=== PATIENT | male | born 1945 | race Two or more races ===

== ENCOUNTER 2020-06-15 08:00 | Outpatient (RCR) | payer MEDICARE, SELFPAY | END 2021-04-19 09:29 | disposition home or self-care (01) | LOC: HO.PTCHIC 08:00 | PROVIDERS: PCP Internal Medicine; Visit Provider Internal Medicine | DX: M54.42 Lumbago with sciatica, left side (principal) | CPT/HCPCS: 97014; 97110; 97140; 99214 ==

== ENCOUNTER → 2020-08-03 09:00 | Outpatient (BNVA) | payer MEDICARE, SELFPAY | PROVIDERS: PCP Internal Medicine; Visit Provider Urology | DX: Z13.89 Encounter for screening for other disorder (principal) | CPT/HCPCS: Q3014 ==

== ENCOUNTER → 2020-08-17 10:05 | Outpatient (BNVA) | payer MEDICARE, SELFPAY | PROVIDERS: PCP Internal Medicine; Visit Provider Urology | DX: Z13.89 Encounter for screening for other disorder (principal) | CPT/HCPCS: Q3014 ==

== ENCOUNTER 2020-09-27 12:43 | Outpatient (REF) | payer MEDICARE, SELFPAY ==
--- NOTE | ~2020-09-27 | CT_ITS ---
EXAMINATION: CT HIP WITHOUT CONTRAST, LEFT CLINICAL INFORMATION: Left hip pain. COMPARISON: None TECHNIQUE: Axial imaging. Sagittal and coronal reconstructions. This CT examination was performed using dose optimization techniques as appropriate, variously including the following: *Automated exposure control *Adjustment of mA and/or kV according to patient size (this includes techniques or standardized protocols for targeted exams where dose is matched to indication/reason for exam; i.e. extremities or head) *Use of iterative reconstruction technique DLP: 342 mGy-cm FINDINGS: Mild left hip arthritis. There is mild joint space loss, acetabular rim osteophytes, subchondral cysts in the superior acetabulum. No fracture or dislocation. Mild symphysis pubis degeneration. Visualized left pelvic bones are intact. No diastasis of the left SI joint. No significant left hip joint effusion is seen. Urinary bladder appears unremarkable. Enlarged prostate measuring 5.1 cm transverse. Sigmoid diverticulosis. No lymphadenopathy is seen in the left pelvis or left groin. CT/CT hip LT wo con IMPRESSION: Mild left hip joint osteoarthritis. No evidence of fracture or dislocation. Enlarged prostate. Sigmoid diverticulosis.
--- NOTE | ~2020-09-27 | CT_ITS ---
EXAMINATION: CT LUMBAR SPINE WITHOUT CONTRAST CLINICAL INFORMATION: Left hip pain and lumbago/sciatica. COMPARISON: None available. TECHNIQUE: Multidetector CT acquisition of the lumbar spine is obtained without contrast. Multiplanar reformats are acquired and utilized for image interpretation. This CT examination was performed using dose optimization techniques as appropriate, variously including the following: *Automated exposure control *Adjustment of mA and/or kV according to patient size (this includes techniques or standardized protocols for targeted exams where dose is matched to indication/reason for exam; i.e. extremities or head) *Use of iterative reconstruction technique FINDINGS: There are 5 nonrib-bearing lumbar-type vertebral bodies. Straightening of the lumbar lordosis. Multilevel endplate osteophytes. Chronic endplate Schmorl's nodes throughout the thoracolumbar spine. No acute fractures and no acute subluxations. Hypertrophic ankylosis across the SI joints bilaterally. Partially imaged colonic diverticulosis. Aortoiliac atherosclerotic calcification. L1-L2: Diffuse annular disc bulge that is in part disc osteophyte likely mildly narrows the central canal. Disc osteophyte and facet arthropathy result in suspected mild to moderate bilateral foraminal stenosis. L2-L3: Diffuse annular disc bulge that is in part disc osteophyte and bilateral facet arthropathy and ligamentum flavum thickening. Suspect mild to moderate central canal stenosis and mild to moderate bilateral foraminal stenosis. L3-L4: There is a diffuse annular disc bulge and there is bilateral facet arthropathy and ligamentum flavum thickening. On is in concert result in suspected mild to moderate central canal stenosis and moderate bilateral foraminal stenosis. L4-L5: Diffuse annular disc bulge and bilateral facet arthropathy and ligamentum flavum thickening. Findings in concert result in suspected moderate to severe central canal stenosis, severe bilateral subarticular zone stenosis with mass effect on the traversing L5 nerve roots bilaterally, and severe bilateral foraminal stenosis with mass effect on the exiting L4 nerve roots bilaterally. L5-S1: There is a diffuse annular disc bulge and there is severe bilateral facet arthropathy and ligamentum flavum thickening. Suspected left paracentral disc protrusion compressing the traversing left S1 nerve root within the left subarticular zone and resulting in moderate to severe central canal stenosis. Disc osteophyte and facet arthropathy result in left greater than right foraminal stenosis. CT/CT lumbar spine wo con IMPRESSION: - At L5-S1, a left paracentral disc protrusion results in suspected compression of the traversing left S1 nerve root within the left subarticular zone and moderate to severe central canal stenosis. - At L4-L5, multifactorial degenerative changes result in suspected moderate to severe central canal stenosis, severe bilateral subarticular zone stenosis with mass effect on the traversing L5 nerve roots bilaterally, and severe bilateral foraminal stenosis with mass effect on the exiting L4 nerve roots bilaterally. - Additional degenerative changes as discussed above. - Diffuse colonic diverticulosis.
== END 2020-09-27 12:44 | disposition home or self-care (01) ==
LOC: HO.CT 12:43
PROVIDERS: PCP Internal Medicine; Visit Provider Internal Medicine
DX: M25.552 Pain in left hip (principal); M54.42 Lumbago with sciatica, left side
CPT/HCPCS: 72131; 73700

== ENCOUNTER 2020-10-08 19:49 | Emergency (ER) | payer MEDICARE, SELFPAY ==
[2020-10-08 19:55] VITALS: BP 142/89; PULSE 78; RESP 16; TEMP 36.7; O2SAT 97; BMI 23.4
--- NOTE | 2020-10-08 20:05 | PC.NURSE ---
ambulatory with slow gait and slight limp .
--- NOTE | 2020-10-08 20:31 | ED_ITS ---
HPI - Back Pain/Injury General Chief Complaint: Back Pain/Injury Stated Complaint: BACK PAIN Time Seen by Provider: 10/08/20 20:02 Source: patient Mode of arrival: ambulatory Limitations: no limitations History of Present Illness HPI Narrative: 75 yo male with a past medical history of BPH, AFib on pradaxa, diabetes, GERD, hypertension here with complaints of acute on chronic low back pain. The patient tells me that he has had chronic back pain for years however worsening over the last 1-2 months due to shoveling some snow. The patient had a outpatient lumbar CT on September 27 which showed- -At L5-S1, a left paracentral disc protrusion results in suspected compression of the traversing left S1 nerve root within the left subarticular zone and moderate to severe central canal stenosis. - At L4-L5, multifactorial degenerative changes result in suspected moderate to severe central canal stenosis, severe bilateral subarticular zone stenosis with mass effect on the traversing L5 nerve roots bilaterally, and severe bilateral foraminal stenosis with mass effect on the exiting L4 nerve roots bilaterally. He was referred to [facility]. He told me he saw them in the office and they had trouble obtaining his images and so he was discharged home and has a follow-up appointment for them to see him and review his CT. He tells me he is taking Tylenol at home with continued pain. No new injury or trauma. Pain radiates down the left leg with some associated numbness and tingling down the posterior left leg. No saddle anesthesia. No bowel or bladder incontinence. No fevers or chills. The patient is ambulatory. He tells me that he lives with his at home. elicited complaint: back pain Related Data Home Medications Medication Instructions Recorded Confirmed amoxicillin 875 mg-potassium 1 tab PO BID 05/18/20 08/17/20 clavulanate 125 mg tablet atorvastatin 20 mg tablet 20 mg PO DAILY 05/18/20 08/17/20 chlorthalidone 25 mg tablet 25 mg PO DAILY 05/18/20 08/17/20 dabigatran etexilate 150 mg capsule 150 mg PO BID 05/18/20 08/17/20 meclizine 25 mg tablet mg PO 05/18/20 08/17/20 metformin 500 mg tablet mg PO 05/18/20 08/17/20 metronidazole 500 mg tablet 500 mg PO Q12H 05/18/20 08/17/20 tamsulosin 0.4 mg capsule 0.4 mg PO BEDTIME 05/18/20 08/17/20 Previous Rx's Medication Instructions Recorded sildenafil 100 mg tablet 100 mg PO DAILY PRN #10 tab 08/17/20 tamsulosin 0.4 mg capsule 0.4 mg PO BEDTIME 90 Days #90 cap 09/12/20 lidocaine [Lidoderm] 1 patch TOPICAL DAILY #15 ea 10/08/20 oxycodone 5 mg PO Q6H PRN #10 tab 10/08/20 Allergies Allergy/AdvReac Type Severity Reaction Status Date / Time No Known Allergies Allergy Mild NONE Verified 08/17/20 10:16 none Allergy Unknown none Uncoded 08/03/20 09:02 Review of Systems Review of Systems: Yes all other systems are reviewed and are negative Constitutional: Constitutional: Reports no additional constitutional complaints, Denies body ache(s), Denies chills, Denies fever(s), Denies headache(s) and Denies weakness Eyes: Eyes: Reports no additional eye complaints and Denies change in vision ENT: Reports system reviewed and no additional complaints, except as document ed, Denies dizziness, Denies headache(s), Denies nasal congestion, Denies nasal discharge and Denies neck pain Cardiovascular: Cardiovascular: Reports no additional cardiovascular complaints, Denies chest pain, Denies leg edema and Denies dyspnea Respiratory: Respiratory: Reports no additional respiratory complaints, Denies cough and Denies dyspnea Gastrointestinal: Gastrointestinal: Reports no additional gastrointestinal complaints, Denies abdominal pain, Denies diarrhea, Denies nausea and Denies vomiting Genitourinary: Genitourinary: Denies urinary incontinence Musculoskeletal: Musculoskeletal: Reports no additional musculoskeletal complaints, Reports back pain, Denies arthralgias, Denies joint swelling, Denies neck pain, Reports numbness and Reports tingling Integumentary/Breasts: Skin/Breast: Reports system reviewed and no additional complaints, except as docu and Denies rash Neurologic: Reports system reviewed and no additional complaints, except as documented, Denies Abnormal speech present, Denies dizziness, Denies headache(s), Reports numbness, Reports tingling and Denies weakness PMF Past Medical History Attestation statement: The following information was validated with the patient. Source: old records reviewed and nursing notes reviewed Medical History BPH with obstruction/lower urinary tract symptoms Diabetes mellitus Dizziness Erectile dysfunction GERD (gastroesophageal reflux disease) HTN (hypertension) PAF (paroxysmal atrial fibrillation) SSS (sick sinus syndrome) Surgical History History of cardioversion (~2012) Hx of colonoscopy Hx of inguinal hernia surgery Hx of umbilical hernia repair Family History Family History Father Alzheimer disease Mother No problems noted. Brother Diabetes Social History Social History Smoking Status: Never smoker Advance Directives: Yes Advance Directives Date on File: 09/11/19 Physical Exam Vital Signs: Vital Signs: Last Vital Signs Temp 97.8 F 10/08/20 21:17 Pulse 61 10/08/20 21:17 Resp 16 10/08/20 21:17 BP 151/72 H 10/08/20 21:17 Pulse Ox 98 10/08/20 21:17 Body Mass Index 23.4 Const: General: cooperative, healthy appearing, comfortable and no acute distress Orientation/consciousness: patient oriented x3 Limitations: no limitations HENMT: Head: Yes normal to inspection Ears: hearing grossly normal bilaterally General nose exam: Normal external nose present Face and sinus: Yes normal facial exam Mouth: Normal oral and palatal mucosa present Throat: Yes posterior oropharynx normal Eyes: General: appearance normal, both eyes and all related structures Pupils: Equal, round and reactive pupils present Neck: Neck: Yes normal visual inspection Chest: Chest palpation & inspection: normal inspection of the chest Resp: Effort & Inspection: normal respiratory effort Auscultation: clear to auscultation bilaterally Cardio: Rate: regular rate Rhythm: regular rhythm Peripheral pulses: Peripheral pulses 2+ throughout GI: Inspection: Yes normal to inspection Palpation (GI): Soft to palpation and nontender Auscultation: normal bowel sounds Back/Spine/Pelvis: Other: Tenderness over the lower lumbar spine with no step- offs or deformities. Tenderness over the left paraspinal lumbar region. Pain with flexion and extension of the lumbar spine. Thoracic/Lumbar Spine: thoracic and lumbar spine normal to inspection Skin: General skin exam: no rashes or lesions noted Neuro: General: patient oriented x3, no focal motor deficits and normal sensation to monofilament Cranial nerves: Yes Equal, round and reactive pupils present Cognition (Neuro): normal cognition Speech: No Abnormal speech present Gait exam (Neuro): Normal gait present Motor exam (neuro): 5/5 motor strength present throughout (Equal strength UE, LLE 4/5, RLE 5/5) Sensory Exam: Normal double simultaneous stimulation for sensation Deep tendon reflexes (DTR's): Right patellar reflex intensity grade: 2+ and Left patellar reflex intensity grade: 2+ Extrem: General: Yes normal to inspection Course Course Course Narrative: 75 yo male here with acute on chronic low back pain x 2 months unrelieved with home APAP. Radiates down left leg with intermittent numbness/ tingling down the posterior left leg. Had outpatient lumbar CT which showed L5-S1 disc protrussion with suspected compression of the left S1 nerve root with mod-severe central canal stenosis, L4-L5 degenerative changes with mod to severe central canal stenosis with mass effect on L5, L4 nerve roots. Per patient did see [facility] outpatient but difficulty with them obtaining images from [facility] [place] [facility]. Has f/u scheduled. On exam patient has some lumbar tenderness and lumbar soft tissue tenderness on the left side with mild weakness in the LLE but intact DTR/sensation and is ambulatory. No saddle anesthesia or incontinence concerning for cord compression/caude equina. Pt tells me he is here for pain management as tylenol is not working. Will give small dose oxycodone and re-assess. Tells me he lives with at home. Has had some difficultly with ambulating. Offered PT, STR, CM involvement. Declined by patient. 2200-Pain improving. Patient up and ambulating with steady gait. Plan for discharge home. Again offered CM involvement as they can send in VNA services or home PT but patient declined this. Reviewed worrisome signs and symptoms of when to return to the emergency department. Comfortable discharge home. Discharge Plan Discharge Clinical Impression: Herniated lumbar intervertebral disc Patient Disposition: Home, Self-Care Instructions: Acute Low Back Pain (ED) Additional Instructions: Heat or ice Gentle stretching Follow-up with [facility] Prescriptions: New lidocaine [Lidoderm] 5 % adhesive patch,medicated 1 patch topical DAILY Qty: 15 RF: 0 oxycodone 5 mg tablet 5 mg PO Q6H PRN (Reason: pain) Qty: 10 RF: 0 No Action tamsulosin 0.4 mg capsule 0.4 mg PO BEDTIME 90 Days Qty: 90 RF: 2 atorvastatin 20 mg tablet 20 mg PO DAILY RF: 0 metformin 500 mg tablet PO RF: 0 chlorthalidone 25 mg tablet 25 mg PO DAILY RF: 0 meclizine 25 mg tablet PO RF: 0 Pradaxa 150 mg capsule 150 mg PO BID RF: 0 metronidazole 500 mg tablet 500 mg PO Q12H RF: 0 amoxicillin-pot clavulanate 875-125 mg tablet 1 tab PO BID RF: 0 tamsulosin 0.4 mg capsule 0.4 mg PO BEDTIME RF: 0 sildenafil [Viagra] 100 mg tablet 100 mg PO DAILY PRN (Reason: sexual activity) Qty: 10 RF: 6 Referrals: Chidi Costa MD [Primary Care Provider] - 2 days Interventions: ED Discharge Assessment Last Done: 10/08/20 21:56 Discharge Date/Time: 10/08/20 22:15
[2020-10-08] MEDS: oxyCODONE HCl Immed Release 5 MG TABLET PO (20:40)
[2020-10-08] MEDS: Lidocaine 4 % Patch ADH..PATCH 1 PATCH TRANSDERMA (20:41)
[2020-10-08 21:17] VITALS: BP 151/72; PULSE 61; RESP 16; TEMP 36.6; O2SAT 98
== END 2020-10-08 22:15 | disposition home or self-care (01) ==
PROVIDERS: Emergency Provider Internal Medicine; PCP Internal Medicine
DX: M51.26 Other intervertebral disc displacement, lumbar region (principal); E11.9 Type 2 diabetes mellitus without complications; I10 Essential (primary) hypertension; K21.9 Gastro-esophageal reflux disease without esophagitis; I48.91 Unspecified atrial fibrillation; Z79.01 Long term (current) use of anticoagulants; Z79.899 Other long term (current) drug therapy
CPT/HCPCS: 99283; 99284

== ENCOUNTER 2020-10-12 08:00 | Outpatient (RCR) | payer MEDICARE, SELFPAY | END 2021-04-19 09:28 | disposition home or self-care (01) | LOC: HO.PTCHIC 08:00 | PROVIDERS: PCP Internal Medicine; Visit Provider Internal Medicine | DX: M54.41 Lumbago with sciatica, right side (principal) | CPT/HCPCS: 97014; 97110; 97140; 97161 ==

== ENCOUNTER 2020-10-13 11:02 | Outpatient (REF) | payer MEDICARE, SELFPAY ==
--- NOTE | ~2020-10-13 | MR_ITS ---
MR LUMBAR SPINE WITHOUT CONTRAST CLINICAL INFORMATION: Lumbar region radiculopathy. COMPARISON: Lumbar spine radiograph 04/14/2018. TECHNIQUE: MRI of the lumbar spine was obtained using routine sequences without contrast. FINDINGS: There are 5 nonrib-bearing lumbar-type vertebral bodies. Lumbar alignment is normal. There is mild disc volume loss there is disc desiccation at all lumbar levels. There is marrow edema along the upper endplate of L5 posteriorly on the left side where there is an upper endplate Schmorl's node. There are Modic type I endplate signal changes at T12-L1, L1-L2, L2-L3, L3-L4, and L5-S1. There are multilevel endplate osteophytes. Conus terminates at the L1 level. There are no significant soft tissue findings. There is scattered colonic diverticulosis. L1-L2: There is a diffuse annular disc bulge that is in part disc osteophyte and there is bilateral facet arthropathy. There is no central canal stenosis. There is mild foraminal encroachment bilaterally. L2-L3: There is a diffuse annular disc bulge and there is moderate bilateral facet arthropathy and ligamentum flavum thickening. Mild narrowing of the central canal. Mild to moderate bilateral foraminal stenosis. L3-L4: Diffuse annular bulge that is in part disc osteophyte and moderate bilateral facet arthropathy and ligamentum flavum thickening. There is no central canal stenosis. Moderate bilateral foraminal stenosis with mild mass effect on the exiting L3 nerve roots bilaterally. L4-L5: Diffuse annular disc bulge and severe bilateral facet arthropathy and ligamentum flavum thickening. Findings in concert result in moderate to severe central canal stenosis, severe bilateral subarticular zone stenosis with compression of the traversing L5 nerve roots bilaterally, as well as severe right and moderate to severe left foraminal stenosis with compression of the exiting right greater than left L4 nerve roots. L5-S1: Diffuse annular disc bulges in part disc osteophyte with a superimposed inferiorly migrating left paracentral disc extrusion and severe bilateral facet arthropathy and ligamentum flavum thickening. These findings in concert result in severe central canal stenosis and moderate to severe bilateral foraminal stenosis with mass effect on the exiting L5 nerve roots bilaterally. There is an inferiorly migrating left paracentral disc extrusion at this level contributing towards compression of the traversing left S1 nerve root within the left S1 lateral recess. MR/MR lumbar spine wo con IMPRESSION: - At L5-S1, advanced multifactorial degenerative changes result in severe central canal stenosis and moderate to severe bilateral foraminal stenosis with mass effect on the exiting L5 nerve roots bilaterally. There is an inferiorly migrating left paracentral disc extrusion at this level contributing towards compression of the traversing left S1 nerve root within the left S1 lateral recess. - At L4-L5, advanced multifactorial degenerative changes result in moderate to severe central canal stenosis, severe bilateral subarticular zone stenosis with compression of the traversing L5 nerve roots bilaterally, as well as severe right and moderate to severe left foraminal stenosis with compression of the exiting right greater than left L4 nerve roots. - At L3-L4, multifactorial degenerative changes result in moderate bilateral foraminal stenosis with mild mass effect on the exiting L3 nerve roots bilaterally. - There is marrow edema along the upper endplate of L5 posteriorly on the left side where there is an upper endplate Schmorl's node. There are Modic type I endplate signal changes at T12-L1, L1-L2, L2-L3, L3-L4, and L5-S1.
== END 2020-10-13 11:03 | disposition home or self-care (01) ==
LOC: HO.MRI 11:02
PROVIDERS: Visit Provider Internal Medicine
DX: M54.16 Radiculopathy, lumbar region (principal)
CPT/HCPCS: 72148

== ENCOUNTER 2020-11-30 15:51 | Outpatient (REF) | payer MEDICARE, SELFPAY ==
--- NOTE | ~2020-11-30 | US_ITS ---
EXAMINATION: US VENOUS ULTRASOUND WITH DOPPLER LOWER EXTREMITY, LEFT CLINICAL INFORMATION: Left leg pain COMPARISON: None TECHNIQUE: Ultrasound of the deep veins is performed from the hip to the calf with compression sonography and color and pulse Doppler assessment. Spectral analysis with color-flow imaging is performed. FINDINGS: There is normal venous compression and respiratory variation and augmented flow. The visualized common femoral vein, superficial femoral vein, profunda femoral vein, popliteal vein, and the trifurcation region shows no evidence of deep venous thrombosis. There is no significant popliteal fossa cyst. US/US venous duplex LE LT IMPRESSION: No DVT demonstrated in the left lower extremity.
== END 2020-11-30 15:52 | disposition home or self-care (01) ==
LOC: HO.US 15:51
PROVIDERS: PCP Internal Medicine; Visit Provider Internal Medicine
DX: M79.652 Pain in left thigh (principal); M79.662 Pain in left lower leg
CPT/HCPCS: 93971

== ENCOUNTER → 2020-12-19 13:24 | Outpatient (BNVA) | payer MEDICARE, SELFPAY | PROVIDERS: PCP Internal Medicine; Referring Provider Internal Medicine; Visit Provider Internal Medicine Cardiovascular Disease | DX: I48.0 Paroxysmal atrial fibrillation (principal); I49.5 Sick sinus syndrome | CPT/HCPCS: 93005; 99212 ==

== ENCOUNTER → 2021-01-31 09:56 | Outpatient (BNVA) | payer MEDICARE, SELFPAY | PROVIDERS: PCP Internal Medicine; Visit Provider Urology | DX: N40.1 Benign prostatic hyperplasia with lower urinary tract symptoms (principal); N13.8 Other obstructive and reflux uropathy; N52.9 Male erectile dysfunction, unspecified | CPT/HCPCS: 51798; 99212 ==

== ENCOUNTER → 2021-02-10 07:30 | Outpatient (REF) | payer MEDICARE, SELFPAY ==
--- NOTE | ~2021-02-10 | NM_ITS ---
Myocardial perfusion study Indication: Preoperative cardiovascular examination with multiple risk factors to evaluate for myocardial ischemia Technique: The patient was brought in for a Lexiscan perfusion study on 02/10/2021. Patient performed low-level exercise and was injected 0.4 mg of Lexiscan intravenously. Within a minute of injection, 25 mCi of sestamibi was given intravenously. Images were obtained using the SPECT gamma camera interlaced with the gating device. Images were obtained in supine position. Resting perfusion study was performed on 02/13/2021. Patient was administered 25 mCi of sestamibi intravenously at rest. Images were then obtained in supine position. Images obtained with and without CT attenuation. Total DLP 70 mGy-cm. Images were processed with the software and compared side to side in short axis, horizontal long axis and vertical long axis views. Findings: The stress perfusion study showed nonattenuated images show normal uptake of radiotracer in all segments of LV myocardium. Attenuation corrected images show mildly reduced uptake in the distal anterior, septal and apical wall of the LV myocardium.. The gated study shows normal LV systolic function with calculated LVEF of 57%. LV cavity is normal size. The gated study shows normal systolic wall thickening and contraction of segments. Resting study shows no change in perfusion pattern compared to stress perfusion study. Gating at rest reveals normal cyst colic wall motion with ejection fraction at greater than 55%. The findings are consistent with normal myocardial perfusion. NM/NM ric perf SPECT rest & str Impression: 1. Myocardial perfusion imaging study shows normal myocardial perfusion 2. Gated LVEF is 57% 3. Transient ischemic dilatation not present EKG is nondiagnostic for ischemia
--- NOTE | 2021-02-10 07:33 | CA_ITS ---
Acquisition Time: 2021-02-10 07:56:51 Total Exercise Time: 00:02:00 Test Indications: Abnormal ECG Medications: ATORVASTATIN CHLORTHALADONE MECLIZINE METFORMIN PRADAXA TAMSULOSIN Protocol: LEXISCAN Max HR: 090 BPM 62% of Pred: 145 BPM Max BP: 120/078 mmHG Max Work Load: 1.0 METS Pharmacological stress test with Lexiscan injection, while sitting and kicking his legs, without anginal symptoms, with isolated PACs and PVCs, with normotensive response to injection, with nondiagnostic EKG for ischemia. Nuclear images pending. Test reviewed with Dr Corbin. Referred By: Giorgi Bowman Overread By: ANDREZ JOYA
== END ==
LOC: HO.CARD 07:30
PROVIDERS: PCP Internal Medicine; Visit Provider Internal Medicine Cardiovascular Disease
DX: Z01.818 Encounter for other preprocedural examination (principal)
CPT/HCPCS: 78452; 93017; A9500; J0280; J2785

== ENCOUNTER → 2021-03-23 14:15 | Outpatient (BNVA) | payer MEDICARE, SELFPAY | PROVIDERS: PCP Internal Medicine; Visit Provider Surgery Vascular Surgery | DX: I83.12 Varicose veins of left lower extremity with inflammation (principal) | CPT/HCPCS: 99202 ==

== ENCOUNTER 2021-04-20 09:36 | Outpatient (REF) | payer MEDICARE, SELFPAY ==
--- NOTE | ~2021-04-20 | US_ITS ---
EXAMINATION: BILATERAL LOWER EXTREMITY VENOUS ULTRASOUND (Reflux Exam) CLINICAL INDICATION: This is a 75-year-old male with varicose veins and venous insufficiency. COMPARISON: None. TECHNIQUE: Color flow triplex imaging and compression Doppler was performed to evaluate both the deep and the superficial systems bilaterally. To evaluate the superficial system, the examination was performed in the upright position. Color-flow Doppler ultrasound and compression ultrasound were utilized. In addition, maneuvers were utilized to demonstrate reflux. FINDINGS: 1. DEEP VENOUS ULTRASOUND OF THE RIGHT LOWER EXTREMITY: Common Femoral Vein: Compressible, normal respiratory variation and augmented flow. Femoral vein: Compressible, normal color flow and augmentation. Popliteal Vein: Compressible, normal augmentation. Deep Reflux: There is no evidence of reflux in the deep system in either the common femoral vein or the popliteal vein. . There is no evidence of a Ybarra's cyst. 2. SUPERFICIAL ULTRASOUND WITH DOPPLER OF RIGHT LOWER EXTREMITY GREAT SAPHENOUS VEIN: Saphenofemoral junction: 0.3 cm Mid thigh: 0.1 cm Above knee: 0.1 cm Below knee: 0.2 cm Mid calf: 0.2 cm Ankle: 0.3 cm GSV REFLUX: No evidence of reflux. DUPLICATED GREAT SAPHENOUS VEIN: There is a 0.3 cm duplicated lateral great saphenous vein without reflux. SMALL SAPHENOUS VEIN: Upper: 0.3 cm. There is no reflux. Lower: 0.3 cm. There is reflux of 1556 ms. SSV REFLUX: There is no reflux at the junction. There is only isolated distal reflux. VEIN OF GIACOMINI: None Imaged. PERFORATORS: There are 0.3 and 0.7 cm calf perforators without reflux. VARICOSITIES: None Imaged 3. DEEP VENOUS ULTRASOUND OF THE LEFT LOWER EXTREMITY: Common Femoral Vein: Compressible, normal respiratory variation and augmented flow. Femoral vein: Compressible, normal color flow and augmentation. Popliteal Vein: Compressible, normal augmentation. Deep Reflux: There is no evidence of reflux in the deep system in either the common femoral vein or the popliteal vein. There is no evidence of a Ybarra's cyst. 4. SUPERFICIAL ULTRASOUND WITH DOPPLER OF LEFT LOWER EXTREMITY GREAT SAPHENOUS VEIN: Saphenofemoral junction: 0.4 cm. The reflux time is 2892 ms. Mid thigh: 0.2 cm. There is no reflux at this level and below. Above knee: 0.1 cm Below knee: 0.1 cm Mid calf: 0.1 cm Ankle: 0.2 cm GSV REFLUX: There is reflux at the saphenofemoral junction. DUPLICATED GREAT SAPHENOUS VEIN: There is a duplicated 0.2 cm medial great saphenous vein without reflux. SMALL SAPHENOUS VEIN: Upper: 0.3 cm Lower: 0.2 cm SSV REFLUX: No evidence of reflux. VEIN OF GIACOMINI: None Imaged. PERFORATORS: There is a 0.1 cm mid thigh product owner without reflux. VARICOSITIES: None Imaged US/US venous duplex LE BI IMPRESSION: 1. There is a patent right great saphenous vein without evidence of reflux. 2. There is a patent duplicated right lateral great saphenous vein without reflux. 3. There is a patent right small saphenous vein without evidence of junctional reflux. There is distal reflux. 4. There is a patent left great saphenous vein with reflux at the saphenofemoral junction. There is no distal reflux in the left great saphenous vein and the vessel becomes very small. 5. There is a patent left medial great saphenous vein without reflux. 6. There is a patent left small saphenous vein without evidence of reflux. 7. Varicose veins were not visualized.
== END 2021-04-20 09:37 | disposition home or self-care (01) ==
LOC: HO.US 09:36
PROVIDERS: PCP Internal Medicine; Visit Provider Surgery Vascular Surgery
DX: I83.893 Varicose veins of bilateral lower extremities with other complications (principal); I83.12 Varicose veins of left lower extremity with inflammation
CPT/HCPCS: 93970; 99212

== ENCOUNTER 2021-06-20 12:28 | Outpatient (REF) | payer MEDICARE, SELFPAY ==
[2021-06-20 13:56] LABS: Hematocrit 37.6 % (42.0-52.0); Hemoglobin 12.4 g/dl (14.0-18.0); Mean Corpuscular Hemoglobin 28.2 pg (27.0-33.0); Mean Corpuscular Volume 85.5 fL (80.0-98.0); Mean Platelet Volume 10.4 fL (9.4-12.4); Platelet Count 166 X10*3/uL (160-400); Red Cell Distribution Width 13.8 % (11.0-16.0); White Blood Count 5.7 X10*3/uL (4.8-10.8)
[2021-06-20 14:22] LABS: Anion Gap 13 (12-20); Blood Urea Nitrogen 19 mg/dL (9-16); Calcium 9.4 mg/dL (8.4-10.2); Carbon Dioxide 27 mmol/L (22-29); Chloride 103 mmol/L (96-108); Estimated Glomerular Filt Rate > 60; Glucose Random 140 mg/dL (60-115); Potassium 3.6 mmol/L (3.3-5.1); Sodium 139 mmol/L (135-145)
[2021-06-20 14:41] LABS: PSA,Total (Free>4and<10) 1.56 ng/mL (0.00-4.00)
== END 2021-06-20 12:29 | disposition home or self-care (01) ==
LOC: HO.LAB 12:28
PROVIDERS: Urology; PCP Internal Medicine; Referring Provider Internal Medicine; Visit Provider Internal Medicine Cardiovascular Disease
DX: Z12.5 Encounter for screening for malignant neoplasm of prostate (principal); I48.0 Paroxysmal atrial fibrillation; I49.5 Sick sinus syndrome; R60.0 Localized edema; N13.8 Other obstructive and reflux uropathy; N40.1 Benign prostatic hyperplasia with lower urinary tract symptoms
CPT/HCPCS: 36415; 80048; 84153; 85027; 99212

== ENCOUNTER → 2021-07-19 12:26 | Outpatient (REF) | payer MEDICARE, SELFPAY ==
--- NOTE | 2021-07-19 12:30 | CA_ITS ---
Transthoracic Echocardiogram Amended Patient (Last, First, Middle): Bernice Atkins, Gender: Male Date of : 1945 Age: 76 Procedure Date: 07/19/2021 Procedure Type: Transthoracic Echocardiogram Location: OP Height: 167.64 cm Weight: 67.59 kg BSA: 1.76 m2 Heart Rate: bpm BP: 128 / 80 mmHg Pipeline Controller: AHSAN Referring MD: Giorgi Bowman MD Center Human Resources Manager: Giorgi Bowman MD Symptoms: I48.0 - Paroxysmal atrial fibrillation Study Quality: Good ECG Rhythm: Sinus Conclusions: - 1. Normal LV systolic function with impaired relaxation filling pattern 2. Mild aortic and mitral regurgitation 3. Normal RV systolic pressure 4. No pericardial effusion Findings Left Ventricle Normal left ventricular size, thickness, and systolic function. The visually estimated ejection fraction is between 55-60%. Spectral Doppler is indicative of an impaired relaxation filling pattern. E/E prime ratio is between 8 and 15 consistent with indeterminate filling pressures. Right Ventricle Normal right ventricular cavity size and systolic function. Atria Both atria are normal in size. There is an interatrial septal aneurysm seen bowing to the right. There is no evidence of interatrial shunt. Aortic Valve There is mild thickening of the aortic valve. There is no aortic valve stenosis. There is mild aortic valve regurgitation. Mitral Valve There is mild anterior and posterior mitral leaflet thickening. There is mild mitral valve regurgitation. There is no mitral valve stenosis. Pulmonic Valve The pulmonic valve was not well visualized. Tricuspid Valve Likely normal tricuspid valve structure and function. There is trace tricuspid valve regurgitation. The right ventricular systolic pressure is normal. The right ventricular systolic pressure is 20 mmHg. Normal right atrial pressure. There is no evidence of pulmonary hypertension. Great Vessels All visible segments of the aorta are normal in size. The pulmonary artery was not well visualized. Venous The inferior vena cava is normal in size and collapses greater than 50% with inspiration. Pericardium/Pleural There is no evidence of pericardial effusion. Prior Study Comparison No significant change compared to prior study dated: 04/20/2020. Measurements 2D Linear Measurements IVSd: 1.07 0.6-0.9/0.6-1.0 cm LVIDd: 4.10 3.9-5.3/4.2-5.9 cm LVIDd Index: 2.33 2.4-3.2/2.2-3.1 cm/m2 LVIDs: 2.27 2.0-3.6 cm LVPWd: 0.91 0.7-1.1 cm Ao Root: 3.70 2.1-3.5 cm LA Diam: 3.10 2.7-3.8/3.0-4.0 cm LAIDs Index: 1.76 1.5-2.3 cm/m2 LV Mass: 161.95 67-162/88-224 g LV Mass Index: 92.02 43-95/49-115 g/m2 LVOT Diam: 2.00 3.0+(-)1.3 cm 2D Volumes LA Vol: 27.60 2D Systolic Function EF 4C: 58.80 >55% EF 2C: 57.00 >55% EF BiP: 58.30 >55% Mitral Valve MV Pk E: 0.51 MV PK A: 0.66 MV Decel Time: 246.00 E/A: 0.80 E'Lateral: 7.18 E'Medial: 5.66 E/E' Med: 9.10 E/E' Lat: 7.20 PHT: 72.00 MVA PHT: 3.[address]: 2.09 Aortic Valve AoV Pk Jacoby: 1.27 AoV Mn Jacoby: 0.82 AoV VTI: 0.26 AoV Pk Grad: 6.00 Aov Mn Grad: 3.00 BHAVIK Cont.VTI: 2.16 AI Pk Jacoby: 4.[address] [facility]: 1.67 LVOT LVOT Pk Jacoby: 0.80 LVOT Mn Jacoby: 0.52 LVOT VTI: 0.18 LVOT Pk Grad: 3.00 LVOT Mn Grad: 1.00 LVOT Diam: 2.00 LVOT Area: 3.14 Diastolic Function MV Pk E: 0.51 MV Pk A: 0.66 E/A: 0.80 E'Medial: 5.66 E/E' Med: 9.10 E' Laterial: 7.18 E/E' Lat: 7.20 Right Ventricle TAPSE (mm): 2.07 TVS' Jacoby: 10.70 Tricuspid Valve TR Pk Jacoby: 2.04 TR Pk Grad: 17.00 RA Press: 3.00 RVSP: 20.00 Great Vessels Aorta Ao Root-2D: 3.70 2.0-3.7 cm Ao Asc: 3.70 2.1-3.4 cm Ao Arch: 2.50 Updated in Other Vendor System with Status of Final Giorgi Bowman MD electronically signed on 07/20/2021 4:15:31 PM with status of Final
== END ==
LOC: HO.CARD 12:26
PROVIDERS: PCP Internal Medicine; Visit Provider Internal Medicine Cardiovascular Disease
DX: I48.0 Paroxysmal atrial fibrillation (principal)
CPT/HCPCS: 93306

== ENCOUNTER → 2021-12-21 08:03 | Outpatient (BNVA) | payer MEDICARE, SELFPAY | PROVIDERS: PCP Internal Medicine; Referring Provider Internal Medicine; Visit Provider Internal Medicine Cardiovascular Disease | DX: I48.0 Paroxysmal atrial fibrillation (principal); I49.5 Sick sinus syndrome | CPT/HCPCS: 93005; 99212 ==

== ENCOUNTER → 2022-01-10 13:30 | Outpatient (BNVA) | payer MEDICARE, SELFPAY | PROVIDERS: PCP Internal Medicine; Visit Provider Urology | DX: N40.1 Benign prostatic hyperplasia with lower urinary tract symptoms (principal); N13.8 Other obstructive and reflux uropathy; N52.9 Male erectile dysfunction, unspecified | CPT/HCPCS: 51798; 99212 ==

== ENCOUNTER 2022-03-02 08:09 | Outpatient (REF) | payer MEDICARE, SELFPAY ==
--- NOTE | ~2022-03-02 | US_ITS ---
EXAMINATION: US EXTRACRANIAL CAROTID DUPLEX, BILATERAL CLINICAL INFORMATION: Dizziness and giddiness COMPARISON: Carotid ultrasound on 04/03/2018 TECHNIQUE: Real-time ultrasound and Doppler techniques (integrating B-mode 2-D vascular images, Doppler spectral analysis and color-flow Doppler imaging) were utilized to interrogate the extracranial carotid arteries, the vertebral arteries and proximal subclavian arteries bilaterally. The degree of stenosis is determined by criteria similar to NASCET. FINDINGS: Right Side: 1. There is mild atherosclerotic plaque seen in the bifurcation/proximal ICA region. 2. The common carotid artery PSV proximally is 80 cm/s and distally 70 cm/s. 3. The proximal internal carotid artery velocities are 40 cm/s systolic and 14 cm/s diastolic. 4. The proximal external carotid artery PSV is 57 cm/s. 5. The vertebral artery shows antegrade flow. 6. The subclavian artery waveforms are normal. Left Side: 1. There is mild atherosclerotic plaque seen in the bifurcation/proximal ICA region. 2. The common carotid artery PSV proximally is 86 cm/s and distally 79 cm/s. 3. The proximal internal carotid artery velocities are 64 cm/s systolic and 15 cm/s diastolic. 4. The proximal external carotid artery PSV is 62 cm/s. 5. The vertebral artery shows antegrade flow. 6. The subclavian artery waveforms are normal. US/US carotid duplex BI IMPRESSION: 1. RIGHT: Minimal, non-hemodynamically significant stenosis of the proximal right internal carotid artery corresponding to a 0-49% stenosis by velocity criteria. 2. LEFT: Minimal, non-hemodynamically significant stenosis of the proximal left internal carotid artery corresponding to a 0-49% stenosis by velocity criteria.
== END 2022-03-02 08:10 | disposition home or self-care (01) ==
LOC: HO.HMGCX 08:09
PROVIDERS: Visit Provider Internal Medicine
DX: R42 Dizziness and giddiness (principal); E11.9 Type 2 diabetes mellitus without complications; I10 Essential (primary) hypertension; I48.0 Paroxysmal atrial fibrillation
CPT/HCPCS: 93880

== ENCOUNTER 2022-07-26 08:50 | Emergency (ER) | payer MEDICARE, SELFPAY ==
--- NOTE | ~2022-07-26 | CT_ITS ---
EXAMINATION: CT ABDOMEN AND PELVIS WITHOUT CONTRAST CLINICAL INFORMATION: Abdominal pain COMPARISON: CT abdomen and pelvis 02/07/2020 TECHNIQUE: Multidetector volumetric imaging was performed from the superior aspect of the liver through the pubic symphysis. Sagittal and coronal reformatted images were obtained on the technologist's workstation. This CT examination was performed using dose optimization techniques as appropriate, variously including the following: *Automated exposure control *Adjustment of mA and/or kV according to patient size (this includes techniques or standardized protocols for targeted exams where dose is matched to indication/reason for exam; i.e. extremities or head) *Use of iterative reconstruction technique DLP: 342 mGy-cm FINDINGS: LUNG BASES: Again noted is elevation of the left hemidiaphragm and some mild bibasilar atelectasis. LIVER, GALLBLADDER, AND BILIARY TREE: The liver is normal in size, shape, and attenuation. No focal hepatic lesion or biliary ductal dilatation is present. The gallbladder is unremarkable with no evidence of radiopaque gallstones, gallbladder wall thickening, or obvious pericholecystic inflammatory changes. PANCREAS: Unremarkable. SPLEEN: Unremarkable. ADRENAL GLANDS: Unremarkable. KIDNEYS AND URETERS: The kidneys are normal in size, shape, and attenuation. No hydronephrosis, hydroureter, or calculi seen. No perinephric stranding. BLADDER: Symmetric bladder wall thickening GASTROINTESTINAL TRACT: Again seen is marked colonic diverticulosis without diverticulitis. The small and large bowel are unremarkable. The appendix is unremarkable. ABDOMINAL WALL: No significant hernia is appreciated. LYMPH NODES: Normal. VASCULAR: Unremarkable. PELVIC VISCERA: Mild BPH with normal-appearing seminal vesicles. OSSEOUS STRUCTURES: Moderate to marked degenerative changes are noted throughout the spine. CT/CT abdomen pelvis wo IV con IMPRESSION: 1. A cause for the patient's abdominal pain has not been found. 2. Incidental note made of chronic elevation of the left hemidiaphragm, colonic diverticulosis without diverticulitis, mild BPH and degenerative changes in the spine. Fleischner guidelines were followed.
[2022-07-26 09:03] VITALS: BP 87/61; PULSE 111; RESP 20; TEMP 36.6; O2SAT 96; BMI 23.3
--- NOTE | 2022-07-26 09:09 | ECG_ITS ---
Test Reason : WEAKNESS Blood Pressure : / mmHG Vent. Rate : 120 BPM Atrial Rate : 000 BPM P-R Int : 000 ms QRS Dur : 100 ms QT Int : 252 ms P-R-T Axes : 000 020 009 degrees QTc Int : 356 ms Atrial fibrillation with rapid ventricular response Abnormal ECG When compared with ECG of 07-FEB-2020 11:36, Atrial fibrillation has replaced Sinus rhythm Vent. rate has increased BY 68 BPM Referred By: Mellissa Warner Electronically Signed By:John Sanchez
--- NOTE | 2022-07-26 09:09 | ED_ITS ---
HPI - General Adult General Chief complaint: General Medical Stated complaint: not feeling well, dizzy, abd pain Time Seen by Provider: 07/26/22 09:09 Source: patient and family (patient's grandson) Mode of arrival: ambulatory Limitations: no limitations History of Present Illness HPI narrative: Patient is a 77 year old assigned male at with a history of atrial fibrillation on anti-coagulation medication, HTN, diabetes, and GERD presenting to the emergency department today with cough, congestion, abdominal pain, and body aches. Patient states that over the last week he has had a cough, conge stion, and body aches. Patient states that he has also had some upper abdominal pain. Patient denies any dizziness, lightheadedness, nausea, vomiting, fever, chills, blurry vision, double vision, loss of vision, chest pain, difficulty breathing, shortness of breath, back pain, night sweats, pain with urination, increased urinary frequency, increased urinary urgency, blood in his urine or stool, syncope or a near syncopal episode, recent trauma or falls, bowel incontinence, bladder incontinence, bowel retention, bladder retention, or any other complaints at this time. Onset (ago): week(s) (1) Severity: mild Severity scale (1-10): 3 Relieving factors: none Exacerbating factors: none Associated symptoms: cough Treatments prior to arrival: none Related Data Home Medications Medication Instructions Recorded Confirmed atorvastatin 20 mg tablet 20 mg PO DAILY 05/18/20 01/10/22 metformin 500 mg tablet mg PO 05/18/20 01/10/22 metronidazole 500 mg tablet 500 mg PO Q12H 05/18/20 01/10/22 meclizine 25 mg tablet 25 mg PO 12/19/20 01/10/22 alcohol swabs 1 pad topical TID 01/31/21 01/10/22 blood sugar diagnostic #10 ea 01/31/21 01/10/22 lidocaine 5 % topical ointment topical BID PRN 01/31/21 01/10/22 lorazepam 1 mg tablet 1 mg PO BID 01/31/21 01/10/22 melatonin 5 mg tablet 10 mg PO BEDTIME 01/31/21 01/10/22 topiramate 25 mg tablet 25 mg PO BID 01/31/21 01/10/22 blood pressure test kit-large #1 stew 03/23/21 01/10/22 losartan 25 mg tablet 25 mg PO DAILY 03/23/21 01/10/22 chlorthalidone 25 mg tablet 25 mg PO DAILY 06/20/21 01/10/22 dabigatran etexilate 150 mg capsule 150 mg PO BID 06/20/21 01/10/22 Previous Rx's Medication Instructions Recorded lidocaine 5 % topical patch 1 patch topical DAILY #15 ea 10/08/20 (Lidoderm) oxycodone 5 mg tablet 5 mg PO Q6H PRN pain #10 tabs 10/08/20 sildenafil 100 mg tablet (Viagra) 100 mg PO ONCE PRN sexual activity 01/10/22 30 days #30 tabs tamsulosin 0.4 mg capsule 0.4 mg PO BEDTIME 90 days #90 caps 01/10/22 Allergies Allergy/AdvReac Type Severity Reaction Status Date / Time No Known Allergies Allergy Mild NONE Verified 01/10/22 12:20 none Allergy Unknown none Uncoded 01/10/22 12:20 Review of Systems Constitutional: Constitutional: Reports no additional constitutional complaints, Reports body ache(s), Denies chills, Denies fever(s) and Denies night sweats Eyes: Eyes: Reports no additional eye complaints, Denies blurry vision, Denies change in vision, Denies diplopia, Denies eye discharge, Denies loss of vision and Denies eye pain ENT: Denies dizziness Cardiovascular: Cardiovascular: Reports no additional cardiovascular complaints, Denies chest pain, Denies lightheadedness, Denies Loss of Consciousness and Denies dyspnea Respiratory: Respiratory: Reports no additional respiratory complaints, Report s cough and Denies dyspnea Gastrointestinal: Gastrointestinal: Reports no additional gastrointestinal complaints, Reports abdominal pain, Denies melena, Denies hematochezia, Denies change in bowel habits and Denies change in stool character Genitourinary: Genitourinary: Reports no additional male genitourinary complaints, Denies hematuria, Denies oliguria, Denies difficulty urinating, Jae es dysuria, Denies urinary frequency, Denies urinary hesitancy, Denies urinary incontinence and Denies urinary urgency Musculoskeletal: Musculoskeletal: Reports no additional musculoskeletal complaints, Denies numbness and Denies tingling Neurologic: Denies dizziness, Denies loss of vision, Denies numbness and Jae es tingling Psychiatric: Psychiatric: Reports no additional psychiatric complaints Endocrine: Endocrine: Reports no additional endocrine complaints Hematologic/Lymphatic: Hematologic/Lymphatic: Reports no additional hematologic/lymphatic complaints Allergic/Immunologic: Allergic/Immunologic: Reports no additional allergic/immunologic complaints PMFSH Past Medical History Attestation statement: The following information was validated with the patient. Source: old records reviewed, obtained from family (patient's grandson) and nursing notes reviewed Medical History BPH with obstruction/lower urinary tract symptoms Diabetes mellitus Dizziness Erectile dysfunction GERD (gastroesophageal reflux disease) HTN (hypertension) PAF (paroxysmal atrial fibrillation) Pre-operative cardiovascular examination SSS (sick sinus syndrome) Surgical History History of cardioversion (~2012) Hx of colonoscopy Hx of inguinal hernia surgery Hx of umbilical hernia repair Family History Family History Father Alzheimer disease Mother No problems noted. Brother Diabetes Social History Social History Smoked in Last 30 Days: No Use of substances other than those prescribed or required for medical reasons: No Advance Directives: Yes Advance Directives on File: Yes Advance Directives Date on File: 09/11/19 Physical Exam ED Vital Signs: Vital Signs - 24 hr 07/26/22 09:03 07/26/22 09:21 07/26/22 10:12 Temperature 97.8 F 98.5 F Pulse Rate 111 H 140 H 135 H Respiratory Rate 20 19 18 Blood Pressure 87/61 L 114/58 L 101/64 Pulse Oximetry 96 96 Oxygen Delivery Method Room Air Room Air 07/26/22 10:31 07/26/22 11:44 Temperature 98.4 F Pulse Rate 126 H 61 Respiratory Rate 19 Blood Pressure 98/64 127/60 Pulse Oximetry 98 99 Oxygen Delivery Method Room Air Room Air BMI result Body Mass Index 23.3 Const General: cooperative, no acute distress, alert and awake Nutritional Appearance: well nourished Orientation/consciousness: patient oriented x3 Limitations: no limitations HENMT Head: Yes normal to inspection and Yes atraumatic Ears: hearing grossly normal bilaterally and external ears normal General nose exam: Normal external nose present, no nasal discharge noted and no epistaxis Face and sinus: Yes normal facial exam, No abrasion and No laceration Mouth: Normal oral and palatal mucosa present, no drooling and no muffled voice Eyes General: appearance normal, both eyes and all related structures Periorbital: periorbital findings normal Eyelids: Yes eyelids normal Conjunctivae: conjunctivae normal Pupils: Equal, round and reactive pupils present EOM: EOMs intact bilaterally Neck Neck: Yes normal visual inspection, Yes full ROM and Yes no lymphadenopathy Chest Chest palpation & inspection: normal inspection of the chest Resp Effort & Inspection: normal respiratory effort and able to speak in complete sentences Auscultation: clear to auscultation bilaterally Cardio Rate: tachycardic Rhythm: abnormal rhythm irregularly irregular GI Inspection: Yes normal to inspection Palpation (GI): Soft to palpation, not firm, nontender, no guarding and not rigid Neuro General: patient oriented x3 and moves all extremities Cranial nerves: Yes Equal, round and reactive pupils present Cognition (Neuro): normal cognition Motor exam (neuro): 5/5 motor strength present throughout Sensory Exam: Normal double simultaneous stimulation for sensation Coordination: [id number] test normal Extrem General: Yes normal to inspection, Yes full ROM and Yes capillary refill normal Psych Appearance: grossly normal Mental Status: mental status grossly normal Affect: normal affect Attitude: cooperative Thought process: Normal thought process present Thought content: Normal thought content present Insight: Good insight present (Psych) Medications Administered Discontinued Medications Generic Name Dose Route Start Last Admin Trade Name Freq PRN Reason Stop Dose Admin Digoxin 0.25 mg 07/26/22 09:52 07/26/22 10:07 Digoxin 0.5 Mg/2 Ml Ampul IVPUSH 07/26/22 09:53 0.25 mg ONCE ONE Administration Digoxin 0.25 mg 07/26/22 10:39 07/26/22 11:03 Digoxin 0.5 Mg/2 Ml Ampul IVPUSH 07/26/22 10:40 0.25 mg ONCE ONE Administration Sodium Chloride 1,973.13 mls @ 1,973.13 mls/hr 07/26/22 09:20 07/26/22 10:08 Ns 30 ml/kg infuse over 1 hr (1973.13 ml) 07/26/22 10:19 1,973.13 mls/hr IV Administration .Q1H STA Medical Decision Making Medical Decision Making MDM Narrative: Patient is a 77 year old assigned male at with a history of atrial fibr illation on anti-coagulation medication, HTN, diabetes, and GERD presenting to the emergency department today with cough, congestion, and body aches. Patient's physical exam showed atrial fibrillation with rapid ventricular response. Patient's blood work showed an elevated lactic acid at 2.1 but was otherwise unremarkable. Patient's urine showed no acute process. Patient's EKG showed atrial fibrillation with RVR. Patient's abdominal CT showed no acute process. Patient was given IV fluids and IV Digoxin which decreased his heart rate back into normal range of 60-80bpm. Patient's influenza swab was positive. I explained my physical exam findings as well as all test results to the patient and the patient's grandson. I answered all questions asked by the patient and the patient's grandson. I stressed the importance of the patient taking his medication as prescribed. I stressed the importance of the patient following up with his primary care provider. I stressed the importance of the patient returning to the emergency department immediately if his symptoms were to worsen or if he were to develop any dizziness, shortness of breath, difficulty breathing, chest pain, blurry vision, loss of vision, nausea, vomiting, abdominal pain, fever, chills, back pain, or any other complaints. Patient and the patient's grandson verbalized agreement and understanding with this treatment plan and discharge. Case was reviewed with my attending physician, Dr. Alvarado who agreed with the treatment and disposition of this patient. Differential Diagnosis Differential Diagnoses: The differential diagnosis associated with the presentation includes influenza Lab Data MDM Lab Attestation statement: I reviewed the patient's lab results. Result Diagrams: 07/26/22 10:03 07/26/22 10:02 Labs: Lab Results 07/26/22 07/26/22 07/26/22 Range/Units 10:02 10:02 10:02 WBC (4.8-10.8) X10*3/uL RBC (4.60-5.80) X10*6/uL Hgb (14.0-18.0) g/dl Hct (42.0-52.0) % MCV (80.0-98.0) fL MCH (27.0-33.0) pg MCHC (31.0-36.0) g/dl RDW (11.0-16.0) % Plt Count (160-400) X10*3/uL MPV (9.4-12.4) fL Immature Gran % (Auto) (0.0-0.4) % Neut % (Auto) (45-73) % Lymph % (Auto) (20-40) % [place] % (Auto) (2-11) % Eos % (Auto) (0-4) % Baso % (Auto) (0-2) % Lymph # (Auto) (1.2-4.9) X10*3/uL [place] # (Auto) (0.1-1.2) X10*3/uL Eos # (Auto) (0.0-0.4) X10*3/uL Baso # (Auto) (0.0-0.2) X10*3/uL Abs Immat Gran (auto) (0.00-0.03) X10*3/uL Absolute Neuts (auto) (2.0-8.3) x10*3/uL Absolute Nucleated RBC (0.0-0.012) X10*3/uL Nucleated RBC % (auto) (0.0-0.2) /100WBC Sodium 138 (135-145) mmol/L Potassium 5.0 D (3.3-5.1) mmol/L Chloride 102 (96-108) mmol/L Carbon Dioxide 32 H (22-29) mmol/L Anion Gap 9 L (12-20) BUN 23 H (9-16) mg/dL Creatinine 1.01 (0.5-1.4) mg/dL Estim Creat Clear Calc 55.2 Estimated GFR > 60 Random Glucose 118 H (60-115) mg/dL Lactic Acid (0.5-2.0) mmol/L Calcium 10.3 H D (8.4-10.2) mg/dL Magnesium 1.8 (1.6-2.6) mg/dL Total Bilirubin 0.4 (0.0-1.0) mg/dL AST 19 (5-37) U/L ALT 23 (0-40) U/L Alkaline Phosphatase 36 L (39-117) U/L Troponin I High Sens 4.3 (<3.5-35.0) ng/L Total Protein 6.9 (6.5-8.0) g/dL Albumin 4.0 (3.5-5.0) g/dL Urine Color Urine Appearance Urine pH (5.0-9.0) Ur Specific [place] (1.005-1.025) Urine Protein (Neg-Trace) mg/dL Urine Glucose (UA) (Negative) mg/dL Urine Ketones (Negative) mg/dL Urine Blood (Negative) Urine Nitrite (Negative) Ur Leukocyte Esterase (Negative) Influenza Type A (PCR) POSITIVE A (Negative) Influenza Type B (PCR) NEGATIVE (Negative) RSV RNA Qual (PCR) NEGATIVE (Negative) SARS-CoV-2 RNA (RT-PCR) NEGATIVE (Negative) 07/26/22 07/26/22 07/26/22 Range/Units 10:02 10:03 12:05 WBC 5.1 (4.8-10.8) X10*3/uL RBC 4.67 (4.60-5.80) X10*6/uL Hgb 12.9 L (14.0-18.0) g/dl Hct 40.2 L (42.0-52.0) % MCV 86.1 (80.0-98.0) fL MCH 27.6 (27.0-33.0) pg MCHC 32.1 (31.0-36.0) g/dl RDW 13.6 (11.0-16.0) % Plt Count 204 (160-400) X10*3/uL MPV 10.0 (9.4-12.4) fL Immature Gran % (Auto) 0.6 H (0.0-0.4) % Neut % (Auto) 70.0 (45-73) % Lymph % (Auto) 15.0 L (20-40) % [place] % (Auto) 11.9 H (2-11) % Eos % (Auto) 1.9 (0-4) % Baso % (Auto) 0.6 (0-2) % Lymph # (Auto) 0.8 L (1.2-4.9) X10*3/uL [place] # (Auto) 0.6 (0.1-1.2) X10*3/uL Eos # (Auto) 0.1 (0.0-0.4) X10*3/uL Baso # (Auto) 0.0 (0.0-0.2) X10*3/uL Abs Immat Gran (auto) 0.03 (0.00-0.03) X10*3/uL Absolute Neuts (auto) 3.6 (2.0-8.3) x10*3/uL Absolute Nucleated RBC 0.000 (0.0-0.012) X10*3/uL Nucleated RBC % (auto) 0.0 (0.0-0.2) /100WBC Sodium (135-145) mmol/L Potassium (3.3-5.1) mmol/L Chloride (96-108) mmol/L Carbon Dioxide (22-29) mmol/L Anion Gap (12-20) BUN (9-16) mg/dL Creatinine (0.5-1.4) mg/dL Estim Creat Clear Calc Estimated GFR Random Glucose (60-115) mg/dL Lactic Acid 2.1 H* (0.5-2.0) mmol/L Calcium (8.4-10.2) mg/dL Magnesium (1.6-2.6) mg/dL Total Bilirubin (0.0-1.0) mg/dL AST (5-37) U/L ALT (0-40) U/L Alkaline Phosphatase (39-117) U/L Troponin I High Sens (<3.5-35.0) ng/L Total Protein (6.5-8.0) g/dL Albumin (3.5-5.0) g/dL Urine Color Yellow Urine Appearance Clear Urine pH 7.0 (5.0-9.0) Ur Specific [place] 1.010 (1.005-1.025) Urine Protein Negative (Neg-Trace) mg/dL Urine Glucose (UA) Negative (Negative) mg/dL Urine Ketones Negative (Negative) mg/dL Urine Blood Negative (Negative) Urine Nitrite Negative (Negative) Ur Leukocyte Esterase Negative (Negative) Influenza Type A (PCR) (Negative) Influenza Type B (PCR) (Negative) RSV RNA Qual (PCR) (Negative) SARS-CoV-2 RNA (RT-PCR) (Negative) Independent Interpretation I performed an independent interpretation of an: EKG Interpretation: Vent. Rate: 120 BPM ? ? Atrial Rate: 000 BPM P-R Int: 000 ms? QRS Dur: 100 ms QT Int: 252 ms ? ? ? P-R-T Axes: 000 020 009 degrees QTc Int: 356 ms ? Atrial fibrillation with rapid ventricular response Abnormal ECG When compared with ECG of 07-FEB-2020 11:36, Atrial fibrillation has replaced Sinus rhythm Vent. rate has increased BY? 68 BPM DD/ 0927 Radiology Impression Discussion of test interpretation with radiology: I have reviewed the radiologist's reading. Radiologist Impression: EXAMINATION: CT ABDOMEN AND PELVIS WITHOUT CONTRAST? CLINICAL INFORMATION: Abdominal pain? COMPARISON: CT abdomen and pelvis 02/07/2020? TECHNIQUE: Multidetector volumetric imaging was performed from the superior aspect of the liver through the pubic symphysis. Sagittal and coronal reformatted images were obtained on the technologist's workstation.? This CT examination was performed using dose optimization techniques as appropriate, variously including the following: *Automated exposure control *Adjustment of mA and/or kV according to patient size (this includes techniques or standardized protocols for targeted exams where dose is matched to indication/reason for exam; i.e. extremities or head) *Use of iterative reconstruction technique DLP: 342 mGy-cm FINDINGS: LUNG BASES: Again noted is elevation of the left hemidiaphragm and some mild bibasilar atelectasis.? LIVER, GALLBLADDER, AND BILIARY TREE: The liver is normal in size, shape, and attenuation. No focal hepatic lesion or biliary ductal dilatation is present. The gallbladder is unremarkable with no evidence of radiopaque gallstones, gallbladder wall thickening, or obvious pericholecystic inflammatory changes.? PANCREAS: Unremarkable.? SPLEEN: Unremarkable.? ADRENAL GLANDS: Unremarkable.? KIDNEYS AND URETERS: The kidneys are normal in size, shape, and attenuation. No hydronephrosis, hydroureter, or calculi seen. No perinephric stranding. ? BLADDER: Symmetric bladder wall thickening? GASTROINTESTINAL TRACT: Again seen is marked colonic diverticulosis without diverticulitis. The small and large bowel are unremarkable. The appendix is unremarkable.? ABDOMINAL WALL: No significant hernia is appreciated.? LYMPH NODES: Normal. VASCULAR: Unremarkable. PELVIC VISCERA: Mild BPH with normal-appearing seminal vesicles.? OSSEOUS STRUCTURES: Moderate to marked degenerative changes are noted throughout the spine.? CT/CT abdomen pelvis wo IV con IMPRESSION: 1.? A cause for the patient's abdominal pain has not been found. 2.? Incidental note made of chronic elevation of the left hemidiaphragm, colonic diverticulosis without diverticulitis, mild BPH and degenerative changes in the spine. ? Fleischner guidelines were followed. Dictated By: Manjit Lugo MD Signed By: Electronically signed by Manjit Lugo MD 07/26/22 1019 Independent Historian Clinical information obtained from an independent historian. History obtained from or confirmed by: Other (grandson) Discharge Plan Discharge Clinical Impression: Acute dehydration, Influenza Patient Disposition: Home, Self-Care Additional Instructions: Drink plenty of fluids. Follow up with your primary care provider. Return to the emergency department immediately if your symptoms worsen or if you develop any dizziness, shortness of breath, difficulty breathing, chest pain, blurry vision, loss of vision, nausea, vomiting, abdominal pain, fever, chills, back pain, or any other complaints. Prescriptions: No Action lidocaine [Lidoderm] 5 % adhesive patch,medicated 1 patch topical DAILY Qty: 15 0RF Rx Instructions: leave on most painful area for up to 12 hrs oxycodone 5 mg tablet 5 mg PO Q6H PRN (Reason: pain) Qty: 10 0RF losartan 25 mg tablet 25 mg PO DAILY (DME) blood pressure test kit-large Kit See Rx Instructions .ROUTE DIRECTED Qty: 1 Rx Instructions: As directed atorvastatin 20 mg tablet 20 mg PO DAILY metformin 500 mg tablet PO metronidazole 500 mg tablet 500 mg PO Q12H meclizine 25 mg tablet 25 mg PO dabigatran etexilate 150 mg capsule 150 mg PO BID chlorthalidone 25 mg tablet 25 mg PO DAILY lorazepam 1 mg tablet 1 mg PO BID topiramate 25 mg tablet 25 mg PO BID lidocaine 5 % ointment topical BID PRN melatonin 5 mg tablet 10 mg PO BEDTIME alcohol swabs Pads, Medicated 1 pad topical TID (DME) FreeStyle Lite Strips Strip See Rx Instructions Not Applicable TID Qty: 10 Rx Instructions: As directed tamsulosin 0.4 mg capsule 0.4 mg PO BEDTIME 90 Days Qty: 90 3RF sildenafil [Viagra] 100 mg tablet 100 mg PO ONCE PRN (Reason: sexual activity) 30 Days Qty: 30 1RF Rx Instructions: administer 30 minutes to 4 hours before activity on empty stomach Referrals: BoothChidi Potts MD [Primary Care Provider] - Stand Alone Forms: Work/School Release Interventions: ED Discharge Assessment Last Done: 07/26/22 12:29 Discharge Date/Time: 07/26/22 12:30 Print Language: Nigerien
[2022-07-26 09:21] VITALS: BP 114/58; PULSE 140; RESP 19; TEMP 36.9; O2SAT 96
[2022-07-26] MEDS: Digoxin 0.5 MG/2 ML AMPUL 0.25 MG IVPUSH ×2 (10:07→11:03)
[2022-07-26] MEDS: 0.9 % Sodium Chloride 1,973.13 ML 1973.13 ML IV (10:08)
[2022-07-26 10:10] LABS: MANUAL DIFF FLAG NO
[2022-07-26 10:12] VITALS: BP 101/64; PULSE 135; RESP 18
[2022-07-26 10:12] LABS: Basophils Percent Auto 0.6 % (0-2); Eosinophils Absolute Auto 0.1 X10*3/uL (0.0-0.4); Eosinophils Percent Auto 1.9 % (0-4); Hematocrit 40.2 % (42.0-52.0); Hemoglobin 12.9 g/dl (14.0-18.0); Imm Gran Abs Auto 0.03 X10*3/uL (0.00-0.03); Imm Gran Pct Auto 0.6 % (0.0-0.4); Lymphocytes Absolute Auto 0.8 X10*3/uL (1.2-4.9); Mean Corpuscular HGB Conc 32.1 g/dl (31.0-36.0); Mean Corpuscular Hemoglobin 27.6 pg (27.0-33.0); Mean Corpuscular Volume 86.1 fL (80.0-98.0); Monocytes Absolute Auto 0.6 X10*3/uL (0.1-1.2); Monocytes Percent Auto 11.9 % (2-11); Neutrophils Absolute Auto 3.6 x10*3/uL (2.0-8.3); Platelet Count 204 X10*3/uL (160-400); Red Blood Count 4.67 X10*6/uL (4.60-5.80); Red Cell Distribution Width 13.6 % (11.0-16.0); White Blood Count 5.1 X10*3/uL (4.8-10.8)
--- NOTE | 2022-07-26 10:15 | PC.NURSE ---
pt is alert and oriented, skin appropriate for ethnicity, respirations even and unlabored, pt reports that on and off he this epigastric /left sided chest pain that comes and goes and sometimes feels dizzy but not currently. pt reports feeling generaly weak, a-fib on the monitor ranging from 140-120's
--- OUTSIDE RECORDS SUMMARY | 2022-07-26 10:19 | XMS_ITS | Continuity of Care Document ---
:1945 Author Organization [address], [address] [place] [address]- Care Team Providers Name Role Phone Julissa PUENTES, Chidi Cherry Primary Care Physician Encounter [facility] [place] Date(s): 04/12/21 - 05/12/[address], [address] [place], [place] [address] Attending Physician: Wilfredo Rangel Admitting Physician: Wilfredo Rangel Referring Physician: AdmtrWilfredo Allergies, Adverse Reactions, Alerts Substance Reaction Severity Status NKA Active Medications Acetaminophen 0 Refills, Maintenance, 12/28/20 11:08:00 EDT, Partial fill upon patient request if the prescriptionis for a schedule II opioid drug. Start Date: 12/28/20 Status: OrderedAlbuterol (Eqv-ProAir HFA) Inhalation, Every 6 hours, 0 Refills, Maintenance, 12/28/20 11:07:00 EDT, Partial fill upon patient request if the prescription is for a schedule II opioid drug. Start Date: 12/28/20 Status: Orderedamlodipine 10 mg oral tablet 1 tablet = 10 mg, By Mouth, Daily, 0 Refills, Maintenance, 12/17/13 8:51:12 Start Date: 12/17/13 Status: Orderedatorvastatin 20 mg oral tablet 1 tablet = 20 mg, By Mouth, Daily, 0 Refills, Maintenance, 12/28/20 11:07:00 EDT, Partial fill upon patient request if the prescription is for a schedule II opioid drug. Start Date: 12/28/20 Status: OrderedChlorthalidone By Mouth, Daily, 0 Refills, Maintenance, 12/28/20 11:08:00 EDT, Partial fill upon patient request ifthe prescription is for a schedule II opioid drug. Start Date: 12/28/20 Status: OrderedLidocaine IV Infusion, Once, 0 Refills, Maintenance, 12/28/20 11:08:00 EDT, Partial fill upon patient request if the prescription is for a schedule II opioid drug. Start Date: 12/28/20 Status: OrderedMeclizine By Mouth, 3 times a day, 0 Refills, Maintenance, 12/28/20 11:08:00 EDT, Partial fill upon patient request if the prescription is for a schedule II opioid drug. Start Date: 12/28/20 Status: OrderedMelatonin Daily at bedtime, 0 Refills, Maintenance, 12/28/20 11:08:00 EDT, Partial fill upon patient request if the prescription is for a schedule II opioid drug. Start Date: 12/28/20 Status: OrderedMetformin By Mouth, 0 Refills, Maintenance, 12/28/20 11:07:00 EDT, Partial fill upon patient request if the prescription is for a schedule II opioid drug. Start Date: 12/28/20 Status: Orderedomeprazole 20 mg oral enteric coated capsule 1 capsule = 20 mg, By Mouth, Daily, 0 Refills, Maintenance, 12/17/13 8:50:40 Start Date: 12/17/13 Status: OrderedPradaxa By Mouth, 0 Refills, Maintenance, 12/28/20 11:07:00 EDT, Partial fill upon patient request if the prescription is for a schedule II opioid drug. Start Date: 12/28/20 Status: OrderedPradaxa 150 mg oral capsule 1 capsule = 150 mg, By Mouth, 2 times a day, 0 Refills, Maintenance, 12/17/13 8:49:50, Capsule Start Date: 12/17/13 Status: OrderedTamsulosin 0.4 mg, By Mouth, Daily, Refills 0, Maintenance, 12/28/20 11:07:00 EDT, Partial fill upon patient request if the prescription is for a schedule II opioid drug. Start Date: 12/28/20 Status: OrderedTopamax 25 mg oral tablet 1 tablet = 25 mg, By Mouth, 2 times a day, 0 Refills, Maintenance, 12/28/20 11:07:00 EDT, Partial fill upon patient request if the prescription is for a schedule II opioid drug. Start Date: 12/28/20 Status: OrderedVentolin 90 mcg Inhaler Inhalation, Every 6 hours, Refills 0, Maintenance, 12/28/20 11:07:00 EDT Start Date: 12/28/20 Status: Ordered Problem List Condition Effective Dates Status Health Status Informant History of hyperlipidemia(Confirmed) Active
--- OUTSIDE RECORDS SUMMARY | 2022-07-26 10:19 | XMS_ITS | Continuity of Care Document ---
:1945 Author Organization [facility] Address [address] [place] [address], [address] [place] [address]- Care Team Providers Name Role Phone Julissa PUENTES, Chidi Cherry Primary Care Phys[place] [facility] [place] - 01/04/[address], [address] [place] [address]- Attending Physician: Tien Serna MD Referring Physician: Chidi Costa MD Allergies, Adverse Reactions, Alerts Substance Reaction Severity [...] Health Status Informant History of hyperlipidemia(Confirmed) Active Vital Signs Most recent to oldest [Reference Range]: 1 Height 168 cm (12/28/20 11:03 AM) Weight 65.8 kg (12/28/20 11:03 AM) Body Mass Index [18.5-24.99] 23.31 (12/28/20 11:03 AM)
--- OUTSIDE RECORDS SUMMARY | 2022-07-26 10:19 | XMS_ITS | Continuity of Care Document ---
:1945 Author Organization [address], [address] [place] [address]- Care Team Providers Name Role Phone Julissa PUENTES, Chidi Cherry Primary Care Physician [phone] Encounter [facility] [place] Date(s): 01/04/21 - 01/11/[address], [address] [place], [place] [address] Attending Physician: Tine Serna MD Referring Physician: Chidi Costa MD [...] oldest [Reference Range]: 1 Height 168 cm (01/04/21 9:48 AM) Weight 65.8 kg (01/04/21 9:48 AM) Body Mass Index [18.5-24.99] 23.31 (01/04/21 9:48 AM)
--- OUTSIDE RECORDS SUMMARY | 2022-07-26 10:20 | XMS_ITS | Continuity of Care Document ---
:1945 Author Organization [facility] Address [address] [place] [address], [address] [place] [address]- Care Team Providers Name Role Phone Julissa PUENTES, Chidi Cherry Primary Care Physician [place] [facility] [place] Date(s): 01/12/21 - 05/12/[address], [address] [place], [place] [address] Attending Physician: Tien Serna MD Referring Physician: [...]
--- OUTSIDE RECORDS SUMMARY | 2022-07-26 10:20 | XMS_ITS | Continuity of Care Document ---
:1945 Author Organization [facility] Address [address] [place] [address], [address] [place] [address]- Care Team Providers Name Role Phone Julissa PUENTES, Chidi Cherry Primary Care Physician Encounter [facility] [place] Date(s): 01/17/21 - 02/16/[address], [address] [place], [place] [address] Allergies, Adverse Reactions, Alerts Substance Reaction Severity [...]
--- OUTSIDE RECORDS SUMMARY | 2022-07-26 10:20 | XMS_ITS | Continuity of Care Document ---
:1945 Author Organization [facility] Address [address] [place] [address]- Care Team Providers Name Role Phone Julissa PUENTES, Chidi Cherry Primary Care Physician [phone] Encounter [facility] [place] Date(s): 01/04/21 - 02/16/[address] [address] Attending Physician: Tien Serna MD Admitting Physician: Tien Serna MD Allergies, Adverse Reactions, Alerts Substance Reaction [...]
--- OUTSIDE RECORDS SUMMARY | 2022-07-26 10:20 | XMS_ITS | Continuity of Care Document ---
:1945 Author Organization [facility] Address [address] [place] [address], [address] [place] [address]- Care Team Providers Name Role Phone Julissa PUENTES, Chidi Cherry Primary Care Physician Encounter [facility] [place] Date(s): 12/14/20 - 01/13/[address], [address] [place], [place] [address] Allergies, Adverse Reactions, Alerts Substance Reaction Severity [...]
[2022-07-26 10:31] VITALS: BP 98/64; PULSE 126; O2SAT 98
[2022-07-26 10:39] LABS: Alanine Aminotransferase 23 U/L (0-40); Alkaline Phosphatase 36 U/L (39-117); Anion Gap 9 (12-20); Aspartate Amino Transferase 19 U/L (5-37); Blood Urea Nitrogen 23 mg/dL (9-16); Calcium 10.3 mg/dL (8.4-10.2); Carbon Dioxide 32 mmol/L (22-29); Chloride 102 mmol/L (96-108); Creatinine Clr Calc Pharmacy 55.2; Estimated Glomerular Filt Rate > 60; Glucose Random 118 mg/dL (60-115); Magnesium 1.8 mg/dL (1.6-2.6); Sodium 138 mmol/L (135-145); Total Protein 6.9 g/dL (6.5-8.0)
[2022-07-26 10:40] LABS: Lactic Acid 2.1 mmol/L (0.5-2.0)
[2022-07-26 10:54] LABS: Influenza A PCR POSITIVE (Negative); Influenza B PCR NEGATIVE (Negative); Resp Syncy Virus RNA Qual PCR NEGATIVE (Negative); SARS COV2 PCR INHOUSE NEGATIVE (Negative)
[2022-07-26 11:03] LABS: Troponin-I High Sensitivity 4.3 ng/L (<3.5-35.0)
[2022-07-26 11:44] VITALS: BP 127/60; PULSE 61; RESP 19; TEMP 36.9; O2SAT 99
[2022-07-26 12:07] LABS: Reflex Lactate? Lactic Acid Added
[2022-07-26 12:19] LABS: Bilirubin Total 0.4 mg/dL (0.0-1.0)
[2022-07-26 12:25] LABS: Appearance Urine Clear; Color Urine Yellow; Glucose Urine UA Negative (Negative); Leukocyte Esterase Urine Negative (Negative); Nitrite Urine Negative (Negative); Urine Blood Negative (Negative); Urine Ketones Negative (Negative); Urine Protein Negative (Neg-Trace)
== END 2022-07-26 12:30 | disposition home or self-care (01) ==
PROVIDERS: Physician Assistant Medical; Emergency Provider Emergency Medicine Emergency Medical Services; PCP Internal Medicine
DX: J11.1 Influenza due to unidentified influenza virus with other respiratory manifestations (principal); E86.0 Dehydration; R00.0 Tachycardia, unspecified; Z20.822 Contact with and (suspected) exposure to COVID-19; E11.9 Type 2 diabetes mellitus without complications; I10 Essential (primary) hypertension; I48.20 Chronic atrial fibrillation, unspecified; K21.9 Gastro-esophageal reflux disease without esophagitis; Z79.01 Long term (current) use of anticoagulants; Z79.02 Long term (current) use of antithrombotics/antiplatelets; Z79.899 Other long term (current) drug therapy; Z79.84 Long term (current) use of oral hypoglycemic drugs
CPT/HCPCS: 0241U; 36415; 74176; 80053; 81003; 83605; 83735; 84484; 85025; 87040; 93005; 96374; 96376; 99285; J1160

== ENCOUNTER → 2023-01-10 08:02 | Outpatient (BNVA) | payer MEDICARE, SELFPAY | PROVIDERS: PCP Internal Medicine; Referring Provider Internal Medicine; Visit Provider Internal Medicine Cardiovascular Disease | DX: I48.0 Paroxysmal atrial fibrillation (principal); I49.5 Sick sinus syndrome; I10 Essential (primary) hypertension; Z79.01 Long term (current) use of anticoagulants | CPT/HCPCS: 93005; 99212 ==

== ENCOUNTER 2023-02-13 08:41 | Outpatient (AMB) | payer MEDICARE, SELFPAY ==
--- NOTE | 2023-02-13 09:08 | HO.SPINEOV ---
Intake Intake Visit Reasons: Low back pain. Intake Note: Mr. Atkins is here today c/o left low back pain radiating into left leg. [place] [facility] [place] [facility] Receiving Clerk Required: No Allergies No Known Allergies Allergy (Mild, Verified 01/10/22 12:20) NONE none Allergy (Unknown, Uncoded 01/10/22 12:20) none Assessment & Plan Assessment & Plan (1) Lumbar stenosis with neurogenic claudication: Code(s): M48.062 - Spinal stenosis, lumbar region with neurogenic claudication Plan Dear colleague Thank you for referring Mr. Atkins to the office today with a chief complaint of left leg pain. HPI: This 77-year-old male is suffering from severe left back pain and leg pain for several years. He saw a neurosurgeon in the past, we recommended a decompression of L4-5 and L5-S1 but quoted him a 50% success rate and therefore he left that practice. He has been dealing with the pain. He still works as a juan. He had several corticosteroid injections without effect. He describes the pain starting at the left side of his back and radiating to there left knee into his lower leg. The pain is associated with cramps and numbness of his foot. Standing makes the pain worse. He also wakes up at night from the pain. He comes for 2nd opinion PMH: AFib, which was converted, diabetes type 2, hypercholesterolemia, hypertension Social history: . Nonsmoker Medications: At Avastin, chlorthalidone, losartan, metformin, Pradaxa, tamsulosin Allergies: NKDA Physical Exam: Pleasant male. He stands in a flexed position. He walks with an antalgic gait and a limp of his left leg. Straight leg raise is positive. Motor exam is 5/5 throughout. There is diffuse numbness of his left foot. There is pain on palpation over the left side of his back. Radiological Studies: MRI done at [facility] in 2020 shows moderate to severe spinal stenosis L4-5 and L5-S1 with a left-sided disc herniation at L5-S1 compressing the L4, L5 and S1 nerve roots on the left side. Impression/Plan: This 77-year-old male is suffering from persistent severe left lumbar radiculopathy caused by L4-5 and L5-S1 spinal stenosis with a superimposed disc herniation L5-S1 on the left side. His last MRI is from 2020 and therefore we need to repeat the MRI before we consider surgery. I did discuss the surgical option would be a left L4-5 and L5-S1 hemilaminotomy with a L5-S1 diskectomy. We will be able to do that in a minimally invasive way and get him out of the hospital the same day. Success rate should be around 80% he was much more pleased with the proposed surgery and possible outcome and therefore he will most likely undergo a procedure if the MRI still shows the abnormalities seen in 2020. He will see is primary care physician next week. He needs to stop his Pradaxa before surgery. Thank you for allowing me to participate in your patients care. total time spent was 50 minutes in counseling ,coordination of plan, personal review of imaging, surgical decision making and subsequent plan Pedro Young MD, PhD Spine Fellowship Trained Neurosurgeon Director, [facility] Orders: Orders MR lumbar spine wo con Today M48.062 - Spinal stenosis, lumbar region with neurogenic claudication Coding Level of Care Code New Pt Level 4 (08035) Diagnoses Lumbar stenosis with neurogenic claudication M48.062
== END 2023-02-13 09:43 | disposition home or self-care (01) ==
PROVIDERS: PCP Internal Medicine; Referring Provider Internal Medicine Cardiovascular Disease; Visit Provider Neurological Surgery
DX: M48.062 Spinal stenosis, lumbar region with neurogenic claudication (principal)
CPT/HCPCS: 99204

== ENCOUNTER → 2023-02-13 08:41 | Outpatient (BNVA) | payer MEDICARE, SELFPAY | PROVIDERS: PCP Internal Medicine; Visit Provider Neurological Surgery | DX: M48.062 Spinal stenosis, lumbar region with neurogenic claudication (principal) | CPT/HCPCS: 99202 ==

== ENCOUNTER 2023-05-17 17:37 | Outpatient (REF) | payer MEDICARE, SELFPAY ==
--- NOTE | ~2023-05-17 | MR_ITS ---
EXAMINATION: MR LUMBAR SPINE WITHOUT CONTRAST CLINICAL INFORMATION: Number stenosis, neurogenic claudication COMPARISON: Right lumbar spine 10/13/2020 TECHNIQUE: MRI of the lumbar spine was obtained using routine sequences without contrast. FINDINGS: Mild lumbar levocurvature. Straightening of the normal lumbar lordosis. Trace retrolisthesis at L3-L4. Vertebral body heights are maintained. There is no suspicious osseous lesion. Redemonstrated diffuse disc desiccation and multilevel mild to moderate disc height loss, most pronounced at L1-L2. Multilevel degenerative endplate Schmorl's nodes with type I and II Modic endplate change. Multilevel ventral disc osteophytes. Level by level detail as follows: L1-L2: Annular disc bulge with redemonstrated left foraminal/lateral disc protrusion. Mild bilateral facet arthrosis. Stable mild spinal canal and mild left greater than right neural foraminal encroachment. L2-L3: Disc osteophyte complex eccentric to the right and mild bilateral facet arthrosis. Stable mild to moderate spinal canal and subarticular zone narrowing abutting the traversing bilateral L3 nerve roots. Stable mild bilateral neural foraminal stenosis with possible contact along the extraforaminal L2 nerve roots. L3-L4: Annular disc bulge/disc osteophyte complex with redemonstrated superimposed right foraminal disc protrusion and mild bilateral facet arthrosis. Stable mild spinal canal and subarticular zone narrowing with abutment of the traversing L4 nerve roots. Unchanged mild to moderate bilateral neural foraminal stenosis with mild mass effect upon the exiting L3 nerve roots. L4-L5: Disc osteophyte complex and moderate bilateral facet arthrosis with ligamentum flavum thickening. Stable moderate spinal canal and severe subarticular zone narrowing impinging upon the traversing L5 nerve roots. Unchanged moderate bilateral neural foraminal stenosis with mass effect along the exiting L4 nerve roots. L5-S1: Annular disc bulge with interval resorption of previous inferiorly migrated left subarticular disc extrusion and decreased mass effect along the traversing left S1 nerve root. Moderate bilateral facet arthrosis and ligamentum flavum thickening. Persistent moderate to severe spinal canal stenosis and severe subarticular zone narrowing with mass effect along the traversing bilateral S1 nerve roots. Unchanged moderate bilateral neural foraminal stenosis with mass effect along the exiting left greater than right L5 nerve roots. The conus medullaris terminates at the level of L1-L2. The distal spinal cord is normal in appearance. . No epidural fluid collection, hematoma, or mass. Increased mild fatty atrophy of the paraspinal musculature. Distended urinary bladder and prostatomegaly which can be correlated clinically for bladder outlet obstruction. Colonic diverticulosis. The abdominal aorta is of normal contour and caliber. MR/MR lumbar spine wo con IMPRESSION: 1. At L5-S1, interval resorption of a previous inferiorly migrated left subarticular disc extrusion with decreased mass effect along the traversing left S1 nerve root. Multifactorial degenerative changes result in persistent moderate to severe spinal canal stenosis and severe subarticular zone narrowing with mass effect along the traversing bilateral S1 nerve roots. Unchanged moderate bilateral neural foraminal stenosis at this level with mass effect along the exiting left greater than right L5 nerve roots. 2. At L4-L5, stable moderate spinal canal stenosis, severe subarticular zone narrowing impinging upon the traversing L5 nerve roots, and moderate bilateral neural foraminal stenosis with mass effect along the exiting L4 nerve roots. 3. Additional lumbar spondylosis as above. 4. Distended urinary bladder and prostatomegaly which can be correlated clinically for bladder outlet obstruction.
== END 2023-05-17 17:38 | disposition home or self-care (01) ==
LOC: HO.MRI 17:37
PROVIDERS: PCP Internal Medicine; Visit Provider Neurological Surgery
DX: M48.062 Spinal stenosis, lumbar region with neurogenic claudication (principal)
CPT/HCPCS: 72148

== ENCOUNTER → 2023-07-24 14:16 | Outpatient (BNV) | payer MEDICARE, SELFPAY | PROVIDERS: PCP Internal Medicine; Visit Provider Internal Medicine Cardiovascular Disease | DX: I49.1 Atrial premature depolarization (principal) | CPT/HCPCS: 93010 ==

== ENCOUNTER 2023-08-08 08:21 | Day surgery (SDC) | payer MEDICARE, SELFPAY ==
--- NOTE | 2023-07-24 | ECG_ITS ---
Test Reason : pre op Blood Pressure : / mmHG Vent. Rate : 051 BPM Atrial Rate : 051 BPM P-R Int : 150 ms QRS Dur : 094 ms QT Int : 426 ms P-R-T Axes : 056 014 015 degrees QTc Int : 392 ms Sinus bradycardia with Premature atrial complexes Otherwise normal ECG When compared with ECG of 26-JUL-2022 09:27, Sinus rhythm has replaced Atrial fibrillation Vent. rate has decreased BY 69 BPM Referred By: Mandi Headley Electronically Signed By:SP NELSON MD
[2023-07-24 13:19] VITALS: BP 119/68; PULSE 57; RESP 16; O2SAT 97; BMI 24.4
--- NOTE | 2023-07-24 13:47 | HO.ANESPROP2 ---
Documented by User: Mandi Headley NP 08/07/23 12:18 HPI - Anesthesia Eval Consult details Narrative: 78yo M for L4-5,L5-S1 Micro Lumbar decompression, 08/08/23 Follows [facility] for PAF (pradaxa) and SSS/eleuterio (no indication for pacing). Last office visit 01/2023, stable and OK for 1 year routine f/u. Cardiology ok'd holding pradaxa preop. No recent illness No CP/SOB with raking, works in [employer] - only checks if symptomatic GERD PAF - pradaxa SSS/bady - asymptomatic PMFSH Active Problems Active Problems: All Active Problems (Updated 07/24/23 @ 13:17 by Ольга Qureshi, MADHU) Lumbar stenosis with neurogenic claudication (Acute) Varicose veins of left lower extremity with inflammation (Acute) Back pain (Acute) Erectile dysfunction (Acute) BPH with obstruction/lower urinary tract symptoms (Acute) Dizziness (Acute) PAF (paroxysmal atrial fibrillation) (Acute) SSS (sick sinus syndrome) (Acute) Diabetes mellitus (Acute) GERD (gastroesophageal reflux disease) (Acute) HTN (hypertension) (Acute) Past Medical History Medical History Hiatal hernia History of transesophageal echocardiography (JANNA) Pre-operative cardiovascular examination Erectile dysfunction BPH with obstruction/lower urinary tract symptoms Dizziness PAF (paroxysmal atrial fibrillation) SSS (sick sinus syndrome) Diabetes mellitus GERD (gastroesophageal reflux disease) HTN (hypertension) Family History Family History Father Alzheimer disease Mother No problems noted. Brother Diabetes Family history of problems with anesthesia: No Surgical History Surgical History Hx of esophagogastroduodenoscopy History of cardioversion (~2012) Hx of colonoscopy Hx of umbilical hernia repair Hx of inguinal hernia surgery History of Problems with Anesthesia: No Social History Social History Are you a primary healthcare receptionist to a significant other at home: No Do you presently have visiting nurse or other home services: No Comment: aware of trip hazard Patient Tobacco Use Status: Never used Tobacco Advance Directives Date on File: 09/11/19 Meds Allergies Allergy/AdvReac Type Severity Reaction Status Date / Time No Known Allergies Allergy Mild NONE Verified 07/24/23 13:19 Home Medications Medication Instructions Recorded Confirmed Last Taken Type atorvastatin 20 mg tablet 20 mg PO DAILY 05/18/20 08/08/23 Unknown History metformin 500 mg tablet 500 mg PO BID 05/18/20 08/08/23 Unknown History metronidazole 500 mg tablet 500 mg PO Q12H 05/18/20 08/08/23 Unknown History meclizine 25 mg tablet 25 mg PO BEDTIME PRN Vertigo 12/19/20 08/08/23 Unknown History alcohol swabs 1 pad topical TID 01/31/21 08/08/23 Unknown History blood sugar diagnostic #10 ea 01/31/21 08/08/23 Unknown History lidocaine 5 % topical ointment 1 appl topical BID PRN Pain 01/31/21 08/08/23 Unknown History lorazepam 1 mg tablet 1 mg PO BID 01/31/21 08/08/23 Unknown History melatonin 5 mg tablet 10 mg PO BEDTIME 01/31/21 08/08/23 Unknown History topiramate 25 mg tablet 25 mg PO BID 01/31/21 08/08/23 Unknown History blood pressure test kit-large #1 ea 03/23/21 08/08/23 Unknown History losartan 25 mg tablet 25 mg PO DAILY 03/23/21 08/08/23 Unknown History chlorthalidone 25 mg tablet 25 mg PO DAILY 06/20/21 08/08/23 Unknown History dabigatran etexilate 150 mg capsule 150 mg PO BID 06/20/21 08/08/23 Unknown History acetaminophen 500 mg tablet 500 mg PO Q6H PRN Pain 07/24/23 08/08/23 Unknown History Exam Height,Weight and Vital Signs: Height 5 ft 6 in Weight 68.6 kg Last Vital Signs Pulse 57 07/24/23 13:19 Resp 16 07/24/23 13:19 BP 119/68 07/24/23 13:19 Pulse Ox 97 07/24/23 13:19 O2 Del Method Room Air 07/24/23 13:19 Pertinent Lab Results Pertinent Lab Results: Lab Results 07/24/23 Range/Units 14:19 WBC 4.8 (4.8-10.8) X10*3/uL RBC 4.69 (4.60-5.80) X10*6/uL Hgb 13.1 L (14.0-18.0) g/dl Hct 40.9 L (42.0-52.0) % MCV 87.2 (80.0-98.0) fL MCH 27.9 (27.0-33.0) pg MCHC 32.0 (31.0-36.0) g/dl RDW 14.3 (11.0-16.0) % Plt Count 145 L D (160-400) X10*3/uL MPV 11.4 (9.4-12.4) fL Absolute Nucleated RBC 0.000 (0.0-0.012) X10*3/uL Nucleated RBC % (auto) 0.0 (0.0-0.2) /100WBC Sodium 140 (135-145) mmol/L Potassium 4.3 (3.3-5.1) mmol/L Chloride 105 (96-108) mmol/L Carbon Dioxide 28 (22-29) mmol/L Anion Gap 11 L (12-20) BUN 16 (9-16) mg/dL Creatinine 1.05 (0.5-1.4) mg/dL Estim Creat Clear Calc 52.3 Estimated GFR > 60 Random Glucose 115 (60-115) mg/dL Estimat Average Glucose 154 mg/dL Hemoglobin A1c % 7.0 H (<6.0) % Calcium 9.9 (8.4-10.2) mg/dL Narrative Narrative: EKG 07/2023 Vent. Rate : 051 BPM Atrial Rate : 051 BPM P-R Int : 150 ms QRS Dur : 094 ms QT Int : 426 ms P-R-T Axes : 056 014 015 degrees QTc Int : 392 ms Sinus bradycardia with Premature atrial complexes Otherwise normal ECG When compared with ECG of 26-JUL-2022 09:27, Sinus rhythm has replaced Atrial fibrillation Vent. rate has decreased BY 69 BPM Airway Mallampati Class: II TM Dist: >3cm Neck ROM: Full Denture: Upper Loose/Missing/Broken Teeth: Yes (Missing lower) Heart: RRR Lungs: CTAB Assessment and Plan Assessment Anesthesia Assessment: Anesthesia Plan Discussed and PAT Visit Final Anesthetic Review Family History of Problems with Anesthesia: No History of Problems with Anesthesia: No Documented by User: Damian Krueger MD 08/08/23 14:58 [facility] Past Medical History Medical History Hiatal hernia History of transesophageal echocardiography (JANNA) Pre-operative cardiovascular examination Erectile dysfunction BPH with obstruction/lower urinary tract symptoms Dizziness PAF (paroxysmal atrial fibrillation) SSS (sick sinus syndrome) Diabetes mellitus GERD (gastroesophageal reflux disease) HTN (hypertension) Family History Family History Father Alzheimer disease Mother No problems noted. Brother Diabetes Surgical History Surgical History Hx of esophagogastroduodenoscopy History of cardioversion (~2012) Hx of colonoscopy Hx of umbilical hernia repair Hx of inguinal hernia surgery Social History Social History Are you a primary healthcare receptionist to a significant other at home: No Do you presently have visiting nurse or other home services: No Comment: aware of trip hazard Patient Tobacco Use Status: Never used Tobacco Advance Directives Date on File: 09/11/19 Meds Allergies Allergy/AdvReac Type Severity Reaction Status Date / Time No Known Allergies Allergy Mild NONE Verified 07/24/23 13:19 Home Medications Medication Instructions Recorded Confirmed Last Taken Type atorvastatin 20 mg tablet 20 mg PO DAILY 05/18/20 08/08/23 Unknown History metformin 500 mg tablet 500 mg PO BID 05/18/20 08/08/23 Unknown History metronidazole 500 mg tablet 500 mg PO Q12H 05/18/20 08/08/23 Unknown History meclizine 25 mg tablet 25 mg PO BEDTIME PRN Vertigo 12/19/20 08/08/23 Unknown History alcohol swabs 1 pad topical TID 01/31/21 08/08/23 Unknown History blood sugar diagnostic #10 ea 01/31/21 08/08/23 Unknown History lidocaine 5 % topical ointment 1 appl topical BID PRN Pain 01/31/21 08/08/23 Unknown History lorazepam 1 mg tablet 1 mg PO BID 01/31/21 08/08/23 Unknown History melatonin 5 mg tablet 10 mg PO BEDTIME 01/31/21 08/08/23 Unknown History topiramate 25 mg tablet 25 mg PO BID 01/31/21 08/08/23 Unknown History blood pressure test kit-large #1 ea 03/23/21 08/08/23 Unknown History losartan 25 mg tablet 25 mg PO DAILY 03/23/21 08/08/23 Unknown History chlorthalidone 25 mg tablet 25 mg PO DAILY 06/20/21 08/08/23 Unknown History dabigatran etexilate 150 mg capsule 150 mg PO BID 06/20/21 08/08/23 Unknown History acetaminophen 500 mg tablet 500 mg PO Q6H PRN Pain 07/24/23 08/08/23 Unknown History Assessment and Plan Final Anesthetic Review ASA Class: III Final Preanesthetic Review: No Changes in Pt Med Stat, Meds/Allgs Chart Reviewed, Consent Obtained/Reviewed and Anes Risks/Benef Reviewed Patient Risk: Intermediate Procedure Risk: Low Anesthetic Plan Anesthetic Plan: GA Disposition: Standard PACU
[2023-07-24 14:37] LABS: Hematocrit 40.9 % (42.0-52.0); Hemoglobin 13.1 g/dl (14.0-18.0); Mean Corpuscular Hemoglobin 27.9 pg (27.0-33.0); Mean Corpuscular Volume 87.2 fL (80.0-98.0); Mean Platelet Volume 11.4 fL (9.4-12.4); Platelet Count 145 X10*3/uL (160-400); Red Blood Count 4.69 X10*6/uL (4.60-5.80); Red Cell Distribution Width 14.3 % (11.0-16.0); White Blood Count 4.8 X10*3/uL (4.8-10.8)
[2023-07-24 14:38] LABS: Estimated Average Glucose 154 mg/dL
[2023-07-24 15:09] LABS: Anion Gap 11 (12-20); Blood Urea Nitrogen 16 mg/dL (9-16); Calcium 9.9 mg/dL (8.4-10.2); Carbon Dioxide 28 mmol/L (22-29); Chloride 105 mmol/L (96-108); Creatinine Clr Calc Pharmacy 52.3; Estimated Glomerular Filt Rate > 60; Glucose Random 115 mg/dL (60-115); Potassium 4.3 mmol/L (3.3-5.1); Sodium 140 mmol/L (135-145)
[2023-08-08] VITALS (10 sets, daily range): BP systolic 109–157; BP diastolic 48–78; PULSE 60–68; RESP 10–18; TEMP 36.6–36.7; O2SAT 94–100
--- NOTE | ~2023-08-08 | FL_ITS ---
EXAMINATION: XR FLUOROSCOPY WITH IMAGES CLINICAL INFORMATION: L4-L5, L5-S1 microlumbar decompression. COMPARISON: None available. TECHNIQUE: Fluoroscopy Supervised By: Dr. Pedro Young. Fluoroscopy Time: Less than 0.1 minute. Cumulative Dose: 1.81 mGy. DAP: 0.495 Gycm2. Images: 2. FINDINGS: Initial lateral view of the lumbar spine demonstrate needle projecting over the posterior elements at L 4. Second image demonstrates surgical instruments posterior to the L4-L5 and L5-S1 disc spaces. FL/FL guidance in OR IMPRESSION: Fluoroscopy guidance for lumbar spine surgery.
--- NOTE | 2023-08-08 07:10 | HO.ANESPROP2 ---
[facility] Active Problems Active Problems: All Active Problems (Updated 07/24/23 @ 13:17 by Ольга Qureshi RN) Lumbar stenosis with neurogenic claudication (Acute) Varicose veins of left lower extremity with inflammation (Acute) Back pain (Acute) Erectile dysfunction (Acute) BPH with obstruction/lower urinary tract symptoms (Acute) Dizziness (Acute) PAF (paroxysmal atrial fibrillation) (Acute) SSS (sick sinus syndrome) (Acute) Diabetes mellitus (Acute) GERD (gastroesophageal reflux disease) (Acute) HTN (hypertension) (Acute) Past Medical History Medical History Hiatal hernia History of transesophageal echocardiography (JANNA) Pre-operative cardiovascular examination Erectile dysfunction BPH with obstruction/lower urinary tract symptoms Dizziness PAF (paroxysmal atrial fibrillation) SSS (sick sinus syndrome) Diabetes mellitus GERD (gastroesophageal reflux disease) HTN (hypertension) Functional capacity: independent ambulation Family History Family History Father Alzheimer disease Mother No problems noted. Brother Diabetes Family history of problems with anesthesia: No Surgical History Surgical History Hx of esophagogastroduodenoscopy History of cardioversion (~2012) Hx of colonoscopy Hx of umbilical hernia repair Hx of inguinal hernia surgery History of Problems with Anesthesia: No Social History Social History Are you a primary manager intensive care unit to a significant other at home: No Do you presently have visiting nurse or other home services: No Comment: aware of trip hazard Patient Tobacco Use Status: Never used Tobacco Use of substances other than those prescribed or required for medical reasons: No Have you been hit, kicked, punched, or otherwise hurt by someone within the past year? If so, by whom?: No Spiritual Healthcare Practices: none [facility] Healthcare Practices: none Cultural Healthcare Practices: none Are you DNR?: No Advance Directives: Yes Advance Directives Information Provided: No Advance Directives on File: Yes Advance Directives Date on File: 09/11/19 Recently lost weight without trying: No Nutrition Risks: Surgical patient >75years Meds Allergies Allergy/AdvReac Type Severity Reaction Status Date / Time No Known Allergies Allergy Mild NONE Verified 07/24/23 13:19 Home Medications Medication Instructions Recorded Confirmed Last Taken Type atorvastatin 20 mg tablet 20 mg PO DAILY 05/18/20 07/24/23 Unknown History metformin 500 mg tablet 500 mg PO BID 05/18/20 07/24/23 Unknown History metronidazole 500 mg tablet 500 mg PO Q12H 05/18/20 01/10/23 Unknown History meclizine 25 mg tablet 25 mg PO BEDTIME PRN Vertigo 12/19/20 07/24/23 Unknown History alcohol swabs 1 pad topical TID 01/31/21 01/10/23 Unknown History blood sugar diagnostic #10 ea 01/31/21 01/10/23 Unknown History lidocaine 5 % topical ointment topical BID PRN 01/31/21 01/10/23 Unknown History lorazepam 1 mg tablet 1 mg PO BID 01/31/21 01/10/23 Unknown History melatonin 5 mg tablet 10 mg PO BEDTIME 01/31/21 01/10/23 Unknown History topiramate 25 mg tablet 25 mg PO BID 01/31/21 01/10/23 Unknown History blood pressure test kit-large #1 ea 03/23/21 01/10/23 Unknown History losartan 25 mg tablet 25 mg PO DAILY 03/23/21 07/24/23 Unknown History chlorthalidone 25 mg tablet 25 mg PO DAILY 06/20/21 07/24/23 Unknown History dabigatran etexilate 150 mg capsule 150 mg PO BID 06/20/21 07/24/23 Unknown History acetaminophen 500 mg tablet 500 mg PO Q6H PRN Pain 07/24/23 07/24/23 Unknown History Exam Height,Weight and Vital Signs: Height 5 ft 6 in Weight 68.6 kg Last Vital Signs Pulse 57 07/24/23 13:19 Resp 16 07/24/23 13:19 BP 119/68 07/24/23 13:19 Pulse Ox 97 07/24/23 13:19 O2 Del Method Room Air 07/24/23 13:19 Pertinent Lab Results Pertinent Lab Results: Laboratory Tests 07/24/23 14:19 WBC 4.8 RBC 4.69 Hgb 13.1 L Hct 40.9 L MCV 87.2 MCH 27.9 MCHC 32.0 RDW 14.3 Plt Count 145 L D MPV 11.4 Absolute Nucleated RBC 0.000 Nucleated RBC % (auto) 0.0 Sodium 140 Potassium 4.3 Chloride 105 Carbon Dioxide 28 Anion Gap 11 L BUN 16 Creatinine 1.05 Estim Creat Clear Calc 52.3 Estimated GFR > 60 Random Glucose 115 Estimat Average Glucose 154 Hemoglobin A1c % 7.0 H Calcium 9.9 Assessment and Plan Final Anesthetic Review Family History of Problems with Anesthesia: No History of Problems with Anesthesia: No
--- NOTE | 2023-08-08 07:18 | MHC.SHP ---
Pre-Procedural Eval Section A Date of Service: 08/08/23 The patient is an INPATIENT: No Changes since office visit: No Cold of Flu in the past 2 weeks, No New Medical Problems, No Changes in Medication and No Patient answered all questions The History & Physical has been completed within 30 days and I have reviewed it.: No Section B Chief Complaint: Spinal stenosis, lumbar region with neurogenic cla Allergies: Allergies Allergy/AdvReac Type Severity Reaction Status Date / Time No Known Allergies Allergy Mild NONE Verified 07/24/23 13:19 Review of Systems Sugical H&P ROS: Negative: Constitution, Cardiovascular, Respiratory, Neurological, Psychiatric, Hem-Onc, Allergic/Immunologic, Gastrointestinal, Genitourinary, Musculoskeletal, Integumentary, Endocrine and Eyes/Ears/Nose/Throat Exam Surgical H&P Exam: Not Evaluated: HEENT, Not Evaluated: Heart, Not Evaluated: Lungs, Not Evaluated: Extremities, Not Evaluated: Abdomen, Not Evaluated: Skin and Not Evaluated: Neurological Plan Diagnosis/Plan: Unchanged left L4-5, left L5-S1 decompression Time Spent With Patient Time: Total time managing care of this patient today __5__ minutes.
--- NOTE | 2023-08-08 10:49 | W.PM.OPN ---
Operative Note Operative Note Date of Service: 08/08/23 Narrative: Preoperative Diagnosis: L4-5, L5-S1 spinal stenosis/lateral recess stenosis/neural foraminal stenosis Operation: left L4-L5, L5-S1 Laminotomy, Partial facetectomy and foraminotomy; L5-S1 diskectomy with use of microscope Consent Informed Consent was obtained for this operation. I have explained the nature, purpose and benefits of the operation. I have discussed the risks and benefit of the operation including possible complications or adverse events with patient/family. Alternative(s) were discussed with the patient with their relative benefits and risks as well as the consequences of not accepting the operation were included in obtaining consent. Surgeon: JOANN ELIZALDE MD, PHD Procedure Assisted By: Gian Dickinson Description of Procedure This 78 year old male with suffering from a low left lumbar radiculopathy due to lumbar spinal stenosis at L4-5 and L5-S1. It seems that at L5-S1 a disc bulge may be adding to the lateral recess stenosis . The patient was offered a decompression of the above-mentioned levels. The procedure complications were explained. The patient was consented. The patient was brought to the operating room and endotracheally intubated. The patient was turned in prone position on the Keith frame. Prep and drape was done followed by timeout. The Physician assistant professor of education provided access. A mid lumbar incision was made followed by release of the paravertebral muscle on the left side to expose the L4, L5 and S1 laminae and facet joints. An intraoperative x-ray was obtained to confirm the correct level. The microscope was brought in. I took over the procedure. The high-speed drill was used to do a L4-5 laminotomy until flavum ligament was reached. A #2 Kerrison was used to expand the laminotomy near flush to the pedicles and to include a partial facetectomy. The flavum ligament was opened and resected with a #3 Kerrison to decompress the underlying thecal sac. The flavum ligament was removed to decompress the lateral recess and the exiting L5 nerve root. A long nerve hook could be easily passed along the medial side of the pedicles as a sign of adequate decompression. then attention was turned to the L5-S1 region. In L5-S1 hemilaminotomy was done. Hypertrophied flavum ligament was opened and resected to cross the underlying dura. The S1 nerve root was identified. The S1 nerve root was decompressed in the lateral recess by doing a partial facetectomy. I inspected the disc space and thought that the disc bulge was too large to be left alone. Therefore I also added a diskectomy with removal several fragments to further decompress the S1 nerve root.The microscope was removed. Hemostasis was done. The physician assistant professor of education close the Incision in 2 layers. Steri-Strips were used to approximate incision. An OpSite with Tegaderm was used to cover the incision. All sponge needle counts were correct. Patient was extubated and transported in stable is to recovery room. Anesthesia: General Estimated Blood Loss (ml): 15 mL Complications: None Duration of Surgery: Under 70 Minutes Postoperative Plan: Discharge to home
--- NOTE | 2023-08-08 10:59 | PM.DS ---
DS: Providers Provider Date of Service: 08/08/23 Date of discharge: 08/08/23 Primary care physician: Chidi Costa MD Admitting clinician: Pedro Young DS: Diagnosis Discharge Diagnosis (1) Lumbar stenosis with neurogenic claudication: Status: Acute DS: Summary Time Attestation Discharge coordination time: Less than 30 minutes Quality: Safe Use of Opioids Does Pt have an Active Cancer Diagnosis on the Problem List?: No Quality: Stroke Does the patient have a stroke diagnosis?: No Physical Exam Vital Signs: Vital Signs: Last Vital Signs Temp 97.8 F 08/08/23 08:57 Pulse 63 08/08/23 08:57 Resp 16 08/08/23 08:57 BP 157/69 H 08/08/23 08:57 Pulse Ox 97 08/08/23 08:57 O2 Del Method Room Air 08/08/23 08:57 BMI result Body Mass Index 24.4 DS: Data Data Completed and Pending Labs on day of discharge: Laboratory Results - last 24 hr 08/08/23 09:07 POC Glucose 133 H Discharge Plan Discharge Patient Disposition: Home, Self-Care Referrals: Chidi Costa MD [Primary Care Provider] - 1 Week Discharge Medications: New oxycodone 5 mg tablet 5 mg PO Q4H PRN (Reason: pain) Qty: 20 0RF Rx Instructions: Partial Fill upon patient request. docusate sodium [Colace] 100 mg capsule 100 mg PO BID Qty: 20 0RF Continued tamsulosin 0.4 mg capsule 0.4 mg PO BEDTIME 90 Days Qty: 90 1RF lidocaine [Lidoderm] 5 % adhesive patch,medicated 1 patch topical DAILY Qty: 15 0RF Rx Instructions: leave on most painful area for up to 12 hrs oxycodone 5 mg tablet 5 mg PO Q6H PRN (Reason: pain) Qty: 10 0RF acetaminophen 500 mg Tablet 500 mg PO Q6H PRN (Reason: Pain) losartan 25 mg tablet 25 mg PO DAILY (DME) blood pressure test kit-large Kit See Rx Instructions .ROUTE DIRECTED Qty: 1 Rx Instructions: As directed atorvastatin 20 mg tablet 20 mg PO DAILY metformin 500 mg tablet 500 mg PO BID metronidazole 500 mg tablet 500 mg PO Q12H meclizine 25 mg tablet 25 mg PO BEDTIME PRN (Reason: Vertigo) chlorthalidone 25 mg tablet 25 mg PO DAILY lorazepam 1 mg tablet 1 mg PO BID topiramate 25 mg tablet 25 mg PO BID lidocaine 5 % ointment 1 appl topical BID PRN (Reason: Pain) melatonin 5 mg tablet 10 mg PO BEDTIME alcohol swabs Pads, Medicated 1 pad topical TID (DME) blood sugar diagnostic Strip See Rx Instructions Not Applicable TID Qty: 10 Rx Instructions: As directed sildenafil [Viagra] 100 mg tablet 100 mg PO ONCE PRN (Reason: sexual activity) 30 Days Qty: 30 1RF Rx Instructions: administer 30 minutes to 4 hours before activity on empty stomach Held dabigatran etexilate 150 mg capsule 150 mg PO BID Hold Instructions: Resume on 08/12/23. You may resume this medication 4 days after surgery Discharge Orders: Discharge Order (Routine); Ordered 08/08/23 Ordered By: Gian Vasquez Diet: Advance to usual diet Activity on Discharge: As tolerated Activity Restrictions/Additional Instructions: After your spinal surgery we ask you to observe the following restrictions/guidelines: YOU MAY RESUME YOUR DABIGATRAN BLOOD THINNER 4 DAYS AFTER SURGERY Activity: It is normal to feel some discomfort as you increase your activity, but that will improve with time. We ask you avoid heavy lifting or acitivities that cause pain. As a general rule, 8lbs is a safe limit for lifting right after surgery. Walk as much as you feel comfortable but not to exhaustion. You will feel extra tired the first few days after surgery. Stay well hydrated. It is OK to walk up and down stairs You may return to driving when you are off narcotics (such as vicodin, oxycodone, dilaudid, etc), and you are back to normal functional capacity. If you have any concerns please check with office before driving. Return to work is specific to each patient and each surgery, so please speak with your doctor/PA at first follow up. Please bring paperwork such as FMLA at that time if you need it filled out. Medications: For optimum pain control, it is best to start with a combination of 500 mg of Tylenol every 4 hours with 600 mg of Motrin every 8 hours, and use narcotics as needed in between for breakthrough pain. We will give you a short supply of narcotics after surgery (usually one weeks worth). If you need more please call the office but do not use more than prescribed. You will need to give our office 48 hours notice if you need narcotics refilled and we do not fill narcotics on weekends or evenings. If you are on a narcotic, it is a good idea to take a stool softener such as colace or senna to avoid constipation If you take blood thinner such as aspirin, Plavix, Coumadin, Effient, Eliquis etc for conditions such as Afib, DVT, Pulmonary embolus, coronary disease, stents etc please speak with your surgeon about specific details as to when you can resume these medications. You can resume NSAIDs on post op day 1 (eg: Motrin, Naproxen, etc). Follow up: Please call the office, , after surgery to arrange a 3 week follow up for wound check. Wound Care: You may remove your dressing on the first day after surgery. You may leave open to air. Please do not remove the steri strips underneath. they will fall off on their own in one week. IT IS NORMAL FOR THE WOUND TO OOZE OR BE BLOODY FOR A FEW DAYS AFTER SURGERY. IF THIS HAPPENS JUST PLACE NEW DRESSING OVER IT TO AVOID STAINING CLOTHES. You may shower on post op day # 1 We ask that you do not let the water soak the wound. If it does get wet, just towel dry lightly. Please do not scrub your incision or place any type of chemical/ointment on the wound. No tub baths, pools or jacuzzis for one month. If you have any leaking or redness from your wound, or fevers, please call office
== END 2023-08-08 13:10 | disposition home or self-care (01) ==
PROVIDERS: Nurse Practitioner; PCP Internal Medicine; Visit Provider Neurological Surgery
PROC: (CPT 63047; principal; 2023-08-08 11:50)
DX: M48.062 Spinal stenosis, lumbar region with neurogenic claudication (principal); M54.50 Low back pain, unspecified; R26.89 Other abnormalities of gait and mobility; I10 Essential (primary) hypertension; E78.00 Pure hypercholesterolemia, unspecified; I48.91 Unspecified atrial fibrillation; E11.9 Type 2 diabetes mellitus without complications; Z79.84 Long term (current) use of oral hypoglycemic drugs; Z79.899 Other long term (current) drug therapy
CPT/HCPCS: 63047; 63048; 36415; 80048; 82947; 83036; 85027; 93005; J0131; J0690; J1170; J2405; J2704; J3010

== ENCOUNTER → 2023-08-08 08:21 | Outpatient (BNV) | payer MEDICARE, SELFPAY | PROVIDERS: PCP Internal Medicine; Visit Provider Neurological Surgery | DX: M48.062 Spinal stenosis, lumbar region with neurogenic claudication (principal) | CPT/HCPCS: 63047; 63048; 99499 ==

== ENCOUNTER 2023-08-29 11:30 | Outpatient (AMB) | payer MEDICARE, SELFPAY ==
--- NOTE | 2023-08-29 11:39 | MHC.OFFVIS ---
Intake Intake Visit Reasons: 1st post-op visit. Intake Note: here for his 1st post op Allergies No Known Allergies Allergy (Mild, Verified 07/24/23 13:19) NONE PFSH Medical History Hiatal hernia History of transesophageal echocardiography (JANNA) Pre-operative cardiovascular examination Erectile dysfunction BPH with obstruction/lower urinary tract symptoms Dizziness PAF (paroxysmal atrial fibrillation) SSS (sick sinus syndrome) Diabetes mellitus GERD (gastroesophageal reflux disease) HTN (hypertension) Surgical History Hx of esophagogastroduodenoscopy History of cardioversion (~2012) Hx of colonoscopy Hx of umbilical hernia repair Hx of inguinal hernia surgery Family History Father Alzheimer disease Mother No problems noted. Brother Diabetes Social History Are you a primary medicare contact specialist to a significant other at home: No Do you presently have visiting nurse or other home services: No Comment: aware of trip hazard Patient Tobacco Use Status: Never used Tobacco Advance Directives Date on File: 09/11/19 Assessment & Plan Assessment & Plan (1) Lumbar stenosis with neurogenic claudication: Code(s): M48.062 - Spinal stenosis, lumbar region with neurogenic claudication Plan Procedure: Left L4-L5, L5-S1 Laminotomy, Partial facetectomy and foraminotomy Bernice comes in today for his 1st post-operative visit. He reports that he feels very similar to how he felt prior to surgery. He states that he still has left-sided radicular symptoms that shoot from his low back wrap around his anterior thigh go over his knee and down into the top of his foot. He reports that this is somewhat relieved with Tylenol but it is only modest relief. He has been ambulating daily and completing his ADLs. We discussed postoperative inflammation in the healing course from both a laminotomy and diskectomy. He was encouraged to continue taking 1000 mg of Tylenol 3 times a day, as this can help keep prostaglandins down and reduce it overall inflammation. He had several questions regarding postoperative restrictions, return to work guidelines, and lifting/bending recommendations. I answered all his questions to the best of my ability. No new neurological deficits. Patient is able to ambulate well, rises from a seated position without difficulty. Posterior incision site is closed, well healing, with no signs of drainage. We will follow-up with the patient in 6 weeks for his 2nd postoperative visit. The patient will be prescribed gabapentin 100 mg 3 times daily to be taken alongside his Tylenol. Ideally this will help with his persistent nerve pain postoperatively until his inflammation can go down enough so that he can experience relief of symptoms without additional prescription medications. Caden Young MD,PhD [facility] Medications: New gabapentin 100 mg PO TID 60 caps 0RF nerve pain Coding Level of Care Code Global (42695) Diagnoses Lumbar stenosis with neurogenic claudication M48.062
== END 2023-08-29 11:56 | disposition home or self-care (01) ==
PROVIDERS: PCP Internal Medicine; Visit Provider Physician Assistant
DX: M48.062 Spinal stenosis, lumbar region with neurogenic claudication (principal)
CPT/HCPCS: 99024

== ENCOUNTER → 2023-08-29 11:30 | Outpatient (BNVA) | payer MEDICARE, SELFPAY | PROVIDERS: PCP Internal Medicine; Visit Provider Physician Assistant | DX: M48.062 Spinal stenosis, lumbar region with neurogenic claudication (principal) | CPT/HCPCS: 99212 ==

== ENCOUNTER 2023-10-10 08:56 | Outpatient (AMB) | payer MEDICARE, SELFPAY ==
--- NOTE | 2023-10-10 09:05 | A.SPINEOV_ITS ---
Intake Intake Visit Reasons: 2nd post op Intake Note: Mr. Atkins is here today for his 2nd post op. Oyster Culler Required: No Allergies No Known Allergies Allergy (Mild, Verified 07/24/23 13:19) NONE Assessment & Plan Assessment & Plan (1) Hx of decompressive lumbar laminectomy: Code(s): Z98.890 - Other specified postprocedural states Plan Procedure: Left L4-L5, L5-S1 Laminotomy, Partial facetectomy and foraminotomy Bernice comes in today for his 2nd postoperative visit. Thankfully it seems as though his symptoms have begun to recede somewhat. He has been taking gabapentin twice daily, and reports he has good relief of the intermittent pains he gets in his left leg. He feels well enough to returned to work, and we will be trying to do a few half days over the course of the next 2 weeks. He intends to go back full-time very shortly. We discussed postoperative healing course, and he updated me on his progress with blood sugar control, which has been back down in the 90s over the course of the last week. He initially had difficulty with blood sugar control postoperatively which we discussed on the phone several times. No new neurological deficits. Patient is able to ambulate well, rises from a seated position without difficulty. Incision site is well healed. There is no need for continued routine follow-up with Bernice. He was encouraged to make an appointment in the future if he feels like he needs to see us. Caden Young MD,PhD [facility] Coding Level of Care Code Global (64697) Diagnoses Hx of decompressive lumbar laminectomy Z98.890
== END 2023-10-10 09:18 | disposition home or self-care (01) ==
PROVIDERS: PCP Internal Medicine; Visit Provider Physician Assistant
DX: Z98.890 Other specified postprocedural states (principal)
CPT/HCPCS: 99024

== ENCOUNTER → 2023-10-10 08:56 | Outpatient (BNVA) | payer MEDICARE, SELFPAY | PROVIDERS: PCP Internal Medicine; Visit Provider Physician Assistant | DX: Z47.89 Encounter for other orthopedic aftercare (principal); Z98.890 Other specified postprocedural states | CPT/HCPCS: 99212 ==

== ENCOUNTER 2023-12-23 18:15 | Outpatient (REF) | payer MEDICARE, SELFPAY | END 2023-12-23 18:16 | disposition home or self-care (01) | LOC: HO.HHCLNP 18:15 | PROVIDERS: Visit Provider Emergency Medicine | DX: N40.1 Benign prostatic hyperplasia with lower urinary tract symptoms (principal); R39.11 Hesitancy of micturition | CPT/HCPCS: 87086 ==

== ENCOUNTER 2024-01-01 10:12 | Outpatient (AMB) | payer MEDICARE, SELFPAY ==
--- NOTE | 2024-01-01 10:47 | HO.SPINEOV ---
Intake Visit Reasons: Back pain Intake Note: Mr. Atkins is here today c/o left sided back discomfort when he coughs that radiates down the leg. Law Enforcement Director Required: No Allergies No Known Allergies Allergy (Mild, Verified 01/01/24 10:48) NONE Assessment & Plan Assessment & Plan (1) Left hip pain: Code(s): M25.552 - Pain in left hip Category: Medical Plan Bernice comes in today for a subsequent evaluation after having a left L4-L5, L5-S1 Laminotomy, Partial facetectomy and foraminotomy; L5-S1 diskectomy with use of microscope completed on 08/08/23. After his 2nd postoperative visit he reported resolution of his left-sided radiculopathy. Unfortunately today, he reports that he has been having some significant left-sided hip and left knee pain. When describing his pain he points to the left hip, his left knee, and the left iliac crest. Weakly (+) Misty finger test on the left (may just be pain localizing toward iliac crest), however patient can complete Blanca's without any difficulties. Patient rises from a seated position somewhat slowly and utilizes the chair to do so. He ambulates slowly but in a mostly uniform fashion with no obvious antalgic gait. I would like to send the patient for evaluation by Dr. Anguiano to ensure that he does not have any left-sided hip/knee pathology before we continue to work him up any further. I believe this is reasonable given the nature of his pain, his resolution of radiculopathy, and his reported history. Total amount of time spent in this visit was 25 minutes in discussion of symptoms, referral placement, and subsequent plan of care. Caden Young MD,PhD [facility] Orders: Referrals Orthopedics Referral M25.552 - Pain in left hip Coding Level of Care Code Est Pt Level 3 (84888) Diagnoses Left hip pain M25.552
== END 2024-01-01 11:15 | disposition home or self-care (01) ==
PROVIDERS: PCP Internal Medicine; Visit Provider Physician Assistant
DX: M25.552 Pain in left hip (principal)
CPT/HCPCS: 99213

== ENCOUNTER → 2024-01-01 10:12 | Outpatient (BNVA) | payer MEDICARE, SELFPAY | PROVIDERS: PCP Internal Medicine; Visit Provider Physician Assistant | DX: M25.552 Pain in left hip (principal) | CPT/HCPCS: 99212 ==

== ENCOUNTER 2024-01-16 08:09 | Outpatient (AMB) | payer MEDICARE, SELFPAY ==
[2024-01-16 08:36] VITALS: BP 130/62; PULSE 61; BMI 23.3
--- NOTE | 2024-01-16 08:36 | A.OFFVIS_ITS ---
Vital Signs 01/16/24 08:36 Height 5 ft 6 in Weight 144 lb 9.972 oz BMI 23.3 BP 130/62 Blood Pressure Location Lt brachial Position Sitting Pulse 61 Intake Visit Reasons: 1 yr f/up Reimbursement Analyst Required: No Accompanied by: Self / Same As Patient Allergies No Known Allergies Allergy (Mild, Verified 01/01/24 10:48) NONE HPI Comments Details: Bernice comes for follow-up. From cardiac perspective he has been doing well. Denies any significant cardiac symptoms. Denies any prolonged palpitation irregular heartbeat. Continues to have symptoms of intermittent dizziness. He denies any syncopal episodes. Taking all his medications. No bleeding issues or neurologic events. Has noncardiac symptoms are mostly back pain and sciatica like pain. Also has issues with urology. Takes all his medications. Continues to work in the farm. Denies exertional chest pain, shortness of breath, orthopnea, PND. FORMERLY [facility], [facility] Medical History Hiatal hernia History of transesophageal echocardiography (JANNA) Pre-operative cardiovascular examination Erectile dysfunction BPH with obstruction/lower urinary tract symptoms Dizziness PAF (paroxysmal atrial fibrillation) SSS (sick sinus syndrome) Diabetes mellitus GERD (gastroesophageal reflux disease) HTN (hypertension) Surgical History Hx of esophagogastroduodenoscopy History of cardioversion (~2012) Hx of colonoscopy Hx of umbilical hernia repair Hx of inguinal hernia surgery Family History Father Alzheimer disease Mother No problems noted. Brother Diabetes Social History Are you a primary nursing care attendant to a significant other at home: No Do you presently have visiting nurse or other home services: No Comment: aware of trip hazard Patient Tobacco Use Status: Never used Tobacco Advance Directives Date on File: 09/11/19 Review of Systems Const Denies chills, Denies fatigue, Denies fever(s), Denies frequent falls, Denies weakness, Denies weight gain and Denies weight loss ENT Denies dizziness Card Denies chest pain, Denies leg edema, Denies lightheadedness, Denies palpitations, Denies dyspnea, Denies dyspnea on exertion, Denies orthopnea and Denies other (loss of consciousness) Resp Denies cough, Denies dyspnea and Denies dyspnea on exertion GI Denies hematochezia and Denies change in stool character Musc Denies abnormal gait, Denies muscle weakness, Denies numbness, Denies radiating pain into limb and Denies tingling Neuro Denies abnormal gait, Denies dizziness, Denies frequent falls, Denies numbness, Denies tingling and Denies weakness Endo Denies fatigue and Denies palpitations Physical Exam Vital Signs: Last Vital Signs Pulse 61 01/16/24 08:36 BP 130/62 01/16/24 08:36 BMI result Body Mass Index 23.3 Office Procedures EKG Details: EKG shows normal sinus rhythm with normal EKG [id number], Complete Assessment & Plan Assessment & Plan (1) PAF (paroxysmal atrial fibrillation): Code(s): I48.0 - Paroxysmal atrial fibrillation Category: Medical Plan: Highly symptomatic paroxysmal atrial fibrillation without any obvious clinical recurrence at this point time. Continue rhythm control approach which has benefitted him. Continue current therapy with blood pressure control. Continue full oral anticoagulation, currently on Pradaxa 150 mg b.i.d. which she has been tolerating for many many years. Continue quarterly renal function test. Avoidance of stimulants was discussed advised to call me with new symptoms which may require antiarrhythmic drug therapy. (2) HTN (hypertension): Code(s): I10 - Essential (primary) hypertension Category: Medical Plan: Hypertension which is currently well optimized advised to monitor blood pressure at home maintain a log. Low-salt diet was discussed importance of good compliance with medications was discussed. Understands agrees. Continue aggressive management diabetes as well. Goal hemoglobin A1c less than 7%. Will follow up in the clinic in 1 year's time, sooner p.r.n.. Thank you for allowing me to partake in his care Coding Level of Care Code Est Pt Level 4 (58078) Diagnoses PAF (paroxysmal atrial fibrillation) I48.0 HTN (hypertension) I10 CPT Codes EKG - CPT: 00545-[id number], Complete ([id number])
== END 2024-01-16 08:57 | disposition home or self-care (01) ==
PROVIDERS: PCP Internal Medicine; Visit Provider Internal Medicine Cardiovascular Disease
DX: I48.0 Paroxysmal atrial fibrillation (principal); I10 Essential (primary) hypertension
CPT/HCPCS: 93010; 99214

== ENCOUNTER 2024-01-16 09:03 | Outpatient (REF) | payer MEDICARE, SELFPAY ==
--- NOTE | ~2024-01-16 | MR_ITS ---
MRI OF THE BRAIN WITH AND WITHOUT IV CONTRAST INDICATION: Pituitary microadenoma. COMPARISON: Brain MRI 09/09/2019. TECHNIQUE: Multiplanar multisequence MR imaging of the brain was obtained without and following the administration of 3.5 mL of Gadavist without complication. FINDINGS: Interval increase in size of a now 1.3 cm TV by 1 cm CC by 0.8 cm AP hypoenhancing T2 signal hyperintense lesion within the sella eccentric to the left side that results in increased rightward deviation of the infundibular stalk without mass effect on the optic nerve apparatus. The lesion previously measured up to 0.9 cm TV by 0.7 cm CC by 0.7 cm AP No cavernous sinus invasion. There is no hydrocephalus, extra-axial surface collection, or herniation. There is global cerebral volume loss and there is mild to moderate chronic microangiopathy. The major flow voids at the skull base are preserved. There is no acute infarct on diffusion-weighted imaging. There is no intracranial hemorrhage on the gradient recalled echo acquisition. The cerebellar tonsils are normally positioned. The cerebellum and brainstem are normal. The craniocervical junction is normal. Osseous marrow signal intensity is homogenous. The visualized soft tissues are unremarkable. MR/MR head/brain wo/w con IMPRESSION: There has been an interval increase in size of an up to 1.3 cm pituitary macroadenoma eccentric to the left side that results in increased rightward deviation of the infundibular stalk without mass effect on the optic nerve apparatus. No cavernous sinus invasion.
[2024-01-16] MEDS: gadobutroL 7.5 ML VIAL IVPUSH (10:43)
== END 2024-01-16 09:04 | disposition home or self-care (01) ==
LOC: HO.MRI 09:03
PROVIDERS: PCP Internal Medicine; Visit Provider Internal Medicine
DX: D35.2 Benign neoplasm of pituitary gland (principal); I48.0 Paroxysmal atrial fibrillation; I10 Essential (primary) hypertension
CPT/HCPCS: 70553; 93005; 99212; A9585

== ENCOUNTER → 2024-01-21 15:47 | Outpatient (BNVA) | payer MEDICARE, SELFPAY | PROVIDERS: PCP Internal Medicine; Visit Provider Physical Medicine & Rehabilitation ==

== ENCOUNTER 2024-02-05 11:07 | Outpatient (AMB) | payer MEDICARE, SELFPAY ==
--- NOTE | 2024-02-05 12:03 | MHC.OFFVIS ---
Intake Visit Reasons: 1yr/PVR Intake Note: Patient is Present for PVR/ Urology Med: Sildenafil, Tamsulosin Antibiotic Allergy: None Blood Thinner: None Todays PVR: Allergies No Known Allergies Allergy (Mild, Verified 03/16/24 07:56) NONE HPI Comments Details: Ethan is a very pleasant Citizen Of [place] male. He is a patient of it Dr. Huynh. he is seen for following urologic conditions - lower urinary tract symptoms - erectile dysfunction Notices when he misses a dose of Flomax Continues to respond well Discussed Viagra Refill prescriptions provided Two hundred forty PVR but he did not fully empty. Lower urinary tract symptoms prior retention responds well to Flomax is emptying well continue with medications PSA 06/25 1.6 Erectile dysfunction does respond to Viagra previous prescription given FORMERLY [facility] Medical History (Updated 03/16/24 @ 07:56 by Tien Oliver MD) Pituitary adenoma Hiatal hernia History of transesophageal echocardiography (JANNA) Pre-operative cardiovascular examination Erectile dysfunction BPH with obstruction/lower urinary tract symptoms Dizziness PAF (paroxysmal atrial fibrillation) SSS (sick sinus syndrome) Diabetes mellitus GERD (gastroesophageal reflux disease) HTN (hypertension) Surgical History Hx of esophagogastroduodenoscopy History of cardioversion (~2012) Hx of colonoscopy Hx of umbilical hernia repair Hx of inguinal hernia surgery Family History Father Alzheimer disease Mother No problems noted. Brother Diabetes Social History Are you a primary primary care nurse practitioner to a significant other at home: No Do you presently have visiting nurse or other home services: No Comment: aware of trip hazard Patient Tobacco Use Status: Never used Tobacco Advance Directives Date on File: 09/11/19 Review of Systems Const Denies chills and Denies fever(s) Card Reports no additional complaints and Denies syncope Resp Denies cough GI Denies abdominal pain and Denies heartburn Reports as per HPI and Denies change in libido Neuro Denies syncope Psych Denies change in libido Endo Denies change in libido Physical Exam Const General: cooperative, healthy appearing, comfortable and no acute distress Orientation/consciousness: patient oriented x3 HEENT Face and sinus: Yes normal facial exam Mouth: moist mucous membranes Neck Neck: Yes normal visual inspection, Yes full ROM and Yes trachea midline Chest Chest palpation & inspection: normal inspection of the chest Resp Effort & Inspection: normal respiratory effort, able to speak in complete sentences and no respiratory distress GI Inspection: Yes normal to inspection Back/Spine/Pelvis Cervical Spine: normal cervical lordosis Thoracic/Lumbar Spine: thoracic and lumbar spine normal to inspection Skin General skin exam: no rashes or lesions noted Neuro General: patient oriented x3, gait normal, tone normal and moves all extremities Extrem General: Yes normal to inspection and Yes capillary refill normal Office Procedures Post Void Residual Post Residual Void Post Void Residual (PVR): 114 [id number] Void Residual by ultrasound Assessment & Plan Assessment & Plan (1) Erectile dysfunction: Code(s): N52.9 - Male erectile dysfunction, unspecified Category: Medical Qualifiers: Erectile dysfunction type: unspecified Qualified Code(s): N52.9 - Male erectile dysfunction, unspecified (2) BPH with obstruction/lower urinary tract symptoms: Code(s): N40.1 - Benign prostatic hyperplasia with lower urinary tract symptoms; N13.8 - Other obstructive and reflux uropathy Category: Medical Plan Twelve month follow-up PVR Orders: Orders AMB Post Void Residual by ultrasound 02/05/24 N40.1 - Benign prostatic hyperplasia with lower urinary tract symptoms, N13.8 - Other obstructive and reflux uropathy Medications: New terazosin 5 mg PO BEDTIME 90 caps 3RF 90 days N40.1 - Benign prostatic hyperplasia with lower urinary tract symptoms, N13.8 - Other obstructive and reflux uropathy, R35.0 - Frequency of micturition Patient Instructions: Imaging studies, laboratory and physical exam results were discussed and reviewed in detail. No major barriers to patient understanding were identified. An opportunity to ask questions regarding the treatment plan was provided. All questions were answered. The patient expressed understanding and agreement with the above treatment plan. The patient is aware they should contact our office by phone for worsening of their current condition or the appearance of new urologic symptoms. Compliance is encouraged with any medications and followup testing that is ordered. It is a privilege to participate in the urologic care of your patient. If you have any questions or concerns regarding treatment for the above conditions, or other urologic issues, please do not hesitate to contact me. The office telephone contact is [phone]. This note is constructed using voice recognition software. While every effort has been made to ensure accuracy break off worker errors may have been included. Yours sincerely, Dr Jimi Herman MD, PARAMJIT [facility] - Urology Providers of Expert, Compassionate Care for the Genitourinary System Coding Level of Care Code Est Pt Level 4 (60937) Diagnoses Erectile dysfunction, unspecified erectile dysfunction type N52.9 Erectile dysfunction type: unspecified BPH with obstruction/lower urinary tract symptoms N40.1; N13.8 CPT Codes Post Residual Void - PVR CPT Code: 65303-Qpto Void Residual by ultrasound ([id number])
== END 2024-02-05 12:23 | disposition home or self-care (01) ==
PROVIDERS: PCP Internal Medicine; Visit Provider Urology
DX: N52.9 Male erectile dysfunction, unspecified (principal); N40.1 Benign prostatic hyperplasia with lower urinary tract symptoms; N13.8 Other obstructive and reflux uropathy
CPT/HCPCS: 99214

== ENCOUNTER → 2024-02-05 11:07 | Outpatient (BNVA) | payer MEDICARE, SELFPAY | PROVIDERS: PCP Internal Medicine; Visit Provider Urology | DX: N52.9 Male erectile dysfunction, unspecified (principal); N40.1 Benign prostatic hyperplasia with lower urinary tract symptoms; N13.8 Other obstructive and reflux uropathy | CPT/HCPCS: 51798; 99212 ==

== ENCOUNTER 2024-03-16 07:35 | Outpatient (AMB) | payer MEDICARE, SELFPAY ==
--- NOTE | 2024-03-16 07:47 | MHC.OFFVIS ---
Vital Signs 03/16/24 07:48 Height 5 ft 6 in Weight 144 lb 6.444 oz BMI 23.3 BP 108/48 L Blood Pressure Location Lt brachial Position Sitting Pulse 54 Pulse Source Pulse Oximeter Intake Visit Reasons: Pituitary microadenoma-confirmed Intake Note: Patient present today for Pituitary microadenoma office visit. Corporate Accountant Required: No Accompanied by: Self / Same As Patient Allergies No Known Allergies Allergy (Mild, Verified 03/16/24 07:56) NONE Medication List - Last Reconciled 03/16/24 by Tien Oliver MD acetaminophen 500 mg PO Q6H PRN alcohol swabs 1 pad topical TID atorvastatin 20 mg PO DAILY blood pressure test kit-large As directed blood sugar diagnostic As directed chlorthalidone 25 mg PO DAILY dabigatran etexilate 150 mg PO BID docusate sodium (Colace) 100 mg PO BID lidocaine 5% (Lidoderm) 1 patch topical DAILY lidocaine 5% 1 appl topical BID PRN lorazepam 1 mg PO BID losartan 25 mg PO DAILY meclizine 25 mg PO BEDTIME PRN melatonin 10 mg PO BEDTIME metformin 500 mg PO BID methocarbamol 750 mg PO BID metronidazole 500 mg PO Q12H oxycodone 5 mg PO Q6H PRN oxycodone 5 mg PO Q4H PRN sildenafil (Viagra) 100 mg PO ONCE PRN 30 days terazosin 5 mg PO BEDTIME 90 days topiramate 25 mg PO BID HPI Comments Details: Is a 78-year-old male with a history of pituitary micro adenoma. Left-sided 1.3 cm. Never saw forestry support specialist . No other information regarding hormonal workup has been received. Patient denies breast discharge, symptoms of acromegaly, symptoms of [place]'s. He denies any visual loss or blurry vision [facility] Medical History (Updated 03/16/24 @ 07:56 by Tien Oliver MD) Pituitary adenoma Hiatal hernia History of transesophageal echocardiography (JANNA) Pre-operative cardiovascular examination Erectile dysfunction BPH with obstruction/lower urinary tract symptoms Dizziness PAF (paroxysmal atrial fibrillation) SSS (sick sinus syndrome) Diabetes mellitus GERD (gastroesophageal reflux disease) HTN (hypertension) Surgical History Hx of esophagogastroduodenoscopy History of cardioversion (~2012) Hx of colonoscopy Hx of umbilical hernia repair Hx of inguinal hernia surgery Family History Father Alzheimer disease Mother No problems noted. Brother Diabetes Social History Are you a primary child day care teacher to a significant other at home: No Do you presently have visiting nurse or other home services: No Comment: aware of trip hazard Patient Tobacco Use Status: Never used Tobacco Advance Directives Date on File: 09/11/19 Physical Exam Const Other: Absence of cushingoid or acromegalic features. Thyroid gland is normal size weighs about 15 g. There are no thyroid nodules palpated. There is the absence of visual field loss by gross confrontation Assessment & Plan Assessment & Plan (1) Pituitary adenoma: Code(s): D35.2 - Benign neoplasm of pituitary gland Category: Medical Plan: This is a 78-year-old male with a history of pituitary macroadenoma. Rule out him hormonal hypersecretion or hypersecretion. Plan is to check her prolactin, TSH, free T4, IGF-1, a.m. cortisol, testosterone, 24 hour urine for free cortisol and creatinine. We will refer for neurosurgical consultation at [facility] Dr. Crawford . Orders: Orders Cortisol, Free 24Hr Urine Today D35.2 - Benign neoplasm of pituitary gland IGF-1 (Somatomedin C) Today D35.2 - Benign neoplasm of pituitary gland Free T4 (Free Thyroxine) Today D35.2 - Benign neoplasm of pituitary gland Testosterone, Free/Total Today D35.2 - Benign neoplasm of pituitary gland Basic Metabolic Panel Today D35.2 - Benign neoplasm of pituitary gland Creatinine, 24 Hr Group Today D35.2 - Benign neoplasm of pituitary gland Thyroid Stimulating Hormone Today D35.2 - Benign neoplasm of pituitary gland Cortisol Random Today D35.2 - Benign neoplasm of pituitary gland Prolactin Today D35.2 - Benign neoplasm of pituitary gland Referrals Neurosurgery Referral D35.2 - Benign neoplasm of pituitary gland Coding Level of Care Code New Pt Level 4 (26867) Diagnoses Pituitary adenoma D35.2
[2024-03-16 07:48] VITALS: BP 108/48; PULSE 54; BMI 23.3
== END 2024-03-16 08:21 | disposition home or self-care (01) ==
PROVIDERS: PCP Internal Medicine; Visit Provider Internal Medicine Endocrinology, Diabetes & Metabolism
DX: D35.2 Benign neoplasm of pituitary gland (principal)
CPT/HCPCS: 99204

== ENCOUNTER → 2024-03-16 07:35 | Outpatient (BNVA) | payer MEDICARE, SELFPAY | PROVIDERS: PCP Internal Medicine; Visit Provider Internal Medicine Endocrinology, Diabetes & Metabolism | DX: D35.2 Benign neoplasm of pituitary gland (principal) | CPT/HCPCS: 99202 ==

== ENCOUNTER 2024-03-24 08:16 | Outpatient (REF) | payer MEDICARE, SELFPAY ==
[2024-03-24 11:10] LABS: Anion Gap 11 (12-20); Blood Urea Nitrogen 22 mg/dL (9-16); Calcium 9.6 mg/dL (8.4-10.2); Carbon Dioxide 27 mmol/L (22-29); Chloride 105 mmol/L (96-108); Estimated Glomerular Filt Rate > 60; Glucose Random 93 mg/dL (60-115); Sodium 139 mmol/L (135-145)
[2024-03-24 11:33] LABS: Free T4 (Free Thyroxine) 1.01 ng/dL (0.71-1.85); Thyroid Stimulating Hormone 0.68 uIU/mL (0.32-4.0)
[2024-03-24 11:56] LABS: Cortisol Random 10.1 ug/dL
[2024-03-25 08:59] LABS: Prolactin 5.2 ng/mL (2.0-18.0)
[2024-03-29 14:03] LABS: Testosterone, Free 30.2 pg/mL (30.0-135.0); Testosterone, Total 267 ng/dL (250-1100)
[2024-04-02 15:34] LABS: IGF-1 (Somatomedin C) 70 ng/mL (34-245); IGF-1 Z Score (Male) -0.7 SD (-2.0 - +2.0)
== END 2024-03-24 08:17 | disposition home or self-care (01) ==
LOC: HO.10HDL 08:16
PROVIDERS: Visit Provider Internal Medicine Endocrinology, Diabetes & Metabolism
DX: D35.2 Benign neoplasm of pituitary gland (principal)
CPT/HCPCS: 36415; 80048; 82533; 84146; 84305; 84402; 84403; 84439; 84443

== ENCOUNTER 2024-04-08 08:56 | Outpatient (REF) | payer MEDICARE, SELFPAY ==
[2024-04-08 09:48] LABS: Total Volume 24 Hour Urine 1750 mL
[2024-04-08 09:57] LABS: Creatinine, mg/dL 58.59
[2024-04-25 11:58] LABS: Cortisol Free, 24 Hr Urine 16.5 mcg/24 h (4.0-50.0); Creatinine, 24 Hr Urine 1.05 g/24 h (0.50-2.15); Total Volume, 24 Hr Urine 1750 mL
== END 2024-04-08 08:57 | disposition home or self-care (01) ==
LOC: HO.LNP 08:56
PROVIDERS: Visit Provider Internal Medicine Endocrinology, Diabetes & Metabolism
DX: D35.2 Benign neoplasm of pituitary gland (principal)
CPT/HCPCS: 82530; 82570

== ENCOUNTER 2024-04-30 08:47 | Outpatient (AMB) | payer MEDICARE, SELFPAY ==
[2024-04-30 09:13] VITALS: BMI 23.3
--- NOTE | 2024-04-30 09:13 | A.OFFVIS_ITS ---
Vital Signs 04/30/24 09:13 Height 5 ft 6 in Weight 144 lb 6 oz BMI 23.3 Intake Visit Reasons: New Pt - left hip pain/lower back Intake Note: Bernice is a 78 yo male who presents today as a new patient for left hip pain as well as low back pain. Patient referred to us by [facility]. Patient states his left hip pain radiates down to the left knee and left foot. He re ports his pain is on and off, sometimes worse in the morning, sometimes at night. He has not had any new back injuries since his surgery, 4-5, L5-S1 spinal stenosis/lateral recess stenosis/neural foraminal stenosis, DOS: 08/08/23. Patient takes Tylenol for pain however he shares it does not always provide relief. He has not tried PT or injections. Allergies No Known Allergies Allergy (Mild, Verified 04/30/24 09:14) NONE Medication List - Last Reconciled 04/30/24 by Suellen Grewal MD acetaminophen 500 mg PO Q6H PRN alcohol swabs 1 pad topical TID atorvastatin 20 mg PO DAILY blood pressure test kit-large As directed blood sugar diagnostic As directed chlorthalidone 25 mg PO DAILY dabigatran etexilate 150 mg PO BID docusate sodium (Colace) 100 mg PO BID lorazepam 1 mg PO BID losartan 25 mg PO DAILY meclizine 25 mg PO BEDTIME PRN melatonin 10 mg PO BEDTIME metformin 500 mg PO BID methocarbamol 750 mg PO BID metronidazole 500 mg PO Q12H sildenafil (Viagra) 100 mg PO ONCE PRN 30 days terazosin 5 mg PO BEDTIME 90 days topiramate 25 mg PO BID HPI Comments Details: S/p left L4-L5, L5-S1 Laminotomy, Partial facetectomy and foraminotomy; L5-S1 diskectomy with use of microscope completed on 08/08/23. Patient says pain had severe pain back then, couldn't walk, stand or even lie down. He admits that it is much better than before. But he still has little pain on left SI region, going to hip, down to knee and ankle. Feels Stiff . He repeats that it is not as severe. 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 Sometimes he gets numbness on left foot. No weakness or foot drop. No bladder/bowel changes. Denies radiation to groin. He did not have PT after surgery. FORMERLY [facility] Medical History (Updated 04/30/24 @ 09:47 by Suellen Grewal MD) Lumbar stenosis with neurogenic claudication Left lumbar radiculopathy Pituitary adenoma Hiatal hernia History of transesophageal echocardiography (JANNA) Pre-operative cardiovascular examination Erectile dysfunction BPH with obstruction/lower urinary tract symptoms Dizziness PAF (paroxysmal atrial fibrillation) SSS (sick sinus syndrome) Diabetes mellitus GERD (gastroesophageal reflux disease) HTN (hypertension) Surgical History (Updated 04/30/24 @ 09:47 by Suellen Grewal MD) Hx of decompressive lumbar laminectomy Hx of esophagogastroduodenoscopy History of cardioversion (~2012) Hx of colonoscopy Hx of umbilical hernia repair Hx of inguinal hernia surgery Family History Father Alzheimer disease Mother No problems noted. Brother Diabetes Social History Are you a primary customer care specialist to a significant other at home: No Do you presently have visiting nurse or other home services: No Comment: aware of trip hazard Patient Tobacco Use Status: Never used Tobacco Advance Directives Date on File: 09/11/19 Review of Systems Const All systems reviewed & are unremarkable except as noted in HPI and below Physical Exam Vital Signs: BMI result Body Mass Index 23.3 Constitutional: Patient appears to be in no acute distress, well nourished and well developed. Patient was appropriately conversant and oriented. Good historian. MSK: No specific abnormalities found on inspection of the spine and all extremities. No pain with palpation over the lumbar area. Mild tenderness in left SI joint. No tenderness over GT. Lumbar ROM was full. Bilateral hip, knee and ankle ROM WNL. No ligamentous laxity or crepitance. No increased effusion. Straight-leg raising test negative. FABERE test positive bilateral back pain. Strength is 5/5 in all muscle groups tested. No increased tone noted. Neurological: Neurologic examination of the upper and lower extremities was nonfocal with intact sensation, muscle stretch reflexes and without focal motor deficits . [place]?s negative bilaterally. Babinski was down going bilaterally. Clonus was negative. Gait is non-antalgic without loss of balance. Results Reviewed Results Reviewed: I reviewed records from the following: Neurosurgery Assessment & Plan Assessment & Plan (1) Hx of decompressive lumbar laminectomy: Code(s): Z98.890 - Other specified postprocedural states Category: Surgical (2) Left lumbar radiculopathy: Code(s): M54.16 - Radiculopathy, lumbar region Category: Medical Plan His symptoms are still consistent with left lumbar radiculopathy that is much improved since decompressive surgery in August. He does have some tenderness over SI joint. He was referred to evaluate for hip joint pathology but he denies any groin pain. Referring to physical therapy. Post surgery rehab is usually helpful. Patient is willing. Getting hip/pelvic x-rays to rule out hip DJD. He has done multiple injections in the past and is not considering them again. Assessment and plan discussed with patient, and patient was agreeable. All questions were answered thoroughly. Follow up with physiatry 3 months. Suellen Grewal MD, PARAMJIT Board Certified, [place] [employer] and Rehabilitation (ABPMR) Board Certified, [place] [employer] Electro[employer] (ABEM) Orders: Orders XR hips YARIEL min 3V Today M25.559 - Pain in unspecified hip, M54.16 - Radiculopathy, lumbar region, Z98.890 - Other specified postprocedural states PT Evaluation and Treatment Today M54.16 - Radiculopathy, lumbar region, Z98.890 - Other specified postprocedural states Coding Level of Care Code New Pt Level 4 (58230) Diagnoses Hx of decompressive lumbar laminectomy Z98.890 Left lumbar radiculopathy M54.16
== END 2024-04-30 09:58 | disposition home or self-care (01) ==
PROVIDERS: PCP Internal Medicine; Visit Provider Physical Medicine & Rehabilitation
DX: M54.50 Low back pain, unspecified (principal); M54.16 Radiculopathy, lumbar region
CPT/HCPCS: 99203

== ENCOUNTER → 2024-04-30 08:47 | Outpatient (BNVA) | payer MEDICARE, SELFPAY | PROVIDERS: PCP Internal Medicine; Visit Provider Physical Medicine & Rehabilitation | DX: M54.16 Radiculopathy, lumbar region (principal); Z98.890 Other specified postprocedural states | CPT/HCPCS: 99202 ==

== ENCOUNTER 2024-05-26 08:04 | Outpatient (AMB) | payer MEDICARE, SELFPAY ==
[2024-05-26 08:06] VITALS: BP 126/64; PULSE 88; BMI 23.2
--- NOTE | 2024-05-26 08:06 | MHC.OFFVIS ---
Vital Signs 05/26/24 08:06 Height 5 ft 6 in Weight 143 lb 15.39 oz BMI 23.2 BP 126/64 Blood Pressure Location Lt brachial Position Sitting Pulse 88 Pulse Source Pulse Oximeter Intake Visit Reasons: f/u pituitary adenoma-conf Intake Note: Patient present today for Pituitary adenoma follow up visit. Pals Specialist Required: No Accompanied by: Self / Same As Patient Allergies No Known Allergies Allergy (Mild, Verified 05/26/24 08:11) NONE HPI Comments Details: Is a 79-year-old male with a history of pituitary micro adenoma. Left-sided 1.3 cm. Never saw beam carrier hauler pusher . Hormonal workup reveals the absence of excessive secretion of pituitary hormones deficiency Patient denies breast discharge, symptoms of acromegaly, symptoms of Gordon's. He denies any visual loss or blurry vision. He saw the neurosurgeon at [facility] last week. As per patient, states that Dr. Crawford would like to operate the next several months but needs to get a copy of the previous MRI prior to January of 2024 for comparison [facility] Medical History (Updated 04/30/24 @ 09:47 by Suellen Grewal MD) Lumbar stenosis with neurogenic claudication Left lumbar radiculopathy Pituitary adenoma Hiatal hernia History of transesophageal echocardiography (JANNA) Pre-operative cardiovascular examination Erectile dysfunction BPH with obstruction/lower urinary tract symptoms Dizziness PAF (paroxysmal atrial fibrillation) SSS (sick sinus syndrome) Diabetes mellitus GERD (gastroesophageal reflux disease) HTN (hypertension) Surgical History (Updated 04/30/24 @ 09:47 by Suellen Grewal MD) Hx of decompressive lumbar laminectomy Hx of esophagogastroduodenoscopy History of cardioversion (~2012) Hx of colonoscopy Hx of umbilical hernia repair Hx of inguinal hernia surgery Family History Father Alzheimer disease Mother No problems noted. Brother Diabetes Social History Are you a primary nanny caregiver to a significant other at home: No Do you presently have visiting nurse or other home services: No Comment: aware of trip hazard Patient Tobacco Use Status: Never used Tobacco Advance Directives Date on File: 09/11/19 Assessment & Plan Assessment & Plan (1) Pituitary adenoma: Code(s): D35.2 - Benign neoplasm of pituitary gland Category: Medical Plan: This is a 78-year-old male with a history of pituitary macroadenoma. The adenoma appears to be non secretory and not interfering with pituitary axis Plan is to obtain the office visit notes from Dr. Crawford at [facility]. Will also try to facilitate sending the MRI requested to Dr. Crawford. Told patient schedule follow-up with Dr. Crawford. Coding Level of Care Code Est Pt Level 3 (15906) Diagnoses Pituitary adenoma D35.2
== END 2024-05-26 08:23 | disposition home or self-care (01) ==
PROVIDERS: PCP Internal Medicine; Visit Provider Internal Medicine Endocrinology, Diabetes & Metabolism
DX: D35.2 Benign neoplasm of pituitary gland (principal)
CPT/HCPCS: 99213

== ENCOUNTER → 2024-05-26 08:04 | Outpatient (BNVA) | payer MEDICARE, SELFPAY | PROVIDERS: PCP Internal Medicine; Visit Provider Internal Medicine Endocrinology, Diabetes & Metabolism | DX: D35.2 Benign neoplasm of pituitary gland (principal) | CPT/HCPCS: 99212 ==

== ENCOUNTER 2024-07-21 06:00 | Outpatient (RCR) | payer MEDICARE, SELFPAY ==
--- NOTE | 2024-07-14 11:46 | MHC.PT.EP ---
[facility] [place] Office [place] Office [place] Office [address] Alvarez Collado [address] [phone] F: [phone] F: [phone] F: [phone] F: [phone] Physical Therapy Plan of Care Date of Evaluation: 07/14/24 Date of Surgery: Diagnosis: radiculopathy, lumbar region Surgery in August 2023: left L4-L5, L5-S1 Laminotomy, Partial facetectomy and foraminotomy; L5-S1 diskectomy with use of microscope Assessment: Patient is a 79 year old R handed male who presents with s/s consistent with radiculopathy, lumbar region, low back pain. He works with daily job demands including squpbsi juan. Patient past medical history includes HTN, DM, hernia and AFib. Current impairments include pain, posture, ROM, flexibility, strength, activity tolerance and functional mobility. Functional limitations include decreased ability to transfer, lift, sleep, walk, squat, carry, push and pull. Patient is motivated with good rehab potential. Skilled PT will address impairments and functional limitations in order to achieve goals. Frequency and Duration: The patient will be seen 2x/week for 5 weeks Short Term Goals: I with HEP - 2 weeks 90/90 lacking 30 or less b/l - 3 weeks Able to walk 30 minutes without increased pain - 3 weeks Prison Goals: 90/90 lacking 25 or less b/l - 5 weeks Max pain with ADLs and daily routine 09/14 - 5 weeks AROM rotation 75% and pain free - 5 weeks LE strength 4/5 grossly on L - 5 weeks Treatment Plan: Modalities to reduce pain, spasms and effusion. Manual therapy to restore motion and function. Therapeutic exercise to improve strength and flexibility. Neuromuscular re-education for posture and balance. Therapeutic activities to return to functional activities of daily living. Electronically signed by: Efe Pardo, PT Please sign and return to therapist. Thank you for your referral.
--- NOTE | 2024-09-16 13:34 | MHC.PT.DC ---
[facility] [place] Office [place] Office [place] Office [address] Alvarez Collado [address] [phone] F: [phone] F: [phone] F: [phone] F: [phone] Physical Therapy Discharge Report Diagnosis: radiculopathy, lumbar region Surgery in August 2023: left L4-L5, L5-S1 Laminotomy, Partial facetectomy and foraminotomy; L5-S1 diskectomy with use of microscope Date of Surgery: Date of Evaluation: 07/14/24 Date of Discharge: Treatments to Date: 2 Cancellations to Date: No Shows to Date: Discharge Status: Visit Non-compliance Discharge Summary: 07/21/24: pt 10 min late, accommodated. pt non-compliant with HEP. educated him on importance of compliance. Patient is a 79 year old R handed male who presents with s/s consistent with radiculopathy, lumbar region, low back pain. He works with daily job demands including [employer] ju[employer]. Patient past medical history includes HTN, DM, hernia and AFib. Current impairments include pain, posture, ROM, flexibility, strength, activity tolerance and functional mobility. Functional limitations include decreased ability to transfer, lift, sleep, walk, squat, carry, push and pull. Patient is motivated with good rehab potential. Skilled PT will address impairments and functional limitations in order to achieve goals. Electronically signed by: Efe Pardo, PT Please sign and return to therapist. Thank you for your referral.
== END 2024-09-16 13:34 | disposition home or self-care (01) ==
LOC: HO.PTCHIC 06:00
PROVIDERS: PCP Internal Medicine; Visit Provider Physical Medicine & Rehabilitation
DX: Z98.890 Other specified postprocedural states (principal); M54.16 Radiculopathy, lumbar region
CPT/HCPCS: 97110; 97162

== ENCOUNTER 2024-09-01 07:59 | Outpatient (AMB) | payer MEDICARE, SELFPAY ==
--- OUTSIDE RECORDS SUMMARY | 2024-09-01 08:05 | XMS_ITS | Encounter Summary ---
Author Organization [employer] Address [address] [facility] [address] [place] [address] Care Team Providers Care Licensed Mortgage Loan Officer Name Role Phone Chidi Hsu MD Primary Care Provide r Encounter Details Date Type Department Care Team (Late st Contact Info) Description 03/07/2023 Orders Only [facility] CHC MED & PEDS [address] [place], [place] [phone] Elida Calles LPN Social History Tobacco Use Types Packs/Day Years Used Date Smoking Tobacco: Never Passive Smoke Exposure: Never Smokeless Tobacco: Never Alcohol Use Standard Drinks/Week Comments Not Asked 0 (1 standard drink = 0.6 oz pur e alcohol) Depression Answer Date Recorded Patient Health Questionnaire-9 Score 13 07/19/2022 Depression Answer Date Recorded Patient Health Questionnaire-2 Score 6 07/19/2022 Sex and Gender Information Value Date Recorded Sex Assigned at Male 06/04/2022 10:15 AM EDT Legal Sex Male 10:15 AM EDT Gender Identity Male 06/04/2022 10:15 AM EDT Sexual Orientation Straight 06/04/2022 10 :15 AM EDT documented as of this encounter Plan of Treatment Upcoming Encounters Date Type Department Care Team (Late st Contact Info) Description 10/27/2024 9:15 AM EDT Office Visit [facility] MEDICINE [address] [place], [place] [phone] Chidi Hsu MD [address] [place], [place] [phone] documented as of this encounter Visit Diagnoses Not on filedocumented in this encounter Additional Health Concerns Assessment Noted Time PHQ-9 Depression Total Score: 13 022 1:00 PM EST documented as of this encounter Care Teams Licensed Mortgage Loan Officer Relationship Specialty Start Date End Date Chidi Hsu MD [address] [place] [address] PCP - General Internal Medicine 02/19/23 documented as of this encounter
--- OUTSIDE RECORDS SUMMARY | 2024-09-01 08:05 | XMS_ITS | Encounter Summary ---
Author Organization [employer] Address [address] [facility] [address] [place] [address] Care Team Providers Care Mainstreaming Facilitator Name Role Phone Chidi Hsu MD Primary Care Provide r Chidi Hsu MD Primary Care Provide r Encounter Details Date Type Department Care Team ([facility] Contact Info) Description 11/08/2022 Orders Only [facility] CHC MED & PEDS [address] [place] [address] Monserrat Buck LPN Social History Tobacco Use Types Packs/Day Years Used Date Smoking Tobacco: Never Smokeless Tobacco: Never Alcohol Use Standard [...] Orientation Straight 06/04/2022 10 :15 AM EDT COVID-19 Exposure Response Date Recorded In the last 10 days, have yo u been in contact with someone who was confirmed or suspected to have Coronavirus/COVID-19? No / Unsure 10/23/2022 10:55 AM EDT documented as of this encounter Plan of Treatment Upcoming Encounters Date Type Department Care Team ([facility] Contact Info) Description 10/27/2024 9:15 AM EDT Office Visit [facility] MEDICINE [address] [place] [address] Chidi Hsu MD [address] [facility] [place] [address] documented as of this encounter Visit Diagnoses Not on filedocumented in this encounter Additional Health Concerns Assessment Noted Time PHQ-9 Depression Total Score: 13 07/19/ 022 1:00 PM EST documented as of this encounter Care Teams Mainstreaming Facilitator Relationship Specialty Start Date End Date Chidi Hsu MD [address] [facility] [place] [address] PCP - General Internal Medicine 04/19/14 02/18/23 Chidi Hsu MD [address] [place], [place] [address] [address] PCP - General Internal Medicine 02/19/23 documented as of this encounter
--- OUTSIDE RECORDS SUMMARY | 2024-09-01 08:05 | XMS_ITS | Encounter Summary ---
Author Organization [employer] Address [address] [facility] [address] [place] [address] Care Team Providers Care Mechanical Meter Tester Name Role Phone Chidi Hsu MD Primary Care Provide r Reason for Visit * Reason Onset Date Comments Nurse Triage 04/16/2023 Encounter Details Date Type Department Care Team ([facility] st Contact Info) Description 04/16/2023 Telephone [facility] MEDICINE [address] [place], [place] [phone] Chidi Hsu MD [address] [place], [place] [phone] Nurse Triage Social History Tobacco Use Types Packs/Day Years Used Date Smoking Tobacco: Never Passive Smoke Exposure: Never Smokeless Tobacco: Never Alcohol Use Standard Drinks/Week Comments Not Asked 0 (1 standard drink = 0.6 oz pur e alcohol) Depression Answer Date Recorded Patient Health Questionnaire-9 Score 5 10/01/2023 Patient Health Questionnaire-9 Score 5 10/01/2023 Last PHQ-9: Questionnaire Data Not on file 0 10/01/2023 Housing Stability Answer Date Recorded What is your housing situation today? I have edwige green 10/01/[address] you li ve. Do you have problems with any of the following? None of the above 10/01/2023 Food Insecurity Answer Date Recorded Within the past 12 months, y ou worried that your food would run out before you got money to buy more: Never True 10/01/2023 Within the past 12 months,th e food you bought just didn't last and you didn't have enough money to get more: Never True Transportation Answer Date Recorded In the past 12 months, has l ack of transportation kept you from medical appts, meetings, work or from getting things needed for daily living? No 10/01/2023 Utilities Answer Date Recorded In the past 12 months, has t he electric, gas, oil or water company threatened to shut off services in your home? No 10/01/2023 Depression Answer Date Recorded Patient Health Questionnaire-2 Score 0 10/01/2023 Sex and Gender Information Value Date Recorded Sex Assigned at Male 06/04/2022 10:15 AM EDT Legal Sex Male 10:15 AM EDT Gender Identity Male 06/04/2022 10:15 AM EDT Sexual Orientation Straight 06/04/2022 10 :15 AM EDT documented as of this encounter Miscellaneous Notes * Telephone Encounter - Lissette Juan RN - 04/16/2023 3:55 PM EDT Triage call Pt calls regarding low back pain which radiates to left leg. Pt has been seen by pcp for this and by spinal specialist . Last meeting with spinal specialist left meeting with an order foranother MRI but, doctor Young was supposed to check in with insurance to find out if the MRI is covered. In the mean time Pt continues with chronic back pain and ankle swelling , left ankle worse . Advised Pt to call spinal specialist to see if MRI insurance is cleared yet. Advised to call back for possible cancellation with PCP to obtain apt before May. Pt agrees with this plan and continues with home care advice already known to Pt. Protocol Used: Back Pain (Adult) Protocol-Based Disposition: Home Care Positive Triage Question: * Back pain * All higher-acuity triage questions were negative Care Advice Discussed: * Reassurance and Education - Back Pain * Cold or Heat * Sleep * Activity * Pain Medicines * Pain Medicines - Extra Notes and Warnings * Reasons To Call Back - Fever occurs - Numbness or weakness occurs, or bowel/bladder problems - Pain begins to shoot into the leg - Pain persists over 2 weeks - Pain becomes worse - You become worse * Telephone Encounter - Comfort Escobar - 04/16/2023 3:30 PM EDT Symptom: Foot or Ankle Pain - Not From Injury Outcome: Talk to a nurse or provider within 15 minutes Reason: Can't walk (unless normally can't walk) The caller accepted this outcome Please contact at [phone] documented in this encounter Plan of Treatment Upcoming Encounters Date Type Department Care Team (Late st Contact Info) Description 10/27/2024 9:15 AM EDT Office Visit [facility] MEDICINE [address] [place] [address] Chidi Hsu MD [address] [place] [address] documented as of this encounter Visit Diagnoses Not on filedocumented in this encounter Additional Health Concerns Assessment Noted Time PHQ-9 Depression Total Score: 13 12/2 022 1:00 PM EST documented as of this encounter Care Teams Mechanical Meter Tester Relationship Specialty Start Date End Date Chidi Hsu MD [address] [place] [id number] PCP - General Internal Medicine 02/19/23 documented as of this encounter
--- OUTSIDE RECORDS SUMMARY | 2024-09-01 08:05 | XMS_ITS | Encounter Summary ---
Author Organization [employer] Address [address] [facility] [address] [place] [address] Care Team Providers Care Security Rep Name Role Phone Chidi Hsu MD Primary Care Provide r Chidi Hsu MD Primary Care Provide r Encounter Details Date Type Department Care Team (Latest Contact Info) Description 07/21/2021 Abstract [facility] CONVERSIONS Dental, Provider, DDS Social History Tobacco Use Types Packs/Day Years Used Date Smoking Tobacco: Never Assessed Sex and Gender Information Value Date Recorded Sex Assigned at Male 06/04/2022 10:15 AM EDT Legal Sex Male 10:15 AM EDT Gender Identity Male 06/04/2022 10:15 AM EDT Sexual Orientation Straight 06/04/2022 10 :15 AM EDT documented as of this encounter Plan of Treatment Upcoming Encounters Date Type Department Care Team (Late st Contact Info) Description 10/27/2024 9:15 AM EDT Office Visit [facility] MEDICINE [address] [place], [place] [phone] Chidi Hsu MD [address] [place] [address] documented as of this encounter Visit Diagnoses Not on filedocumented in this encounter Care Teams Security Rep Relationship Specialty Start Date End Date Chidi Hsu MD [address] [place] [address] PCP - General Internal Medicine 04/19/14 02/18/23 Chidi Hsu MD [address] [place] [address] PCP - General Internal Medicine 02/19/23 documented as of this encounter
--- OUTSIDE RECORDS SUMMARY | 2024-09-01 08:05 | XMS_ITS | Encounter Summary ---
Author Organization [employer] Address [address] [facility] [address] [place] [address] Care Team Providers Care Senior Interactive Developer Name Role Phone Chidi Hsu MD Primary Care Provide r Chidi Hsu MD Primary Care Provide r Encounter Details Date Type Department Care Team (Late st Contact Info) Description 08/08/2022 Orders Only [facility] CHC MED & PEDS [address] [place], [place] [phone] Monserrat Buck LPN Social History Tobacco Use Types Packs/Day Years Used Date Smoking Tobacco: Never Smokeless Tobacco: Never Alcohol Use Standard Drinks/Week Comments Never 0 (1 standard drink = 0.6 oz [...] Description 10/27/2024 9:15 AM EDT Office Visit [facility] MEDICINE [address] [place], [place] [phone] Chidi Hsu MD [address] [place] [address] documented as of this encounter Visit Diagnoses Not on filedocumented in this encounter Additional Health Concerns Assessment Noted Time PHQ-9 Depression Total Score: 13 022 1:00 PM EST documented as of this encounter Care Teams Senior Interactive Developer Relationship Specialty Start Date End Date Chidi Hsu MD [address] [place] [address] PCP - General Internal Medicine 04/19/14 02/18/23 Chidi Hsu MD [address] [place] [address] PCP - General Internal Medicine 02/19/23 documented as of this encounter
--- OUTSIDE RECORDS SUMMARY | 2024-09-01 08:05 | XMS_ITS | Clinical Summary ---
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 30 tablet 2 2 Active Acetaminophen Extra Strength 500 MG tabletIndications: Acute viral syndrome TAKE 2 TABLETS BY MOUTH EVERY 6 HOURS NEEDED FOR PAIN OR FOR HEADACHE 120 tablet 1 3 Active Diclofenac Sodium 1 % gelIndications:Lum bar radiculopathy Apply to affected area BID 100 g 3 3 Active pen needle 32G x 4 mm miscIndications:Ty pe 2 diabetes mellitus without complication, without long-term current use of insulin ([facility]) Use as instructed 100 each 3 4 025 Active insulin glargine (Lantus SoloStar) 100 UNIT/ML penIndications:Typ e 2 diabetes mellitus without complication, without long-term current use of insulin ([facility]) Inject 20 Units under the skin at bedtime. 3 mL 1 4 Active tamsulosin (Flomax) 0.4 MG 24 hr capsule Take 1 capsule (0.4 mg) by mouth Once per day. 30 capsule 2 4 Active meclizine (Antivert) 25 MG tabletIndications: Dizziness Take 1 tablet (25 mg) by mouth if needed in the morning and at bedtime for dizziness. 30 tablet 3 4 Active triamcinolone (Kenalog) 0.1 % creamIndications:D ermatitis APPLY TO THE AFFECTED AREA(S) TWICE DAILY IN THE MORNING AND AT BEDTIME NEEDED FOR RASH 30 g 2 4 Active losartan (Cozaar) 25 MG tabletIndications: Primary hypertension TAKE 1 TABLET BY MOUTH EVERY EVENING 30 tablet 6 4 Active metFORMIN (Glucophage) 500 MG tablet TAKE 2 TABLETS BY MOUTH TWICE DAILY IN THE MORNING AND EVENING 360 tablet 1 4 Active chlorthalidone (Hygroton) 25 MG tablet TAKE 1 TABLET BY MOUTH EVERY MORNING 30 tablet 6 4 Active Pradaxa 150 MG capsule TAKE 1 CAPSULE BY MOUTH TWICE DAILY IN THE MORNING AND IN THE EVENING 60 capsule 6 4 Active atorvastatin (Lipitor) 20 MG tabletIndications: Mixed hyperlipidemia TAKE 1 TABLET BY MOUTH EVERY MORNING 90 tablet 1 4 Active Active Problems Problem Noted Date Diagnosed Date Dermatitis 11/07/2023 Assessment & Plan (11/07/2023 10:34 AM EDT): Exam suggestive of eczema Plan: topical steroids Internal referral to Derm clinic Dizziness 12/20/2022 Benign prostatic hyperplasia 10/23/2022 Assessment & Plan (10/23/2022 9:16 AM EDT): Pt seen in the Hospital with c/o urinary retention diagnosed with BPH by Urology, responded to Flomax, Pt was last seen 09/30/2019 Lumbar radiculopathy 10/23/2022 Assessment & Plan (06/23/2024 11:16 AM EST): Pt with chronic low back pain CT of his Lumbar spine done 09/27/2020howed: - At L5-S1, a left paracentral disc protrusion results in suspected compression of the traversing left S1 nerve root within the left subarticular zone and moderate to severe central canal stenosis. - At L4-L5, multifactorial degenerative changes result in suspected moderate to severe central canal stenosis, severe bilateral subarticular zone stenosis with mass effect on the traversing L5 nerve roots bilaterally, and severe bilateral foraminal stenosis with mass effect on the exiting L4 nerve roots bilaterally. MRI 10/13/2020: - At L5-S1, advanced multifactorial degenerative changes result in severe central canal stenosis and moderate to severe bilateral foraminal stenosis with mass effect on the exiting L5 nerve roots bilaterally. There is an inferiorly migrating left paracentral disc extrusion at this level contributing towards compression of the traversing left S1 nerve root within the left S1 lateral recess. - At L4-L5, advanced multifactorial degenerative changes result in moderate to severe central canal stenosis, severe bilateral subarticular zone stenosis with compression of the traversing L5 nerve roots bilaterally, as well as severe right and moderate to severe left foraminal stenosis with compression of the exiting right greater than left L4 nerve roots. - At L3-L4, multifactorial degenerative changes result in moderate bilateral foraminal stenosis with mild mass effect on the exiting L3 nerve roots bilaterally. - There is marrow edema along the upper endplate of L5 posteriorly on the left side where there is an upper endplate Schmorl's node. There are Modic type I endplate signal changes at T12-L1, L1-L2, L2-L3, L3-L4, and L5-S1. Pt had a steroid injection on 11/08/2020. He does not want to take Oxycodone because he states it did not help him and only caused him constipation and insomnia. Patient was seen by Neurosurgeon DR. Camara 01/06/2021 who reviewed his MRI who recommended a 2 level open decompression with a left L5-S1 microdiskectomy. Patient initially agreed to go ahead with he surgery but once again today he told me that after careful consideration he has decided that he is NOT going to have the surgery. Wanted to go back to [facility], he had a steroid injection with no good result. He was then referred to a Neurosurgeon at [facility]. We contacted them and we were told they have yet to received anything from [facility]. We also contacted [facility] and we were told they were going to resend the referral and applicable information and notify us after that. I explained to patient that this is also a Neurosurgeon and that the main reason to go see him would be if he is interested in having a surgical intervention. Patient verbalized understanding. Pt under the care of Dr Mosquera at [facility] ( Spine surgeon ) He is now s/p Left L4-L5, L5-S1 Laminotomy, Partial facetectomy and foraminotomy 08/08/2022. Last seen 12/[address] Young Follow up with me in 4 months Assessment & Plan (02/18/2024 10:26 AM EDT): Pt with chronic low back pain CT of his Lumbar spine done 09/27/2020howed: - At L5-S1, a left paracentral disc protrusion results in suspected compression of the traversing left S1 nerve root within the left subarticular zone and moderate to severe central canal stenosis. - At L4-L5, multifactorial degenerative changes result in suspected moderate to severe central canal stenosis, severe bilateral subarticular zone stenosis with mass effect on the traversing L5 nerve roots bilaterally, and severe bilateral foraminal stenosis with mass effect on the exiting L4 nerve roots bilaterally. MRI 10/13/2020: - At L5-S1, advanced multifactorial degenerative changes result in severe central canal stenosis and moderate to severe bilateral foraminal stenosis with mass effect on the exiting L5 nerve roots bilaterally. There is an inferiorly migrating left paracentral disc extrusion at this level contributing towards compression of the traversing left S1 nerve root within the left S1 lateral recess. - At L4-L5, advanced multifactorial degenerative changes result in moderate to severe central canal stenosis, severe bilateral subarticular zone stenosis with compression of the traversing L5 nerve roots bilaterally, as well as severe right and moderate to severe left foraminal stenosis with compression of the exiting right greater than left L4 nerve roots. - At L3-L4, multifactorial degenerative changes result in moderate bilateral foraminal stenosis with mild mass effect on the exiting L3 nerve roots bilaterally. - There is marrow edema along the upper endplate of L5 posteriorly on the left side where there is an upper endplate Schmorl's node. There are Modic type I endplate signal changes at T12-L1, L1-L2, L2-L3, L3-L4, and L5-S1. Pt had a steroid injection on 11/08/2020. He does not want to take Oxycodone because he states it did not help him and only caused him constipation and insomnia. Patient was seen by Neurosurgeon DR. Camara 01/06/2021 who reviewed his MRI who recommended a 2 level open decompression with a left L5-S1 microdiskectomy. Patient initially agreed to go ahead with he surgery but once again today he told me that after careful consideration he has decided that he is NOT going to have the surgery. Wanted to go back to [facility], he had a steroid injection with no good result. He was then referred to a Neurosurgeon at [facility]. We contacted them and we were told they have yet to received anything from [facility]. We also contacted [facility] and we were told they were going to resend the referral and applicable information and notify us after that. I explained to patient that this is also a Neurosurgeon and that the main reason to go see him would be if he is interested in having a surgical intervention. Patient verbalized understanding. Pt under the care of Dr Mosquera at [facility] ( Spine surgeon ) He is now s/p Left L4-L5, L5-S1 Laminotomy, Partial facetectomy and foraminotomy 08/08/2022. Last seen 12/[address] Young Follow up with me in 4 months Assessment & Plan (10/01/2023 10:44 AM EST): Pt with chronic low back pain CT of his Lumbar spine done 09/27/2020howed: - At L5-S1, a left paracentral disc protrusion results in suspected compression of the traversing left S1 nerve root within the left subarticular zone and moderate to severe central canal stenosis. - At L4-L5, multifactorial degenerative changes result in suspected moderate to severe central canal stenosis, severe bilateral subarticular zone stenosis with mass effect on the traversing L5 nerve roots bilaterally, and severe bilateral foraminal stenosis with mass effect on the exiting L4 nerve roots bilaterally. MRI 10/13/2020: - At L5-S1, advanced multifactorial degenerative changes result in severe central canal stenosis and moderate to severe bilateral foraminal stenosis with mass effect on the exiting L5 nerve roots bilaterally. There is an inferiorly migrating left paracentral disc extrusion at this level contributing towards compression of the traversing left S1 nerve root within the left S1 lateral recess. - At L4-L5, advanced multifactorial degenerative changes result in moderate to severe central canal stenosis, severe bilateral subarticular zone stenosis with compression of the traversing L5 nerve roots bilaterally, as well as severe right and moderate to severe left foraminal stenosis with compression of the exiting right greater than left L4 nerve roots. - At L3-L4, multifactorial degenerative changes result in moderate bilateral foraminal stenosis with mild mass effect on the exiting L3 nerve roots bilaterally. - There is marrow edema along the upper endplate of L5 posteriorly on the left side where there is an upper endplate Schmorl's node. There are Modic type I endplate signal changes at T12-L1, L1-L2, L2-L3, L3-L4, and L5-S1. Pt had a steroid injection on 11/08/2020. He does not want to take Oxycodone because he states it did not help him and only caused him constipation and insomnia. Patient was seen by Neurosurgeon DR. Camara 01/06/2021 who reviewed his MRI who recommended a 2 level open decompression with a left L5-S1 microdiskectomy. Patient initially agreed to go ahead with he surgery but once again today he told me that after careful consideration he has decided that he is NOT going to have the surgery. Wanted to go back to [facility], he had a steroid injection with no good result. He was then referred to a Neurosurgeon at [facility]. We contacted them and we were told they have yet to received anything from [facility]. We also contacted [facility] and we were told they were going to resend the referral and applicable information and notify us after that. I explained to patient that this is also a Neurosurgeon and that the main reason to go see him would be if he is interested in having a surgical intervention. Patient verbalized understanding. Pt under the care of Dr Mosquera at [facility] ( Spine surgeon ) He is now s/p Left L4-L5, L5-S1 Laminotomy, Partial facetectomy and foraminotomy 08/08/2022. Last seen 08/29/2023 prescribed Gabapentin 100 mg po BID by Dr. Young pt stopped taking it due to side effects of dizziness and stomach pain. Follow up with me in 4 months Assessment & Plan (06/13/2023 11:00 AM EST): Televisit Patient has persistent back pain CT of his Lumbar spine done 09/27/2020howed: - At L5-S1, a left paracentral disc protrusion results in suspected compression of the traversing left S1 nerve root within the left subarticular zone and moderate to severe central canal stenosis. - At L4-L5, multifactorial degenerative changes result in suspected moderate to severe central canal stenosis, severe bilateral subarticular zone stenosis with mass effect on the traversing L5 nerve roots bilaterally, and severe bilateral foraminal stenosis with mass effect on the exiting L4 nerve roots bilaterally. MRI 10/13/2020: - At L5-S1, advanced multifactorial degenerative changes result in severe central canal stenosis and moderate to severe bilateral foraminal stenosis with mass effect on the exiting L5 nerve roots bilaterally. There is an inferiorly migrating left paracentral disc extrusion at this level contributing towards compression of the traversing left S1 nerve root within the left S1 lateral recess. - At L4-L5, advanced multifactorial degenerative changes result in moderate to severe central canal stenosis, severe bilateral subarticular zone stenosis with compression of the traversing L5 nerve roots bilaterally, as well as severe right and moderate to severe left foraminal stenosis with compression of the exiting right greater than left L4 nerve roots. - At L3-L4, multifactorial degenerative changes result in moderate bilateral foraminal stenosis with mild mass effect on the exiting L3 nerve roots bilaterally. - There is marrow edema along the upper endplate of L5 posteriorly on the left side where there is an upper endplate Schmorl's node. There are Modic type I endplate signal changes at T12-L1, L1-L2, L2-L3, L3-L4, and L5-S1. Pt had a steroid injection on 11/08/2020. He does not want to take Oxycodone because he states it did not help him and only caused him constipation and insomnia. Patient was seen by Neurosurgeon DR. Camara 01/06/2021 who reviewed his MRI who recommended a 2 level open decompression with a left L5-S1 microdiskectomy. Patient initially agreed to go ahead with he surgery but once again today he told me that after careful consideration he has decided that he is NOT going to have the surgery. Wanted to go back to [facility], he had a steroid injection with no good result. Today he showed me that he was referred to a Neurosurgeon at [facility]. He does not feel he can continue with PT. We contacted them and we were told they have yet to received anything from [facility]. We also contacted [facility] and we were told they were going to resend the referral and applicable information and notify us after that. I explained to patient that this is also a Neurosurgeon and that the main reason to go see him would be if he is interested in having a surgical intervention. Patient verbalized understanding. Pt under the care of Dr Mosquera at [facility] ( Spine surgeon ) who described him a minimally invasive approach. He is scheduled for 08/08/2022 Follow up with me in 4 months Assessment & Plan (02/19/2023 12:59 PM EDT): Televisit Patient has persistent back pain CT of his Lumbar spine done 09/27/2020howed: - At L5-S1, a left paracentral disc protrusion results in suspected compression of the traversing left S1 nerve root within the left subarticular zone and moderate to severe central canal stenosis. - At L4-L5, multifactorial degenerative changes result in suspected moderate to severe central canal stenosis, severe bilateral subarticular zone stenosis with mass effect on the traversing L5 nerve roots bilaterally, and severe bilateral foraminal stenosis with mass effect on the exiting L4 nerve roots bilaterally. MRI 10/13/2020: - At L5-S1, advanced multifactorial degenerative changes result in severe central canal stenosis and moderate to severe bilateral foraminal stenosis with mass effect on the exiting L5 nerve roots bilaterally. There is an inferiorly migrating left paracentral disc extrusion at this level contributing towards compression of the traversing left S1 nerve root within the left S1 lateral recess. - At L4-L5, advanced multifactorial degenerative changes result in moderate to severe central canal stenosis, severe bilateral subarticular zone stenosis with compression of the traversing L5 nerve roots bilaterally, as well as severe right and moderate to severe left foraminal stenosis with compression of the exiting right greater than left L4 nerve roots. - At L3-L4, multifactorial degenerative changes result in moderate bilateral foraminal stenosis with mild mass effect on the exiting L3 nerve roots bilaterally. - There is marrow edema along the upper endplate of L5 posteriorly on the left side where there is an upper endplate Schmorl's node. There are Modic type I endplate signal changes at T12-L1, L1-L2, L2-L3, L3-L4, and L5-S1. Pt had a steroid injection on 11/08/2020. He does not want to take Oxycodone because he states it did not help him and only caused him constipation and insomnia. Patient was seen by Neurosurgeon DR. Camara 01/06/2021 who reviewed his MRI who recommended a 2 level open decompression with a left L5-S1 microdiskectomy. Patient initially agreed to go ahead with he surgery but once again today he told me that after careful consideration he has decided that he is NOT going to have the surgery. Wanted to go back to [facility], he had a steroid injection with no good result. Today he showed me that he was referred to a Neurosurgeon at [facility]. He does not feel he can continue with PT. We contacted them and we were told they have yet to received anything from [facility]. We also contacted [facility] and we were told they were going to resend the referral and applicable information and notify us after that. I explained to patient that this is also a Neurosurgeon and that the main reason to go see him would be if he is interested in having a surgical intervention. Patient verbalized understanding. Pt today tells me he decided to go see Dr Mosquera at [facility] ( Spine surgeon ) who described him a minimally invasive approach. He is awaiting insurance approval but he thinks he is going to go ahead with it Follow up with me in 4 months Assessment & Plan (12/20/2022 10:32 AM EDT): Pt here for a f/u Patient has persistent back pain CT of his Lumbar spine done 09/27/2020howed: - At L5-S1, a left paracentral disc protrusion results in suspected compression of the traversing left S1 nerve root within the left subarticular zone and moderate to severe central canal stenosis. - At L4-L5, multifactorial degenerative changes result in suspected moderate to severe central canal stenosis, severe bilateral subarticular zone stenosis with mass effect on the traversing L5 nerve roots bilaterally, and severe bilateral foraminal stenosis with mass effect on the exiting L4 nerve roots bilaterally. MRI 10/13/2020: - At L5-S1, advanced multifactorial degenerative changes result in severe central canal stenosis and moderate to severe bilateral foraminal stenosis with mass effect on the exiting L5 nerve roots bilaterally. There is an inferiorly migrating left paracentral disc extrusion at this level contributing towards compression of the traversing left S1 nerve root within the left S1 lateral recess. - At L4-L5, advanced multifactorial degenerative changes result in moderate to severe central canal stenosis, severe bilateral subarticular zone stenosis with compression of the traversing L5 nerve roots bilaterally, as well as severe right and moderate to severe left foraminal stenosis with compression of the exiting right greater than left L4 nerve roots. - At L3-L4, multifactorial degenerative changes result in moderate bilateral foraminal stenosis with mild mass effect on the exiting L3 nerve roots bilaterally. - There is marrow edema along the upper endplate of L5 posteriorly on the left side where there is an upper endplate Schmorl's node. There are Modic type I endplate signal changes at T12-L1, L1-L2, L2-L3, L3-L4, and L5-S1. Pt had a steroid injection on 11/08/2020. He does not want to take Oxycodone because he states it did not help him and only caused him constipation and insomnia. Patient was seen by Neurosurgeon DR. Camara 01/06/2021 who reviewed his MRI who recommended a 2 level open decompression with a left L5-S1 microdiskectomy. Patient initially agreed to go ahead with he surgery but once again today he told me that after careful consideration he has decided that he is NOT going to have the surgery. Wanted to go back to [facility], he had a steroid injection with no good result. Today he showed me that he was referred to a Neurosurgeon at [facility]. He does not feel he can continue with PT. We contacted them and we were told they have yet to received anything from [facility]. We also contacted [facility] and we were told they were going to resend the referral and applicable information and notify us after that. I explained to patient that this is also a Neurosurgeon and that the main reason to go see him would be if he is interested in having a surgical intervention. Patient verbalized understanding. For pain he would like to try topical Diclofenac. Assessment & Plan (10/23/2022 11:41 AM EDT): Pt here for a f/u Patient claims his back pain has returned CT of his Lumbar spine that was done 09/27/2020 and showed: - At L5-S1, a left paracentral disc protrusion results in suspected compression of the traversing left S1 nerve root within the left subarticular zone and moderate to severe central canal stenosis. - At L4-L5, multifactorial degenerative changes result in suspected moderate to severe central canal stenosis, severe bilateral subarticular zone stenosis with mass effect on the traversing L5 nerve roots bilaterally, and severe bilateral foraminal stenosis with mass effect on the exiting L4 nerve roots bilaterally. Pt was seen in the ER due to worsening back pain and was prescribed Oxycodone 5 mg po q 6 hrs prn with only minimal improvement. He was subsequently seen at [facility] by Dr. Miranda Romeo who recommended to increase his Oxycodone to 10 mg po q 6hrs and added Prednisone 50 mg po daily x 5 days. given the severity of his pain MRI 10/13/2020: IMPRESSION: - At L5-S1, advanced multifactorial degenerative changes result in severe central canal stenosis and moderate to severe bilateral foraminal stenosis with mass effect on the exiting L5 nerve roots bilaterally. There is an inferiorly migrating left paracentral disc extrusion at this level contributing towards compression of the traversing left S1 nerve root within the left S1 lateral recess. - At L4-L5, advanced multifactorial degenerative changes result in moderate to severe central canal stenosis, severe bilateral subarticular zone stenosis with compression of the traversing L5 nerve roots bilaterally, as well as severe right and moderate to severe left foraminal stenosis with compression of the exiting right greater than left L4 nerve roots. - At L3-L4, multifactorial degenerative changes result in moderate bilateral foraminal stenosis with mild mass effect on the exiting L3 nerve roots bilaterally. - There is marrow edema along the upper endplate of L5 posteriorly on the left side where there is an upper endplate Schmorl's node. There are Modic type I endplate signal changes at T12-L1, L1-L2, L2-L3, L3-L4, and L5-S1. Pt had a steroid injection on 11/08/2020. He does not want to take Oxycodone because he states it did not help him and only caused him constipation and insomnia. Patient was seen by Neurosurgeon DR. Camara 01/06/2021 who reviewed his MRI who recommended a 2 level open decompression with a left L5-S1 microdiskectomy. Patient initially agreed to go ahead with he surgery but once again today he tells me that after careful consideration he has decided that he is NOT going to have the surgery. Wanted to go back to [facility], he was recently seen had a steroid injection with no good results, apparently he was referred elsewhere records requested Pt would like to try [facility] care 10/23/2022 Assessment & Plan (10/23/2022 9:16 AM EDT): Colonoscopy: Normal : 12/11/2006, repeat 06/21/2017 Orbital lesion, benign 10/23/2022 Assessment & Plan (10/23/2022 9:17 AM EDT): Pt with an incidental finding of an orbital lesion by Nuclear bone scan and confirmed by CT. According tho the radiologist this lesion has been present since 2006 and is stable in size 7 x 6 mm, suggestive of a benign process. But given the fact that it lights up on the bone scan I wanted the opinion of an oculoplastic surgeon to review the bone scan and CT. Pt was referred to Dr Calderón. He was seen 06/17/2014 and he thought this could be safely followed once a year. (Filed under surgery consults) Previous visit he was referred back for his yearly f/u Liver hemangioma 10/23/2022 Assessment & Plan (10/23/2022 9:18 AM EDT): Pt with previous Hx of epigastric abdominal pain, associated with meals, and described as 'burning sensation. He has a hx of GERD and had an EGD back in 2013 ( will retrieve records ) I had recommended dietary recommendations, I ordered a CBC ( Pt is on Pradaxa) start Zantac BID, and referred him for GI eval for ? repeat EGD given the fact that pt is on anticoagulation I also ordered an abdominal US that ? liver mass for which pt ended up having an MRI on 12/16/2018 . The MRI showed this lesion was a hemangioma. Pt is scheduled to f/u with GI for consideration of EGD Pituitary microadenoma 03/25/2018 Assessment & Plan (06/23/2024 11:15 AM EST): MRI BRAIN 2019 showed a stable pituitary lesion Repeat MRI 01/20/2024 showed: There has been an interval increase in size of an up to 1.3 cm pituitary macroadenoma eccentric to the left side that results in increased rightward deviation of the infundibular stalk without mass effect on the optic nerve apparatus. No cavernous sinus invasion. Pt was evaluated by Endocrinology Dr. Oliver 03/16/2024 and subsequently by Neurosurgeon at [facility] 05/21/2024 who recommended repeat imaging in January 2025 Assessment & Plan (02/26/2024 11:00 AM EDT): MRI BRAIN 2019 showed a stable pituitary lesion Repeat MRI 01/20/2024 showed: There has been an interval increase in size of an up to 1.3 cm pituitary macroadenoma eccentric to the left side that results in increased rightward deviation of the infundibular stalk without mass effect on the optic nerve apparatus. No cavernous sinus invasion. Plan: referral to neurosurgery, Endocrinology Assessment & Plan (11/07/2023 10:27 AM EDT): MRI BRAIN 2019 showed a stable pituitary lesion Will repeat Hyperlipidemia 01/22/2017 Assessment & Plan (06/23/2024 11:18 AM EST): Patient with elevated lipids. Lab Results Component Value Date TRIG 53 10/25/2022 Currently on Atorvastatin 20 mg po at bedtime Repeat Lipid profile advised to try to adhere to a low cholesterol diet, counseled and educated about diet and exercise, Patient encouraged to come up with a personal goal for weight loss. Assessment & Plan (02/18/2024 10:34 AM EDT): Patient with elevated lipids. Component Ref Range & Units 7 mo ago 1 yr ago 3 yr ago Cholesterol, Total <200 mg/dL 142 162 148 HDL Cholesterol > OR = 40 mg/dL 68 67 67 Triglycerides <150 mg/dL 53 51 53 LDL Cholesterol mg/dL (calc) 61 82 CM 68 CM Comment: Reference range: <100 Desirable range <100 mg/dL for primary prevention; <70 mg/dL for patients with CHD or diabetic patients with > or = 2 CHD risk factors. LDL-C is now calculated using the Zachary-Adithya calculation, which is a validated novel method providing better accuracy than the Friedewald equation in the estimation of LDL-C. Zachary AVILA et al. MISHA. 2013;310(19): 5592-5682 (http://education.[employer].[facility]/faq/JHL669) Chol/HDLC Ratio <5.0 (calc) 2.1 2.4 2.2 Non-HDL Cholesterol <130 mg/dL (calc) 74 95 CM 81 CM Currently on Atorvastatin 20 mg po at bedtime Repeat Lipid profile advised to try to adhere to a low cholesterol diet, counseled and educated about diet and exercise, Patient encouraged to come up with a personal goal for weight loss. Assessment & Plan (06/13/2023 10:51 AM EST): Patient with elevated lipids. Component Ref Range & Units 7 mo ago 1 yr ago 3 yr ago Cholesterol, Total <200 mg/dL 142 162 148 HDL Cholesterol > OR = 40 mg/dL 68 67 67 Triglycerides <150 mg/dL 53 51 53 LDL Cholesterol mg/dL (calc) 61 82 CM 68 CM Comment: Reference range: <100 ?? Desirable range <100 mg/dL for primary prevention; ?? <70 mg/dL for patients with CHD or diabetic patients with > or = 2 CHD risk factors. ?? LDL-C is now calculated using the Zachary-Adithya calculation, which is a validated novel method providing better accuracy than the Friedewald equation in the estimation of LDL-C. Zachary AVILA et al. MISHA. 2013;310(19): 4128-2316 (http://education.[employer].[facility]/faq/TZF781) Chol/HDLC Ratio <5.0 (calc) 2.1 2.4 2.2 Non-HDL Cholesterol <130 mg/dL (calc) 74 95 CM 81 CM Currently on Atorvastatin 20 mg po at bedtime Repeat Lipid profile advised to try to adhere to a low cholesterol diet, counseled and educated about diet and exercise, Patient encouraged to come up with a personal goal for weight loss. Assessment & Plan (10/23/2022 9:14 AM EDT): Patient with elevated lipids. Most recent lipid profile from: 08/24/2021 shows a total cholesterol of: 162 triglycerides of: 51 HDL of: 67 and LDL of: 82 Currently on Atorvastatin 20 mg po qhs advised to try to adhere to a low cholesterol diet, counseled and educated about diet and exercise, Patient encouraged to come up with a personal goal for weight loss. Atrial fibrillation 12/02/2012 Assessment & Plan (02/18/2024 10:29 AM EDT): Under the care of Cardiology, recently seen He was on Pradaxa, this now requires a PA, Cardiology office contacted to consider changing to Eliquis Last seen 01/16/2024 Assessment & Plan (10/01/2023 10:45 AM EST): Under the care of Cardiology, recently seen He was on Pradaxa, this now requires a PA, Cardiology office contacted to consider changing to Eliquis Assessment & Plan (10/23/2022 9:11 AM EDT): Under the care of Cardiology, recently seen On Pradaxa Diabetes mellitus, type II 07/18/2012 Assessment & Plan (06/23/2024 11:31 AM EST): Pt here for a f/u He tells me he stopped the insulin because once he started eating right his blood sugars normalized Hgb A1c on 06/23/2024: 6.7 Eye exam was last done on: 02/03/2019 Microalbumin checked on: 08/24/2021 was: 0.4 Pt is not on an MELISSA inhibitor because (Lisinopril gave him a cough). on ARB Losartan Foot check not done Pt reports compliance with Asa 81 mg po daily He is currently on Metformin 1000 mg po BID Plan: Continue with current regimen Follow up in 4 months Pt advised to: adhere to diabetic diet check your blood sugars regularly check your feet on a daily basis Assessment & Plan (02/18/2024 10:33 AM EDT): Pt here for a f/u Glucose today Glucometer showing readings between He tells me he stopped the insulin because once he started eating right his blood sugars normalized Hgb A1c on 02/18/2024: 6.8 from 11.1 Eye exam was last done on: 02/03/2019 Microalbumin checked on: 08/24/2021 was: 0.4 Pt is not on an MELISSA inhibitor because (Lisinopril gave him a cough). on ARB Losartan Foot check not done Pt reports compliance with Asa 81 mg po daily He is currently on Metformin 1000 mg po BID Plan: Follow up in 3 months Pt advised to: adhere to diabetic diet check your blood sugars regularly check your feet on a daily basis Assessment & Plan (11/07/2023 10:36 AM EDT): Pt here for a f/u DM Improving Glucose today 147 Glucometer showing readings between 85 and 120 He tells me he stopped the insulin because once he started eating right his blood sugars normalized Glucometer shows BG fluctuating between Hgb A1c on 10/01/2023: 11.1 Eye exam was last done on: 02/03/2019 Microalbumin checked on: 08/24/2021 was: 0.4 Pt is not on an MELISSA inhibitor because (Lisinopril gave him a cough). on ARB Losartan Foot check not done Pt reports compliance with Asa 81 mg po daily He is currently on Metformin 1000 mg po BID, pt stopped Lantus 20 units without correction qhs Plan: continue OFF the Lantus Follow up in 3 months Pt advised to: adhere to diabetic diet check your blood sugars regularly check your feet on a daily basis Assessment & Plan (10/08/2023 10:16 AM EST): Pt here for a f/u DM uncontrolled Glucometer shows BG fluctuating between 145 and 235 Hgb A1c on 10/01/2023: 11.1 Eye exam was last done on: 02/03/2019 Microalbumin checked on: 08/24/2021 was: 0.4 Pt is not on an MELISSA inhibitor because (Lisinopril gave him a cough). on ARB Losartan Foot check not done Pt reports compliance with Asa 81 mg po daily He is currently on Metformin 1000 mg po BID, andLantus 15 units without correction qhs Plan: Increase Lantus to 20 units without correction q hs Follow up in 1 month Pt advised to: adhere to diabetic diet check your blood sugars regularly check your feet on a daily basis Assessment & Plan (10/01/2023 12:45 PM EST): Pt here for a f/u DM uncontrolled Hgb A1c on 10/01/2023: 11.1 Eye exam was last done on: 02/03/2019 Microalbumin checked on: 08/24/2021 was: 0.4 Pt is not on an MELISSA inhibitor because (Lisinopril gave him a cough). on ARB Losartan Foot check not done Pt reports compliance with Asa 81 mg po daily Plan: Continue his Metformin 1000 mg po BID, Start Lantus 15 units without correction qhs f/u 1 week with me Pt advised to: adhere to diabetic diet check your blood sugars regularly check your feet on a daily basis Assessment & Plan (06/13/2023 10:58 AM EST): Pt here for a f/u DM controlled Hgb A1c on 06/13/2023 7.0 Eye exam was last done on: 02/03/2019 Microalbumin checked on: 08/24/2021 was: 0.4 Pt is not on an MELISSA inhibitor because (Lisinopril gave him a cough). on ARB Losartan Foot check not done Pt reports compliance with Asa 81 mg po daily Plan: Continue his Metformin 1000 mg po BID Plan: continue current regimen f/u 4 months Pt advised to: adhere to diabetic diet check your blood sugars regularly check your feet on a daily basis Assessment & Plan (10/23/2022 11:40 AM EDT): Pt here for a f/u DM controlled Hgb A1c on 10/23/2022 was: 6.8 Eye exam was last done on: 02/03/2019 Microalbumin checked on: 08/24/2021 was: 0.4 Pt is not on an MELISSA inhibitor because (Lisinopril gave him a cough). on ARB Losartan Foot check not done Pt reports compliance with Asa 81 mg po daily Plan: Continue his Metformin 1000 mg po BID Plan: continue current regimen f/u 4 months Pt advised to: adhere to diabetic diet check your blood sugars regularly check your feet on a daily basis Hypertension 07/18/2012 Assessment & Plan (06/23/2024 11:16 AM EST): BP Controlled On a regimen of Chlorthalidone 25 mg po daily and Losartan 35 mg po daily Most recent Bun and Cr Lab Results Component Value Date NA 140 07/24/2023 NA 138 07/26/2022 K 4.3 07/24/2023 K 5.0 07/26/2022 CL 105 07/24/2023 CL 102 07/26/2022 BUN 16 07/24/2023 BUN 23 (H) 07/26/2022 CREATININE 1.05 07/24/2023 CREATININE 1.01 07/26/2022 Will repeat f/u 4 months Assessment & Plan (10/01/2023 10:45 AM EST): BP Controlled On a regimen of Chlorthalidone 25 mg po daily and Losartan 35 mg po daily Most recent Bun and Cr 07/26/2023 wnl, f/u 4 months Assessment & Plan (06/13/2023 10:49 AM EST): BP Controlled On a regimen of Chlorthalidone 25 mg po daily and Losartan 35 mg po daily Most recent Bun and Cr 07/26/2023 wnl, will repeat f/u 4 months Assessment & Plan (10/23/2022 9:11 AM EDT): BP Controlled On a regimen of Chlorthalidone 25 mg po daily and Losartan 35 mg po daily Most recent Bun and Cr wnl f/u 4 months Encounters Date Type Department Care Team Description 07/13/2024 Refill [facility] [address] [facility] [place] [address] Chidi Hsu MD Mixed hyperlipidemia 06/24/2024 Telephone [facility] [address] [place] [address] Chidi Hsu MD 06/23/2024 11:00 AM EST Office Visit [facility] [address] [place] [address] Chidi Hsu MD Type 2 diabetes mellitus without complication, without long-term current use of insulin (CMS/HCC) (Primary Dx); Primary hypertension; Mixed hyperlipidemia; Pituitary microadenoma (CMS/HCC); Lumbar radiculopathy; Encounter for immunization 06/23/2024 Travel 06/16/2024 Telephone [facility] [address] [place] [address] Chidi Hsu MD Appointment Confirmation 06/15/2024 Telephone [facility] [address] [facility] [place] [address] Chidi Hsu MD Chart Prep 06/14/2024 Refill [facility] [address] [place] [address] Chidi Hsu MD 06/12/2024 Patient Outreach [facility] [address] [place] [address] Chidi Hsu MD Pre-visit Planning (Pre-visit planning - LVM ) from Last 3 Months Immunizations Name Administration Dates Next Due Influenza High-dose Quadriva lent Preservative Free 06/13/2023,05/12/2020 Influenza injectable quadriv alent IIV4 with preservative 08/22/2017,04/28/2015 Influenza injectable quadriv alent preservative free 06/12/2022,08/22/2021 Influenza, High Dose Seasona l, Preservative Free 06/23/2024 Influenza, IIV3, injectable 05/21/2014,1 ,03/29/2010,04/26 Influenza, Split (incl. joseph fied surface antigen) 04/20/2015,04/24/2012 Pneumococcal Conjugate PCV 13 08/30/2015 Pneumococcal Polysaccharide PPSV23 01/22/2017, TD (adult), 2 Lf tetanus tox oid, preservative free, adsorbed 10/12/2009,08/05/1996 Tdap 06/12/2022 Social History Tobacco Use Types Packs/Day Years Used Date Smoking Tobacco: Never Passive Smoke Exposure: Never Smokeless Tobacco: Never Tobacco Cessation:Counseling Given: Not Answered Alcohol Use Standard Drinks/Week Comments Not Asked [...] Orientation Straight 06/04/2022 10 :15 AM EDT Last Filed Vital Signs Vital Sign Reading Time Taken Comments Blood Pressure 136/82 06/23/2024 11:25 AM EST Pulse 55 06/23/2024 11:21 AM EST Temperature 36.1 ??C (96.9 ??F) 06/23/2024 11:[address] Respiratory Rate 20 06/23/2024 11:21 AM EST Oxygen Saturation 96% 06/23/2024 11:21 AM EST Inhaled Oxygen Concentration - - Weight 67.9 kg (149 lb 9.6 oz) 06/23/2024 11:21 AM EST Height 167.6 cm (5' 6 ) 06/23/2024 11:21 AM EST Body Mass Index 24.15 06/23/2024 11:21 AM EST Plan of Treatment Upcoming Encounters Date Type Department Care Team (Late st Contact Info) Description 10/27/2024 9:15 AM EDT Office Visit [facility] [address] [place] [address] Chidi Hsu MD [address] [place] [address] Health Maintenance Due Date Last Done Comments Diabetes: Foot Exam 1955 Eye Exam 1955 Hepatitis A Vaccines (1 of 2 - Risk 2-dose series) 1964 Zoster Vaccines (1 of 2) 1995 Hepatitis B Vaccines (1 of 3 - Risk 3-dose series) 2005 RSV Patients and Patients Aged 60 years or older (1 - 1-dose 75+ series) 2020 Diabetes: Urine Protein Screening 08/24/2022 08/24/2021, 04/12/2020 Lipid Panel 10/26/2023 10/25/2022, 08/06, 04/12/2020 COVID-19 Vaccine ( season) 2024 10/13/2020, 09/15/2020 Depression Screening 10/01/2024 10/01/2023, 10/01/19 SDOH Screening 10/01/2024 10/01/2023 Diabetes: Hemoglobin A1C 12/21/2024 024, 02/18/2024, 10/01/2023, Additional history exists Alcohol/Substance Use Screening 06/23/2025 06/23/2024 Tobacco Screening 06/23/2025 06/23/2024 DTaP/Tdap/Td Vaccines (2 - Td or Tdap) 06/12/2032 06/12/2022, 10/12/2009, 08/05/1996 Pneumococcal Vaccine: 65+ Years Completed 01/22/2017, 08/30/2015, 03/28/2010 Hepatitis C Screening Completed 10/25/2022 Influenza Vaccine Completed 06/23/2024, , 06/12/2022, Additional history exists HIB Vaccines Aged Out No longer eligi ble based on patient's age to complete this topic HPV Vaccines Aged Out No longer eligi ble based on patient's age to complete this topic IPV Vaccines Aged Out No longer eligi ble based on patient's age to complete this topic Meningococcal Vaccine Aged Out No eber torres eligible based on patient's age to complete this topic RSV under 20 months Aged Out No longe r eligible based on patient's age to complete this topic Rotavirus Vaccines Aged Out No longer eligible based on patient's age to complete this topic Procedures Procedure Name Priority Date/Time Associated Diagnosis Comments POCT GLYCATED HEMOGLOBIN, TOTAL Routine 06/23/2024 11:29 AM EST Type 2 diabetes mellitus without complication, without long-term current use of insulin ([facility]) POCT GLUCOSE Routine 06/23/2024 11:22 AM EST Type 2 diabetes mellitus without complication, without long-term current use of insulin (CMS/HCC) HEPATITIS C AB W/REFL TO HCV RNA, QN, PCR Routine 10/25/2022 8:52 AM EDT Preventative health care LIPID PANEL WITH REFLEX TO DIRECT LDL Routine 10/25/2022 8:52 AM EDT Type 2 diabetes mellitus without complication, without long-term current use of insulin (CMS/HCC) ALBUMIN, RANDOM URINE W/CREATININE Routine 08/24/2021 12:00 AM EST from Last 3 Months or Most Recently Relevant to Health Maintenance Results * (ABNORMAL) POCT HGB A1C (06/23/2024 11:29 AM EST) Hemoglobin A1C 6.7(A) 4.0 - 6.0 % QC Media Lot # [id number] Lot# Expiration Date Blood 06/23/2024 11:2 9 AM EST us Chidi Hamlin MD POINT OF CARE TEST EN TER/EDIT ORDERABLES Final Result * POCT Glucose (06/23/2024 11:22 AM EST) Glucose Blood, POC 197 60 - 200 mg/dL QC Media Lot # [id number] Lot# Expiration Date ,025 Blood Capillary blood specimen / Unknown 06/23/2024 11:22 AM EST us Chidi Hamlin MD POINT OF CARE TEST EN TER/EDIT ORDERABLES Final Result * Lipid Panel with Reflex to Direct LDL (10/25/2022 8:52 AM EDT) Cholesterol, Total 142 <200 mg/dL [facility] HDL Cholesterol 68 > OR = 40 mg/dL [facility] Triglycerides 53 <150 mg/dL [facility] LDL Cholesterol 61 mg/dL (calc) [facility] Comment: Reference range: <100 Desirable range <100 mg/dL for primary prevention; ?? <70 mg/dL for patients with CHD or diabetic patients with > or = 2 CHD risk factors. LDL-C is now calculated using the Jose calculation, which is a validated novel method providing better accuracy than the Friedewald equation in the estimation of LDL-C. Zachary AVILA et al. MISHA. 2013;310(19): 3094-3410 (http://education.Evver/faq/CFD341) Chol/HDLC Ratio 2.1 <5.0 (calc) [facility] Non-HDL Cholesterol 74 <130 mg/dL (calc) [facility] Comment: For patients with diabetes plus 1 major ASCVD risk factor, treating to a non-HDL-C goal of <100 mg/dL (LDL-C of <70 mg/dL) is considered a therapeutic option. 10/25/2022 8:52 AM EDT 10/25/2022 8:53 AM EDT Narrative [facility] - 10/25/2022 8:29 PM EDT FASTING:YES FASTING: YES us Chidi Hamlin MD LAB BLOOD ORDERABLES Final Result [facility] [address] [place] [address] [facility] [address] [place] [address] * Hepatitis C Antibody with Reflex to HCV, RNA, Quantitative, Real-Time PCR (10/25/2022 8:52 AM EDT) Hepatitis C Antibody NON-REACT ALBER NON-REACT ALBER [facility] Index 0.18 <1.00 [facility] Comment: HCV antibody was non-reactive. There is no laboratory evidence of HCV infection. In most cases, no further action is required. However, if recent HCV exposure is suspected, a test for HCV RNA (test code 08029) is suggested. For additional information please refer to http://education.NovoED/faq/WRS15v7 (This link is being provided for informational/ educational purposes only.) Blood Venous blood specimen / Unknown 10/25/2022 8:52 AM EDT 10/25/2022 8:53 AM EDT Narrative [facility] - 10/25/2022 8:29 PM EDT FASTING:YES FASTING: YES Chidi Hamlin MD LAB BLOOD ORDERABLES Final Result Performing Organization Address [facility]/ZIP Co de Phone Number [facility] [address], [facility] [place] [address] [facility] [address] [place] [address] * ALBUMIN, RANDOM URINE W/CREATININE (08/24/2021 12:00 AM EST) Microalbumin Urine 0.4 See Note: mg/dL [facility] Comment: Reference Range: ?? Reference Range Not established Microalb/Creat Ratio 3 <30 mcg/mg creat [facility] Comment: ?? The ADA defines abnormalities in albumin excretion as follows: ?? Albuminuria Category ?Result (mcg/mg creatinine) ?? Normal to Mildly increased ?? <30 Moderately increased ? 30-299 ?? Severely increased ? > OR = 300 ?? The ADA recommends that at least two of three specimens collected within a 3-6 month period be abnormal before considering a patient to be within a diagnostic category. Creatinine, Urine 118 20 - 320 mg/dL [facility] 08/24/2021 Chidi Hamlin MD LAB URINE ORDERABLES Final Result Performing Organization Address City/[facility]/ZIP Co de Phone Number [facility] [address] [place] [address], from Last 3 Months or Most Recently Relevant to Health Maintenance Insurance [place] [address] [place] [id number] [facility] [employer] Care Teams Maintenance Helper Utility Engineer Relationship Specialty Start Date End Date Chidi Hsu MD [address] [place] [address] PCP - General Internal Medicine 02/19/23
--- OUTSIDE RECORDS SUMMARY | 2024-09-01 08:05 | XMS_ITS | Encounter Summary ---
Author Organization [employer] Address [address] [facility] 7t [place] [address] Care Team Providers Care Environmental Resource Specialist Name Role Phone Chidi Hsu MD Primary Care Provide r Reason for Visit * Reason Onset Date Comments Nurse Triage 09/25/2023 Encounter Details Date Type Department Care Team ([facility] st Contact Info) Description 09/25/2023 Telephone [facility] MEDICINE [address] [place], [place] [phone] Chidi Hsu MD [address] [place], [place] [phone] Nurse Triage Social History Tobacco Use Types Packs/Day Years Used Date Smoking Tobacco: Never Passive Smoke Exposure: Never Smokeless Tobacco: Never Alcohol Use Standard Drinks/Week Comments Not Asked 0 (1 standard drink = 0.6 oz pur e alcohol) Depression Answer Date Recorded Patient Health Questionnaire-9 Score 13 07/19/2022 Housing Stability Answer Date Recorded What is your housing situation today? I have edwige green 05/20/[address] you li ve. Do you have problems with any of the following? None of the above 05/20/2023 Food Insecurity Answer Date Recorded Within the past 12 months, y ou worried that your food would run out before you got money to buy more: Sometimes True 2022 Within the past 12 months,th e food you bought just didn't last and you didn't have enough money to get more: Sometimes True 05/20/2023 Transportation Answer Date Recorded In the past 12 months, has l ack of transportation kept you from medical appts, meetings, work or from getting things needed for daily living? No 05/20/2023 Utilities Answer Date Recorded In the past 12 months, has t he electric, gas, oil or water company threatened to shut off services in your home? No 05/20/2023 Depression Answer Date Recorded Patient Health Questionnaire-2 Score 6 07/19/2022 Sex and Gender Information Value Date Recorded Sex Assigned at Male 06/04/2022 10:15 AM EDT Legal Sex Male 10:15 AM EDT Gender Identity Male 06/04/2022 10:15 AM EDT Sexual Orientation Straight 06/04/2022 10 :15 AM EDT documented as of this encounter Miscellaneous Notes * Telephone Encounter - Lissette Juan RN - 09/25/2023 10:50 AM EST Triage call Pt reports smooth rash on back of hands to thumb bilaterally. Pt reports itchiness, negfor drainage. Pt reports skin is peeling and Pt feels some numbness in fingers. Pt has had recent back surgery and will see the surgeon next month. Pt is advised to come to [facility] for provider to see Ptand assess rash. Hours open till 8pm today and opens 830am tomorrow. Pt will come probably tomorrowmorning. Pt agrees with disposition. Insurance is verified as active. Protocol Used: Rash or Redness - Localized (Adult) Protocol-Based Disposition: See in Office or Video Visit within 3 Days Video visit not offered Positive Triage Question: * Localized rash present > 7 days * All higher-acuity triage questions were negative Care Advice Discussed: * Reassurance and Education - Mild Localized Rash * Avoid the Cause * Wash the Area * Cold Pack for Mild Itching or Mild Pain * Hydrocortisone Cream for Itching * Don't Scratch * Reasons To Call Back - Rash spreads or becomes worse - Rash lasts longer than 1 week - You become worse * Telephone Encounter - Kasey Wolf - 09/25/2023 10:29 AM EST Symptom: Rash or Redness - Widespread Outcome: Schedule a same-day appointment or talk to a nurse or provider today Reason: Caller denied all higher acuity questions The caller accepted this outcome documented in this encounter Plan of Treatment Upcoming Encounters Date Type Department Care Team (Late st Contact Info) Description 10/27/2024 9:15 AM EDT Office Visit [facility] MEDICINE [address] [place] [address] Chidi Hsu MD [address] [place], [place] [phone] documented as of this encounter Visit Diagnoses Not on filedocumented in this encounter Additional Health Concerns Assessment Noted Time PHQ-9 Depression Total Score: 13 07/19/ 022 1:00 PM EST documented as of this encounter Care Teams Environmental Resource Specialist Relationship Specialty Start Date End Date Chidi Hsu MD [address] [place], [place] [phone] PCP - General Internal Medicine 02/19/23 documented as of this encounter
--- OUTSIDE RECORDS SUMMARY | 2024-09-01 08:05 | XMS_ITS | Encounter Summary ---
Author Organization [employer] Address [address] [facility] 7t [place] [address] Care Team Providers Care Electronic Intelligence Officer Name Role Phone Chidi Hsu MD Primary Care Provide r Chidi Hsu MD Primary Care Provide r Encounter Details Date Type Department Care Team (Late st Contact Info) Description 09/10/2022 Orders Only [facility] CHC MED & PEDS [address] [place], [place] [phone] Monserrat Buck LPN Social History Tobacco Use [...] Description 10/27/2024 9:15 AM EDT Office Visit [facility] MEDICINE [address] [place], [place] [phone] Chidi Hsu MD [address] [place], [place] [phone] documented as of this encounter Visit Diagnoses Not on filedocumented in this encounter Additional Health Concerns Assessment Noted Time PHQ-9 Depression Total Score: 13 022 1:00 PM EST documented as of this encounter Care Teams Electronic Intelligence Officer Relationship Specialty Start Date End Date Chidi Hus MD [address] [place] [address] PCP - General Internal Medicine 04/19/14 02/18/23 Chidi Hsu MD [address] [place] [address] PCP - General Internal Medicine 02/19/23 documented as of this encounter
[2024-09-01 08:33] VITALS: BP 146/58; PULSE 56; BMI 24.2
--- NOTE | 2024-09-01 08:33 | A.OFFVIS_ITS ---
Vital Signs 09/01/24 08:33 Height 5 ft 6 in Weight 149 lb 14.629 oz BMI 24.2 BP 146/58 H Blood Pressure Location Rt brachial Position Sitting Pulse 56 Pulse Source Pulse Oximeter Intake Visit Reasons: f/u pituitary adenoma Intake Note: Patient present today for Pituitary adenoma follow up visit. Rail Tractor Operator Required: No Accompanied by: Self / Same As Patient Allergies No Known Allergies Allergy (Mild, Verified 09/01/24 08:34) NONE Medication List - Last Reconciled 09/01/24 by Tien Oliver MD acetaminophen 500 mg PO Q6H PRN alcohol swabs 1 pad topical TID atorvastatin 20 mg PO DAILY blood pressure test kit-large As directed blood sugar diagnostic As directed chlorthalidone 25 mg PO DAILY dabigatran etexilate 150 mg PO BID docusate sodium (Colace) 100 mg PO BID lorazepam 1 mg PO BID losartan 25 mg PO DAILY meclizine 25 mg PO BEDTIME PRN melatonin 10 mg PO BEDTIME metformin 500 mg PO BID methocarbamol 750 mg PO BID metronidazole 500 mg PO Q12H sildenafil (Viagra) 100 mg PO ONCE PRN 30 days terazosin 5 mg PO BEDTIME 90 days topiramate 25 mg PO BID HPI Comments Details: Is a 79-year-old male with a history of pituitary micro adenoma. Left-sided 1.3 cm. Never saw contact center representative . Hormonal workup reveals the absence of excessive secretion of pituitary hormones deficiency Patient denies breast discharge, symptoms of acromegaly, symptoms of Daniella's. He denies any visual loss or blurry vision. He saw the neurosurgeon at [facility] last week. At recent visit with Dr. Crawford would like to operate she wanted to hold off on surgery but recheck an MRI in about 6 months' time C/o cough [facility] Medical History (Updated 04/30/24 @ 09:47 by Suellen Grewal MD) Lumbar stenosis with neurogenic claudication Left lumbar radiculopathy Pituitary adenoma Hiatal hernia History of transesophageal echocardiography (JANNA) Pre-operative cardiovascular examination Erectile dysfunction BPH with obstruction/lower urinary tract symptoms Dizziness PAF (paroxysmal atrial fibrillation) SSS (sick sinus syndrome) Diabetes mellitus GERD (gastroesophageal reflux disease) HTN (hypertension) Surgical History Hx of decompressive lumbar laminectomy Hx of esophagogastroduodenoscopy History of cardioversion (~2012) Hx of colonoscopy Hx of umbilical hernia repair Hx of inguinal hernia surgery Family History Father Alzheimer disease Mother No problems noted. Brother Diabetes Social History Are you a primary care rep to a significant other at home: No Do you presently have visiting nurse or other home services: No Comment: aware of trip hazard Patient Tobacco Use Status: Never used Tobacco Advance Directives Date on File: 09/11/19 Physical Exam Vital Signs: Last Vital Signs Pulse 56 09/01/24 08:33 BP 146/58 H 09/01/24 08:33 BMI result Body Mass Index 24.2 Const Other: Absence of cushingoid or acromegalic features. . There is the absence of visual field loss by gross confrontation Assessment & Plan Assessment & Plan (1) Pituitary adenoma: Code(s): D35.2 - Benign neoplasm of pituitary gland Category: Medical Plan: This is a 79-year-old male with a history of pituitary macroadenoma. The adenoma appears to be non secretory and not interfering with pituitary axis Plan is to repeat an MRI in about 5 months' time s. Told patient schedule follow-up with Dr. Crawford in 6 months. It was told to call his primary care provider regarding his persistent cough Orders: Orders MR head/brain wo/w con 5 Months D35.2 - Benign neoplasm of pituitary gland Coding Level of Care Code Est Pt Level 3 (29499) Diagnoses Pituitary adenoma D35.2
== END 2024-09-01 08:55 | disposition home or self-care (01) ==
PROVIDERS: PCP Internal Medicine; Visit Provider Internal Medicine Endocrinology, Diabetes & Metabolism
DX: D35.2 Benign neoplasm of pituitary gland (principal)
CPT/HCPCS: 99213

== ENCOUNTER → 2024-09-01 07:59 | Outpatient (BNVA) | payer MEDICARE, SELFPAY | PROVIDERS: PCP Internal Medicine; Visit Provider Internal Medicine Endocrinology, Diabetes & Metabolism | DX: D35.2 Benign neoplasm of pituitary gland (principal) | CPT/HCPCS: 99212 ==

== ENCOUNTER 2024-10-23 08:15 | Outpatient (REF) | payer MEDICARE, SELFPAY ==
[2024-10-23 11:41] LABS: Alanine Aminotransferase 57 U/L (0-40); Albumin Level 4.1 g/dL (3.5-5.0); Alkaline Phosphatase 51 U/L (39-117); Anion Gap 10 (12-20); Aspartate Amino Transferase 49 U/L (5-37); Bilirubin Direct 0.2 mg/dL (0.0-0.5); Bilirubin Total 0.4 mg/dL (0.0-1.0); Blood Urea Nitrogen 24 mg/dL (9-16); Calcium 9.6 mg/dL (8.4-10.2); Carbon Dioxide 27 mmol/L (22-29); Chloride 106 mmol/L (96-108); Cholesterol 144 mg/dL (<200); Estimated Glomerular Filt Rate > 60; Glucose Random 107 mg/dL (60-115); HDL Cholesterol 65 mg/dL (>40); LDL Cholesterol Calculated 69 mg/dL (<100); Potassium 4.2 mmol/L (3.3-5.1); Sodium 139 mmol/L (135-145); Total Protein 7.5 g/dL (6.5-8.0); Triglycerides 52 mg/dL (<150)
[2024-10-23 12:33] LABS: Creatinine Urine 95.81 mg/dL; Microalbumin Urine < 5.0 mg/L
== END 2024-10-23 08:16 | disposition home or self-care (01) ==
LOC: HO.HHCL 08:15
PROVIDERS: Visit Provider Internal Medicine
DX: I10 Essential (primary) hypertension (principal); E11.9 Type 2 diabetes mellitus without complications; E78.2 Mixed hyperlipidemia
CPT/HCPCS: 36415; 80053; 80061; 82043; 82248; 82570

== ENCOUNTER 2024-10-27 10:04 | Outpatient (REF) | payer MEDICARE, SELFPAY ==
[2024-10-27 12:03] LABS: Prostate Specific Antigen Scr 1.04 ng/mL (<0.05-4.0)
[2024-10-27 12:31] LABS: HBc Num1 7.81 S/CO (0.00-0.79); HBsAGNum1 0.39 S/CO (0.00-0.99); Hepatitis B Surface Antigen Negative (Negative); ~HepC Num1 0.28 S/CO (0.00-0.79); ~Hepatitis B Surface Antibody REACTIVE (Nonreactive); ~Hepatitis C Antibody Nonreactive (Nonreactive)
[2024-10-27 13:35] LABS: HBc Num2 7.94 S/CO; HBc Num3 8.27 S/CO; Hepatitis B Core Antibody Reactive (Nonreactive)
== END 2024-10-27 10:05 | disposition home or self-care (01) ==
LOC: HO.HHCL 10:04
PROVIDERS: Visit Provider Internal Medicine
DX: Z00.00 Encounter for general adult medical examination without abnormal findings (principal); N40.1 Benign prostatic hyperplasia with lower urinary tract symptoms; N13.8 Other obstructive and reflux uropathy; R35.0 Frequency of micturition; R79.89 Other specified abnormal findings of blood chemistry; Z11.59 Encounter for screening for other viral diseases; Z12.5 Encounter for screening for malignant neoplasm of prostate; Z72.89 Other problems related to lifestyle
CPT/HCPCS: 36415; 84153; 86704; 86706; 86803; 87340

== ENCOUNTER 2024-11-20 10:01 | Outpatient (REF) | payer MEDICARE, SELFPAY ==
--- NOTE | ~2024-11-20 | US_ITS ---
CLINICAL HISTORY: elevated lfts US abdomen complete Comparison: None Findings: The visualized pancreas is normal. The aorta and inferior vena cava are normal caliber. The appearance of the liver suggests fatty infiltration. There is a circumscribed hyperechoic right lobe 1.6 x 1.3 x 1.2 cm mass, possible hemangioma. There is no intrahepatic bile duct dilatation. The common duct is 2.3 mm in diameter. The gallbladder is normal. There is no sonographic Kovacs sign. The main portal vein is antegrade. The right kidney is 10.4 cm in length. The left kidney is 9.5 cm in length. The spleen is normal. No ascites. IMPRESSION: 1. Hepatic steatosis with possible right lobe hemangioma. Recommend dedicated hepatic imaging with either MRI or triple phase CT to confirm if patient can safely receive intravenous contrast. This document has been electronically signed by: Cuco Hernandez MD on 11/21/2024 09:29:24
--- OUTSIDE RECORDS SUMMARY | 2024-11-20 10:49 | XMS_ITS | Encounter Summary ---
Author Organization [employer] Address [address] [facility] 7t [place] [address] Care Team Providers Care Partner Manager Name Role Phone Chidi Hsu MD Primary Care Provide r Chidi Hsu MD Primary Care Provide r Encounter Details Date Type Department Care Team (Late st Contact Info) Description 08/08/2022 Orders Only [facility] CHC MED & PEDS [address] [place], [place] [phone] Monserrat Buck LPN Social History Tobacco Use [...] Care Team (Late st Contact Info) Description 01/26/2025 9:00 AM EDT Office Visit [facility] MEDICINE [address] [place], [place] [phone] Chidi Hsu MD [address] [place] [address] documented as of this encounter Visit Diagnoses Not on filedocumented in this encounter Additional Health Concerns Assessment Noted Time PHQ-9 Depression Total Score: 13 022 1:00 PM EST documented as of this encounter Care Teams Partner Manager Relationship Specialty Start Date End Date Chidi Hsu MD [address] [place] [address] PCP - General Internal Medicine 04/19/14 02/18/23 Chidi Hsu MD [address] [place] [address] PCP - General Internal Medicine 02/19/23 documented as of this encounter
--- OUTSIDE RECORDS SUMMARY | 2024-11-20 10:49 | XMS_ITS | Encounter Summary ---
Author Organization [employer] Address [address] [facility] 7t [place] [address] Care Team Providers Care Retail Pos Specialist Name Role Phone Chidi Hsu MD Primary Care Provide r Chidi Hsu MD Primary Care Provide r Encounter Details Date Type Department Care Team (Late st Contact Info) Description 09/10/2022 Orders Only [facility] CHC MED & PEDS [address] [place], [place] [phone] Monserrat Buck LPN Social History Tobacco Use [...] Encounters Date Type Department Care Team (Late Contact Info) Description 01/26/2025 9:00 AM EDT Office Visit [facility] MEDICINE [address] [place], [place] [phone] Chidi Hsu MD [address] [place] [address] documented as of this encounter Visit Diagnoses Not on filedocumented in this encounter Additional Health Concerns Assessment Noted Time PHQ-9 Depression Total Score: 13 022 1:00 PM EST documented as of this encounter Care Teams Retail Pos Specialist Relationship Specialty Start Date End Date Chidi Hsu MD [address] [place] [address] PCP - General Internal Medicine 04/19/14 02/18/23 Chidi Hsu MD [address] [place] [address] PCP - General Internal Medicine 02/19/23 documented as of this encounter
--- OUTSIDE RECORDS SUMMARY | 2024-11-20 10:49 | XMS_ITS | Encounter Summary ---
Author Organization [employer] Address [address] [facility] [address] [place] [address] Care Team Providers Care Injection Maintenance Technician Name Role Phone Chidi Hsu MD Primary Care Provide r Encounter Details Date Type Department Care Team (Late st Contact Info) Description 03/07/2023 Orders Only [facility] CHC MED & PEDS [address] [place], [place] [phone] Elida Calles LPN Social History Tobacco Use [...] Description 01/26/2025 9:00 AM EDT Office Visit [facility] MEDICINE [address] [place], [place] [phone] Chidi Hsu MD [address] [place], [place] [phone] documented as of this encounter Visit Diagnoses Not on filedocumented in this encounter Additional Health Concerns Assessment Noted Time PHQ-9 Depression Total Score: 13 022 1:00 PM EST documented as of this encounter Care Teams Injection Maintenance Technician Relationship Specialty Start Date End Date Chidi Hsu MD [address] [place] [address] PCP - General Internal Medicine 02/19/23 documented as of this encounter
--- OUTSIDE RECORDS SUMMARY | 2024-11-20 10:49 | XMS_ITS | Encounter Summary ---
Author Organization [employer] Address [address] [facility] 7t [place] [address] Care Team Providers Care Typing Element Machine Operator Name Role Phone Chidi Hsu MD Primary Care Provide r Chidi Hsu MD Primary Care Provide r Encounter Details Date Type Department Care Team (Latest Contact Info) Description 07/21/2021 Abstract [facility] [place] [facility] CONVERSIONS Dental, Provider, DDS Social History [...] Description 01/26/2025 9:00 AM EDT Office Visit [facility] [place] [facility] MEDICINE [address] [place], [place] [phone] Chidi Hsu MD [address] [place] [address] documented as of this encounter Visit Diagnoses Not on filedocumented in this encounter Care Teams Typing Element Machine Operator Relationship Specialty Start Date End Date Chidi Hsu MD [address] [place] [address] PCP - General Internal Medicine 04/19/14 02/18/23 Chidi Hsu MD [address] [place] [address] PCP - General Internal Medicine 02/19/23 documented as of this encounter
--- OUTSIDE RECORDS SUMMARY | 2024-11-20 10:49 | XMS_ITS | Encounter Summary ---
Author Organization [employer] Address [address] [facility] 7t [place] [address] Care Team Providers Care Chief Nuclear Medicine Technologist Name Role Phone Chidi Hsu MD Primary Care Provide r Reason for Visit * Reason Onset Date Comments Nurse Triage 09/25/2023 Encounter Details Date Type Department Care Team ([facility] st Contact Info) Description 09/25/2023 Telephone [facility] MEDICINE [address] [place], [place] [phone] Chidi Hsu MD [address] [place], [place] [phone] Nurse Triage Social History Tobacco Use Types [...] month. Pt is advised to come to [facility] for provider to see Ptand assess rash. [...] 9:00 AM EDT Office Visit [facility] MEDICINE [address] [place] [address] Chidi Hsu MD [address] [place], [place] [phone] documented as of this encounter Visit Diagnoses Not on filedocumented in this encounter Additional Health Concerns Assessment Noted Time PHQ-9 Depression Total Score: 13 12/2 022 1:00 PM EST documented as of this encounter Care Teams Chief Nuclear Medicine Technologist Relationship Specialty Start Date End Date Chidi Hsu MD [address] [place], [place] [phone] PCP - General Internal Medicine 02/19/23 documented as of this encounter
--- OUTSIDE RECORDS SUMMARY | 2024-11-20 10:49 | XMS_ITS | Encounter Summary ---
Author Organization [employer] Address [address] [facility] 7t [place] [address] Care Team Providers Care Solvent Recoverer Name Role Phone Chidi Hsu MD Primary Care Provide r Chidi Hsu MD Primary Care Provide r Encounter Details Date Type Department Care Team ([facility] Contact Info) Description 11/08/2022 Orders Only [facility] CHC MED & PEDS [address] [place] [address] Monserrat Buck LPN Social History Tobacco Use [...] Upcoming Encounters Date Type Department Care Team ([facility] Contact Info) Description 01/26/2025 9:00 AM EDT Office Visit [facility] MEDICINE [address] [place] [address] Chidi Hsu MD [address] [facility] [place] [address] documented as of this encounter Visit Diagnoses Not on filedocumented in this encounter Additional Health Concerns Assessment Noted Time PHQ-9 Depression Total Score: 13 07/19/ 022 1:00 PM EST documented as of this encounter Care Teams Solvent Recoverer Relationship Specialty Start Date End Date Chidi Hsu MD [address] [facility] [place] [address] PCP - General Internal Medicine 04/19/14 02/18/23 Chidi Hsu MD [address] [place], [place] [address] [address] PCP - General Internal Medicine 02/19/23 documented as of this encounter
--- OUTSIDE RECORDS SUMMARY | 2024-11-20 10:49 | XMS_ITS | Encounter Summary ---
Author Organization [employer] Address [address] [facility] 7t [place] [address] Care Team Providers Care Caponizer Name Role Phone Chidi Hsu MD Primary Care Provide r Reason for Visit * Reason Onset Date Comments Call Back Request 10/27/2024 Encounter Details Date Type Department Care Team ([facility] st Contact Info) Description 10/27/2024 Telephone [facility] MEDICINE [address] [place], [place] [phone] Chidi Hsu MD [address] [place], [place] [phone] Call Back Request Social History Tobacco Use Types Packs/Day Years Used Date Smoking Tobacco: Never Passive Smoke Exposure: Never Smokeless Tobacco: Never Alcohol Use Standard Drinks/Week Comments Not Asked 0 (1 standard drink = 0.6 oz pur e alcohol) Depression Answer Date Recorded Patient Health Questionnaire-9 Score 2 10/27/2024 Patient Health Questionnaire-9 Score 2 10/27/2024 Last PHQ-9: Questionnaire Data Not on file 0 10/27/2024 Housing Stability Answer Date Recorded What is your housing situation today? I have edwige sing 10/27/[address] you li ve. Do you have problems with any of the following? None of the above 10/27/2024 Food Insecurity Answer Date Recorded Within the past 12 months, y ou worried that your food would run out before you got money to buy more: Never True 10/27/2024 Within the past 12 months,th e food you bought just didn't last and you didn't have enough money to get more: Never True Transportation Answer Date Recorded In the past 12 months, has l ack of transportation kept you from medical appts, meetings, work or from getting things needed for daily living? No 10/27/2024 Utilities Answer Date Recorded In the past 12 months, has t he electric, gas, oil or water company threatened to shut off services in your home? No 10/27/2024 Depression Answer Date Recorded Patient Health Questionnaire-2 Score 0 10/27/2024 Internet Access Answer Date Recorded Internet Access Q1 Yes 10/27/2024 Internet Access Q2 Not on file 10/27/2024 Sex and Gender Information Value Date Recorded Sex Assigned at Male 06/04/2022 10:15 AM EDT Legal Sex Male 10:15 AM EDT Gender Identity Male 06/04/2022 10:15 AM EDT Sexual Orientation Straight 06/04/2022 10 :15 AM EDT documented as of this encounter Miscellaneous Notes * Telephone Encounter - Ericka Palma - 10/27/2024 1:00 PM EDT Tc from pt stating someone from PCP place a call can't remember the name that was left in the voicemail. If someone by chance reached out please return call to [phone] documented in this encounter Plan of Treatment Upcoming Encounters Date Type Department Care Team (Late st Contact Info) Description 01/26/2025 9:00 AM EDT Office Visit [facility] MEDICINE [address] [place] [address] Chidi Hsu MD [address] [place] [address] documented as of this encounter Visit Diagnoses Not on filedocumented in this encounter Additional Health Concerns Assessment Noted Time PHQ-9 Depression Total Score: 2 10/28/19 9:20 AM EDT documented as of this encounter Care Teams Caponizer Relationship Specialty Start Date End Date Chidi Hsu MD [address] [place] [address] PCP - General Internal Medicine 02/19/23 documented as of this encounter
--- OUTSIDE RECORDS SUMMARY | 2024-11-20 10:50 | XMS_ITS | Clinical Summary ---
Author Organization [email or web address] Address [address] [place] [address] [address] [place] [address] Care Team Providers Care Preschool Paraprofessional Name Role Phone Chidi Hsu MD Primary Care Provide r Allergies No known active allergies Medications cetirizine (ZyrTEC) 10 MG tabletIndications :Acute viral syndrome Take 0.5 tablets (5 mg) by mouth in the morning. 30 tablet 2 022 Active Acetaminophen Extra Strength 500 MG tabletIndications :Acute viral syndrome TAKE 2 TABLETS BY MOUTH EVERY 6 HOURS NEEDED FOR PAIN OR FOR HEADACHE 120 tablet 1 023 Active Diclofenac Sodium 1 % gelIndications:Livia mbar radiculopathy Apply to affected area BID 100 g 3 023 Active insulin glargine (Lantus SoloStar) 100 UNIT/ML penIndications:Ty pe 2 diabetes mellitus without complication, without long-term current use of insulin ([facility]) Inject 20 Units under the skin at bedtime. 3 mL 1 024 Active tamsulosin (Flomax) 0.4 MG 24 hr capsule Take 1 capsule (0.4 mg) by mouth Once per day. 30 capsule 2 024 Active meclizine (Antivert) 25 MG tabletIndications :Dizziness Take 1 tablet (25 mg) by mouth if needed in the morning and at bedtime for dizziness. 30 tablet 3 024 Active triamcinolone (Kenalog) 0.1 % creamIndications: Dermatitis APPLY TO THE AFFECTED AREA(S) TWICE DAILY IN THE MORNING AND AT BEDTIME NEEDED FOR RASH 30 g 2 07/22/2 024 Active metFORMIN (Glucophage) 500 MG tablet TAKE 2 TABLETS BY MOUTH TWICE DAILY IN THE MORNING AND EVENING 360 tablet 1 Active chlorthalidone (Hygroton) 25 MG tablet TAKE 1 TABLET BY MOUTH EVERY MORNING 30 tablet 6 024 Active Pradaxa 150 MG capsule TAKE 1 CAPSULE BY MOUTH TWICE DAILY IN THE MORNING AND IN THE EVENING 60 capsule 6 024 Active atorvastatin (Lipitor) 20 MG tabletIndications :Mixed hyperlipidemia TAKE 1 TABLET BY MOUTH EVERY MORNING 90 tablet 1 024 Active Continuous Glucose Director Of [employer] (FreeStyle Gulshan 3 [place]) deviceIndications :Type 2 diabetes mellitus without complication, without long-term current use of insulin (CMS/HCC) 1 each 3 times daily. Check blood sugar 3x daily 1 each Active Continuous Glucose Sensor (FreeStyle Gulshan 3 Plus Sensor) miscIndications:T ype 2 diabetes mellitus without complication, without long-term current use of insulin (CMS/HCC) 1 Application every 15 days. 2 each 025 Active losartan (Cozaar) 25 MG tabletIndications :Primary hypertension TAKE 1 TABLET BY MOUTH EVERY EVENING 30 tablet 6 025 Active losartan (Cozaar) 25 MG tabletIndications :Primary hypertension TAKE 1 TABLET BY MOUTH EVERY EVENING 30 tablet 6 024 2024 Discontinued Active Problems Problem Noted Date Diagnosed Date Fatty liver 10/27/2024 Elevated LFTs 10/27/2024 Assessment & Plan (10/27/2024 10:03 AM EDT): Pt's LFTS mildly elevated. Denies any alcohol intake or excessive use of tylenol. He admits eating a diet rich in fat. We discussed how to improve his diet Will proceed with an abdominal US top evaluate for fatty liver Will also need to rule out viral hepatitis Dermatitis 11/07/2023 Assessment & Plan (10/27/2024 9:28 AM EDT): Exam suggestive of eczema Plan: topical steroids Internal referral to Derm clinic appointment was for 08/19/2024 Assessment & Plan (11/07/2023 10:34 AM EDT): Exam suggestive of eczema Plan: topical steroids Internal referral to Derm clinic Dizziness 12/20/2022 Benign prostatic hyperplasia 10/23/2022 Assessment & Plan (10/27/2024 9:29 AM EDT): Pt seen in the Hospital with c/o urinary retention diagnosed with BPH by Urology, responded to Flomax, Pt was last seen 09/30/2019 Assessment & Plan (10/23/2022 9:16 AM EDT): [...] the surgery. Wanted to go back to [facility], he had a steroid injection with no good result. He was then referred to a Neurosurgeon at [facility]. We contacted them and we were told they have yet to received anything from [facility]. We also contacted [facility] and we were told they were going to resend the referral and applicable information and notify us after that. I explained to patient that this is also a Neurosurgeon and that the main reason to go see him would be if he is interested in having a surgical intervention. Patient verbalized understanding. Pt under the care of Dr Mosquera at [facility] [place] [place] ( Spine surgeon ) He is now [...] the surgery. Wanted to go back to [facility], he had a steroid injection with no good result. He was then referred to a Neurosurgeon at [facility]. We contacted them and we were told they have yet to received anything from [facility]. We also contacted [facility] and we were told they were going to resend the referral and applicable information and notify us after that. I explained to patient that this is also a Neurosurgeon and that the main reason to go see him would be if he is interested in having a surgical intervention. Patient verbalized understanding. Pt under the care of Dr Mosquera at [facility] [place] [place] ( Spine surgeon ) He is now [...] the surgery. Wanted to go back to [facility], he had a steroid injection with no good result. He was then referred to a Neurosurgeon at [facility]. We contacted them and we were told they have yet to received anything from [facility]. We also contacted [facility] and we were told they were going to resend the referral and applicable information and notify us after that. I explained to patient that this is also a Neurosurgeon and that the main reason to go see him would be if he is interested in having a surgical intervention. Patient verbalized understanding. Pt under the care of Dr Mosquera at [facility] [place] [place] ( Spine surgeon ) He is now [...] the surgery. Wanted to go back to [facility], he had a steroid injection with no good result. Today he showed me that he was referred to a Neurosurgeon at [facility]. He does not feel he can continue with PT. We contacted them and we were told they have yet to received anything from [facility]. We also contacted [facility] and we were told they were going to resend the referral and applicable information and notify us after that. I explained to patient that this is also a Neurosurgeon and that the main reason to go see him would be if he is interested in having a surgical intervention. Patient verbalized understanding. Pt under the care of Dr Mosquera at [facility] [place] [place] ( Spine surgeon ) who described him [...] the surgery. Wanted to go back to [facility], he had a steroid injection with no good result. Today he showed me that he was referred to a Neurosurgeon at [facility]. He does not feel he can continue with PT. We contacted them and we were told they have yet to received anything from [facility]. We also contacted [facility] and we were told they were [...] decided to go see Dr Mosquera at [facility] [place] [place] ( Spine surgeon ) who described him [...] the surgery. Wanted to go back to [facility], he had a steroid injection with no good result. Today he showed me that he was referred to a Neurosurgeon at [facility]. He does not feel he can continue with PT. We contacted them and we were told they have yet to received anything from [facility]. We also contacted [facility] and we were told they were [...] the surgery. Wanted to go back to [facility], he was recently seen had a steroid injection with no good results, apparently he was referred elsewhere records requested Pt would like to try PT Preventative health care 10/23/2022 Assessment & Plan (10/27/2024 9:29 AM EDT): PSA 06/20/2021: Normal, will repeat Colonoscopy: Normal : 12/11/2006, repeat 06/21/2017 Assessment & Plan (10/23/2022 9:16 AM EDT): [...] EGD Pituitary microadenoma 03/25/2018 Assessment & Plan (10/27/2024 9:24 AM EDT): MRI BRAIN 2019 showed a [...] Oliver 03/16/2024 and subsequently by Neurosurgeon at [facility] 05/21/2024 who recommended repeat imaging in January [address] Oliver 09/01/2024 Assessment & Plan (06/23/2024 11:15 AM EST): [...] Oliver 03/16/2024 and subsequently by Neurosurgeon at [facility] 05/21/2024 who recommended repeat imaging in January [...] Will repeat Hyperlipidemia 01/22/2017 Assessment & Plan (10/27/2024 9:30 AM EDT): Patient with elevated lipids. Lab Results Component Value Date TRIG 52 10/23/2024 TRIG 53 10/25/2022 CHOL 144 10/23/2024 LDLCHOLCAL 69 10/23/2024 HDL 65 10/23/2024 Currently on Atorvastatin 20 mg po at bedtime Plan: continue current regimen advised to try to adhere to a low cholesterol diet, counseled and educated about diet and exercise, Patient encouraged to come up with a personal goal for weight loss. Assessment & Plan (06/23/2024 11:18 AM EST): [...] factors. LDL-C is now calculated using the Zachary-Haji calculation, which is a validated novel method providing better accuracy than the Friedewald equation in the estimation of LDL-C. Zachary SS et al. MISHA. 2013;310(19): 6834-6792 (http://education.saambaa.Pango/faq/MPE417) Chol/HDLC Ratio <5.0 (calc) 2.1 2.4 2.2 [...] ?? LDL-C is now calculated using the Zachary-Haji calculation, which is a validated novel method providing better accuracy than the Friedewald equation in the estimation of LDL-C. Zachary SS et al. MISHA. 2013;310(19): 7848-1923 (http://education.saambaa.Pango/faq/ZLH426) Chol/HDLC Ratio <5.0 (calc) 2.1 2.4 2.2 [...] loss. Atrial fibrillation 12/02/2012 Assessment & Plan (10/27/2024 9:37 AM EDT): Under the care of Cardiology He is on Pradaxa, this now requires a PA, Cardiology office contacted to consider changing to Eliquis Last seen 01/16/2024 Assessment & Plan (02/18/2024 10:29 AM EDT): [...] mellitus, type II 07/18/2012 Assessment & Plan (10/27/2024 9:58 AM EDT): Pt here for a f/u DM uncontrolled Glucometer fluctuating between 158 and 215 He is currently on Metformin 1000 mg po BID Pt last visit told me he stopped the insulin because once he started eating right his blood sugars normalized Hgb A1c on 10/27/2024 7.3 from 6.7 Last Eye exam on record 02/03/2019 Microalbumin checked on: : <5 Pt is not on an MELISSA inhibitor because (Lisinopril gave him a cough). on ARB Losartan Foot check not done Pt reports compliance with Asa 81 mg po daily Pt admits not adhering to a diabetic diet as he was. Unfortunatelly he has an insurance with a very HIGH deductive and any new medication added would be prohibitly expensive for him. GLP1s would cost him approx 600 USD/month Plan: Pt tells me he knows exactly what he needs to do to bring it down , so no changes to his regimen for now Follow up in 3 months Pt advised to: adhere to diabetic diet check your blood sugars regularly check your feet on a daily basis Assessment & Plan (06/23/2024 11:31 AM EST): [...] daily basis Hypertension 07/18/2012 Assessment & Plan (10/27/2024 9:25 AM EDT): BP Controlled On a regimen of Chlorthalidone 25 mg po daily and Losartan 35 mg po daily Most recent Bun and Cr Lab Results Component Value Date NA 139 10/23/2024 NA 140 07/24/2023 K 4.2 10/23/2024 K 4.3 07/24/2023 CL 106 10/23/2024 CL 105 07/24/2023 BUN 24 (H) 10/23/2024 BUN 16 07/24/2023 CREATININE 0.96 10/23/2024 CREATININE 1.05 07/24/2023 Plan: Continue current regimen f/u 4 months Assessment & Plan (06/23/2024 11:16 AM EST): [...] Encounters Date Type Department Care Team Description 11/04/2024 Refill [facility] [address] [place] [address] Chidi Hsu MD Primary hypertension 10/27/2024 9:15 AM EDT Office Visit [facility] [address] [place] [phone] Chidi Hsu MD Pituitary microadenoma (CMS/HCC) (Primary Dx); Type 2 diabetes mellitus without complication, without long-term current use of insulin (CMS/HCC); Primary hypertension; Dermatitis; Preventative health care; Benign prostatic hyperplasia with urinary frequency; Mixed hyperlipidemia; Longstanding persistent atrial fibrillation (CMS/HCC); Elevated LFTs; Fatty liver; Encounter for screening for other viral diseases 10/27/2024 Telephone [facility] [place] [address] Chidi Hsu MD Call Back Request 10/27/2024 Travel 10/23/2024 Telephone [place] [address] Chidi Hsu MD Appointment Confirmation 10/19/2024 Patient Outreach [place] [address] Chidi Hsu MD Pre-visit Planning (Pre-visit planning - LVM ) 10/16/2024 Population Health Risk Score [facility] () [address] [phone] Provider, Population Health Generic 10/14/2024 Telephone [place] [address] Chidi Hsu MD Chart Prep 09/15/2024 Telephone [place] [address] Chidi Hsu MD Medication Question 09/10/2024 Telephone [place] [address] Judy Reed, RN Paperwork/Forms 09/08/2024 Refill [place] [address] Chidi Hsu MD Type 2 diabetes mellitus without complication, without long-term current use of insulin (CMS/HCC) from Last 3 Months Immunizations Name Administration [...] housing situation today? I have edwige green 10/27/[address] you li [...] Sign Reading Time Taken Comments Blood Pressure 138/78 10/27/2024 9:39 AM EDT Pulse 65 10/27/2024 9:14 AM EDT Temperature 36.1 ??C (96.9 ??F) 10/27/2024 9:14 AM ED T Respiratory Rate 20 10/27/2024 9:14 AM EDT Oxygen Saturation 99% 10/27/2024 9:14 AM EDT Inhaled Oxygen Concentration - - Weight 70.3 kg (155 lb) 10/27/2024 9:14 AM EDT Height 167.6 cm (5' 6 ) 10/27/2024 9:14 AM EDT Body Mass Index 25.02 10/27/2024 9:14 AM EDT Plan of Treatment Upcoming Encounters Date Type Department Care Team (Late st Contact Info) Description 01/26/2025 9:00 AM EDT Office Visit [facility] [address] [place], [place] [phone] Chidi Hsu MD [address] [place] [address] Health Maintenance Due Date Last Done Comments Diabetes: Foot Exam 1955 Eye Exam 1955 Hepatitis A Vaccines (1 of 2 - Risk 2-dose series) 1964 Zoster Vaccines (1 of 2) 1995 Hepatitis B Vaccines (1 of 3 - Risk 3-dose series) 2005 RSV Patients and Patients Aged 60 years or older (1 - 1-dose 75+ series) 2020 COVID-19 Vaccine ( - season) 2024 10/13/2020, 09/15/2020 Diabetes: Hemoglobin A1C 01/27/2025 025, 06/23/2024, 02/18/2024, Additional history exists Alcohol/Substance Use Screening 06/23/2025 06/23/2024 Diabetes: Urine Protein Screening 10/23/2025 10/23/2024, 08/24/2021, 04/12/2020 Lipid Panel 10/23/2025 10/23/2024, 10/04, 08/24/2021, Additional history exists Depression Screening 10/27/2025 10/27/2024, 10/28/19 SDOH Screening 10/27/2025 10/27/2024 Tobacco Screening 10/27/2025 10/27/2024 DTaP/Tdap/Td Vaccines (2 - Td or Tdap) 06/12/2032 06/12/2022, 10/12/2009, 08/05/1996 Pneumococcal Vaccine: 50+ Years Completed 01/22/2017, 08/30/2015, 03/28/2010 Influenza Vaccine Completed 06/23/2024, , 06/12/2022, Additional history exists Hepatitis C Screening Completed 10/27/2024, 023 HIB Vaccines Aged Out No longer eligi [...] Procedure Name Priority Date/Time Associated Diagnosis Comments HEPATITIS B CORE AB TOTAL Routine 10/27/2024 10:06 AM EDT Elevated LFTs Encounter for screening for other viral diseases HEPATITIS B SURFACE ANTIBODY, QUALITATIVE Routine 10/27/2024 10:06 AM EDT Elevated LFTs Encounter for screening for other viral diseases HEPATITIS B SURFACE ANTIGEN, EIA Routine 10/27/2024 10:06 AM EDT Elevated LFTs Encounter for screening for other viral diseases HEPATITIS C AB W/REFL TO HCV RNA, QN, PCR Routine 10/27/2024 10:06 AM EDT Elevated LFTs Encounter for screening for other viral diseases PSA, SCREEN Routine 10/27/2024 10:06 AM EDT Preventative health care Benign prostatic hyperplasia with urinary frequency POCT GLYCATED HEMOGLOBIN, TOTAL Routine 10/27/2024 9:33 AM EDT Type 2 diabetes mellitus without complication, without long-term current use of insulin (CMS/HCC) POCT GLUCOSE Routine 10/27/2024 9:25 AM EDT Type 2 diabetes mellitus without complication, without long-term current use of insulin (CMS/HCC) ALBUMIN, RANDOM URINE W/CREATININE Routine 10/23/2024 8:17 AM EDT Type 2 diabetes mellitus without complication, without long-term current use of insulin (CMS/HCC) LIPID PANEL, STANDARD Routine 10/23/2024 8:17 AM EDT Mixed hyperlipidemia COMPREHENSIVE METABOLIC PANEL Routine 10/23/2024 8:17 AM EDT Primary hypertension HEPATIC FUNCTION PANEL Routine 10/23/2024 8:17 AM EDT Mixed hyperlipidemia from Last 3 Months Results * PSA, Screen (10/27/2024 10:06 AM EDT) Pathologist [facility] PSA, Total 1.04 <0.05 - 4.0 ng/mL [facility] Comment:PSA methodology: Abb jillian Bonnerty i ChemiluminescentMicroparticle Immunoassay (CMIA) Blood Venous blood specimen / Unknown 10/27/2024 10:06 AM EDT 10/27/2024 11:23 AM EDT us Chidi Hamlin MD LAB BLOOD ORDERABLES Final Result [facility] [address] [place] [phone] * Hepatitis C Antibody with Reflex to HCV, RNA, Quantitative, Real-Time PCR (10/27/2024 10:06 AM EDT) Pathologist [facility] Hepatitis C Antibody Nonreactive Nonreactive [facility] Comment:Antibodies to HCV no t detected; does not exclude early acuteHCV infection. Blood Venous blood specimen / Unknown 10/27/2024 10:06 AM EDT 10/27/2024 11:23 AM EDT Chidi Hamlin MD LAB BLOOD ORDERABLES Final Result Performing Organization Address [facility] Co de Phone Number [facility] [address] [place] [phone] * Hepatitis B surface antigen, EIA (10/27/2024 10:06 AM EDT) [facility] Hepatitis B Surface Ag Negative Negative [facility] Blood Venous blood specimen / Unknown 10/27/2024 10:06 AM EDT 10/27/2024 11:23 AM EDT Chidi Hamlin MD LAB BLOOD ORDERABLES Final Result Performing Organization Address [facility] Co de Phone Number [facility] [address] [place] [phone] * Hepatitis B Core Antibody, Total (10/27/2024 10:06 AM EDT) [facility] Hepatitis B Core Antibody Reactive Nonreactive [facility] Comment:Presumptive evidence of anti-HBc. Blood Venous blood specimen / Unknown 10/27/2024 10:06 AM EDT 10/27/2024 11:23 AM EDT Chidi Hamlin MD LAB BLOOD ORDERABLES Final Result Performing Organization Address [facility] de Phone Number [facility] [address] [place] [phone] * Hepatitis B Surface Antibody, Qualitative (10/27/2024 10:06 AM EDT) ~Hepatitis B Surface Antibody REACTIVE Nonreactive [facility] Comment:REACTIVE: > 11.99 mI U/mL Blood Venous blood specimen / Unknown 10/27/2024 10:06 AM EDT 10/27/2024 11:23 AM EDT us Chidi Hamlin MD LAB BLOOD ORDERABLES Final Result [facility] [address] [place] [phone] * (ABNORMAL) POCT HGB A1C (10/27/2024 9:33 AM EDT) Hemoglobin A1C 7.3(A) 4.0 - 6.0 % QC Media Lot # [id number] Lot# Expiration Date Blood 10/27/2024 9:33 AM EDT us Chidi Hamlin MD POINT OF CARE TEST EN TER/EDIT ORDERABLES Final Result * (ABNORMAL) POCT Glucose (10/27/2024 9:25 AM EDT) Glucose Blood, POC 252(A) 60 - 200 mg/dL QC Media Lot # [id number] Lot# Expiration Date Blood Capillary blood specimen / Unknown 10/27/2024 9:25 AM EDT us Chidi Hamlin MD POINT OF CARE TEST EN TER/EDIT ORDERABLES Final Result * Albumin, Random Urine W/Creatinine (10/23/2024 8:17 AM EDT) Creatinine, Urine 95.81 mg/dL [facility] Microalbumin Urine <5.0 mg/L [facility] Microalbum Creatinine Ratio Ur TNP <30 ug/mg cr [facility] Comment:Unable to calculate albumin/creatinine ratio due to lowmicroalbumin or creatinine result. Urine (Urine, Random) 10/23/2024 8:17 AM EDT 10/23/2024 11:18 AM EDT Chidi Hamlin MD LAB URINE ORDERABLES Final Result Performing Organization Address City/[facility]/ZIP Co de Phone Number [facility] [address] [place] [phone] * Hepatic Function Panel (10/23/2024 8:17 AM EDT) Bilirubin, Direct 0.2 0.0 - 0.5 mg/dL [facility] Blood Venous blood specimen / Unknown 10/23/2024 8:17 AM EDT 10/23/2024 11:07 AM EDT Chidi Hamlin MD LAB BLOOD ORDERABLES Final Result Performing Organization Address [facility] Co de Phone Number [facility] [address] [place] [phone] * Lipid Panel, Standard (10/23/2024 8:17 AM EDT) Triglycerides 52 <150 mg/dL [facility] Comment:Desirable Triglyceri de: less than 150 mg/dLBorderline High Triglyceride 150-199 mg/dLHigh Triglyceride: 200-499 mg/dLVery High Triglyceride: greater than or equal to 5OO mg/dL Cholesterol 144 <200 mg/dL [facility] Comment:Desirable Cholestero l: less than 200 mg/dLBorderline High Cholesterol: 200-239 mg/dLHigh Cholesterol: greater than 239 mg/dL LDL Cholesterol Calculated 69 <100 mg/dL [facility] Comment:Desirable LDL: less than 100 mg/dLNear Optimal/Above Optimal LDL: 110- 129 mg/dLBorderline High LDL: 130-159 mg/dLHigh LDL: 160-189 mg/dLVery High LDL: greater than or equal to 190 mg/dL HDL Cholesterol 65 >40 mg/dL [facility] Comment:Desirable HDL: great er than 40 mg/dL Note: This HDL assay may give artificially low results in patients with liver disease. Blood Venous blood specimen / Unknown 10/23/2024 8:17 AM EDT 10/23/2024 11:07 AM EDT us Chidi Hamlin MD LAB BLOOD ORDERABLES Final Result [facility] [address] [place] [phone] * (ABNORMAL) Comprehensive Metabolic Panel (10/23/2024 8:17 AM EDT) Sodium 139 135 - 145 mmol/L [facility] Potassium 4.2 3.3 - 5.1 mmol/L [facility] Chloride 106 96 - 108 mmol/L [facility] Carbon Dioxide 27 22 - 29 mmol/L [facility] Anion Gap 10(L) 12 - 20 [facility] Urea Nitrogen (BUN) 24(H) 9 - 16 mg/dL [facility] Creatinine, Serum 0.96 0.5 - 1.4 mg/dL [facility] Estimated Glomerular Filt Rate >60 [facility] Comment:Chronic Kidney Disea se: Estimated GFR < 60 mL/min/[id number] Kidney Disease: Estimated GFR < 15 mL/min/1.73m2 Glucose 107 60 - 115 mg/dL [facility] Calcium 9.6 8.4 - 10.2 mg/dL [facility] Bilirubin, Total 0.4 0.0 - 1.0 mg/dL [facility] Aspartate Amino Transferase 49(H) 5 - 37 U/L [facility] Alanine Aminotransferase 57(H) 0 - 40 U/L [facility] Total Protein 7.5 6.5 - 8.0 g/dL [facility] Albumin Level 4.1 3.5 - 5.0 g/dL [facility] Alkaline Phosphatase 51 39 - 117 U/L [facility] Blood Venous blood specimen / Unknown 10/23/2024 8:17 AM EDT 10/23/2024 11:07 AM EDT Chidi Hamlin MD LAB BLOOD ORDERABLES Final Result [facility] [address] [place] [phone] from Last 3 Months Insurance MEDICARE Member Subscriber Plan / Payer (Ef fective 2022-Present) Name:Bernice Atkins Member ID:[id number] Relation to Subscriber:Self Name:Bernice Atkins Subscriber ID:[id number] Payer ID:STATE Group ID:Not on file Type:Medicare Address: [place] [facility].[address] [address] [facility] Care Teams Preschool Paraprofessional Relationship Specialty Start Date End Date Chidi Hsu MD [address] [place] [id number] PCP - General Internal Medicine 02/19/23
== END 2024-11-20 10:02 | disposition home or self-care (01) ==
LOC: HO.HMGCX 10:01
PROVIDERS: PCP Internal Medicine; Visit Provider Internal Medicine
DX: R79.89 Other specified abnormal findings of blood chemistry (principal)
CPT/HCPCS: 76700

== ENCOUNTER → 2024-11-20 10:26 | Outpatient (BNV) | payer MEDICARE, SELFPAY | PROVIDERS: PCP Internal Medicine; Visit Provider Specialist | DX: R74.01 Elevation of levels of liver transaminase levels (principal); K76.0 Fatty (change of) liver, not elsewhere classified | CPT/HCPCS: 76700 ==

== ENCOUNTER → 2025-01-05 07:34 | Outpatient (REF) | payer MEDICARE, SELFPAY ==
--- OUTSIDE RECORDS SUMMARY | 2025-01-05 07:37 | XMS_ITS | Encounter Summary ---
Author Organization [employer] Address [address] [facility] 7t [place] [address] Care Team Providers Care Pearl Diver Name Role Phone Chidi Hsu MD Primary Care Provide r Reason for Visit * Reason Comments Med Refill Encounter Details Date Type Department Care Team ([facility] st Contact Info) Description 01/03/2025 Refill [facility] [address] [place], [place] [phone] Chidi Hsu MD [address] [place], [place] [phone] Mixed hyperlipidemia Social History Tobacco Use Types Packs/Day Years [...] Description 01/26/2025 9:00 AM EDT Office Visit [facility] [address] [place] [address] Chidi Hsu MD [address] [place] [address] documented as of this encounter Visit Diagnoses Diagnosis Mixed hyperlipidemia documented in this encounter Additional Health Concerns Assessment Noted Time PHQ-9 Depression Total Score: 2 10/28/19 25 9:20 AM EDT documented as of this encounter Care Teams Pearl Diver Relationship Specialty Start Date End Date Chidi Hsu MD [address] [place] [address] PCP - General Internal Medicine 02/19/23 documented as of this encounter
--- NOTE | 2025-01-05 07:38 | CA_ITS ---
Transthoracic Echocardiogram Patient (Last, First, Middle): Bernice Atkins, Gender: Male Date of : 1945 Age: 79 Procedure Date: 01/05/2025 Procedure Type: Transthoracic Echocardiogram Location: OP Height: 167.64 cm Weight: 67.59 kg BSA: 1.76 m2 Heart Rate: 49 bpm BP: 146 / 62 mmHg Biology Internship: REKHA Referring MD: Giorgi Bowman MD Symptoms: I48.0 - Paroxysmal atrial fibrillation Study Quality: Adequate ECG Rhythm: Sinus bradycardia with PACs Conclusions: - The left ventricular systolic function is normal. The calculated ejection fraction is 57% by biplane method. - No obvious valvular pathology seen on this study. Findings Left Ventricle Normal left ventricular cavity size. The left ventricular systolic function is normal. The calculated ejection fraction is 57% by biplane method. There is no evidence of regional wall motion abnormalities. Evidence suggests grade I (mild) diastolic dysfunction. There is mild septal asymmetric hypertrophy. Right Ventricle Normal right ventricular cavity size and systolic function. Atria Both atria are normal in size. Aortic Valve There is a normal trileaflet aortic valve. There is no aortic valve stenosis. Trace to mild aortic regurgitation. Mitral Valve The mitral valve appears normal. There is trace mitral valve regurgitation. There is no mitral valve stenosis. Pulmonic Valve The pulmonic valve is likely normal. Tricuspid Valve Normal tricuspid valve structure. There is mild tricuspid valve regurgitation. There is no evidence of pulmonary hypertension. Great Vessels The asc aorta is normal in size. Venous The inferior vena cava is normal in size and collapses greater than 50% with inspiration. Pericardium/Pleural There is no evidence of pericardial effusion. Prior Study Comparison No significant change compared to prior study dated: 07/19/2021. Recommendations, Care & Conclusions No obvious valvular pathology seen on this study. Measurements 2D Linear Measurements IVSd: 1.02 0.6-0.9/0.6-1.0 cm LVIDd: 4.51 3.9-5.3/4.2-5.9 cm LVIDd Index: 2.56 2.4-3.2/2.2-3.1 cm/m2 LVIDs: 3.14 2.0-3.6 cm LVPWd: 0.78 0.7-1.1 cm LA Diam: 4.20 2.7-3.8/3.0-4.0 cm LAIDs Index: 2.39 1.5-2.3 cm/m2 LV Mass: 166.38 67-162/88-224 g LV Mass Index: 94.54 43-95/49-115 g/m2 LVOT Diam: 2.10 3.0+(-)1.3 cm 2D Systolic Function EF 4C: 56.50 >55% EF 2C: 57.30 >55% EF BiP: 56.60 >55% Mitral Valve MV Pk E: 0.70 MV PK A: 0.78 MV Decel Time: 211.00 E/A: 0.90 E'Lateral: 5.55 E'Medial: 4.79 E/E' Med: 14.70 E/E' Lat: 12.70 PHT: 62.00 MVA PHT: 3.55 Decel Ashe: 3.33 Aortic Valve AoV Pk Jacoby: 1.16 AoV Pk Grad: 5.00 BHAVIK: 2.10 AI Pk Jacoby: 4.13 AI Ashe: 1.15 LVOT LVOT Pk Jacoby: 1.03 LVOT Mn Jacoby: 0.63 LVOT VTI: 0.22 LVOT Pk Grad: 4.00 LVOT Mn Grad: 2.00 LVOT Diam: 2.10 LVOT Area: 3.46 Diastolic Function MV Pk E: 0.70 MV Pk A: 0.78 E/A: 0.90 E'Medial: 4.79 E/E' Med: 14.70 E' Laterial: 5.55 E/E' Lat: 12.70 Right Ventricle TAPSE (mm): 21.70 TVS' Jacoby: 11.50 Tricuspid Valve TR Pk Jacoby: 2.46 TR Pk Grad: 24.00 RA Press: 3.00 RVSP: 27.00 Great Vessels Aorta Sinus of Valsalva: 3.60 2.0-3.5 cm Ao Asc: 3.60 2.1-3.4 cm Pulmonary Veins Pulm Vein S/D 1.80 Pulmonary Valve PV Pk Jacoby: 0.74 Peak PV Grad: 2.00 Updated in Other Vendor System with Status of Final Mikie Corbin MD electronically signed on 01/06/2025 1:35:12 PM with status of Final
== END ==
LOC: HO.CARD 07:34
PROVIDERS: PCP Internal Medicine; Visit Provider Internal Medicine Cardiovascular Disease
DX: I48.0 Paroxysmal atrial fibrillation (principal)
CPT/HCPCS: 93306

== ENCOUNTER → 2025-01-05 07:38 | Outpatient (BNV) | payer MEDICARE, SELFPAY | PROVIDERS: PCP Internal Medicine; Visit Provider Internal Medicine | DX: I35.1 Nonrheumatic aortic (valve) insufficiency (principal); I34.0 Nonrheumatic mitral (valve) insufficiency | CPT/HCPCS: 93306 ==

== ENCOUNTER 2025-01-19 08:29 | Outpatient (AMB) | payer MEDICARE, SELFPAY ==
--- NOTE | 2025-01-19 08:41 | MHC.OFFVIS ---
Vital Signs 01/19/25 08:42 Height 5 ft 6 in Weight 147 lb 11.355 oz BMI 23.8 BP 116/66 Blood Pressure Location Lt brachial Position Sitting Pulse 52 Intake Visit Reasons: 1yr follow up Intake Note: 1 year follow-up with ekg after echo hearts doing good Emergency Care Tech Required: No Allergies No Known Allergies Allergy (Mild, Verified 09/01/24 08:34) NONE Medication List - Last Reconciled 01/19/25 by Giorgi Bowman MD acetaminophen 500 mg PO Q6H PRN alcohol swabs 1 pad topical TID atorvastatin 20 mg PO DAILY blood pressure test kit-large As directed blood sugar diagnostic As directed chlorthalidone 25 mg PO DAILY dabigatran etexilate 150 mg PO BID docusate sodium (Colace) 100 mg PO BID lorazepam 1 mg PO BID losartan 25 mg PO DAILY meclizine 25 mg PO BEDTIME PRN melatonin 10 mg PO BEDTIME metformin 500 mg PO BID methocarbamol 750 mg PO BID metronidazole 500 mg PO Q12H sildenafil (Viagra) 100 mg PO ONCE PRN 30 days terazosin 5 mg PO BEDTIME 90 days topiramate 25 mg PO BID HPI Comments Details: Bernice comes for follow-up. He has no obvious significant fast heart rate or episodes of atrial fibrillation irregular heartbeat. He had 1 episode of fast heart rate although he did not seek any medical attention. He gets intermittent episodes of dizziness with no associated palpitations. No syncopal episodes. Denies any shortness of breath, orthopnea, PND. No leg edema. No bleeding issues or neurologic events. [facility]LY [facility] Medical History Lumbar stenosis with neurogenic claudication Left lumbar radiculopathy Pituitary adenoma Hiatal hernia History of transesophageal echocardiography (JANNA) Pre-operative cardiovascular examination Erectile dysfunction BPH with obstruction/lower urinary tract symptoms Dizziness PAF (paroxysmal atrial fibrillation) SSS (sick sinus syndrome) Diabetes mellitus GERD (gastroesophageal reflux disease) HTN (hypertension) Surgical History Hx of decompressive lumbar laminectomy Hx of esophagogastroduodenoscopy History of cardioversion (~2012) Hx of colonoscopy Hx of umbilical hernia repair Hx of inguinal hernia surgery Family History Father Alzheimer disease Mother No problems noted. Brother Diabetes Social History Are you a primary memory care director to a significant other at home: No Do you presently have visiting nurse or other home services: No Comment: aware of trip hazard Patient Tobacco Use Status: Never used Tobacco Advance Directives Date on File: 09/11/19 Review of Systems Const Denies chills, Denies fatigue, Denies fever(s), Denies frequent falls, Denies weakness, Denies weight gain and Denies weight loss ENT Denies dizziness Card Denies chest pain, Denies leg edema, Denies lightheadedness, Denies palpitations, Denies dyspnea, Denies dyspnea on exertion, Denies orthopnea and Denies other (loss of consciousness) Resp Denies cough, Denies dyspnea and Denies dyspnea on exertion GI Denies hematochezia and Denies change in stool character Musc Denies abnormal gait, Denies muscle weakness, Denies numbness, Denies radiating pain into limb and Denies tingling Neuro Denies abnormal gait, Denies dizziness, Denies frequent falls, Denies numbness, Denies tingling and Denies weakness Endo Denies fatigue and Denies palpitations Physical Exam Vital Signs: Last Vital Signs Pulse 52 01/19/25 08:42 BP 116/66 01/19/25 08:42 BMI result Body Mass Index 23.8 Const General: cooperative, comfortable, no acute distress, alert and awake Nutritional Appearance: thin Orientation/consciousness: patient oriented x3 Limitations: no limitations Neck Neck: Yes trachea midline, Yes supple and Yes no JVD Resp Effort & Inspection: normal respiratory effort Auscultation: clear to auscultation bilaterally Cardio Jugular venous distension: no JVD Palpation: normal PMI Rate: regular rate and bradycardic Rhythm: regular rhythm Heart sounds: S1 normal heart sound present and S2 normal heart sound present GI Auscultation: normal bowel sounds Skin General skin exam: no rashes or lesions noted Neuro General: patient oriented x3 and no focal motor deficits Extrem General: Yes no clubbing, cyanosis or edema Psych Appearance: grossly normal Office Procedures EKG Details: EKG shows sinus bradycardia with septal QS pattern with PVCs [id number], Complete Assessment & Plan Assessment & Plan (1) PAF (paroxysmal atrial fibrillation): Code(s): I48.0 - Paroxysmal atrial fibrillation Category: Medical Plan: Paroxysmal atrial fibrillation this elderly gentleman without any obvious new symptoms. He does have intermittent symptoms dizziness which are not associated with any palpitations. In the past he did have dizziness with atrial fibrillation. Advised to monitor his pulse and/or reach out to us to obtain EKGs during this episodes. Also advised him to check his sugars as well as blood pressure during these episodes. Will obtain a Holter monitor to rule out, see below any significant pauses. Continue full oral anticoagulation, currently on Pradaxa 150 mg b.i.d. which she has tolerated well. Quarterly renal function test should be pursued. Continue current antihypertensive therapy with losartan and chlorthalidone. (2) SSS (sick sinus syndrome): Code(s): I49.5 - Sick sinus syndrome Category: Medical Plan: Patient was sinus bradycardia has not tolerated rate lowering medications in the past with sinus bradycardia. At this point time I have suggested him to undergo Holter monitor to rule out any significant pauses especially with his symptoms of dizziness. This will be scheduled in near future. Will schedule a 14 day Holter monitor. Further treatment based on the findings. Avoid rate lowering medications in the future. Will follow up in the clinic in 1 year's time, sooner p.r.n.. Thank you for allowing me to partake in his care Coding Level of Care Code Est Pt Level 4 (74839) Complex EM visit Add On G2211 Diagnoses PAF (paroxysmal atrial fibrillation) I48.0 SSS (sick sinus syndrome) I49.5 CPT Codes EKG - CPT: [id number], Complete ([id number])
[2025-01-19 08:42] VITALS: BP 116/66; PULSE 52; BMI 23.8
--- OUTSIDE RECORDS SUMMARY | 2025-01-19 08:46 | XMS_ITS | Encounter Summary ---
Author Organization [employer] Address [address] [facility] 7t [place] [address] Care Team Providers Care Agriculture Manager Name Role Phone Chidi Hsu MD Primary Care Provide r Chidi Hsu MD Primary Care Provide r Encounter Details Date Type Department Care Team (Latest Contact Info) Description 07/21/2021 Abstract [facility] CONVERSIONS Dental, Provider, DDS Social History [...] Description 01/26/2025 9:00 AM EDT Office Visit [facility] MED[facility]INE [address] [place] [address] Chidi Hsu MD [address] [place] [address] documented as of this encounter Visit Diagnoses Not on filedocumented in this encounter Care Teams Agriculture Manager Relationship Specialty Start Date End Date Chidi Hsu MD [address] [place] [address] PCP - General Internal Medicine 04/19/14 02/18/23 Chidi Hsu MD [address] [place] [address] PCP - General Internal Medicine 02/19/23 documented as of this encounter
== END 2025-01-19 09:15 | disposition home or self-care (01) ==
LOC: HO.HCS 08:30
PROVIDERS: PCP Internal Medicine; Visit Provider Internal Medicine Cardiovascular Disease
DX: I48.0 Paroxysmal atrial fibrillation (principal); I49.5 Sick sinus syndrome
CPT/HCPCS: 93010; 99214; G2211

== ENCOUNTER → 2025-01-19 08:29 | Outpatient (BNVA) | payer MEDICARE, SELFPAY | PROVIDERS: PCP Internal Medicine; Visit Provider Internal Medicine Cardiovascular Disease | DX: I48.0 Paroxysmal atrial fibrillation (principal); I49.5 Sick sinus syndrome; R00.1 Bradycardia, unspecified; I49.3 Ventricular premature depolarization; R94.31 Abnormal electrocardiogram [ECG] [EKG] | CPT/HCPCS: 93005; 99212 ==

== ENCOUNTER → 2025-01-26 08:47 | Outpatient (BNV) | payer MEDICARE, SELFPAY | PROVIDERS: PCP Internal Medicine; Visit Provider Radiology Diagnostic Radiology | DX: I73.9 Peripheral vascular disease, unspecified (principal) | CPT/HCPCS: 70553 ==

== ENCOUNTER 2025-01-26 08:56 | Outpatient (REF) | payer MEDICARE, SELFPAY ==
--- NOTE | ~2025-01-26 | MR_ITS ---
EXAMINATION: MR BRAIN PITUITARY PROTOCOL WITHOUT AND WITH CONTRAST CLINICAL INFORMATION: Benign neoplasm of pituitary gland. COMPARISON: January 16, 2024. TECHNIQUE: Multiplanar, multisequence MRI of the brain pituitary protocol was obtained before and after the intravenous administration of 3.5 mL gadolinium based (Gadavist) without reported immediate complications.. FINDINGS: There is a well-defined, 11 x 14 x 11 mm lobulated hypointense T1 hyperintense T2 FLAIR with intermediate T2 signal and restricted diffusion signal abnormality mass center within the sella appears ectatic extending into the medial left cavernous sinus resulting in mass effect and 3.4 mm midline deviation to the right of the pituitary stalk. The pituitary stalk demonstrated normal enhancement pattern without focal lesion. The optic chiasm is intact without signal abnormality. The flow-void signal within the cavernous supracavernous segments of the ICAs normal. No restricted diffusion to suggest acute ischemia. There is no susceptibility sequence acquired. Bilateral multifocal patchy and punctate deep periventricular white matter hyperintense T2 FLAIR signal involving centrum semiovale and piña radiata. Craniocervical junction demonstrates normal position of the cerebellar tonsils. Flow-void signal within the main cerebral vessels is normal. There is a focal hyperintense T2 no restricted enhancing signal within the superior left orbital diploe. Prominence of the extra-axial CSF spaces cerebral sulci and ventricles. 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 Stable. The possibility of old blood products versus apoplexy cannot be excluded. Small vessel occlusive disease. No acute stroke/ischemia. Electronically signed by: Carlos Enrique Lewis MD 01/26/2025 10:32 AM EDT
--- OUTSIDE RECORDS SUMMARY | 2025-01-26 09:23 | XMS_ITS | Encounter Summary ---
Author Organization [employer] Address [address] [facility] 7t [place] [address] Care Team Providers Care Alternative Dispute Resolution Mediator Name Role Phone Chidi Hsu MD Primary Care Provide r Chidi Hsu MD Primary Care Provide r Encounter Details Date Type Department Care Team (Latest Contact Info) Description 07/21/2021 Abstract [facility] CONVERSIONS Dental, Provider, DDS Social History Tobacco Use Types Packs/Day Years Used Date Smoking Tobacco: Never Assessed Sex and Gender Information Value Date Recorded Sex Assigned at Male 06/04/2022 10:15 AM EDT Legal Sex Male 10:15 AM EDT Gender Identity Male 06/04/2022 10:15 AM EDT Sexual Orientation Straight 06/04/2022 10 :15 AM EDT documented as of this encounter Plan of Treatment Not on file documented as of this encounter Visit Diagnoses Not on filedocumented in this encounter Care Teams Alternative Dispute Resolution Mediator Relationship Specialty Start Date End Date Chidi Hsu MD [address] [place] [address] PCP - General Internal Medicine 04/19/14 02/18/23 Chidi Hsu MD [address] [place] [address] PCP - General Internal Medicine 02/19/23 documented as of this encounter
[2025-01-26] MEDS: gadobutroL 2 ML VIAL IVPUSH ×2 (09:48→09:50)
== END 2025-01-26 08:57 | disposition home or self-care (01) ==
LOC: HO.MRI 08:56
PROVIDERS: PCP Internal Medicine; Visit Provider Internal Medicine Endocrinology, Diabetes & Metabolism
DX: D35.2 Benign neoplasm of pituitary gland (principal)
CPT/HCPCS: 70553; A9585

== ENCOUNTER 2025-02-02 08:28 | Outpatient (AMB) | payer MEDICARE, SELFPAY ==
--- NOTE | 2025-02-02 08:31 | MHC.OFFVIS ---
Intake Visit Reasons: 1y/PVR Intake Note: Patient is Present for 1 yr follow up Urology Med: Sildenafil, Terazosin Antibiotic Allergy: None Blood Thinner: None Todays PVR:120 ml Seam Closer Required: No Allergies No Known Allergies Allergy (Mild, Verified 02/02/25 08:44) NONE HPI Comments Details: Ethan is a very pleasant [facility] male. He is a patient of it Dr. Huynh. he is seen for following urologic conditions - lower urinary tract symptoms - erectile dysfunction Yearly follow-up Prior PVR 240 cc Current PVR 114 Notices when he misses a dose of terazosin Continues to respond well PSA low - on a needs to be checked every 2 or 3 years Discussed Viagra Still working on a farm Main concern is back pain prior operation Lower urinary tract symptoms prior retention responds well to terazosin 5 mg is emptying well continue with medications PSA 06/25 1.6, 10/27 1.0 Erectile dysfunction does respond to Viagra previous prescription given COUNTS INCLUDE 234 BEDS AT THE [facility] Medical History Lumbar stenosis with neurogenic claudication Left lumbar radiculopathy Pituitary adenoma Hiatal hernia History of transesophageal echocardiography (JANNA) Pre-operative cardiovascular examination Erectile dysfunction BPH with obstruction/lower urinary tract symptoms Dizziness PAF (paroxysmal atrial fibrillation) SSS (sick sinus syndrome) Diabetes mellitus GERD (gastroesophageal reflux disease) HTN (hypertension) Surgical History Hx of decompressive lumbar laminectomy Hx of esophagogastroduodenoscopy History of cardioversion (~2012) Hx of colonoscopy Hx of umbilical hernia repair Hx of inguinal hernia surgery Family History Father Alzheimer disease Mother No problems noted. Brother Diabetes Social History Are you a primary care worker to a significant other at home: No Do you presently have visiting nurse or other home services: No Comment: aware of trip hazard Patient Tobacco Use Status: Never used Tobacco Advance Directives Date on File: 09/11/19 Review of Systems Const Denies chills and Denies fever(s) Card Reports no additional complaints and Denies syncope Resp Denies cough GI Denies abdominal pain and Denies heartburn Reports as per HPI and Denies change in libido Neuro Denies syncope Psych Denies change in libido Endo Denies change in libido Physical Exam Const General: cooperative, healthy appearing, comfortable and no acute distress Orientation/consciousness: patient oriented x3 HEENT Face and sinus: Yes normal facial exam Mouth: moist mucous membranes Neck Neck: Yes normal visual inspection, Yes full ROM and Yes trachea midline Chest Chest palpation & inspection: normal inspection of the chest Resp Effort & Inspection: normal respiratory effort, able to speak in complete sentences and no respiratory distress GI Inspection: Yes normal to inspection Back/Spine/Pelvis Cervical Spine: normal cervical lordosis Thoracic/Lumbar Spine: thoracic and lumbar spine normal to inspection Skin General skin exam: no rashes or lesions noted Neuro General: patient oriented x3, gait normal, tone normal and moves all extremities Extrem General: Yes normal to inspection and Yes capillary refill normal Assessment & Plan Assessment & Plan (1) BPH with obstruction/lower urinary tract symptoms: Code(s): N40.1 - Benign prostatic hyperplasia with lower urinary tract symptoms; N13.8 - Other obstructive and reflux uropathy Category: Medical (2) Erectile dysfunction: Code(s): N52.9 - Male erectile dysfunction, unspecified Category: Medical Qualifiers: Erectile dysfunction type: unspecified Qualified Code(s): N52.9 - Male erectile dysfunction, unspecified Plan Twelve month follow-up Medications: Refilled terazosin 5 mg PO BEDTIME 90 caps 3RF 90 days N13.8 - Other obstructive and reflux uropathy, N40.1 - Benign prostatic hyperplasia with lower urinary tract symptoms, R35.0 - Frequency of micturition Patient Instructions: This note is constructed using voice recognition software. While every effort has been made to ensure accuracy pathology secretary/transcriptionist errors may have been included. Imaging studies, laboratory and physical exam results were discussed and reviewed in detail. No major barriers to patient understanding were identified. An opportunity to ask questions regarding the treatment plan was provided. All questions were answered. The patient expressed understanding and agreement with the above treatment plan. The patient is aware they should contact our office by phone for worsening of their current condition or the appearance of new urologic symptoms. Compliance is encouraged with any medications and followup testing that is ordered. It is a privilege to participate in the urologic care of your patient. If you have any questions or concerns regarding treatment for the above conditions, or other urologic issues, please do not hesitate to contact me. The office telephone contact is [phone]. Sincerely, Dr Jimi Herman MD, PARAMJIT [facility] - Urology Compassionate Specialist Care for the Genitourinary System Coding Level of Care Code Est Pt Level 4 (38883) Complex EM visit Add On G2211 Diagnoses BPH with obstruction/lower urinary tract symptoms N40.1; N13.8 Erectile dysfunction, unspecified erectile dysfunction type N52.9 Erectile dysfunction type: unspecified
--- OUTSIDE RECORDS SUMMARY | 2025-02-02 08:34 | XMS_ITS | Encounter Summary ---
Author Organization [employer] Address [address] [facility] 7t [place] [address] Care Team Providers Care Composite Bond Worker Name Role Phone Chidi Hsu MD Primary [...] on filedocumented in this encounter Care Teams Composite Bond Worker Relationship Specialty Start Date End Date Chidi Hsu MD [address] [place] [address] PCP - General Internal Medicine 04/19/14 02/18/23 Chidi Hsu MD [address] [place] [address] PCP - General Internal Medicine 02/19/23 documented as of this encounter
== END 2025-02-02 09:00 | disposition home or self-care (01) ==
LOC: HO.HUSH 08:29
PROVIDERS: PCP Internal Medicine; Visit Provider Urology
DX: N40.1 Benign prostatic hyperplasia with lower urinary tract symptoms (principal); N13.8 Other obstructive and reflux uropathy; N52.9 Male erectile dysfunction, unspecified; Z13.9 Encounter for screening, unspecified
CPT/HCPCS: 99214

== ENCOUNTER → 2025-02-02 08:28 | Outpatient (BNVA) | payer MEDICARE, SELFPAY | PROVIDERS: PCP Internal Medicine; Visit Provider Urology | DX: N40.1 Benign prostatic hyperplasia with lower urinary tract symptoms (principal); N13.8 Other obstructive and reflux uropathy; N52.9 Male erectile dysfunction, unspecified; Z79.899 Other long term (current) drug therapy | CPT/HCPCS: 51798; 81003; 99212 ==

== ENCOUNTER → 2025-02-25 08:17 | Outpatient (REF) | payer MEDICARE, SELFPAY ==
--- NOTE | 2025-02-25 08:21 | HM_ITS ---
Conclusion: 1. Patient was monitored for total period of 14 days 2. Baseline was normal sinus rhythm with average heart of 69 beats per minute 3. No significant pauses noted 4. Frequent isolated PVCs noted with total burden of 8.21% 5. Frequent SVT episodes noted with longest lasting 19 minutes and 44 seconds at 207 beats per minute 6. Reported wide complex tachycardia under nonsustained ventricular tachycardia although these appear to be more aberrant conduction with longest lasting 52 seconds at 201 beats per minute 7. Patient marked the counter 7 times, 5 of these times correlating with isolated PACs. No symptoms reported during SVTs MTDD
--- OUTSIDE RECORDS SUMMARY | 2025-02-25 08:30 | XMS_ITS | Encounter Summary ---
Author Organization [employer] Address [address] [facility] 7t [place] [address] Care Team Providers Care Peeled Potato Inspector Name Role Phone Chidi Hsu MD Primary Care Provide r Chidi Hsu MD Primary Care Provide r Encounter Details Date Type Department Care Team (Latest Contact Info) Description 07/21/2021 Abstract [facility] CONVERSIONS Dental, Provider, DDS Social History [...] Care Team (Late st Contact Info) Description 03/02/2025 10:00 AM EDT Office Visit [facility] MEDICINE [address] [place] [address] Chidi Hsu MD [address] [place] [address] documented as of this encounter Visit Diagnoses Not on filedocumented in this encounter Care Teams Peeled Potato Inspector Relationship Specialty Start Date End Date Chidi Hsu MD [address] [place] [address] PCP - General Internal Medicine 04/19/14 02/18/23 Chidi Hsu MD [address] [place] [address] PCP - General Internal Medicine 02/19/23 documented as of this encounter
--- OUTSIDE RECORDS SUMMARY | 2025-02-25 08:30 | XMS_ITS | Clinical Summary ---
Author Organization [facility] Address [address] [place] [address] Phone Care Team Providers Care Pick Up Name Role Phone Pcp, Unknown Primary Care Provider Unavailabl e Encounters Date Type Department Care Team Description 02/23/2025 12:30 PM EDT Telemedicine - audio only [facility] Neurosurgery [address], 5th [address], [address] [place] [address] Johan Aquino, BRUCE, DNP Pituitary adenoma (Primary Dx) 02/12/2025 Ancillary Orders [facility] [address] [place] [address] Vanesa Crawford MD 01/26/2025 - 01/26/2025 11:59 PM EDT Hospital Encounter [facility] [address] [place] [address] Vanesa Crawford MD Discharge Disposition: Home or Self Care from Last 3 Months Social History Tobacco Use Types Packs/Day Years Used Date Smoking Tobacco: Never Assessed Education Answer Date Recorded Are you interested in more education? Not on cristobal e 03/25/2024 Are you concerned about learning? Not on file 03/25/2024 No 03/25/2024 No 03/25/2024 Digital Access Answer Date Recorded No 03/25/2024 No 03/25/2024 Reliable internet access at home? Not on file 03/25/2024 Device with a working camera? Not on file Sex and Gender Information Value Date Recorded Sex Assigned at Not on file Legal Sex Male 10:08 PM EDT Gender Identity Not on file Sexual Orientation Not on file Plan of Treatment Health Maintenance Due Date Last Done Comments DEPRESSION SCREENING 1957 SMOKING Hx and SMOKELESS TOBACCO SCREENING 1958 HEPATITIS C SCREENING 1963 ZOSTER VACCINES (1 of 2) 1995 PNEUMOCOCCAL VACCINES (50+ years) (2 of 2 - PCV) 01/22/2018 01/22/2017, 03/28/2010 RSV VACCINE (1 - 1-dose 75+ series) 2020 COVID-19 VACCINE (1 - 2023-2 5 season) 2024 LIPID PANEL 10/23/2029 10/23/2024 Adult Td,Tdap Booster 06/12/2032 06/12/2022 HEPATITIS A VACCINES Aged Out No long er eligible based on patient's age to complete this topic HIB VACCINES Aged Out No longer eligi ble based on patient's age to complete this topic MENINGOCOCCAL VACCINES (ACWY) Aged Out No longer eligible based on patient's age to complete this topic MENINGOCOCCAL VACCINES (B) Aged Out N o longer eligible based on patient's age to complete this topic Medical Devices Not on file Procedures Procedure Name Priority Date/Time Associated Diagnosis Comments MRI BRAIN OUTSIDE (NO INTERPRETATION) Routine 01/26/2025 12:00 AM EDT from Last 3 Months Results * MRI Brain Outside (No Interpretation) (01/26/2025 12:00 AM EDT) Narrative [facility] IMG INTERFACES - 02/12/2025 2:19 PM EDT This study is for PACS storage only and not for interpretation. us Vanesa Crawford MD IMG OUTSIDE IMAGING W/OUT INTE RPRETATION Final Result [facility] IMG INTERFACES from Last 3 Months Insurance MEDICARE PART A & B [employer] MEDEX SUPPLEMENT MEDICARE PART A & B [employer] MEDEX SUPPLEMENT MEDICARE PART A & B [employer] MEDEX SUPPLEMENT MEDICARE PART A & B [employer] MEDEX SUPPLEMENT MEDICARE PART A & B [employer] MEDEX SUPPLEMENT MEDICARE PART A & B [employer] MEDEX SUPPLEMENT Care Teams Pick Up Relationship Specialty Start Date End Date Pcp, Unknown PCP - General 03/18/24 Additional Source Comments The information contained in this document represents components of the legal health record. It is not the complete legal health record.[facility]
== END ==
LOC: HO.CARD 08:17
PROVIDERS: PCP Internal Medicine; Visit Provider Internal Medicine Cardiovascular Disease
DX: I49.5 Sick sinus syndrome (principal)
CPT/HCPCS: 93246

== ENCOUNTER → 2025-02-25 08:21 | Outpatient (BNV) | payer MEDICARE, SELFPAY | PROVIDERS: PCP Internal Medicine; Visit Provider Internal Medicine Cardiovascular Disease | DX: I49.3 Ventricular premature depolarization (principal); I47.10 Supraventricular tachycardia, unspecified; I49.1 Atrial premature depolarization | CPT/HCPCS: 93248 ==

== ENCOUNTER 2025-03-02 10:46 | Outpatient (REF) | payer MEDICARE, SELFPAY ==
--- NOTE | ~2025-03-02 | XR_ITS ---
EXAMINATION: XR FOOT, RIGHT CLINICAL INFORMATION: painful callus of the great toe. COMPARISON: None available. TECHNIQUE: AP, lateral, and oblique views of the right foot. FINDINGS: No fracture, dislocation, or suspicious bone lesion. There is an old healed fracture of the fourth digit proximal phalanx. There are mild osteoarthritic changes at the first MTP joint, and mild to moderate changes at the interphalangeal joint of the hallux. There is normal alignment. There is normal plantar arch. The midfoot and hindfoot appear grossly normal. No soft tissue abnormalities. XR/XR foot RT min 3V IMPRESSION: 1. No acute bony abnormalities of the right foot. 2. There are mild osteoarthritic changes at the first MTP joint, and mild to moderate changes at the interphalangeal joint of the hallux. Electronically signed by: Willie Casilals MD 03/02/2025 11:06 AM EDT
--- OUTSIDE RECORDS SUMMARY | 2025-03-02 11:59 | XMS_ITS | Encounter Summary ---
Author Organization [employer] Address [address] [place] [address] Care Team Providers Care Organic Chemistry Professor Name Role Phone Chidi Hsu MD Primary [...] on filedocumented in this encounter Care Teams Organic Chemistry Professor Relationship Specialty Start Date End Date Chidi Hsu MD [address] [place] [address] PCP - General Internal Medicine 04/19/14 02/18/23 Chidi Hsu MD [address] [place] [address] PCP - General Internal Medicine 02/19/23 documented as of this encounter
--- OUTSIDE RECORDS SUMMARY | 2025-03-02 11:59 | XMS_ITS | Clinical Summary ---
Author Organization [facility] Address [address] [place] [address] Phone Care Team Providers Care Loader Technician Name Role Phone Pcp, Unknown Primary Care Provider Unavailabl e Encounters Date Type Department Care Team Description 02/23/2025 12:30 PM EDT Telemedicine - audio only [facility] Neurosurgery [address], 5th [address], [address] [place] [address] Johan Aquino, BRUCE, DNP Pituitary adenoma (Primary Dx) 02/12/2025 Ancillary Orders [facility] [address] [place] [address] Vanesa Crawford MD 01/26/2025 - 01/26/2025 11:59 PM EDT Hospital Encounter [facility] [address] [place] [address] Vanesa Crawford MD Discharge Disposition: Home or [...] (No Interpretation) (01/26/2025 12:00 AM EDT) Narrative [facility] IMG INTERFACES - 02/12/2025 2:19 PM EDT This study is for PACS storage only and not for interpretation. us Vanesa Crawford MD IMG OUTSIDE IMAGING W/OUT INTE RPRETATION Final Result [facility] IMG INTERFACES from Last 3 Months Insurance MEDICARE PART A & B [employer] MEDEX SUPPLEMENT MEDICARE PART A & B [employer] MEDEX SUPPLEMENT MEDICARE PART A & B [employer] MEDEX SUPPLEMENT MEDICARE PART A & B [employer] MEDEX SUPPLEMENT MEDICARE PART A & B [employer] SUPPLEMENT MEDICARE PART A & B [employer] MEDEX SUPPLEMENT Care Teams Loader Technician Relationship Specialty Start Date End Date Pcp, Unknown PCP - General 03/18/24 Additional Source Comments The information contained in this document represents components of the legal health record. It is not the complete legal health record.[facility]
== END 2025-03-02 10:47 | disposition home or self-care (01) ==
LOC: HO.HHCX 10:46
PROVIDERS: Visit Provider Internal Medicine
DX: L84 Corns and callosities (principal)
CPT/HCPCS: 73630

== ENCOUNTER → 2025-03-02 10:48 | Outpatient (BNV) | payer MEDICARE, SELFPAY | PROVIDERS: Visit Provider Radiology Diagnostic Radiology | DX: M20.21 Hallux rigidus, right foot (principal) | CPT/HCPCS: 73630 ==

== ENCOUNTER 2025-03-26 12:59 | Outpatient (AMB) | payer MEDICARE, SELFPAY ==
--- OUTSIDE RECORDS SUMMARY | 2025-03-26 13:02 | XMS_ITS | Encounter Summary ---
Author Organization [employer] Address [address] [place] [address] Care Team Providers Care Manager Ecommerce Name Role Phone Chidi Hsu MD Primary [...] on filedocumented in this encounter Care Teams Manager Ecommerce Relationship Specialty Start Date End Date Chidi Hsu MD [address] [place] [address] PCP - General Internal Medicine 04/19/14 02/18/23 Chdii Hsu MD [address] [place] [address] PCP - General Internal Medicine 02/19/23 documented as of this encounter
--- OUTSIDE RECORDS SUMMARY | 2025-03-26 13:03 | XMS_ITS | Clinical Summary ---
Author Organization [facility] Address [address] [place] [address] Phone Care Team Providers Care Tube Cutter Name Role Phone Pcp, Unknown Primary Care Provider Unavailabl e Encounters Date Type Department Care Team Description 02/23/2025 12:30 PM EDT Telemedicine - audio only [facility] Neurosurgery [address], [address]th [address], [address] [place] [address] Johan Aquino, BRUCE, DNP Pituitary adenoma (Primary Dx) 02/12/2025 Ancillary Orders [facility] [address] [place] [address] Vanesa Crawford MD 01/26/2025 - 01/26/2025 11:59 PM EDT Hospital Encounter [facility] [address] [place] [address] Vanesa Crawford MD Discharge Disposition: Home or [...] (No Interpretation) (01/26/2025 12:00 AM EDT) Narrative [facility] IMG INTERFACES - 02/12/2025 2:19 PM EDT This study is for PACS storage only and not for interpretation. us Vanesa Crawford MD IMG OUTSIDE IMAGING W/OUT INTE RPRETATION Final Result [facility] IMG INTERFACES from Last 3 Months Insurance MEDICARE PART A & B [employer]OSS MEDEX SUPPLEMENT MEDICARE PART A & B [employer] MEDEX SUPPLEMENT MEDICARE PART A & B [employer] MEDEX SUPPLEMENT MEDICARE PART A & B [employer] MEDEX SUPPLEMENT MEDICARE PART A & B [employer] MED[employer] SUPPLEMENT MEDICARE PART A & B [employer] MEDEX SUPPLEMENT Care Teams Tube Cutter Relationship Specialty Start Date End Date Pcp, Unknown PCP - General 03/18/24 Additional Source Comments The information contained in this document represents components of the legal health record. It is not the complete legal health record.[facility]
[2025-03-26 13:21] VITALS: BP 118/72; PULSE 57; BMI 23.3
--- NOTE | 2025-03-26 13:21 | MHC.OFFVIS ---
Vital Signs 03/26/25 13:21 Height 5 ft 6 in Weight 144 lb 2.917 oz BMI 23.3 BP 118/72 Blood Pressure Location Lt brachial Position Sitting Pulse 57 Pulse Source Pulse Oximeter Intake Visit Reasons: f/u holter [employer] Required: No Allergies No Known Allergies Allergy (Mild, Verified 03/26/25 13:25) NONE Medication List - Last Reconciled 03/26/25 by Jazmin Mchugh, PROFESSIONAL DEVELOPMENT DIRECTOR-C acetaminophen 500 mg PO Q6H PRN alcohol swabs 1 pad topical TID atorvastatin 20 mg PO DAILY blood pressure test kit-large As directed blood sugar diagnostic As directed chlorthalidone 25 mg PO DAILY dabigatran etexilate (Pradaxa) 150 mg PO lorazepam 1 mg PO BID losartan 25 mg PO DAILY meclizine 25 mg PO BID PRN metformin 500 mg PO BID sildenafil (Viagra) 100 mg PO ONCE PRN 30 days topiramate 25 mg PO BID HPI HPI f/u holter: Details: Bernice is a 79 yo male with PMH of hypertension, diabetes, sick sinus syndrome, paroxysmal atrial fibrillation who recently wore a Holter monitor showing a 19 minute run of SVT who presents for follow-up. Today he reports that he has been feeling generally well. He works on a farm several days a week and says he tolerates it well. He tells me when he turns 80 he will go down to 3 days a week. He does have lightheadedness at times which he describes as spinning. He did not recall having any episodes while wearing the Holter monitor. No chest discomfort, shortness of breath, heart palpitations, presyncope, syncope, falls. Taking all meds as directed. His primary complaint today is of pain in his right foot, due to callus on great toe. [facility] Medical History Lumbar stenosis with neurogenic claudication Left lumbar radiculopathy Pituitary adenoma Hiatal hernia History of transesophageal echocardiography (JANNA) Pre-operative cardiovascular examination Erectile dysfunction BPH with obstruction/lower urinary tract symptoms Dizziness PAF (paroxysmal atrial fibrillation) SSS (sick sinus syndrome) Diabetes mellitus GERD (gastroesophageal reflux disease) HTN (hypertension) Surgical History Hx of decompressive lumbar laminectomy Hx of esophagogastroduodenoscopy History of cardioversion (~2012) Hx of colonoscopy Hx of umbilical hernia repair Hx of inguinal hernia surgery Family History Father Alzheimer disease Mother No problems noted. Brother Diabetes Social History Are you a primary care aid to a significant other at home: No Do you presently have visiting nurse or other home services: No Comment: aware of trip hazard Patient Tobacco Use Status: Never used Tobacco Advance Directives Date on File: 09/11/19 Review of Systems Const All systems reviewed & are unremarkable except as noted in HPI and below ENT Denies dizziness Card Denies chest pain, Denies chest pain at rest, Denies chest pain with activity, Denies rapid heart rate, Denies pedal edema, Denies edema, Denies leg edema, Denies lightheadedness, Denies palpitations, Denies dyspnea, Denies dyspnea on exertion and Denies orthopnea Resp Denies cough, Denies dyspnea and Denies dyspnea on exertion GI Denies hematochezia and Denies change in stool character Musc Reports abnormal gait (pain right foot), Denies limited range of motion, Denies muscle cramps, Denies muscle weakness, Denies numbness, Denies radiating pain into limb, Denies stiffness and Denies tingling Neuro Reports abnormal gait (pain right foot), Denies dizziness, Denies numbness and Denies tingling Endo Denies palpitations Physical Exam Vital Signs: Last Vital Signs Pulse 57 03/26/25 13:21 BP 118/72 03/26/25 13:21 BMI result Body Mass Index 23.3 Const Other: uncomfortable appearance with ambulation due to right foot pain General: cooperative, healthy appearing and no acute distress Orientation/consciousness: patient oriented x3 Neck Neck: Yes normal visual inspection Resp Effort & Inspection: normal respiratory effort Auscultation: clear to auscultation bilaterally, no crackles, no rales, no rhonchi and no wheezes Cardio Rate: regular rate Rhythm: regular rhythm Heart sounds: S1 normal heart sound present, S2 normal heart sound present, no gallops, no murmurs and no rubs Neuro General: patient oriented x3 Psych Appearance: grossly normal Mental Status: mental status grossly normal Speech and movement: Normal speech and movement present Assessment & Plan Assessment & Plan (1) SVT (supraventricular tachycardia): Code(s): I47.10 - Supraventricular tachycardia, unspecified Category: Medical Plan: Holter monitor done for 14 days on 02/15/2025 showing sinus rhythm with average heart rate 69 beats per minute, frequent PVCs 8.2 %, frequent SVT, longest run 19 minutes at rate 207, episode wide complex tachycardia which is likely SVT with aberrant conduction lasting 52 seconds. No symptoms reported with SVT. This finding of supraventricular tachycardia is new for him. He is not on rate slowing agents due to prior issues with bradycardia, even with low-dose use. Reviewed caffeine reduction, maintain good hydration. Will refer to electrophysiology for SVT ablation. Discuss this with him and he is agreeable. (2) PAF (paroxysmal atrial fibrillation): Code(s): I48.0 - Paroxysmal atrial fibrillation Category: Medical Plan: History of paroxysmal atrial fibrillation. No recent report of concerning heart palpitations. Holter monitor did not show any PAF. He is not on rate slowing agents. He is on Pradaxa for anticoagulation. No med changes made at this time. (3) SSS (sick sinus syndrome): Code(s): I49.5 - Sick sinus syndrome Category: Medical Plan: Bradycardia with low-dose beta-blockers. Rate slowing agents avoided. (4) HTN (hypertension): Code(s): I10 - Essential (primary) hypertension Category: Medical Plan: Blood pressure goal less than 130/80. Well controlled at this time. Continue losartan. Plan I discussed with the patient the findings of the heart monitor, which showed episodes of tachycardia exceeding 200 bpm. We talked about the risks of untreated tachycardia, including potential heart weakening, further arrythmia, and the limitations of medication due to previous bradycardia. I explained the referral to an sheet folder for catheter ablation, a common procedure to address arrhythmias. The patient was advised to bring a family member to the appointment and to monitor for any concerning symptoms, with instructions to seek emergency care if necessary. Orders: Referrals Cardiac Electrophysiology Referral I47.10 - Supraventricular tachycardia, unspecified Patient Instructions: - Monitor for rapid heart rate and seek emergency care if symptoms worsen. - Attend scheduled appointments with the specialist and sheet folder. - Bring a family member to appointments for support and assistance. Patient was informed and verbally consented to the use of an ambient scribe for clinic note documentation during this visit. Visit time spent on chart review, interview, assessment, orders, documentation. Coding Level of Care Code Est Pt Level 4 (16369) Complex EM visit Add On G2211 Diagnoses SVT (supraventricular tachycardia) I47.10 PAF (paroxysmal atrial fibrillation) I48.0 SSS (sick sinus syndrome) I49.5 HTN (hypertension) I10 Time Spent (min) 28
== END 2025-03-26 13:52 | disposition home or self-care (01) ==
PROVIDERS: Family Provider Internal Medicine; Visit Provider Nurse Practitioner Family
DX: I47.10 Supraventricular tachycardia, unspecified (principal); I48.0 Paroxysmal atrial fibrillation; I49.5 Sick sinus syndrome; I10 Essential (primary) hypertension
CPT/HCPCS: 99214; G2211

== ENCOUNTER → 2025-03-26 12:59 | Outpatient (BNVA) | payer MEDICARE, SELFPAY | PROVIDERS: Visit Provider Nurse Practitioner Family | DX: I47.10 Supraventricular tachycardia, unspecified (principal); I48.0 Paroxysmal atrial fibrillation; I49.5 Sick sinus syndrome; I10 Essential (primary) hypertension | CPT/HCPCS: 99212 ==

== ENCOUNTER 2025-04-27 11:54 | Outpatient (REF) | payer MEDICARE, SELFPAY ==
--- NOTE | ~2025-04-27 | XR_ITS ---
EXAMINATION: XR KNEE, LEFT CLINICAL INFORMATION: left knee pain COMPARISON: 05/14/2018. TECHNIQUE: Three views of the left knee. FINDINGS: No fracture, dislocation, or suspicious bone lesion. There is normal alignment. Mild tricompartmental joint space narrowing. Mild spurring of the tibial spines. Mild enthesopathic spurring of the superior patella. No significant joint effusion present. Normal soft tissues. XR/XR knee LT 3V IMPRESSION: 1. No acute bony abnormalities. No significant joint effusion. 2. Mild tricompartmental osteoarthrosis. Electronically signed by: Willie Casillas MD 04/27/2025 01:07 PM EDT
--- NOTE | ~2025-04-27 | XR_ITS ---
EXAMINATION: XR FOOT, LEFT CLINICAL INFORMATION: left foot pain COMPARISON: None available. TECHNIQUE: AP, lateral, and oblique views of the left foot. FINDINGS: No definite fracture, dislocation, or suspicious bone lesion. There is normal alignment. Mild degenerative arthritis in the first MTP joint. Joint spaces otherwise maintained. Normal plantar arch. The midfoot and hindfoot appear normal. No soft tissue abnormalities. XR/XR foot LT min 3V IMPRESSION: 1. No acute bony abnormalities. 2. Mild degenerative arthritis first MTP joint. Electronically signed by: Willie Casillas MD 04/27/2025 01:32 PM EDT
--- OUTSIDE RECORDS SUMMARY | 2025-04-27 11:00 | XMS_ITS | Encounter Summary ---
Author Organization [employer] Address [address] [facility] 7t [place] [address] Care Team Providers Care Separator Tender Name Role Phone Chidi Hsu MD Primary Care Provide r Reason for Referral * Consultation (Routine) - Closed Specialty Diagnoses / Procedures Referred By Contac t Referred To Contact Physical Therapy Diagnoses Acute pain of left knee Left foot pain Lumbar radiculopathy Chidi Hsu MD [address] [place] [address] Phone: tel: fax: Physical Therapy, [facility] [address] [place], [place] Phone: tel: fax: Referral ID Status Reason Start Date Expiration Date V isits Requested Visits Authorized [id number] Closed Specialty Services Required 04/27/2025 04/27/2026 1 1 Reason for Visit * Reason Comments Follow-up Encounter Details Date Type Department Care Team (Late st Contact Info) Description 04/27/2025 11:00 AM EDT Office Visit [facility] [address] [place], [place] [phone] Chidi Hsu MD [address] [place], [place] [phone] Type 2 diabetes mellitus without complication, without long-term current use of insulin ([facility]) (Primary Dx); Primary hypertension; Callus of toe; Acute pain of left knee; Left foot pain; Lumbar radiculopathy; Encounter for immunization Social History Tobacco Use Types Packs/Day Years [...] AM EDT documented as of this encounter Last Filed Vital Signs Vital Sign Reading Time Taken Comments Blood Pressure 148/84 04/27/2025 11:29 AM EDT Pulse 55 04/27/2025 10:56 AM EDT Temperature 37.2 C (98.9 F) 04/27/2025 10:56 AM EDT Respiratory Rate 18 04/27/2025 10:5 6 AM EDT Oxygen Saturation 96% 04/27/2025 10: 56 AM EDT Inhaled Oxygen Concentration - - Weight 67.9 kg (149 lb 12.8 oz) 025 10:56 AM EDT Height - - Body Mass Index 24.18 10/27/2024 9:14 AM EDT documented in this encounter Miscellaneous Notes * Assessment & Plan Note - Chidi Hamlin MD - 04/27/2025 11:34 AM EDT Associated Problem(s): Left foot pain There is probably a degree of OA, but likely referred pain from his back Plan: Plain films, PT evaluation after that * Assessment & Plan Note - Chidi Hamlin MD - 04/27/2025 11:34 AM EDT Associated Problem(s): Acute pain of left knee There is probably a degree of OA, but likely referred pain from his back Plan: Plain films, PT evaluation after that * Assessment & Plan Note - Chidi Hamlin MD - 04/27/2025 11:21 AM EDT Associated Problem(s): Lumbar radiculopathy Pt with acute on chronic low back pain History: CT of his Lumbar spine done 09/27/2020howed: [...] to take Oxycodone because he states it didnot help him and only caused him constipation and insomnia. Patient was seen by Neurosurgeon DR. Camara 01/06/2021 who reviewed his MRI who recommended a 2 level open decompression with a left L5-S1 microdiskectomy. Patient initially agreed to go ahead with hesurgery but once again today he told me that after careful consideration he has decided that he is NOT going to have the surgery. Wanted to go back to [facility], he had a steroid injection with no good result. He was then referred to a Neurosurgeon at [facility]. We contacted them and we were told they have yet to received anything from [facility]. We also contacted [facility] and we were told they were going to resend the referral and applicable information and notify us after that. I explained to patient that this is also a Neurosurgeon and that the main reason to go see him would be if he is interested in having a surgical intervention. Patient verbalized understanding. Pt under the care of Dr Mosquera at [facility] ( [place] ) He is now s/p Left L4-L5, L5-S1 Laminotomy, Partial facetectomy and foraminotomy 08/08/2022. Last seen 12/[address] Young Today pt with c/o mild low back pain with radiation to left knee and left foot Exam suggestive of muscle spasm Will refer to PT, follow up after that * Assessment & Plan Note - Chidi Hamlin MD - 04/27/2025 11:12 AM EDT Associated Problem(s): Diabetes mellitus, type II ([facility]) Pt here for a f/u DM controlled He is currently on Metformin 1000 mg po BID Pt last visit told me he stopped the insulin because once he started eating right his blood sugarsnormalized Hgb A1c on 04/27/2025 6.7 Last Eye exam on record 02/03/2019 Microalbumin checked on: : <5 Pt is not on an MELISSA inhibitor because (Lisinopril gave him a cough). on ARB Losartan Foot check not done Pt reports compliance with Asa 81 mg po daily Pt admits not adhering to a diabetic diet as he was. Unfortunatelly he has an insurance with a veryHIGH deductive and any new medication added would be prohibitly expensive for him. GLP1s would costhim approx 600 USD/month Plan: Continue current regimen Follow up in 3 months Pt advised to: adhere to diabetic diet check your blood sugars regularly check your feet on a daily basis * Assessment & Plan Note - Chidi Hamlin MD - 04/27/2025 11:11 AM EDT Associated Problem(s): Hypertension Patient is here for a f/u BP labile On a regimen of Chlorthalidone 25 mg po daily and Losartan 35 mg po daily Most recent Bun and Cr Lab Results Component Value Date NA 139 10/23/2024 NA 140 07/24/2023 K 4.2 10/23/2024 K 4.3 07/24/2023 CL 106 10/23/2024 CL 105 07/24/2023 BUN 24 (H) 10/23/2024 BUN 16 07/24/2023 CREATININE 0.96 10/23/2024 CREATININE 1.05 07/24/2023 Plan: Pt to come back in 2 weeks with RN for BP check For now continue current regimen f/u 4 months * Assessment & Plan Note - Chidi Hamlin MD - 04/27/2025 11:11 AM EDT Associated Problem(s): Callus of toe Patient with previous c/o right great toe painful callus, c/o difficulty walking as a result Plain film right foot 03/02/2025 showed:No acute bony abnormalities of the right foot. There are mild osteoarthritic changes at the first MTP joint, and mild to moderate changes at the interphalangeal joint of the hallux. Pt seen by Podiatry with great results documented in this encounter Plan of Treatment Scheduled Referrals Name Type Priority Associated Diagnoses Orde r Schedule Referral to Physical Therapy Outpatient Referral Routine Acute pain of left knee Left foot pain Lumbar radiculopathy Expected: 04/27/2025 (Approximate), Expires: 04/27/2026 documented as of this encounter Procedures Procedure Name Priority Date/Time Associated Diagnosis Comments XR KNEE 3 VIEWS LEFT Routine 04/27/2025 12:50 PM EDT Acute pain of left knee XR FOOT 3+ VIEWS LEFT Routine 04/27/2025 12:26 PM EDT Left foot pain documented in this encounter Results * XR Knee 3 Views Left (04/27/2025 12:50 PM EDT) Anatomical Region Laterality Modality Lower Extremities, Knee Left [facility] 04/27/2025 12:5 0 PM EDT Narrative 04/27/2025 1:09 PM EDT [address] [address] XRay Report Signed Patient: Bernice Atkins MR#: [id number] 15 : 1945 Acct:[id number] Age/Sex: 79 / M ADM Date: 04/27/25 Loc: HO.HHCX Attending Dr: Chidi Costa MD Ordering Physician: Chidi Costa MD Date of Service: 04/27/25 Procedure(s): XR knee LT 3V Accession Number(s): [id number] cc: Chidi Costa MD Reason for Exam: left knee pain EXAMINATION: XR KNEE, LEFT CLINICAL INFORMATION: left knee pain COMPARISON: 05/14/2018. TECHNIQUE: Three views of the left knee. FINDINGS: No fracture, dislocation, or suspicious bone lesion. There is normal alignment. Mild tricompartmental joint space narrowing. Mild spurring of the tibial spines. Mild enthesopathic spurring of the superior patella. No significant joint effusion present. Normal soft tissues. XR/XR knee LT 3V IMPRESSION: 1. No acute bony abnormalities. No significant joint effusion. 2. Mild tricompartmental osteoarthrosis. Electronically signed by: Willie Casillas MD 04/27/2025 01:07 PM EDT Dictated By: Willie Casillas MD Signed By: <Electronically signed by Willie Casillas MD in OV> 04/27/25 1307 DD/ 1250 TD/TT: 04/27/25 1259 Codifier: Procedure Note Donotonealinterpreter, Image - 04/27/[address] [address] XRay Report Signed Patient: Bernice AtkinsMR#: [id number] 15 : 5Acct:[id number] Age/Sex: 79 / MADM Date: 04/27/25 [facility]: Chidi Costa MD Ordering Physician: Chidi Costa MD Date of Service: 04/27/25 Procedure(s): XR knee LT 3V Accession Number(s): [id number] cc: Chidi Costa MD Reason for Exam: left knee pain EXAMINATION: XR KNEE, LEFT CLINICAL INFORMATION: left knee pain COMPARISON: 05/14/2018. TECHNIQUE: Three views of the left knee. FINDINGS: No fracture, dislocation, or suspicious bone lesion. There is normal alignment. Mild tricompartmental joint space narrowing. Mild spurring of the tibial spines. Mild enthesopathic spurring of the superior patella. No significant joint effusion present. Normal soft tissues. XR/XR knee LT 3V IMPRESSION: 1. No acute bony abnormalities. No significant joint effusion. 2. Mild tricompartmental osteoarthrosis. Electronically signed by: Willie Casillas MD 04/27/2025 01:07 PM EDT Dictated By: Willie Casillas MD Signed By: <Electronically signed by Willie Casillas MD in OV> 04/27/25 1307 DD/ 1250 TD/TT: 04/27/25 1259 Codifier: us Chidi Hamlin MD IMG XR PROCEDURES Fin al Result * XR Foot 3+ Views Left (04/27/2025 12:26 PM EDT) Anatomical Region Laterality Modality Lower Extremities, Foot Left Radiogra phic Imaging 04/27/2025 12:2 6 PM EDT Narrative 04/27/2025 1:35 PM EDT [address] [address] XRay Report Signed Patient: Bernice Atkins MR#: [id number] 15 : 1945 Acct:[id number] Age/Sex: 79 / M ADM Date: 04/27/25 Loc: DIAMONDCX Attending Dr: Chidi Costa MD Ordering Physician: Chidi Costa MD Date of Service: 04/27/25 Procedure(s): XR foot LT min 3V Accession Number(s): [id number] cc: Chidi Costa MD Reason for Exam: left foot pain EXAMINATION: XR FOOT, LEFT CLINICAL INFORMATION: left foot pain COMPARISON: None available. TECHNIQUE: AP, lateral, and oblique views of the left foot. FINDINGS: No definite fracture, dislocation, or suspicious bone lesion. There is normal alignment. Mild degenerative arthritis in the first MTP joint. Joint spaces otherwise maintained. Normal plantar arch. The midfoot and hindfoot appear normal. No soft tissue abnormalities. XR/XR foot LT min 3V IMPRESSION: 1. No acute bony abnormalities. 2. Mild degenerative arthritis first MTP joint. Electronically signed by: Willie Casillas MD 04/27/2025 01:32 PM EDT RP Dictated By: Willie Casillas MD Signed By: <Electronically signed by Willie Casillas MD in OV> 04/27/25 1332 DD/ 1226 TD/TT: 04/27/25 1259 Codifier: Procedure Note Donotuseinterpreter, Image - 04/27/[address] [address] XRay Report Signed Patient: Bernice AtkinsMR#: [id number] 15 : 5Acct:[id number] Age/Sex: 79 / MADM Date: 04/27/25 Loc: HO.HHCX Attending Dr: Chidi Costa MD Ordering Physician: Chidi Costa MD Date of Service: 04/27/25 Procedure(s): XR foot LT min 3V Accession Number(s): [id number] cc: Chidi Costa MD Reason for Exam: left foot pain EXAMINATION: XR FOOT, LEFT CLINICAL INFORMATION: left foot pain COMPARISON: None available. TECHNIQUE: AP, lateral, and oblique views of the left foot. FINDINGS: No definite fracture, dislocation, or suspicious bone lesion. There is normal alignment. Mild degenerative arthritis in the first MTP joint. Joint spaces otherwise maintained. Normal plantar arch. The midfoot and hindfoot appear normal. No soft tissue abnormalities. XR/XR foot LT min 3V IMPRESSION: 1. No acute bony abnormalities. 2. Mild degenerative arthritis first MTP joint. Electronically signed by: Willie Casillas MD 04/27/2025 01:32 PM EDT RP Dictated By: Willie Casillas MD Signed By: <Electronically signed by Willie Casillas MD in OV> 04/27/25 1332 DD/ 1226 TD/TT: 04/27/25 1259 Codifier: us Chidi Hamlin MD IMG XR PROCEDURES Fin al Result documented in this encounter Visit Diagnoses Diagnosis Type 2 diabetes mellitus without complication, without long-term current use of insulin ([facility])- Primary Primary hypertension Unspecified essential hypertension Callus of toe Acute pain of left knee Left foot pain Pain in soft tissues of limb Lumbar radiculopathy Thoracic or lumbosacral neuritis or radiculitis, unspecified Encounter for immunization documented in this encounter Additional Health Concerns Assessment Noted Time PHQ-9 Depression Total Score: 2 10/28/19 25 9:20 AM EDT documented as of this encounter Care Teams Separator Tender Relationship Specialty Start Date End Date Chidi Hsu MD [address] [place] [id number] PCP - General Internal Medicine 02/19/23 documented as of this encounter
--- OUTSIDE RECORDS SUMMARY | 2025-04-27 14:46 | XMS_ITS | Encounter Summary ---
Author Organization [employer] Address [address] [facility] 7t [place] [address] Care Team Providers Care Slot Shift Supervisor Name Role Phone Chidi Hsu MD Primary [...] on filedocumented in this encounter Care Teams Slot Shift Supervisor Relationship Specialty Start Date End Date Chidi Hsu MD [address] [place] [address] PCP - General Internal Medicine 04/19/14 02/18/23 Chidi Hsu MD [address] [place] [address] PCP - General Internal Medicine 02/19/23 documented as of this encounter
--- OUTSIDE RECORDS SUMMARY | 2025-04-27 14:47 | XMS_ITS | Encounter Summary ---
Author Organization [employer] Address [address] [facility] 7t [place] [address] Care Team Providers Care [employer] School Special Ed Teacher Name Role Phone Chidi Hsu MD Primary Care Provide r Chidi Hsu MD Primary Care Provide r Encounter Details Date Type Department Care Team (Late st Contact Info) Description 08/08/2022 Orders Only [facility] CHC MED & PEDS [address] [place] [address] Monserrat Buck LPN Social History Tobacco Use [...] documented as of this encounter Care Teams [employer] Special [employer] Teacher Relationship Specialty Start Date End Date Chidi Hsu MD [address] [place] [address] PCP - General Internal Medicine 04/19/14 02/18/23 Chidi Hsu MD [address] [place] [phone] PCP - General Internal Medicine 02/19/23 documented as of this encounter
--- OUTSIDE RECORDS SUMMARY | 2025-04-27 14:47 | XMS_ITS | Encounter Summary ---
Author Organization [employer] Address [address] [facility] 7 [place] [address] Care Team Providers Care Bee Robber Name Role Phone Chidi Hsu MD Primary Care Provide r Reason for Visit * Reason Onset Date Comments Nurse Triage 09/25/2023 Encounter Details Date Type Department Care Team ([facility] st Contact Info) Description 09/25/2023 Telephone [facility] [address] [place], [place] [phone] Chidi Hsu MD [address] [place], [place] [phone] Nurse Triage Social History Tobacco Use Types [...] month. Pt is advised to come to [facility] for provider to see Ptand assess [...] documented in this encounter Plan of Treatment Not on file documented as of this encounter Visit Diagnoses Not on filedocumented in this encounter Additional Health Concerns Assessment Noted Time PHQ-9 Depression Total Score: 13 022 1:00 PM EST documented as of this encounter Care Teams Bee Robber Relationship Specialty Start Date End Date Chidi Hsu MD [address] [place] [address] PCP - General Internal Medicine 02/19/23 documented as of this encounter
--- OUTSIDE RECORDS SUMMARY | 2025-04-27 14:47 | XMS_ITS | Encounter Summary ---
Author Organization [employer] Address [address] [facility] 7t [place] [address] Care Team Providers Care Die Cutter Operator Name Role Phone Chidi Hsu MD Primary Care Provide r Chidi Hsu MD Primary Care Provide r Encounter Details Date Type Department Care Team ([facility] st Contact Info) Description 11/08/2022 Orders Only [facility] CHC MED & PEDS [address] [place] [address] Monserrat Buck LPN Social History Tobacco Use [...] documented as of this encounter Care Teams Die Cutter Operator Relationship Specialty Start Date End Date Chidi Hsu MD [address] [place] [address] PCP - General Internal Medicine 04/19/14 02/18/23 Chidi Hsu MD [address] [place] [address] PCP - General Internal Medicine 02/19/23 documented as of this encounter
--- OUTSIDE RECORDS SUMMARY | 2025-04-27 14:47 | XMS_ITS | Clinical Summary ---
Author Organization [facility] Address [address] [place] [address] Phone Care Team Providers Care Animal Trainer Name Role Phone Pcp, Unknown Primary Care Provider Unavailabl e Encounters Date Type Department Care Team Description 02/23/2025 12:30 PM EDT Telemedicine - audio only [facility] Neurosurgery [address] [facility], 5th Floor, [address] [place] [address] Johan Aquino, BRUCE, DNP Pituitary adenoma (Primary Dx) 02/12/2025 Ancillary Orders [facility] [address] [place] [address] Vanesa Crawford MD 01/26/2025 - 01/26/2025 11:59 PM EDT Hospital Encounter [facility] [address] [place] [address] Vanesa Crawford MD Discharge Disposition: Home or [...] VACCINE (1 - 1-dose 75+ series) 2020 INFLUENZA VACCINE (#1) 2025 COVID-19 VACCINE (1 - 2023-2 5 season) 2025 LIPID PANEL 10/23/2029 10/23/2024 Adult Td,Tdap Booster [...] (No Interpretation) (01/26/2025 12:00 AM EDT) Narrative [facility] IMG INTERFACES - 02/12/2025 2:19 PM EDT This study is for PACS storage only and not for interpretation. us Vanesa Crawford MD IMG OUTSIDE IMAGING W/OUT INTE RPRETATION Final Result [facility] IMG INTERFACES from Last 3 Months Insurance MEDICARE PART A & B [employer] MEDEX SUPPLEMENT MEDICARE PART A & B [employer] MEDEX SUPPLEMENT MEDICARE PART A & B Member Subscriber Plan / Payer ( fective 2013-Present) Name:Bernice Atkins Member ID:[id number] Relation to Subscriber:Self Name:Bernice Atkins Subscriber ID:[id number] Payer ID:[id number] Group ID:Not on file Type:Medicare Address: [facility] [employer] [facility] [address] [place] [address] [employer] MEDEX SUPPLEMENT MEDICARE PART A & B [employer] MEDEX SUPPLEMENT MEDICARE PART A & B [employer] MEDEX SUPPLEMENT MEDICARE PART A & B [employer] MEDEX SUPPLEMENT Care Teams Animal Trainer Relationship Specialty Start Date End Date Pcp, Unknown PCP - General 03/18/24 Additional Source Comments The information contained in this document represents components of the legal health record. It is not the complete legal health record.[facility]
--- OUTSIDE RECORDS SUMMARY | 2025-04-27 14:47 | XMS_ITS | Encounter Summary ---
Author Organization [email or web address] Address [address] [facility] 7t [place] [address] Care Team Providers Care Residential Collections Name Role Phone Chidi Hsu MD Primary Care Provide r Encounter Details Date Type Department Care Team (Latest Contact Info) Description 04/27/2025 Travel Social History Tobacco Use Types Packs/Day Years [...] documented as of this encounter Care Teams Residential Collections Relationship Specialty Start Date End Date Chidi Hsu MD [address] [place] [phone] PCP - General Internal Medicine 02/19/23 documented as of this encounter
--- OUTSIDE RECORDS SUMMARY | 2025-04-27 14:47 | XMS_ITS | Encounter Summary ---
Author Organization [employer] Address [address] [facility] 7t [place] [address] Care Team Providers Care Core Drilling Supervisor Name Role Phone Chidi Hsu MD Primary Care Provide r Chidi Hsu MD Primary Care Provide r Encounter Details Date Type Department Care Team (Late st Contact Info) Description 09/10/2022 Orders Only [facility] CHC MED & PEDS [address] [place] [address] Monserrat Buck LPN Social History Tobacco Use [...] documented as of this encounter Care Teams Core Drilling Supervisor Relationship Specialty Start Date End Date Chidi Hsu MD [address] [place] [id number] PCP - General Internal Medicine 04/19/14 02/18/23 Chidi Hsu MD [address] [place] [phone] PCP - General Internal Medicine 02/19/23 documented as of this encounter
--- OUTSIDE RECORDS SUMMARY | 2025-04-27 14:47 | XMS_ITS | Clinical Summary ---
Author Organization [employer] Address [address] [place] [address] Care Team Providers Care Occupational Therapy Professor Name Role Phone Chidi Hsu MD [...] complication, without long-term current use of insulin ([facility]) Inject 20 Units under the skin at bedtime. 3 mL 1 024 Active tamsulosin (Flomax) 0.4 MG 24 hr capsule Take 1 capsule (0.4 mg) by mouth Once per day. 30 capsule 2 024 Active triamcinolone (Kenalog) 0.1 % creamIndications: Dermatitis APPLY TO THE AFFECTED AREA(S) TWICE DAILY IN THE MORNING AND AT BEDTIME NEEDED FOR RASH 30 g 2 024 Active Continuous Glucose Solid Waste Engineer (FreeStyle Gulshan 3 [place]) deviceIndications :Type 2 diabetes mellitus without complication, without long-term current use of insulin (CMS/[facility]) 1 each 3 times daily. Check blood sugar 3x daily 1 each 025 Active Continuous Glucose Sensor (FreeStyle Gulshan 3 Plus Sensor) miscIndications:T ype 2 diabetes mellitus without complication, without long-term current use of insulin ([facility]) 1 Application every 15 days. 2 each 11 025 Active losartan (Cozaar) 25 MG tabletIndications :Primary hypertension TAKE 1 TABLET BY MOUTH EVERY EVENING 30 tablet 6 025 Active metFORMIN (Glucophage) 500 MG tablet TAKE 2 TABLETS BY MOUTH TWICE DAILY IN THE MORNING AND EVENING 360 tablet 1 025 Active atorvastatin (Lipitor) 20 MG tabletIndications :Mixed hyperlipidemia TAKE 1 TABLET BY MOUTH EVERY MORNING 90 tablet 1 025 Active chlorthalidone (Hygroton) 25 MG tablet TAKE 1 TABLET BY MOUTH EVERY MORNING 30 tablet 6 025 Active meclizine (Antivert) 25 MG tabletIndications :Dizziness Take 1 tablet (25 mg) by mouth if needed in the morning and at bedtime for dizziness. 30 tablet 3 025 Active Pradaxa 150 MG capsule TAKE 1 CAPSULE BY MOUTH TWICE DAILY IN THE MORNING AND IN THE EVENING 60 capsule 6 025 Active Pradaxa 150 MG capsule TAKE 1 CAPSULE BY MOUTH TWICE DAILY IN THE MORNING AND IN THE EVENING 60 capsule 6 024 2024 Discontinued Active Problems Problem Noted Date Diagnosed Date Acute pain of left knee 04/27/2025 Assessment & Plan (04/27/2025 11:34 AM EDT): There is probably a degree of OA, but likely referred pain from his back Plan: Plain films, PT evaluation after that Left foot pain 04/27/2025 Assessment & Plan (04/27/2025 11:34 AM EDT): There is probably a degree of OA, but likely referred pain from his back Plan: Plain films, PT evaluation after that Callus of toe 03/02/2025 Assessment & Plan (04/27/2025 11:11 AM EDT): Patient with previous c/o right great toe painful callus, c/o difficulty walking as a result Plain film right foot 03/02/2025 showed:No acute bony abnormalities of the right foot. There are mild osteoarthritic changes at the first MTP joint, and mild to moderate changes at the interphalangeal joint of the hallux. Pt seen by Podiatry with great results Assessment & Plan (03/02/2025 10:20 AM EDT): Patient with c/o right great toe painful callus, c/o difficulty walking as a result Plan: Plain film right foot Podiatry consult Fatty liver 10/27/2024 Elevated LFTs 10/27/2024 Assessment [...] Benign prostatic hyperplasia 10/23/2022 Assessment & Plan (03/02/2025 10:18 AM EDT): Under the care of Urology, last seen 02/02/2025 Assessment & Plan (10/27/2024 9:29 AM EDT): [...] 09/30/2019 Lumbar radiculopathy 10/23/2022 Assessment & Plan (04/27/2025 11:32 AM EDT): Pt with acute on chronic low back [...] the surgery. Wanted to go back to [facility], he had a steroid injection with no good result. He was then referred to a Neurosurgeon at [facility]. We contacted them and we were told they have yet to received anything from [facility]. We also contacted [facility] and we were told they were going to resend the referral and applicable information and notify us after that. I explained to patient that this is also a Neurosurgeon and that the main reason to go see him would be if he is interested in having a surgical intervention. Patient verbalized understanding. Pt under the care of Dr Mosquera at [facility] ( Spine surgeon ) He is now s/p Left L4-L5, L5-S1 Laminotomy, Partial facetectomy and foraminotomy 08/08/2022. Last seen 12/[address] Young Today pt with c/o mild low back pain with radiation to left knee and left foot Exam suggestive of muscle spasm Will refer to PT, follow up after that Assessment & Plan (06/23/2024 11:16 AM EST): [...] the surgery. Wanted to go back to [facility], he had a steroid injection with no good result. He was then referred to a Neurosurgeon at [facility]. We contacted them and we were told they have yet to received anything from [facility]. We also contacted [facility] and we were told they were going to resend the referral and applicable information and notify us after that. I explained to patient that this is also a Neurosurgeon and that the main reason to go see him would be if he is interested in having a surgical intervention. Patient verbalized understanding. Pt under the care of Dr Mosquera at [facility] ( Spine surgeon ) He is now [...] the surgery. Wanted to go back to [facility], he had a steroid injection with no good result. He was then referred to a Neurosurgeon at [facility]. We contacted them and we were told they have yet to received anything from [facility]. We also contacted [facility] and we were told they were going to resend the referral and applicable information and notify us after that. I explained to patient that this is also a Neurosurgeon and that the main reason to go see him would be if he is interested in having a surgical intervention. Patient verbalized understanding. Pt under the care of Dr Mosquera at [facility] ( Spine surgeon ) He is now [...] the surgery. Wanted to go back to [facility], he had a steroid injection with no good result. He was then referred to a Neurosurgeon at [facility]. We contacted them and we were told they have yet to received anything from [facility]. We also contacted [facility] and we were told they were going to resend the referral and applicable information and notify us after that. I explained to patient that this is also a Neurosurgeon and that the main reason to go see him would be if he is interested in having a surgical intervention. Patient verbalized understanding. Pt under the care of Dr Mosquera at [facility] ( Spine surgeon ) He is now [...] the surgery. Wanted to go back to [facility], he had a steroid injection with no good result. Today he showed me that he was referred to a Neurosurgeon at [facility]. He does not feel he can continue with PT. We contacted them and we were told they have yet to received anything from [facility]. We also contacted [facility] and we were told they were going to resend the referral and applicable information and notify us after that. I explained to patient that this is also a Neurosurgeon and that the main reason to go see him would be if he is interested in having a surgical intervention. Patient verbalized understanding. Pt under the care of Dr Mosquera at [facility] ( Spine surgeon ) who described him [...] the surgery. Wanted to go back to [facility], he had a steroid injection with no good result. Today he showed me that he was referred to a Neurosurgeon at [facility]. He does not feel he can continue with PT. We contacted them and we were told they have yet to received anything from [facility]. We also contacted [facility] and we were told they were going [...] decided to go see Dr Mosquera at [facility] ( Spine surgeon ) who described him [...] the surgery. Wanted to go back to [facility], he had a steroid injection with no good result. Today he showed me that he was referred to a Neurosurgeon at [facility]. He does not feel he can continue with PT. We contacted them and we were told they have yet to received anything from [facility]. We also contacted [facility] and we were told they were going [...] the surgery. Wanted to go back to [facility], he was recently seen had a steroid injection with no good results, apparently he was referred elsewhere records requested Pt would like to try PT [facility] care 10/23/2022 Assessment & Plan (03/02/2025 10:12 AM EDT): PSA 10/27/2024 Normal Colonoscopy: Normal : 12/11/2006, repeat 06/21/2017 Assessment & Plan (10/27/2024 9:29 AM EDT): [...] EGD Pituitary microadenoma 03/25/2018 Assessment & Plan (03/02/2025 10:09 AM EDT): MRI BRAIN 2019 showed a [...] Endocrinology Dr. Oliver 03/16/2024 and subsequently by Last seen by Dr. Oliver 09/01/2024 Repeat MRI MR/MR head/brain wo/w on 01/26/2025 Showed: 11 x 14 x 11 mm lobulated intrasellar/pituitary gland lesion. Stable. The possibility of old blood products versus apoplexy cannot be excluded. Small vessel occlusive disease. No acute stroke/ischemia. MRI reviewed via telemedicibe by: Neurosurgeon at [facility] 02/23/2025 who recommended repeat imaging in 1 year 01/2026 Assessment & Plan (10/27/2024 9:24 AM EDT): [...] Oliver 03/16/2024 and subsequently by Neurosurgeon at [facility] 05/21/2024 who recommended repeat imaging in January [...] Oliver 03/16/2024 and subsequently by Neurosurgeon at [facility] 05/21/2024 who recommended repeat imaging in January [...] LDL-C. Zachary SS et al. MISHA. 2013;310(19): 2675-9477 (http://education.[employer]/faq/ZMU167) Chol/HDLC Ratio <5.0 (calc) 2.1 2.4 2.2 [...] LDL-C. Zachary AVILA et al. MISHA. 2013;310(19): 7379-4271 (http://education.[employer]/faq/CXT235) Chol/HDLC Ratio <5.0 (calc) 2.1 2.4 2.2 [...] loss. Atrial fibrillation 12/02/2012 Assessment & Plan (03/02/2025 10:10 AM EDT): Under the care of Cardiology Dr. Bowman He is on Pradaxa 150mg po BID Last seen 01/19/2025 Assessment & Plan (10/27/2024 9:37 AM EDT): [...] mellitus, type II 07/18/2012 Assessment & Plan (04/27/2025 11:31 AM EDT): Pt here for a f/u DM controlled He is currently on Metformin 1000 mg po BID Pt last visit told me he stopped the insulin because once he started eating right his blood sugars normalized Hgb A1c on 04/27/2025 6.7 Last Eye [...] would cost him approx 600 USD/month Plan: Continue current regimen Follow up in 3 months Pt advised to: adhere to diabetic diet check your blood sugars regularly check your feet on a daily basis Assessment & Plan (03/02/2025 10:16 AM EDT): Pt here for a f/u DM controlled He is currently on Metformin 1000 mg po BID Pt last visit told me he stopped the insulin because once he started eating right his blood sugars normalized Hgb A1c on 03/02/2025 6.8 Last Eye exam on record 02/03/2019 Microalbumin [...] would cost him approx 600 USD/month Plan: Continue current regimen Follow up in 3 months Pt advised to: adhere to diabetic diet check your blood sugars regularly check your feet on a daily basis Assessment & Plan (10/27/2024 9:58 AM EDT): [...] daily basis Hypertension 07/18/2012 Assessment & Plan (04/27/2025 11:30 AM EDT): Patient is here for a f/u BP [...] now continue current regimen f/u 4 months Assessment & Plan (03/02/2025 10:09 AM EDT): BP Controlled On a regimen [...] regimen f/u 4 months Assessment & Plan (10/27/2024 9:25 AM EDT): [...] po daily Most recent Bun and Cr 6/202 wnl f/u 4 months Encounters Date Type Department Care Team Description 04/27/2025 11:00 AM EDT Office Visit [facility] [place] [address] Chidi Hsu MD Type 2 diabetes mellitus without complication, without long-term current use of insulin (CMS/HCC) (Primary Dx); Primary hypertension; Callus of toe; Acute pain of left knee; Left foot pain; Lumbar radiculopathy; Encounter for immunization 04/27/2025 Travel 04/26/2025 Telephone [facility] [place] [address] Chidi Hsu MD CHART PREP 04/09/2025 Refill [facility] [place] [place] [address] Chidi Hsu MD 04/07/2025 Telephone [facility] [place] [address] Chidi Hsu MD FYI 04/07/2025 Telephone [facility] [address] [place] [address] Chidi Hsu MD Nurse Triage 03/18/2025 Telephone [facility] [address] [place] [address] Judy Reed, MADHU Paperwork/Forms 03/05/2025 Telephone [facility] [address] [place] [address] Chidi Hsu MD Results 03/02/2025 10:00 AM EDT Office Visit [facility] [place] [address] Chidi Hsu MD Type 2 diabetes mellitus without complication, without long-term current use of insulin (CMS/HCC) (Primary Dx); Primary hypertension; Pituitary microadenoma (CMS/HCC); Longstanding persistent atrial fibrillation (CMS/HCC); Preventative health care; Benign prostatic hyperplasia with urinary frequency; Callus of toe 03/02/2025 Telephone [facility] [place] [place] [address] Chidi Hsu MD Appointment Request 03/02/2025 Travel 03/01/2025 Telephone [facility] [address] [place] [address] Chidi Hsu MD Cart Prep 02/15/2025 Refill [facility] [address] [place] [address] Chidi Hsu MD Dizziness 01/31/2025 Refill [facility] [address] [place] [address] Chidi Hsu MD 01/26/2025 Orders Only [facility] External Provider, [facility] 01/25/2025 Telephone [facility] [address] [place] [address] Chidi Hsu MD chart prep from Last 3 Months Immunizations Immunization Administration Dates Next Due Influenza High-dose Quadriva lent Preservative Free 06/13/2023,05/12/2020 Influenza injectable quadriv alent IIV4 with preservative 08/22/2017,04/28/2015 Influenza injectable quadriv alent preservative free 06/12/2022,08/22/2021 Influenza, High Dose Seasona l, Preservative Free 04/27/2025,06/23/2024 Influenza, IIV3, injectable 05/21/2014,1 ,03/29/2010,04/26 Influenza, Split [...] 12.8 oz) 025 10:56 AM EDT Height 167.6 cm (5' 6 ) 10/27/2024 9:14 AM EDT Body Mass Index 24.18 10/27/2024 9:14 AM EDT Plan of Treatment Health Maintenance Due Date Last Done Comments Eye Exam 1955 Hepatitis A Vaccines (1 of 2 - Risk 2-dose series) 1964 Zoster Vaccines (1 of 2) 1995 Hepatitis B Vaccines (1 of 3 - Risk 3-dose series) 2005 RSV Patients and Patients Aged 60 years or older (1 - 1-dose 75+ series) 2020 COVID-19 Vaccine (3 - season) 2025 10/13/2020, 09/15/2020 Alcohol/Substance Use Screening 06/23/2025 06/23/2024 Diabetes: Hemoglobin A1C 09/02/2025 025, 10/27/2024, 06/23/2024, Additional history exists Diabetes: Urine Protein Screening 10/23/2025 10/23/2024, 08/24/2021, 04/12/2020 Lipid Panel 10/23/2025 10/23/2024, 10/04, 08/24/2021, Additional history exists Depression Screening 10/27/2025 10/27/2024, 10/28/19 SDOH Screening 10/27/2025 10/27/2024 Diabetes: Foot Exam 03/02/2026 03/02/2025 Tobacco Screening 04/27/2026 04/27/2025 DTaP/Tdap/Td Vaccines (2 - Td or Tdap) 06/12/2032 06/12/2022, 10/12/2009, 08/05/1996 Pneumococcal Vaccine: 50+ Years Completed 01/22/2017, 08/30/2015, 03/28/2010 Hepatitis C Screening Completed 10/27/2024, 023 Influenza Vaccine Completed 04/27/2025, , 06/13/2023, Additional history exists HIB Vaccines Aged Out No longer eligi ble based on patient's age to complete this topic HPV Vaccines Aged Out No longer eligi ble based on patient's age to complete this topic IPV Vaccines Aged Out No longer eligi ble based on patient's age to complete this topic Meningococcal B Vaccine Aged Out No l onger eligible based on patient's age to complete [...] 04/27/2025 12:26 PM EDT Left foot pain POCT GLUCOSE Routine 03/02/2025 11:05 AM EDT Type 2 diabetes mellitus without complication, without long-term current use of insulin (CMS/HCC) POCT GLYCOSYLATED HEMOGLOBIN (HGB A1C) Routine 03/02/2025 11:04 AM EDT Type 2 diabetes mellitus without complication, without long-term current use of insulin (CMS/HCC) XR FOOT 3+ VIEWS RIGHT Routine 03/02/2025 10:08 AM EDT Callus of toe MR BRAIN W AND WO CONTRAST Routine 01/26/2025 9:00 AM EDT HEPATITIS C AB W/REFL TO HCV RNA, QN, PCR Routine 10/27/2024 10:06 AM EDT Elevated LFTs Encounter for screening for other viral diseases ALBUMIN, RANDOM URINE W/CREATININE Routine 10/23/2024 8:17 AM EDT Type 2 diabetes mellitus without complication, without long-term current use of insulin (CMS/HCC) LIPID PANEL, STANDARD Routine 10/23/2024 8:17 AM EDT Mixed hyperlipidemia from Last 3 Months or Most Recently Relevant to Health Maintenance Results * XR Knee 3 Views Left (04/27/2025 12:50 PM EDT) Anatomical Region Laterality Modality Lower Extremities, Knee Left [facility] 04/27/2025 12:5 0 PM EDT Narrative 04/27/2025 1:09 PM EDT [facility] [address] [place] [address] XRay Report Signed Patient: Bernice Atkins MR#: [id number] 15 : 1945 Acct:[id number] Age/Sex: 79 / M ADM Date: 04/27/25 Loc: HOPromiseCX Attending Dr: Chidi Costa MD Ordering Physician: Chidi Costa MD Date of Service: 04/27/25 Procedure(s): XR knee LT 3V Accession Number(s): [id number] cc: Chidi Costa MD Reason for Exam: [...] 04/27/25 1307 DD/ 1250 TD/TT: 04/27/25 1259 [employer] Specialist: Procedure Note Donotuseinterpreter, Image - 04/27/2025 [facility] [address] [place] [address] XRay Report Signed Patient: Bernice AtkinsMR#: [id number] 15 : 5Acct:[id number] Age/Sex: 79 / MADM Date: 04/27/25 Loc: DIAMONDCX Attending Dr: Chidi Costa MD Ordering Physician: Chidi Costa MD Date of Service: 04/27/25 Procedure(s): XR knee LT 3V Accession Number(s): [id number] cc: Chidi Costa MD Reason for Exam: [...] 04/27/25 1307 DD/ 1250 TD/TT: 04/27/25 1259 [employer] Specialist: us Chidi Hamlin MD IMG XR PROCEDURES Fin al Result * XR Foot 3+ Views Left (04/27/2025 12:26 PM EDT) Anatomical Region Laterality Modality Lower Extremities, Foot Left [facility]iogra [facility] Imaging 04/27/2025 12:2 6 PM EDT Narrative 04/27/2025 1:35 PM EDT [address] [address] XRay Report Signed Patient: Bernice Atkins MR#: [id number] [birth year] : 1945 Acct:[id number] Age/Sex: 79 / M ADM Date: 04/27/25 Loc: HO.HHCX Attending Dr: Chidi Costa MD Ordering Physician: Chidi Costa MD Date of Service: 04/27/25 Procedure(s): XR foot LT min 3V Accession Number(s): [id number] cc: Chidi Costa MD Reason for Exam: [...] Willie Casillas MD 04/27/2025 01:32 PM EDT Dictated By: Willie Casillas MD Signed By: <Electronically signed by Willie Casillas MD in OV> 04/27/25 1332 DD/ 1226 TD/TT: 04/27/25 1259 [employer] Specialist: Procedure Note Donotuseinterpreter, Image - 04/27/2025 [place] [address] XRay Report Signed Patient: Bernice AtkinsMR#: [id number] 15 : 5Acct:[id number] Age/Sex: 79 / MADM Date: 04/27/25 Loc: .HHCX Attending Dr: Chidi Costa MD Ordering Physician: Chidi Costa MD Date of Service: 04/27/25 Procedure(s): XR foot LT min 3V Accession Number(s): [id number] cc: Chidi Costa MD Reason for Exam: [...] 04/27/25 1332 DD/ 1226 TD/TT: 04/27/25 1259 [employer] Specialist: Chidi Hamlin MD IMG XR PROCEDURES Fin al Result * POCT glucose manually resulted (03/02/2025 11:05 AM EDT) Glucose Blood, POC 199 60 - 200 mg/dL QC Media Lot # [id number] Lot# Expiration Date 2936, Blood Capillary blood specimen / Unknown 03/02/2025 11:05 AM EDT Chidi Hamlin MD POINT OF CARE TEST EN TER/EDIT ORDERABLES Final Result * (ABNORMAL) POCT glycosylated hemoglobin (Hgb A1c) (03/02/2025 11:04 AM EDT) Hemoglobin A1C 6.8(A) 4.0 - 5.7 % QC Media Lot # [id number] Lot# Expiration Date , Blood Capillary blood specimen / Unknown 03/02/2025 11:04 AM EDT Chidi Hamlin MD POINT OF CARE TEST EN TER/EDIT ORDERABLES Final Result * XR Foot 3+ Views Right (03/02/2025 10:08 AM EDT) Anatomical Region Laterality Modality Lower Extremities, Foot Right Radiogra ph[facility] Imaging 03/02/2025 10:0 8 AM EDT Narrative 03/02/2025 11:09 AM EDT [facility] [address] [place] [address] XRay Report Signed Patient: Bernice Atkins MR#: [id number] [birth year] : 1945 Acct:[id number] Age/Sex: 79 / M ADM Date: 03/02/25 Loc: HO.HHCX Attending Dr: Chidi Costa MD Ordering Physician: Chidi Costa MD Date of Service: 03/02/25 Procedure(s): XR foot RT min 3V Accession Number(s): [id number] cc: Chidi Costa MD EXAMINATION: XR FOOT, RIGHT CLINICAL INFORMATION: painful callus of the great toe. COMPARISON: None available. TECHNIQUE: AP, lateral, and oblique views of the right foot. FINDINGS: No fracture, dislocation, or suspicious bone lesion. There is an old healed fracture of the fourth digit proximal phalanx. There are mild osteoarthritic changes at the first MTP joint, and mild to moderate changes at the interphalangeal joint of the hallux. There is normal alignment. There is normal plantar arch. The midfoot and hindfoot appear grossly normal. No soft tissue abnormalities. XR/XR foot RT min 3V IMPRESSION: 1. No acute bony abnormalities of the right foot. 2. There are mild osteoarthritic changes at the first MTP joint, and mild to moderate changes at the interphalangeal joint of the hallux. Electronically signed by: Willie Casillas MD 03/02/2025 11:06 AM EDT Dictated By: Willie Casillas MD Signed By: <Electronically signed by Willie Casillas MD in OV> 03/02/25 1106 DD/ 1008 TD/TT: 03/02/25 1020 [employer] Specialist: Procedure Note Donotuseinterpreter, Image - 03/02/2025 [facility] [address] [place] [address] XRay Report Signed Patient: Bernice AtkinsMR#: [id number] 15 : 5Acct:[id number] Age/Sex: 79 / MADM Date: 03/02/25 Loc: HO.HHCX Attending Dr: Chidi Costa MD Ordering Physician: Chidi Costa MD Date of Service: 03/02/25 Procedure(s): XR foot RT min 3V Accession Number(s): [id number] cc: Chidi Costa MD EXAMINATION: XR FOOT, RIGHT CLINICAL INFORMATION: painful callus of the great toe. COMPARISON: None available. TECHNIQUE: AP, lateral, and oblique views of the right foot. FINDINGS: No fracture, dislocation, or suspicious bone lesion. There is an old healed fracture of the fourth digit proximal phalanx. There are mild osteoarthritic changes at the first MTP joint, and mild to moderate changes at the interphalangeal joint of the hallux. There is normal alignment. There is normal plantar arch. The midfoot and hindfoot appear grossly normal. No soft tissue abnormalities. XR/XR foot RT min 3V IMPRESSION: 1. No acute bony abnormalities of the right foot. 2. There are mild osteoarthritic changes at the first MTP joint, and mild to moderate changes at the interphalangeal joint of the hallux. Electronically signed by: Willie Casillas MD 03/02/2025 11:06 AM EDT Dictated By: Willie Casillas MD Signed By: <Electronically signed by Willie Casillas MD in OV> 03/02/25 1106 DD/ 1008 TD/TT: 03/02/25 1020 [employer] Specialist: us Chidi Hamlin MD IMG XR PROCEDURES Fin al Result * Mr Brain w/ and w/o Contrast (01/26/2025 9:00 AM EDT) Anatomical Region Laterality Modality Brain Magnetic Resonan ce 01/26/2025 9:00 AM EDT Narrative 01/26/2025 10:35 AM EDT [address] [address] Magnetic Resonance Report Signed Patient: Bernice Atkins MR#: [id number] 15 : 1945 Acct:[id number] Age/Sex: 79 / M ADM Date: 01/26/25 Loc: HO.MRI Attending Dr: Tien Oliver MD Ordering Physician: Tien Oliver MD Date of Service: 01/26/25 Procedure(s): MR head/brain wo/w con Accession Number(s): [id number] cc: Tien Oliver MD; Chidi Costa MD EXAMINATION: MR BRAIN PITUITARY PROTOCOL WITHOUT AND WITH CONTRAST CLINICAL INFORMATION: Benign neoplasm of pituitary gland. COMPARISON: January 16, 2024. TECHNIQUE: Multiplanar, multisequence MRI of the brain pituitary protocol was obtained before and after the intravenous administration of 3.5 mL gadolinium based (Gadavist) without reported immediate complications.. FINDINGS: There is a well-defined, 11 x 14 x 11 mm lobulated hypointense T1 hyperintense T2 FLAIR with intermediate T2 signal and restricted diffusion signal abnormality mass center within the sella appears ectatic extending into the medial left cavernous sinus resulting in mass effect and 3.4 mm midline deviation to the right of the pituitary stalk. The pituitary stalk demonstrated normal enhancement pattern without focal lesion. The optic chiasm is intact without signal abnormality. The flow-void signal within the cavernous supracavernous segments of the ICAs normal. No restricted diffusion to suggest acute ischemia. There is no susceptibility sequence acquired. Bilateral multifocal patchy and punctate deep periventricular white matter hyperintense T2 FLAIR signal involving centrum semiovale and piña radiata. Craniocervical junction demonstrates normal position of the cerebellar tonsils. Flow-void signal within the main cerebral vessels is normal. There is a focal hyperintense T2 no restricted enhancing signal within the superior left orbital diploe. Prominence of the extra-axial CSF spaces cerebral sulci and ventricles. 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 Stable. The possibility of old blood products versus apoplexy cannot be excluded. Small vessel occlusive disease. No acute stroke/ischemia. Electronically signed by: Carlos Enrique Lewis MD 01/26/2025 10:32 AM EDT Dictated By: Carlos Enrique Cadena MD Signed By: <Electronically signed by Carlos Enrique Reed MD in OV> 01/26/25 1032 DD/ 0900 TD/TT: 01/26/25 0950 Capital Markets Specialist: Procedure Note Donotuseinterpreter, Image - 01/26/[address] [address] Magnetic Resonance Report Signed Patient: Bernice AtkinsMR#: [id number] 15 : 5Acct:[id number] Age/Sex: 79 / MADM Date: 01/26/25 Loc: HO.MRI Attending Dr: Tien Oliver MD Ordering Physician: Tien Oliver MD Date of Service: 01/26/25 Procedure(s): MR head/brain wo/w con Accession Number(s): [id number] cc: Tien Oliver MD; Chidi Costa MD EXAMINATION: MR BRAIN PITUITARY PROTOCOL WITHOUT AND WITH CONTRAST CLINICAL INFORMATION: Benign neoplasm of pituitary gland. COMPARISON: January 16, 2024. TECHNIQUE: Multiplanar, multisequence MRI of the brain pituitary protocol was obtained before and after the intravenous administration of 3.5 mL gadolinium based (Gadavist) without reported immediate complications.. FINDINGS: There is a well-defined, 11 x 14 x 11 mm lobulated hypointense T1 hyperintense T2 FLAIR with intermediate T2 signal and restricted diffusion signal abnormality mass center within the sella appears ectatic extending into the medial left cavernous sinus resulting in mass effect and 3.4 mm midline deviation to the right of the pituitary stalk. The pituitary stalk demonstrated normal enhancement pattern without focal lesion. The optic chiasm is intact without signal abnormality. The flow-void signal within the cavernous supracavernous segments of the ICAs normal. No restricted diffusion to suggest acute ischemia. There is no susceptibility sequence acquired. Bilateral multifocal patchy and punctate deep periventricular white matter hyperintense T2 FLAIR signal involving centrum semiovale and piña radiata. Craniocervical junction demonstrates normal position of the cerebellar tonsils. Flow-void signal within the main cerebral vessels is normal. There is a focal hyperintense T2 no restricted enhancing signal within the superior left orbital diploe. Prominence of the extra-axial CSF spaces cerebral sulci and ventricles. 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 Stable. The possibility of old blood products versus apoplexy cannot be excluded. Small vessel occlusive disease. No acute stroke/ischemia. Electronically signed by: Carlos Enrique Lewis MD 01/26/2025 10:32 AM EDT RP Dictated By: Carlos Enrique Cadena MD Signed By: <Electronically signed by Carlos Enrique Reed MDin OV> 01/26/25 1032 DD/ 0900 TD/TT: 01/26/25 0950 Capital [employer] Specialist: [facility] External Provider IMG MRI PROCEDURES Final Result * Hepatitis C Antibody with Reflex to HCV, RNA, Quantitative, Real-Time PCR (10/27/2024 10:06 AM EDT) Hepatitis C Antibody Nonreactive Nonreactive [facility] Comment:Antibodies to HCV no t detected; does not exclude early acuteHCV infection. Blood Venous blood specimen / Unknown 10/27/2024 10:06 AM EDT 10/27/2024 11:23 AM EDT Chidi Hamlin MD LAB BLOOD ORDERABLES Final Result [facility] [address] [place] [address] [phone] * Albumin, Random Urine W/Creatinine (10/23/2024 8:17 AM EDT) Creatinine, Urine 95.81 mg/dL [facility] Microalbumin Urine <5.0 mg/L [facility] Microalbum Creatinine Ratio Ur TNP <30 ug/mg cr [facility] Comment:Unable to calculate albumin/creatinine ratio due to lowmicroalbumin or creatinine result. Urine (Urine, Random) 10/23/2024 8:17 AM EDT 10/23/2024 11:18 AM EDT Chidi Hamlin MD LAB URINE ORDERABLES Final Result Performing Organization Address [facility]/ZIP Co de Phone Number [facility] [address] [place] [phone] * Lipid Panel, Standard (10/23/2024 8:17 AM EDT) Triglycerides 52 <150 mg/dL [facility] Comment:Desirable Triglyceri de: less than 150 mg/dLBorderline High Triglyceride 150-199 mg/dLHigh Triglyceride: 200-499 mg/dLVery High Triglyceride: greater than or equal to 5OO mg/dL Cholesterol 144 <200 mg/dL [facility] Comment:Desirable Cholestero l: less than 200 mg/dLBorderline High Cholesterol: 200-239 mg/dLHigh Cholesterol: greater than 239 mg/dL LDL Cholesterol Calculated 69 <100 mg/dL [facility] Comment:Desirable LDL: less than 100 mg/dLNear Optimal/Above Optimal LDL: 110- 129 mg/dLBorderline High LDL: 130-159 mg/dLHigh LDL: 160-189 mg/dLVery High LDL: greater than or equal to 190 mg/dL HDL Cholesterol 65 >40 mg/dL [facility] Comment:Desirable HDL: great er than 40 mg/dL Note: This HDL assay may give artificially low results in patients with liver disease. Blood Venous blood specimen / Unknown 10/23/2024 8:17 AM EDT 10/23/2024 11:07 AM EDT Chidi Hamlin MD LAB BLOOD ORDERABLES Final Result Performing Organization Address City/[facility]/ZIP Co de Phone Number [facility] [address] [place] [phone] from Last 3 Months or Most Recently Relevant to Health Maintenance Insurance MEDICARE [facility] MEDEX CARE Care Teams Occupational Therapy Professor Relationship Specialty Start Date End Date Chidi Hsu MD [address] [place] [phone] PCP - General Internal Medicine 02/19/23
--- OUTSIDE RECORDS SUMMARY | 2025-04-27 14:47 | XMS_ITS | Encounter Summary ---
Author Organization [employer] Address [address] [facility] 7 [place] [address] Care Team Providers Care Mechanic Driver Name Role Phone Chidi Hsu MD Primary Care Provide r Reason for Visit * Reason Onset Date Comments Call Back Request 10/27/2024 Encounter Details Date Type Department Care Team ([facility] Contact Info) Description 10/27/2024 Telephone [facility] MEDICINE [address] [place], [place] [phone] Chidi Hsu MD [address] [place], [place] [phone] Call Back Request Social History Tobacco Use [...] AM EDT documented as of this encounter Functional Status * Over the past 2 weeks, how often have you been bothered by any of the following problems? Question Answer Date of Assessment Author Patient Health Questionnaire-2 Score 0 10/04 9:20 AM EDT Tessa Clark MA * Little interest or pleasure in doing things Answer Date of Assessment Author Not at all 10/27/2024 9:20 AM EDT Lisa Clark MA * Feeling down, depressed, or hopeless Answer Date of Assessment Author Not at all 10/27/2024 9:20 AM EDT Lisa Clark MA * Trouble falling or staying asleep, or sleeping too much Answer Date of Assessment Author More than half the days 10/27/2024 9:20 AM EDT Tessa Meeks MA * Feeling tired or having little energy Answer Date of Assessment Author Not at all 10/27/2024 9:20 AM EDT Lisa Clark MA * Poor appetite or overeating Answer Date of Assessment Author Not at all 10/27/2024 9:20 AM EDT Lisa Clark MA * Feeling bad about yourself - or that you are a failure or have let yourself or your family down Answer Date of Assessment Author Not at all 10/27/2024 9:20 AM EDT Lisa Clark MA * Trouble concentrating on things, such as reading the newspaper or watching television Answer Date of Assessment Author Not at all 10/27/2024 9:20 AM EDT Lisa Clark MA * Moving or speaking so slowly that other people could have noticed? Or the opposite - being so fidgety or restless that you have been moving around a lot more than usual. Answer Date of Assessment Author Not at all 10/27/2024 9:20 AM EDT Lisa Clark MA * Thoughts that you would be better off or hurting yourself in some way Answer Date of Assessment Author Not at all 10/27/2024 9:20 AM EDT Lisa Clark MA * Patient Health Questionnaire-9 Score Answer Date of Assessment Author 2 10/27/2024 9:20 AM EDT Lisa Clark MA * How difficult have these problems made it for you to do your work, take care of things at home, or get along with other people? Answer Date of Assessment Author Not difficult at all 10/27/2024 9:20 AM EDT Tessa Cano MA documented as of this encounter Miscellaneous Notes * Telephone Encounter - Ericka Palma - 10/27/2024 1:00 PM EDT Tc from pt stating someone from PCP place a call can't remember the name that was left in the voicemail. If someone by chance reached out please return call to [phone] documented in this encounter Plan of Treatment Not on file documented as of this encounter Visit Diagnoses Not on filedocumented in this encounter Additional Health Concerns Assessment Noted Time PHQ-9 Depression Total Score: 2 10/28/19 9:20 AM EDT documented as of this encounter Care Teams Mechanic Driver Relationship Specialty Start Date End Date Chidi Hsu MD [address] [place] [phone] PCP - General Internal Medicine 02/19/23 documented as of this encounter
--- OUTSIDE RECORDS SUMMARY | 2025-04-27 14:47 | XMS_ITS | Encounter Summary ---
Author Organization [employer] Address [address] [facility] 7 [place] [address] Care Team Providers Care Dianetic Counselor Name Role Phone Chidi Hsu MD Primary Care Provide r Reason for Visit * Reason Onset Date Comments FYI 04/07/2025 Encounter Details Date Type Department Care Team ([facility] st Contact Info) Description 04/07/2025 Telephone [facility] MEDICINE [address] [place], [place] [phone] Chidi Hsu MD [address] [place], [place] [phone] FYI Social History Tobacco Use Types Packs/Day Years [...] encounter Miscellaneous Notes * Telephone Encounter - Raciel Gabriel - 04/07/2025 10:31 AM EDT Tc from pt calling to thank pcp for referring him to [facility] stating that it was a great experience and his foot is feeling 100% better than before. Sales Intern agreed to send message as TYRESE. documented in this encounter Plan of Treatment Not on file documented as of this encounter Visit Diagnoses Not on filedocumented in this encounter Additional Health Concerns Assessment Noted Time PHQ-9 Depression Total Score: 2 10/28/19 25 9:20 AM EDT documented as of this encounter Care Teams Dianetic Counselor Relationship Specialty Start Date End Date Chidi Hsu MD [address] [place] [phone] PCP - General Internal Medicine 02/19/23 documented as of this encounter
--- OUTSIDE RECORDS SUMMARY | 2025-04-27 14:47 | XMS_ITS | Encounter Summary ---
Author Organization [employer] Address [address] [facility] 7t [place] [address] Care Team Providers Care Custom Dressmaker Name Role Phone Chidi Hsu MD Primary Care Provide r Encounter Details Date Type Department Care Team ([facility] st Contact Info) Description 03/07/2023 Orders Only [facility] [address] [place] [address] Elida Calles LPN Social History Tobacco Use [...] documented as of this encounter Care Teams Custom Dressmaker Relationship Specialty Start Date End Date Chidi Hsu MD [address] [place] [address] PCP - General Internal Medicine 02/19/23 documented as of this encounter
--- OUTSIDE RECORDS SUMMARY | 2025-04-27 14:47 | XMS_ITS | Encounter Summary ---
Author Organization [employer] Address [address] [facility] 7 [place] [address] Care Team Providers Care Identification Officer Name Role Phone Chidi Hsu MD Primary Care Provide r Reason for Visit * Reason Onset Date Comments CHART PREP 04/26/2025 Encounter Details Date Type Department Care Team ([facility] st Contact Info) Description 04/26/2025 Telephone [facility] MEDICINE [address] [place], [place] [phone] Chidi Hsu MD [address] [place] [address] CHART PREP Social History Tobacco Use Types Packs/Day Years [...] encounter Miscellaneous Notes * Telephone Encounter - Dulce Meier MA - 04/26/2025 11:07 AM EDT Chart Prep Labs: done Images: done Screenings: Eye Exam Vaccines due: Covid Due, Hep A Due, Hep B Due, Flu Due, RSV in Pharmacy Due, and Shingles in pharmacy Due Referrals: Podiatry Requested notes by Fax. Waiting for notes. Overdue care gaps: GAD7 documented in this encounter Plan of Treatment Not on file documented as of this encounter Visit Diagnoses Not on filedocumented in this encounter Additional Health Concerns Assessment Noted Time PHQ-9 Depression Total Score: 2 10/28/19 25 9:20 AM EDT documented as of this encounter Care Teams Identification Officer Relationship Specialty Start Date End Date Chidi Hsu MD [address] [place] [address] PCP - General Internal Medicine 02/19/23 documented as of this encounter
== END 2025-04-27 11:55 | disposition home or self-care (01) ==
LOC: HO.HHCX 11:54
PROVIDERS: Visit Provider Internal Medicine
DX: M25.562 Pain in left knee (principal); M79.672 Pain in left foot
CPT/HCPCS: 73562; 73630

== ENCOUNTER → 2025-04-27 11:56 | Outpatient (BNV) | payer MEDICARE, SELFPAY | PROVIDERS: Visit Provider Radiology Diagnostic Radiology | DX: M25.562 Pain in left knee (principal); M79.672 Pain in left foot | CPT/HCPCS: 73562; 73630 ==

== ENCOUNTER 2025-06-15 13:19 | Outpatient (AMB) | payer MEDICARE, SELFPAY ==
--- NOTE | 2025-06-15 13:22 | MHC.OFFWIV ---
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 - The cough began on Saturday and has progressively worsened, with increased frequency noted between Saturday and the day of the visit. - The patient reports wheezing, particularly at night, which has been severe enough to cause difficulty breathing. - The patient has a history of receiving an influenza vaccination annually, which he associates with subsequent flu-like symptoms. - The patient denies any history of asthma but has been prescribed an inhaler in the past, which he does not currently use. - The patient experiences a sore throat, particularly when swallowing, but denies significant pain or difficulty eating. 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 - He denies sick contacts, travel, fever, chills, CP, SOB, abd pain,or n/v/d. - He has been eating and drinking well. - He denies smoking. Physical Exam General: Cooperative, healthy appearing, comfortable and no acute distress Orientation/consciousness: Patient oriented x3 Limitations: No limitations Head: Normal to inspection Ears: Hearing grossly normal bilaterally, external ears normal and TM's normal bilaterally Nose: Normal external nose present, normal nares present, and no nasal discharge present. Face and sinus: Sinuses nontender to palpation. Mouth: Normal oral and palatal mucosa present and moist mucous membranes noted. Throat: Tonsils normal. Uvula is midline. Posterior oropharynx with erythema and no exudates. Mild sore throat noted. Eyes: Appearance normal, both eyes and all related structures Neck: Normal visual inspection, full ROM. No lymphadenopathy noted. Respiratory: Clear to auscultation bilaterally. Normal respiratory effort, able to speak in complete sentences. No respiratory distress, not tachypneic, no tripod positioning and no use of accessory muscles. Wheezing noted. Cardiovascular: Regular rate and rhythm. Normal S1 and S2 Skin: No rashes or lesions noted Patient was informed and verbally consented to the use of an ambient scribe for clinic note documentation during this visit [facility] Medical History Lumbar stenosis with neurogenic claudication Left lumbar radiculopathy Pituitary adenoma Hiatal hernia History of transesophageal echocardiography (JANNA) Pre-operative cardiovascular examination Erectile dysfunction BPH with obstruction/lower urinary tract symptoms Dizziness PAF (paroxysmal atrial fibrillation) SSS (sick sinus syndrome) Diabetes mellitus GERD (gastroesophageal reflux disease) HTN (hypertension) Surgical History Hx of decompressive lumbar laminectomy Hx of esophagogastroduodenoscopy History of cardioversion (~2012) Hx of colonoscopy Hx of umbilical hernia repair Hx of inguinal hernia surgery Family History Father Alzheimer disease Mother No problems noted. Brother Diabetes Social History Are you a primary direct support professional caregiver to a significant other at home: No Do you presently have visiting nurse or other home services: No Comment: aware of trip hazard Patient Tobacco Use Status: Never used Tobacco Advance Directives Date on File: 09/11/19 Review of Systems Const All systems reviewed & are unremarkable except as noted in HPI and below Physical Exam Vital Signs: Last Vital Signs Temp 98.5 F 06/15/25 13:23 Pulse 62 06/15/25 13:23 BP 110/50 L 06/15/25 13:23 Pulse Ox 95 06/15/25 13:23 Oxygen Delivery Method Room Air 06/15/25 13:23 BMI result Body Mass Index 23.1 Results Reviewed Results Reviewed: will review the CXR in the office Assessment & Plan Assessment & Plan (1) Cough: Code(s): R05.9 - Cough, unspecified Qualifiers: Cough type: acute Qualified Code(s): R05.1 - Acute cough Plan Most likely URI vs covid vs flu vs bronchitis vs viral illness plan - The patient will undergo a chest x-ray to rule out pneumonia. - Medications for cough have been prescribed and sent to the pharmacy. - Symptomatic treatment advised, with monitoring for any worsening symptoms. - The patient has received the influenza vaccination annually, with noted flu-like symptoms post-vaccination. - will call with the results - follow up with PCP - advised ER if he develops fever, CP, SOB, etc Orders: Orders XR chest 2V Today R05.9 - Cough, unspecified SARS-CoV2/FLU/RSV Today R09.89 - Other specified symptoms and signs involving the circulatory and respiratory systems Medications: New prednisone 40 mg (2 x 20 mg) PO DAILY 10 tabs 0RF 5 days benzonatate 200 mg PO BEDTIME PRN 10 caps 0RF cough albuterol sulfate 90 mcg/actuation 2 puffs inhalation Q6H PRN 8.5 grams 0RF shortness of breath or wheezing or cough Coding Level of Care Code Est Pt Level 4 (59754) Diagnoses Acute cough R05.1 Cough type: acute
[2025-06-15 13:23] VITALS: BP 110/50; PULSE 62; TEMP 36.9; O2SAT 95; BMI 23.1
--- OUTSIDE RECORDS SUMMARY | 2025-06-15 15:00 | XMS_ITS | Clinical Summary ---
Author Organization [facility] Address [address] [place] [phone] Phone Care Team Providers Care Manager Corporate Strategy Name Role Phone Pcp, Unknown Primary Care Provider Unavailabl e Social History Tobacco Use Types Packs/Day Years [...] SMOKING Hx and SMOKELESS TOBACCO SCREENING 1958 ZOSTER VACCINES (1 of 2) 1995 PNEUMOCOCCAL VACCINES (50+ years) (2 of 2 - PCV) 01/22/2018 01/22/2017, 03/28/2010 RSV VACCINE (1 - 1-dose 75+ series) 2020 INFLUENZA VACCINE (#1) 2025 COVID-19 VACCINE ( - 2024-2 6 season) 2025 LIPID PANEL 10/23/2029 10/23/2024 Adult [...] this topic Medical Devices Not on file Insurance MEDICARE PART A & B [employer] MEDEX SUPPLEMENT MEDICARE PART A & B [employer] MEDEX SUPPLEMENT MEDICARE PART A & B [facility] MEDEX SUPPLEMENT MEDICARE PART A & B [employer] MEDEX SUPPLEMENT MEDICARE PART A & B [employer] MEDEX SUPPLEMENT MEDICARE PART A & B [employer] MEDEX SUPPLEMENT Care Teams Manager Corporate Strategy Relationship Specialty Start Date End Date Pcp, Unknown PCP - General 03/18/24 Additional Source Comments The information contained in this document represents components of the legal health record. It is not the complete legal health record.[facility]
--- OUTSIDE RECORDS SUMMARY | 2025-06-15 15:00 | XMS_ITS | Encounter Summary ---
Author Organization [employer] Address [address] [facility] 7 [place] [address] Care Team Providers Care Copy Holder Name Role Phone Chidi Hsu MD Primary Care Provide r Reason for Visit * Reason Onset Date Comments Call Back Request 10/27/2024 Encounter Details Date Type Department Care Team ([facility] st Contact Info) Description 10/27/2024 Telephone [facility] MEDICINE [address] [place], [place] [phone] Chidi Hsu MD [address] [place], [place] [phone] Call Back Request Social History Tobacco Use [...] chance reached out please return call to [phone] documented in this encounter Plan of Treatment Upcoming Encounters Date Type Department Care Team (Late st Contact Info) Description 08/12/2025 10:30 AM EST Office Visit [facility] [address] [place] [address] Chidi Hsu MD [address] [place] [address] documented as of this encounter Visit Diagnoses Not on filedocumented in this encounter Additional Health Concerns Assessment Noted Time PHQ-9 Depression Total Score: 2 10/28/19 9:20 AM EDT documented as of this encounter Care Teams Copy Holder Relationship Specialty Start Date End Date Chidi Hsu MD [address] [place] [address] PCP - General Internal Medicine 02/19/23 documented as of this encounter
--- OUTSIDE RECORDS SUMMARY | 2025-06-15 15:00 | XMS_ITS | Encounter Summary ---
Author Organization [employer] Address [address] [facility] 7 [place] [address] Care Team Providers Care Estimator Printing Plate Making Name Role Phone Chidi Hsu MD Primary Care Provide r Reason for Visit * Reason Onset Date Comments FYI 04/07/2025 Encounter Details Date Type Department Care Team ([facility] st Contact Info) Description 04/07/2025 Telephone [facility] [address] [place], [place] [phone] Chidi Hsu MD [address] [place] [address] FYI Social History Tobacco Use Types Packs/Day [...] Miscellaneous Notes * Telephone Encounter - Raciel Rios - 04/07/2025 10:31 AM EDT Tc from pt calling to thank pcp for referring him to [facility] stating that it was a great experience and his foot is feeling 100% better than before. Health Information Administrator agreed to send message as [email or web address]. documented in this encounter Plan of Treatment Upcoming Encounters Date Type Department Care Team (Late st Contact Info) Description 08/12/2025 10:30 AM EST Office Visit [facility] [address] [place] [address] Chidi Hsu MD [address] [place] [address] documented as of this encounter Visit Diagnoses Not on filedocumented in this encounter Additional Health Concerns Assessment Noted Time PHQ-9 Depression Total Score: 2 10/28/19 9:20 AM EDT documented as of this encounter Care Teams Estimator Printing Plate Making Relationship Specialty Start Date End Date Chidi Hsu MD [address] [place] [address] PCP - General Internal Medicine 02/19/23 documented as of this encounter
--- OUTSIDE RECORDS SUMMARY | 2025-06-15 15:00 | XMS_ITS | Encounter Summary ---
Author Organization [employer] Address [address] [facility] [address] [place] [address] Care Team Providers Care Garage Door Installer Name Role Phone Chidi Hsu MD Primary Care Provide r Reason for Visit * Reason Onset Date Comments Nurse Triage 09/25/2023 Encounter Details Date Type Department Care Team ([facility] st Contact Info) Description 09/25/2023 Telephone [facility] [address] [place], [place] [phone] Chidi Hsu MD [address] [place] [address] Nurse Triage Social History Tobacco Use Types [...] month. Pt is advised to come to [facility] for provider to see Ptand assess [...] Description 08/12/2025 10:30 AM EST Office Visit [facility] [address] [place] [address] Chidi Hsu MD [address] [place] [address] documented as of this encounter Visit Diagnoses Not on filedocumented in this encounter Additional Health Concerns Assessment Noted Time PHQ-9 Depression Total Score: 13 07/19/ 022 1:00 PM EST documented as of this encounter Care Teams Garage Door Installer Relationship Specialty Start Date End Date Chidi Hsu MD [address] [place] [address] PCP - General Internal Medicine 02/19/23 documented as of this encounter
--- OUTSIDE RECORDS SUMMARY | 2025-06-15 15:00 | XMS_ITS | Encounter Summary ---
Author Organization [employer] Address [address] [facility] [address] [place] [address] Care Team Providers Care Educational Adviser Name Role Phone Chidi Hsu MD Primary Care Provide r Encounter Details Date Type Department Care Team (Late st Contact Info) Description 03/07/2023 Orders Only [facility] [address] [place], [place] [phone] Elida Calles LPN Social History Tobacco Use [...] Description 08/12/2025 10:30 AM EST Office Visit [facility] [address] [place], [place] [phone] Chidi Hsu MD [address] [place], [place] [phone] documented as of this encounter Visit Diagnoses Not on filedocumented in this encounter Additional Health Concerns Assessment Noted Time PHQ-9 Depression Total Score: 13 022 1:00 PM EST documented as of this encounter Care Teams Educational Adviser Relationship Specialty Start Date End Date Chidi Hsu MD [address] [place] [id number] PCP - General Internal Medicine 02/19/23 documented as of this encounter
--- OUTSIDE RECORDS SUMMARY | 2025-06-15 15:01 | XMS_ITS | Clinical Summary ---
Author Organization [employer] Address [address] [facility] 7[address] [place] [address] Care Team Providers Care Apartment Assistant Manager Name Role Phone Chidi Hsu MD Primary Care Provide r Allergies No known active allergies Medications cetirizine (ZyrTEC) 10 MG tabletIndications: Acute viral syndrome Take 0.5 tablets (5 mg) by mouth in the morning. 30 tablet 2 07/19/20 22 Active Acetaminophen Extra Strength 500 MG tabletIndications: Acute viral syndrome TAKE 2 TABLETS BY MOUTH EVERY 6 HOURS NEEDED FOR PAIN OR FOR HEADACHE 120 tablet 1 08/27/19 23 Active Diclofenac Sodium 1 % gelIndications:Lum bar radiculopathy Apply to affected area BID 100 g 3 12/21/19 23 Active insulin glargine (Lantus SoloStar) 100 UNIT/ML penIndications:Typ e 2 diabetes mellitus without complication, without long-term current use of insulin (HCC) Inject 20 Units under the skin at bedtime. 3 mL 1 10/08/19 24 Active tamsulosin (Flomax) 0.4 MG 24 hr capsule Take 1 capsule (0.4 mg) by mouth Once per day. 30 capsule 2 12/23/19 24 Active triamcinolone (Kenalog) 0.1 % creamIndications:D ermatitis APPLY TO THE AFFECTED AREA(S) TWICE DAILY IN THE MORNING AND AT BEDTIME NEEDED FOR RASH 30 g 2 02/24/20 24 Active Continuous Glucose Electrical Technology Instructor (FreeStyle Gulshan 3 Encinal) deviceIndications: Type 2 diabetes mellitus without complication, without long-term current use of insulin (HCC) 1 each 3 times daily. Check blood sugar 3x daily 1 each 09/08/19 25 Active Continuous Glucose Sensor (FreeStyle Gulshan 3 Plus Sensor) miscIndications:Ty pe 2 diabetes mellitus without complication, without long-term current use of insulin (HCC) 1 Application every 15 days. 2 each 11 09/08/19 25 Active losartan (Cozaar) 25 MG tabletIndications: Primary hypertension TAKE 1 TABLET BY MOUTH EVERY EVENING 30 tablet 6 11/05/19 25 Active metFORMIN (Glucophage) 500 MG tablet TAKE 2 TABLETS BY MOUTH TWICE DAILY IN THE MORNING AND EVENING 360 tablet 1 11/25/19 25 Active atorvastatin (Lipitor) 20 MG tabletIndications: Mixed hyperlipidemia TAKE 1 TABLET BY MOUTH EVERY MORNING 90 tablet 1 01/06/20 25 Active chlorthalidone (Hygroton) 25 MG tablet TAKE 1 TABLET BY MOUTH EVERY MORNING 30 tablet 6 02/03/20 25 Active meclizine (Antivert) 25 MG tabletIndications: Dizziness Take 1 tablet (25 mg) by mouth if needed in the morning and at bedtime for dizziness. 30 tablet 3 02/16/20 25 Active apixaban (Eliquis) 5 MG tabletIndications: Longstanding persistent atrial fibrillation (CMS/HCC) ([facility]) Take 1 tablet (5 mg) by mouth 2 times daily. 60 tablet 3 06/08/20 25 Active Pradaxa 150 MG capsule TAKE 1 CAPSULE BY MOUTH TWICE DAILY IN THE MORNING AND IN THE EVENING 60 capsule 6 04/09/20 25 025 Discontin ued(Alter austyn therapy) Active Problems Problem Noted Date Diagnosed Date [...] Wanted to go back to [facility], he had a steroid injection with no good result. He was then referred to a Neurosurgeon at [facility]. We contacted them and we were told they have yet to received anything from [facility]. We also contacted [facility] and we were told they were going to resend the referral and applicable information and notify us after that. I explained to patient that this is also a Neurosurgeon and that the main reason to go see him would be if he is interested in having a surgical intervention. Patient verbalized understanding. Pt under the care of Dr Mosquera at [facility] ( Spine surgeon ) He is now [...] Wanted to go back to [facility], he had a steroid injection with no good result. He was then referred to a Neurosurgeon at [facility]. We contacted them and we were told they have yet to received anything from [facility]. We also contacted [facility] and we were told they were going to resend the referral and applicable information and notify us after that. I explained to patient that this is also a Neurosurgeon and that the main reason to go see him would be if he is interested in having a surgical intervention. Patient verbalized understanding. Pt under the care of Dr Moqsuera at [facility] ( Spine surgeon ) He is now [...] Wanted to go back to [facility], he had a steroid injection with no good result. He was then referred to a Neurosurgeon at [facility]. We contacted them and we were told they have yet to received anything from [facility]. We also contacted [facility] and we were told they were going to resend the referral and applicable information and notify us after that. I explained to patient that this is also a Neurosurgeon and that the main reason to go see him would be if he is interested in having a surgical intervention. Patient verbalized understanding. Pt under the care of Dr Mosquera at [facility] ( Spine surgeon ) He is now [...] Wanted to go back to [facility], he had a steroid injection with no good result. He was then referred to a Neurosurgeon at [facility]. We contacted them and we were told they have yet to received anything from [facility]. We also contacted [facility] and we were told they were going to resend the referral and applicable information and notify us after that. I explained to patient that this is also a Neurosurgeon and that the main reason to go see him would be if he is interested in having a surgical intervention. Patient verbalized understanding. Pt under the care of Dr Mosquera at [facility] ( Spine surgeon ) He is now [...] Wanted to go back to [facility], he had a steroid injection with no good result. Today he showed me that he was referred to a Neurosurgeon at [facility]. He does not feel he can continue with PT. We contacted them and we were told they have yet to received anything from [facility]. We also contacted [facility] and we were told they were going to resend the referral and applicable information and notify us after that. I explained to patient that this is also a Neurosurgeon and that the main reason to go see him would be if he is interested in having a surgical intervention. Patient verbalized understanding. Pt under the care of Dr Mosquera at [facility] ( Spine surgeon ) who described him [...] Wanted to go back to [facility], he had a steroid injection with no good result. Today he showed me that he was referred to a Neurosurgeon at [facility]. He does not feel he can continue with PT. We contacted them and we were told they have yet to received anything from [facility]. We also contacted [facility] and we were told they were going [...] decided to go see Dr Mosquera at [facility] ( Spine surgeon ) who described him [...] Wanted to go back to [facility], he had a steroid injection with no good result. Today he showed me that he was referred to a Neurosurgeon at [facility]. He does not feel he can continue with PT. We contacted them and we were told they have yet to received anything from [facility]. We also contacted [facility] and we were told they [...] was subsequently seen at our [facility] by Dr. Miranda Romeo who recommended to [...] Wanted to go back to [facility], he was recently seen had a steroid injection with no good results, apparently he was referred elsewhere records requested Pt would like to try PT [facility] 10/23/2022 Assessment & Plan (03/02/2025 10:12 [...] GI for consideration of EGD Pituitary microadenoma (CMS/HCC) 03/25/2018 Assessment & Plan (03/02/2025 10:09 AM [...] MRI reviewed via telemedicibe by: Neurosurgeon at [facility] 02/23/2025 who recommended repeat imaging in 1 [...] Oliver 03/16/2024 and subsequently by Neurosurgeon at [facility] 05/21/2024 who recommended repeat imaging in January [...] Oliver 03/16/2024 and subsequently by Neurosurgeon at [facility] 05/21/2024 who recommended repeat imaging in January [...] LDL-C. Zachary AVILA et al. MISHA. 2013;310(19): 2355-3995 (http://education.Sunshine.[employer]/faq/GDV063) Chol/HDLC Ratio <5.0 (calc) 2.1 2.4 2.2 [...] LDL-C. Zachary AVILA et al. MISHA. 2013;310(19): 7505-4538 (http://education.Sunshine.[employer]/faq/CCY058) Chol/HDLC Ratio <5.0 (calc) 2.1 2.4 2.2 [...] personal goal for weight loss. Atrial fibrillation (CMS/HCC) 12/02/2012 Assessment & Plan (03/02/2025 10:10 AM [...] Encounters Date Type Department Care Team Description 06/08/2025 Orders Only [facility] [place] [address] Chidi Hsu MD Longstanding persistent atrial fibrillation (CMS/HCC) (HCC) (Primary Dx) 06/07/2025 Telephone [facility] [place] [address] Chidi Hsu MD Prior Authorization; Medication Question 05/31/2025 Telephone [facility] [place] [address] Chidi Hsu MD July recall 05/11/2025 Patient Outreach [facility] [place] [address] Chidi Hsu MD Medicare Annual Wellness Visit Initial (AWV unscheduled) 04/27/2025 11:00 AM EDT Office Visit [facility] [place] [address] Chidi Hsu MD Type 2 diabetes mellitus without complication, without long-term current use of insulin (CMS/[facility]) (Primary Dx); Primary hypertension; Callus of toe; Acute pain of left knee; Left foot pain; Lumbar radiculopathy; Encounter for immunization 04/27/2025 Travel 04/26/2025 Telephone [facility] [place] [address] Chidi Hsu MD CHART PREP 04/09/2025 Refill [facility] [place] [address] Chidi Hsu MD 04/07/2025 Telephone [facility] [place] [address] Chidi Hsu MD FYI 04/07/2025 Telephone [facility] [place] [address] Chidi Hsu MD Nurse Triage 03/18/2025 Telephone [facility] [address] [place] [address] Judy Reed, RN Paperwork/Forms from Last 3 Months Immunizations Immunization Administration [...] Description 08/12/2025 10:30 AM EST Office Visit [facility] [address] [place] [address] Chidi Hsu MD [address] [place] [address] Health Maintenance Due Date Last Done Comments Eye Exam 1955 Hepatitis A Vaccines (1 of 2 - Risk 2-dose series) 1964 Zoster Vaccines (1 of 2) 1995 Hepatitis B Vaccines (1 of 3 - Risk 3-dose series) 2005 RSV Patients and Patients Aged 60 years or older (1 - 1-dose 75+ series) 2020 COVID-19 Vaccine (3 - 2024- season) 2025 10/13/2020, 09/15/2020 Alcohol/Substance Use Screening [...] Completed 01/22/2017, 08/30/2015, 03/28/2010 Influenza Vaccine Completed 04/27/2025, , 06/13/2023, Additional [...] Name Priority Date/Time Associated Diagnosis Comments XR CHEST 2 VIEWS Routine 06/15/2025 2:23 PM EST XR KNEE 3 VIEWS LEFT Routine 04/27/2025 12:50 PM EDT Acute pain of left knee XR FOOT 3+ VIEWS LEFT Routine 04/27/2025 12:26 PM EDT Left foot pain POCT GLYCOSYLATED HEMOGLOBIN (HGB A1C) Routine 03/02/2025 11:04 AM EDT Type 2 diabetes mellitus without complication, without long-term current use of insulin ([facility]) ALBUMIN, RANDOM URINE W/CREATININE Routine 10/23/2024 8:17 AM EDT Type 2 diabetes mellitus without complication, without long-term current use of insulin ([facility]) LIPID PANEL, STANDARD Routine 10/23/2024 8:17 AM EDT Mixed hyperlipidemia from Last 3 Months or Most Recently Relevant to Health Maintenance Results * XR Chest 2 Views (06/15/2025 2:23 PM EST) Anatomical Region Laterality Modality Chest Radiographic Zuly ging 06/15/2025 2:23 PM EST Narrative 06/15/2025 2:39 PM EST [facility] Adult Primary Care [employer] [facility] [place] [address] XRay Report Signed Patient: Bernice Atkins MR#: [id number] [birth year] : 1945 Acct:[id number] Age/Sex: 80 / M ADM Date: 06/15/25 Loc: HO.HMGCX Attending Dr: Wei Hay PA-C Ordering Physician: WEI HAY Date of Service: 06/15/25 Procedure(s): XR chest 2V Accession Number(s): [id number] cc: Chidi Costa MD; WEI HAY Reason for Exam: R05.9 - Cough, unspecified EXAMINATION: XR CHEST CLINICAL INFORMATION: R05.9 - Cough, unspecified COMPARISON: February 07, 2020. TECHNIQUE: PA and lateral views. FINDINGS: Elevated left hemidiaphragm, unchanged. No consolidation, pleural effusion or pneumothorax. Cardiomediastinal silhouette size is normal. Multilevel upper lumbar spondylosis. S-shaped curvature of the thoracolumbar spine. Degenerative changes in the acromioclavicular joints. XR/XR chest 2V IMPRESSION: No acute airspace disease. Stable chest. 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 Electronically signed by: Carlos Enrique Lewis MD 06/15/2025 02:37 PM EST RP Dictated By: Carlos Enrique Cadena MD Signed By: <Electronically signed by Carlos Enrique Reed MD in OV> 06/15/25 1437 DD/ 1423 TD/TT: 06/15/25 1426 Rn Ante Partum: Procedure Note Donotuseinterpreter, Image - 06/15/2025 [facility] Adult Primary Care [employer] [facility] [place] [address] XRay Report Signed Patient: Bernice AtkinsMR#: [id number] 15 : 5Acct:[id number] Age/Sex: 80 / MADM Date: 06/15/25 Loc: HO.HMGCX Attending Dr: Wei Hay PA-C Ordering Physician: WEI HAY Date of Service: 06/15/25 Procedure(s): XR chest 2V Accession Number(s): [id number] cc: Chidi Costa MD; WEI HAY Reason for Exam: R05.9 - Cough, unspecified EXAMINATION: XR CHEST CLINICAL INFORMATION: R05.9 - Cough, unspecified COMPARISON: February 07, 2020. TECHNIQUE: PA and lateral views. FINDINGS: Elevated left hemidiaphragm, unchanged. No consolidation, pleural effusion or pneumothorax. Cardiomediastinal silhouette size is normal. Multilevel upper lumbar spondylosis. S-shaped curvature of the thoracolumbar spine. Degenerative changes in the acromioclavicular joints. XR/XR chest 2V IMPRESSION: No acute airspace disease. Stable chest. 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 Electronically signed by: Carlos Enrique Lewis MD 06/15/2025 02:37 PM EST RP Dictated By: Carlos Enrique Cadena MD Signed By: <Electronically signed by Carlos Enrique Reed MDin OV> 06/15/25 1437 DD/ 22 TD/TT: 06/15/251425 Rn Ante Partum: [facility] External Provider IMG XR PROCEDURES Edited Result - Final * XR Knee 3 Views Left (04/27/2025 12:50 PM EDT) Anatomical Region Laterality Modality Lower Extremities, Knee Left Radiogra phic Imaging 04/27/2025 12:5 0 PM EDT Narrative 04/27/2025 1:09 PM EDT [address] [address] XRay Report Signed Patient: Bernice Atkins MR#: [id number] [birth year] : 1945 Acct:[id number] Age/Sex: 79 / M ADM Date: 04/27/25 Loc: HO.HHCX Attending Dr: Chidi Costa MD Ordering Physician: Chidi Costa MD Date of Service: 04/27/25 Procedure(s): XR knee LT 3V Accession Number(s): [id number] cc: Chidi Costa MD Reason for Exam: [...] Willie Casillas MD 04/27/2025 01:07 PM EDT RP Dictated By: Willie Casillas MD Signed By: <Electronically signed by Willie Casillas MD in OV> 04/27/25 1307 DD/ 1250 TD/TT: 04/27/25 1259 Rn Ante Partum: Procedure Note Desmondotonealinterpreter, Image - 04/27/2025 [facility] [address] [place] [address] XRay Report Signed Patient: Bernice AtkinsMR#: [id number] 15 : 5Acct:[id number] Age/Sex: 79 / MADM Date: 04/27/25 Loc: HO.HHCX Attending Dr: Chidi Costa MD Ordering Physician: Chidi Costa MD Date of Service: 04/27/25 Procedure(s): XR knee LT 3V Accession Number(s): [id number] cc: Chidi Costa MD Reason for Exam: [...] 04/27/25 1307 DD/ 1250 TD/TT: 04/27/25 1259 Rn Ante Partum: us Chidi Hamlin MD IMG XR PROCEDURES Fin al Result * XR Foot 3+ Views Left (04/27/2025 12:26 PM EDT) Anatomical Region Laterality Modality Lower Extremities, Foot Left Radiogra phic Imaging 04/27/2025 12:2 6 PM EDT Narrative 04/27/2025 1:35 PM EDT [address] XRay Report Signed Patient: Bernice Atkins MR#: [id number] [birth year] : 1945 Acct:[id number] Age/Sex: 79 / M ADM Date: 04/27/25 Loc: HO.DAMIENCX Attending Dr: Chidi Costa MD Ordering Physician: Chidi Costa MD Date of Service: 04/27/25 Procedure(s): XR foot LT min 3V Accession Number(s): [id number] cc: Chidi Costa MD Reason for Exam: [...] 04/27/25 1332 DD/ 1226 TD/TT: 04/27/25 1259 Rn Ante Partum: Procedure Note Donotuseinterpreter, Image - 04/27/[address] [address] XRay Report Signed Patient: Bernice AtkinsMR#: [id number] 15 : 5Acct:[id number] Age/Sex: 79 / MADM Date: 04/27/25 Loc: DIAMONDCKari Attending Dr: Chidi Costa MD Ordering Physician: Chidi Costa MD Date of Service: 04/27/25 Procedure(s): XR foot LT min 3V Accession Number(s): [id number] cc: Chidi Costa MD Reason for Exam: [...] 04/27/25 1332 DD/ 1226 TD/TT: 04/27/25 1259 Rn Ante Partum: Chidi Hamlin MD IMG XR PROCEDURES Fin al Result * (ABNORMAL) POCT glycosylated hemoglobin (Hgb A1c) (03/02/2025 11:04 AM EDT) Hemoglobin A1C 6.8(A) 4.0 - 5.7 % QC Media Lot # [id number] Lot# Expiration Date ,803,022 Blood Capillary blood specimen / Unknown 03/02/2025 11:04 AM EDT Chidi Hamlin MD POINT OF CARE TEST EN TER/EDIT ORDERABLES Final Result * Albumin, Random Urine W/Creatinine (10/23/2024 8:17 AM EDT) Creatinine, Urine 95.81 mg/dL [facility] Microalbumin Urine <5.0 mg/L [facility] Microalbum Creatinine Ratio Ur TNP <30 ug/mg cr [facility] Comment:Unable to calculate albumin/creatinine ratio due to lowmicroalbumin or creatinine result. Urine (Urine, Random) 10/23/2024 8:17 AM EDT 10/23/2024 11:18 AM EDT Chidi Hamlin MD LAB URINE ORDERABLES Final Result Performing Organization Address City/[facility]/ZIP Co de Phone Number [facility] [address] [place] [address] [phone] * Lipid Panel, Standard (10/23/2024 8:17 AM EDT) Triglycerides 52 <150 mg/dL [facility] Comment:Desirable Triglyceri de: less than 150 mg/dLBorderline High Triglyceride 150-199 mg/dLHigh Triglyceride: 200-499 mg/dLVery High Triglyceride: greater than or equal to 5OO mg/dL Cholesterol 144 <200 mg/dL [facility] Comment:Desirable Cholestero l: less than 200 mg/dLBorderline High Cholesterol: 200-239 mg/dLHigh Cholesterol: greater than 239 mg/dL LDL Cholesterol Calculated 69 <100 mg/dL [facility] Comment:Desirable LDL: less than 100 mg/dLNear Optimal/Above Optimal LDL: 110- 129 mg/dLBorderline High LDL: 130-159 mg/dLHigh LDL: 160-189 mg/dLVery High LDL: greater than or equal to 190 mg/dL HDL Cholesterol 65 >40 mg/dL [facility] Comment:Desirable HDL: great er than 40 mg/dL Note: This HDL assay may give artificially low results in patients with liver disease. Blood Venous blood specimen / Unknown 10/23/2024 8:17 AM EDT 10/23/2024 11:07 AM EDT Chidi Hamlin MD LAB BLOOD ORDERABLES Final Result [facility] [address] [place] [address] [phone] from Last 3 Months or Most Recently Relevant to Health Maintenance Insurance [place] [phone] [facility] [employer] MEDICARE SUPPLEMENT Care Teams Apartment Assistant Manager Relationship Specialty Start Date End Date Chidi Hsu MD [address] [place] [phone] PCP - General Internal Medicine 02/19/23
--- OUTSIDE RECORDS SUMMARY | 2025-06-15 15:01 | XMS_ITS | Encounter Summary ---
Author Organization [employer] Address [address] [facility] 7t [place] [address] Care Team Providers Care Belt Measurer Name Role Phone Chidi Hsu MD Primary Care Provide r Chidi Hsu MD Primary Care Provide r Encounter Details Date Type Department Care Team ([facility] Contact Info) Description 11/08/2022 Orders Only [facility] [address] [place] [address] Monserrat Buck LPN Social History Tobacco Use [...] Upcoming Encounters Date Type Department Care Team ([facility] Contact Info) Description 08/12/2025 10:30 AM EST Office Visit [facility] [address] [place] [address] Chidi Hsu MD [address] [place] [address] documented as of this encounter Visit Diagnoses Not on filedocumented in this encounter Additional Health Concerns Assessment Noted Time PHQ-9 Depression Total Score: 13 07/19/ 022 1:00 PM EST documented as of this encounter Care Teams Belt Measurer Relationship Specialty Start Date End Date Chidi Hsu MD [address] [place] [phone] PCP - General Internal Medicine 04/19/14 02/18/23 Chidi Hsu MD [address] [place] [phone] PCP - General Internal Medicine 02/19/23 documented as of this encounter
--- OUTSIDE RECORDS SUMMARY | 2025-06-15 15:01 | XMS_ITS | Encounter Summary ---
Author Organization [employer] Address [address] [facility] [address] [place] [address] Care Team Providers Care Automatic Bow Maker Machine Tender Name Role Phone Chidi Hsu MD Primary Care Provide r Chidi Hsu MD Primary Care Provide r Encounter Details Date Type Department Care Team (Late st Contact Info) Description 08/08/2022 Orders Only [facility] [address] [place] [address] Monserrat Buck LPN Social History Tobacco Use [...] Description 08/12/2025 10:30 AM EST Office Visit [facility] [address] [place], [place] [phone] Chidi Hsu MD [address] [place], [place] [phone] documented as of this encounter Visit Diagnoses Not on filedocumented in this encounter Additional Health Concerns Assessment Noted Time PHQ-9 Depression Total Score: 13 07/19/ 022 1:00 PM EST documented as of this encounter Care Teams Automatic Bow Maker Machine Tender Relationship Specialty Start Date End Date Chidi Hsu MD [address] [place] [address] PCP - General Internal Medicine 04/19/14 02/18/23 Chidi Hsu MD [address] [place] [address] PCP - General Internal Medicine 02/19/23 documented as of this encounter
--- OUTSIDE RECORDS SUMMARY | 2025-06-15 15:01 | XMS_ITS | Encounter Summary ---
Author Organization [employer] Address 75 [facility] 7t [place] [address] Care Team Providers Care Insights Analyst Name Role Phone Chidi Hsu MD Primary Care Provide r Chidi Hsu MD Primary Care Provide r Encounter Details Date Type Department Care Team (Late st Contact Info) Description 09/10/2022 Orders Only [facility] CHC MED & PEDS [address] [place] [address] Monserrat Buck LPN Social History Tobacco Use [...] Description 08/12/2025 10:30 AM EST Office Visit [facility] MEDICINE [address] [place], [place] [phone] Chidi Hsu MD [address] [place], [place] [phone] documented as of this encounter Visit Diagnoses Not on filedocumented in this encounter Additional Health Concerns Assessment Noted Time PHQ-9 Depression Total Score: 13 07/19/ 022 1:00 PM EST documented as of this encounter Care Teams Insights Analyst Relationship Specialty Start Date End Date Chidi Hsu MD [address] [place] [address] PCP - General Internal Medicine 04/19/14 02/18/23 Chidi Hsu MD [address] [place] [address] PCP - General Internal Medicine 02/19/23 documented as of this encounter
--- OUTSIDE RECORDS SUMMARY | 2025-06-15 15:01 | XMS_ITS | Encounter Summary ---
Author Organization [employer] Address 75 [facility] 7t [place] [address] Care Team Providers Care Insurance Solicitor Name Role Phone Chidi Hsu MD Primary [...] Description 08/12/2025 10:30 AM EST Office Visit [facility] MEDICINE [address] [place] [address] Chidi Hsu MD [address] [place] [address] documented as of this encounter Visit Diagnoses Not on filedocumented in this encounter Care Teams Insurance Solicitor Relationship Specialty Start Date End Date Chidi Hsu MD [address] [place] [address] PCP - General Internal Medicine 04/19/14 02/18/23 Chidi Hsu MD [address] [place] [address] PCP - General Internal Medicine 02/19/23 documented as of this encounter
== END 2025-06-15 15:48 | disposition home or self-care (01) ==
PROVIDERS: PCP Internal Medicine; Visit Provider Physician Assistant Medical
DX: R05.1 Acute cough (principal)

== ENCOUNTER 2025-06-15 13:19 | Outpatient (REF) | payer MEDICARE, SELFPAY ==
--- NOTE | ~2025-06-15 | XR_ITS ---
EXAMINATION: XR CHEST CLINICAL INFORMATION: R05.9 - Cough, unspecified COMPARISON: February 07, 2020. TECHNIQUE: PA and lateral views. FINDINGS: Elevated left hemidiaphragm, unchanged. No consolidation, pleural effusion or pneumothorax. Cardiomediastinal silhouette size is normal. Multilevel upper lumbar spondylosis. S-shaped curvature of the thoracolumbar spine. Degenerative changes in the acromioclavicular joints. XR/XR chest 2V IMPRESSION: No acute airspace disease. Stable chest. 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 Electronically signed by: Carlos Enrique Lewis MD 06/15/2025 02:37 PM EST
[2025-06-15 18:00] LABS: Resp Syncy Virus RNA Qual PCR NEGATIVE (Negative); SARS COV2 PCR INHOUSE NEGATIVE (Negative)
== END 2025-06-15 13:20 | disposition home or self-care (01) ==
LOC: HO.HMGCX 13:19
PROVIDERS: PCP Internal Medicine; Visit Provider Physician Assistant Medical
DX: R05.1 Acute cough (principal); R09.89 Other specified symptoms and signs involving the circulatory and respiratory systems
CPT/HCPCS: 71046; 87637; 99212

== ENCOUNTER → 2025-06-15 14:22 | Outpatient (BNV) | payer MEDICARE, SELFPAY | PROVIDERS: PCP Internal Medicine; Visit Provider Radiology Diagnostic Radiology | DX: R05.9 Cough, unspecified (principal) | CPT/HCPCS: 71046 ==

== ENCOUNTER 2025-06-25 12:43 | Outpatient (AMB) | payer MEDICARE, SELFPAY ==
--- OUTSIDE RECORDS SUMMARY | 2025-06-25 13:05 | XMS_ITS | Encounter Summary ---
Author Organization [employer] Address 75 [facility] 7 [place] [address] Care Team Providers Care Psychometric Examiner Name Role Phone Chidi Hsu MD Primary Care Provide r Reason for Visit * Reason Onset Date Comments FYI 04/07/2025 Encounter Details Date Type Department Care Team ([facility] st Contact Info) Description 04/07/2025 Telephone [facility] MEDICINE [address] [place], [place] [phone] Chidi Hsu MD [address] [place] [address] FYI Social History Tobacco Use Types Packs/Day [...] to thank pcp for referring him to [facility] stating that it was a great experience and his foot is feeling 100% better than before. Paralegal Instructor agreed to send message as TYRESE. documented in this encounter Plan of Treatment Upcoming Encounters Date Type Department Care Team (Late st Contact Info) Description 08/12/2025 10:30 AM EST Office Visit [facility] MEDICINE [address] [place] [address] Chidi Hsu MD [address] [place] [address] documented as of this encounter Visit Diagnoses Not on filedocumented in this encounter Additional Health Concerns Assessment Noted Time PHQ-9 Depression Total Score: 2 10/28/19 9:20 AM EDT documented as of this encounter Care Teams Psychometric Examiner Relationship Specialty Start Date End Date Chidi Hsu MD [address] [place] [address] PCP - General Internal Medicine 02/19/23 documented as of this encounter
--- OUTSIDE RECORDS SUMMARY | 2025-06-25 13:05 | XMS_ITS | Encounter Summary ---
Author Organization [employer] Address 75 [facility] 7 [place] [address] Care Team Providers Care Operator Receptionist Name Role Phone Chidi Hsu MD Primary Care Provide r Reason for Visit * Reason Onset Date Comments Prior Authorization 06/07/2025 Medication Question 06/07/2025 Encounter Details Date Type Department Care Team ([facility] st Contact Info) Description 06/07/2025 Telephone [facility] MEDICINE [address] [place], [place] [phone] Chidi Hsu MD [address] [place], [place] [phone] Prior Authorization; Medication Question Social History Tobacco Use Types Packs/Day Years [...] encounter Miscellaneous Notes * Telephone Encounter - Sofia Mccoy - 06/23/2025 11:33 AM EST Charge Accounts Audit Clerk called [facility] pharmacy who confirmed prescription for Pradaxa filled and pt is willing to pay for medication. Out of pocket cost $158 is the patient's deductible. No PA needed * Telephone Encounter - Rand Erickson RN - 06/23/2025 10:56 AM EST RN called the [facility] pharmacy who stated that the pt was contacted regarding the newly sent prescription to resume Pradaxa 150 MG. Per the pharmacy the pt was informed that the generic brand would be 159.08 out of pocket with no PA needed. The pt stated that she does not want to be on the generic and requested the name brand of the Pradaxa. Pt is willing to pay 158.55 for a copay but the medication will require a PA. Pt was contacted to inform of this information and the pt stated that he has already spoken to the pharmacy who stated that they are preparing the medication for the pt to package pick up by today. Pt advised that once he starts on the Pradaxa to make sure he stops the Eliquis. The pt reiterated that he stopped the Eliquis almost a week ago due to Gi side effects. * Telephone Encounter - Rand Erickson RN - 06/22/2025 11:23 AM EST TC placed to the pt in regard to the request to switch from Eliquis back to Pradaxa. The pt confirmed that the has been experiencing negative side effects from the Eliquis mostly GI in nature. The pthas had persistent diarrhea daily and due to this has stopped taking the blood thinner all together. The pt is insistent in going back to the formerly prescribed Pradaxa and stated is more than willing to cover the cost if insurance does not. The pt was stressed the importance of taking daily bloodthinner due to diagnosed persistent atrial fibrillation to prevent clots. RN called the [facility] pharmacy who stated that the pt could switch back if renal function is good. Pt would need repeat labs to check kidney function as it has been over a year. RN will also send a request to PA specialist to putin a new PA for the Pradaxa medication. * Telephone Encounter - David Patterson - 06/22/2025 10:44 AM EST Tc from pt requesting script for Pradaxa 150 MG capsule , pt states he will pay as much as it cost out of pocket due to Eliquis making him sick. Pt requesting a call back to discuss next steps Contact pt at [phone] * Telephone Encounter - Judy Reed RN - 06/09/2025 9:08 AM EST Telephone call placed to pharmacy./ Spoke with Yanci who reports pt's insurance has high copays sohis copay for eliquis would be $419. However, if they run under our loyalty program his copay is $25 instead. Telephone call placed to pt. Informed Eliquis sent which is a similar blood thinner. Informed of copay $25. Pt states will pick it up. I will be sending Eliquis instead * Telephone Encounter - David Patterson - 06/08/2025 3:18 PM EST Tc from pt requesting a call back to discuss blood thinner as he states he can not stay without medication. He states he will pay out of pocket if need be Contact pt at [phone] * Telephone Encounter - Sofia Mccoy - 06/08/2025 11:32 AM EST PA required for Pradaxa. Preferred alternatives other than generic dabigatran Etexilate: ELIQUIS ORELIQUIS STARTER PACK, XARELTO TABS OR XARELTO STARTER PACK. Would you like to switch to the provided preferred alternatives or proceed with PA? Thank you * Telephone Encounter - Raciel Rios - 06/07/2025 3:28 PM EST Tc from pt stating he needs a PA for Pradaxa 150 MG capsule. If any questions contact pt at [phone]. documented in this encounter Plan of Treatment Upcoming Encounters Date Type Department Care Team (Late st Contact Info) Description 08/12/2025 10:30 AM EST Office Visit [facility] MEDICINE [address] [place] [address] Chidi Hsu MD [address] [place] [address] documented as of this encounter Goals Goal Patient Goal Type Associated Problems Recent Progress Patient-Stated? Author Help patients manage their type 2 diabetes Care Plan Help patients manage their type 2 diabetes David Apple Weekly blood pressure task Care Plan Weekly blood pressure task No David Weber Help patients manage their type 2 diabetes Care Plan Help patients manage their type 2 diabetes No David Weber Patient has chronic kidney disease Care Plan Patient has chronic kidney disease No David Weber Weekly blood pressure task Care Plan Weekly blood pressure task No David Weber Patient has chronic kidney disease Care Plan Patient has chronic kidney disease No David Weber Weekly blood pressure task Care Plan Weekly blood pressure task No Chidi Hsu MD Weekly blood pressure task Care Plan Weekly blood pressure task No Chidi Hsu MD Patient has chronic kidney disease Care Plan Patient has chronic kidney disease No Chidi Hsu MD Patient has chronic kidney disease Care Plan Patient has chronic kidney disease No Chidi Hsu MD Weekly blood pressure task Care Plan Weekly blood pressure task No Sofia Mccoy Weekly blood pressure task Care Plan Weekly blood pressure task No Sofia Mccoy Patient has chronic kidney disease Care Plan Patient has chronic kidney disease No Sofia Mccoy Patient has chronic kidney disease Care Plan Patient has chronic kidney disease No Sofia Mccoy Weekly blood pressure task Care Plan Weekly blood pressure task No Chidi Hsu MD Weekly blood pressure task Care Plan Weekly blood pressure task No hCidi Hsu MD Patient has chronic kidney disease Care Plan Patient has chronic kidney disease No Chidi Hsu MD Patient has chronic kidney disease Care Plan Patient has chronic kidney disease No Chidi Hsu MD documented as of this encounter Visit Diagnoses Not on filedocumented in this encounter Additional Health Concerns Active Problems Noted Date Diagnosed Date Help patients manage their type 2 diabetes 06/22 Weekly blood pressure task 06/22/2025 Help patients manage their type 2 diabetes 06/22 Patient has chronic kidney disease 06/22/2025 Weekly blood pressure task 06/22/2025 Patient has chronic kidney disease 06/22/2025 Weekly blood pressure task 06/22/2025 Weekly blood pressure task 06/22/2025 Patient has chronic kidney disease 06/22/2025 Patient has chronic kidney disease 06/22/2025 Weekly blood pressure task 06/24/2025 Weekly blood pressure task 06/24/2025 Patient has chronic kidney disease 06/24/2025 Patient has chronic kidney disease 06/24/2025 Weekly blood pressure task 06/24/2025 Weekly blood pressure task 06/24/2025 Patient has chronic kidney disease 06/24/2025 Patient has chronic kidney disease 06/24/2025 Assessment Noted Time PHQ-9 Depression Total Score: 2 10/28/19 9:20 AM EDT documented as of this encounter Care Teams Operator Receptionist Relationship Specialty Start Date End Date Chidi Hsu MD [address] [place] [address] PCP - General Internal Medicine 02/19/23 documented as of this encounter
--- OUTSIDE RECORDS SUMMARY | 2025-06-25 13:05 | XMS_ITS | Encounter Summary ---
Author Organization [employer] Address 75 [facility] 7t [place] [address] Care Team Providers Care Cook Soup Name Role Phone Chidi Hsu MD Primary Care Provide r Reason for Visit * Reason Onset Date Comments Nurse Triage 09/25/2023 Encounter Details Date Type Department Care Team ([facility] st Contact Info) Description 09/25/[address] [facility] MEDICINE [address] [place], [place] [phone] Chidi Hsu MD [address] [place] [address] Nurse Triage Social History Tobacco Use Types [...] Pt is advised to come to [facility] for provider to see Ptand assess [...] Description 08/12/2025 10:30 AM EST Office Visit [facility] MEDICINE [address] [place] [address] Chidi Hsu MD [address] [place] [address] documented as of this encounter Visit Diagnoses Not on filedocumented in this encounter Additional Health Concerns Assessment Noted Time PHQ-9 Depression Total Score: 13 07/19/ 022 1:00 PM EST documented as of this encounter Care Teams Cook Soup Relationship Specialty Start Date End Date Chidi Hsu MD [address] [place] [address] PCP - General Internal Medicine 02/19/23 documented as of this encounter
--- OUTSIDE RECORDS SUMMARY | 2025-06-25 13:05 | XMS_ITS | Encounter Summary ---
Author Organization [employer] Address 75 [facility] 7t [place] [address] Care Team Providers Care Deputy Sheriff Name Role Phone Chidi Hsu MD Primary [...] Office Visit [facility] MEDICINE [address] [place] [address] Chidi Hsu MD [address] [place] [address] documented as of this encounter Visit Diagnoses Not on filedocumented in this encounter Care Teams Deputy Sheriff Relationship Specialty Start Date End Date Chidi Hsu MD [address] [place] [address] PCP - General Internal Medicine 04/19/14 02/18/23 Chidi Hsu MD [address] [place] [address] PCP - General Internal Medicine 02/19/23 documented as of this encounter
--- OUTSIDE RECORDS SUMMARY | 2025-06-25 13:05 | XMS_ITS | Encounter Summary ---
Author Organization [employer] Address 75 [facility] 7t [place] [address] Care Team Providers Care Spaghetti Press Helper Name Role Phone Chidi Hsu MD Primary Care Provide r Encounter Details Date Type Department Care Team ([facility] st Contact Info) Description 06/22/2025 Orders Only [facility] MEDICINE [address] [place], [place] [phone] Chidi Hsu MD [address] [place], [place] [phone] Longstanding persistent atrial fibrillation (CMS/HCC) (HCC) (Primary Dx) Social History Tobacco Use Types Packs/Day Years [...] Description 08/12/2025 10:30 AM EST Office Visit [facility] MEDICINE [address] [place] [address] Chidi Hsu MD [address] [place] [address] documented as of this encounter Goals Goal Patient Goal Type Associated Problems Recent Progress Patient-Stated? Author Help patients manage their type 2 diabetes Care Plan Help patients manage their type 2 diabetes No David Weber Weekly blood pressure task [...] as of this encounter Visit Diagnoses Diagnosis Longstanding persistent atrial fibrillation (CMS/HCC) (HCC)- Primary documented in this encounter Additional Health Concerns Active [...] 06/22/2025 Patient has chronic kidney disease 06/22/2025 Assessment Noted Time PHQ-9 Depression Total Score: 2 10/28/19 25 9:20 AM EDT documented as of this encounter Care Teams Spaghetti Press Helper Relationship Specialty Start Date End Date Chidi Hsu MD [address] [place] [address] PCP - General Internal Medicine 02/19/23 documented as of this encounter
--- OUTSIDE RECORDS SUMMARY | 2025-06-25 13:05 | XMS_ITS | Clinical Summary ---
Author Organization [facility] Address [address] [place] [address] Phone Care Team Providers Care Cfd Engineer Name Role Phone Pcp, Unknown Primary Care [...] file Insurance MEDICARE PART A & B [employer] MEDEX SUPPLEMENT MEDICARE PART A & B [employer] MEDEX SUPPLEMENT MEDICARE PART A & B [facility] MEDEX SUPPLEMENT MEDICARE PART A & B [employer] MEDEX SUPPLEMENT MEDICARE PART A & B [employer] MEDEX SUPPLEMENT MEDICARE PART A & B [employer]EX SUPPLEMENT Care Teams Cfd Engineer Relationship Specialty Start Date End Date Pcp, Unknown PCP - General 03/18/24 Additional Source Comments The information contained in this document represents components of the legal health record. It is not the complete legal health record.[facility]
--- OUTSIDE RECORDS SUMMARY | 2025-06-25 13:05 | XMS_ITS | Encounter Summary ---
Author Organization [employer] Address 75 [facility] 7t [place] [address] Care Team Providers Care Water Plumber Name Role Phone Chidi Hsu MD Primary Care Provide r Encounter Details Date Type Department Care Team ([facility] st Contact Info) Description 06/24/2025 Orders Only [facility] MEDICINE [address] [place], [place] [phone] Chidi Hsu MD [address] [place], [place] [phone] Longstanding persistent atrial fibrillation (CMS/HCC) (HCC) (Primary [...] AM EDT documented as of this encounter Progress Notes * Chidi Hamlin MD - 06/24/2025 4:20 PM EST Called patient to instruct him to start Xarelto 20 mg po daily. Pt's Pradaxa was denied by his insurance. They want him to try xarelto first. New script sent to his Pharmacy. Copay with patient assistance should only be 15 USD per Pharmacist documented in this encounter Plan of Treatment Upcoming Encounters Date Type Department Care Team (Late st Contact Info) Description 08/12/2025 10:30 AM EST Office Visit [facility] MEDICINE [address] [place] [address] Chidi Hsu MD [address] [place] [address] documented as of this encounter Goals Goal [...] Care Plan Weekly blood pressure task No MccoyEfrain luiSofia Patient has chronic kidney disease Care Plan Patient has chronic kidney disease No MccoyCarol luia Patient has chronic kidney disease Care Plan [...] documented as of this encounter Care Teams Water Plumber Relationship Specialty Start Date End Date Chidi Hsu MD [address] [place] [address] PCP - General Internal Medicine 02/19/23 documented as of this encounter
--- OUTSIDE RECORDS SUMMARY | 2025-06-25 13:05 | XMS_ITS | Encounter Summary ---
Author Organization [employer] Address 75 [facility] 7 [place] [address] Care Team Providers Care Business Solution Analyst Name Role Phone Chidi Hsu MD Primary Care Provide r Reason for Visit * Reason Onset Date Comments Prior Authorization 06/24/2025 Encounter Details Date Type Department Care Team ([facility] st Contact Info) Description 06/24/2025 Telephone [facility] MEDICINE [address] [place], [place] [phone] Chidi Hsu MD [address] [place] [address] Prior Authorization Social History Tobacco Use Types Packs/Day Years [...] * Telephone Encounter - Sofia Mccoy - 06/24/2025 11:18 AM EST PA request received for pradaxa. PA generated in [facility]. Clinical information form from [employer] sent to pcp for completion via [employer]. documented in this encounter Plan of Treatment Upcoming Encounters Date Type Department Care Team (Late st Contact Info) Description 08/12/2025 10:30 AM EST Office Visit [facility] MEDICINE [address] [place] [phone] Chidi Hsu MD [address] [place] [address] documented as of this encounter Goals Goal [...] documented as of this encounter Care Teams Business Solution Analyst Relationship Specialty Start Date End Date Chidi Hsu MD [address] [place] [address] PCP - General Internal Medicine 02/19/23 documented as of this encounter
--- OUTSIDE RECORDS SUMMARY | 2025-06-25 13:06 | XMS_ITS | Encounter Summary ---
Author Organization [employer] Address 75 [facility] 7t [place] [address] Care Team Providers Care Companion Caregiver Name Role Phone Chidi Hsu MD Primary Care Provide r Chidi Hsu MD Primary Care Provide r Encounter Details Date Type Department Care Team (Late st Contact Info) Description 08/08/2022 Orders Only [facility] CHC MED & PEDS [address] [place] [address] Monserrat Buck LPN Social History Tobacco Use [...] Description 08/12/2025 10:30 AM EST Office Visit [facility] MEDICINE [address] [place], [place] [phone] Chidi Hsu MD [address] [place], [place] [phone] documented as of this encounter Visit Diagnoses Not on filedocumented in this encounter Additional Health Concerns Assessment Noted Time PHQ-9 Depression Total Score: 13 07/19/ 022 1:00 PM EST documented as of this encounter Care Teams Companion Caregiver Relationship Specialty Start Date End Date Chidi Hsu MD [address] [place] [address] PCP - General Internal Medicine 04/19/14 02/18/23 Chidi Hsu MD [address] [place] [address] PCP - General Internal Medicine 02/19/23 documented as of this encounter
--- OUTSIDE RECORDS SUMMARY | 2025-06-25 13:06 | XMS_ITS | Clinical Summary ---
Author Organization [employer] Address 75 [facility] 7t [place] [address] Care Team Providers Care Teller Vault Name Role Phone Chidi Hsu MD Primary [...] 30 g 2 024 Active Continuous Glucose City Superintendent (FreeStyle Gulshan 3 [place]) deviceIndications :Type 2 diabetes mellitus without complication, without long-term current use of insulin (HCC) 1 each 3 times daily. Check blood sugar 3x daily 1 each 02/04/2 025 Active Continuous Glucose Sensor (FreeStyle Gulshan 3 Plus Sensor) miscIndications:T ype 2 diabetes mellitus without complication, without long-term current use of insulin (HCC) 1 Application every 15 days. 2 each Active losartan (Cozaar) 25 MG tabletIndications :Primary hypertension TAKE 1 TABLET BY MOUTH EVERY EVENING 30 tablet 6 Active metFORMIN (Glucophage) 500 MG tablet TAKE 2 TABLETS BY MOUTH TWICE DAILY IN THE MORNING AND EVENING 360 tablet 1 Active atorvastatin (Lipitor) 20 MG tabletIndications :Mixed hyperlipidemia TAKE 1 TABLET BY MOUTH EVERY MORNING 90 tablet 1 025 Active chlorthalidone (Hygroton) 25 MG tablet TAKE 1 TABLET BY MOUTH EVERY MORNING 30 tablet 6 Active meclizine (Antivert) 25 MG tabletIndications :Dizziness Take 1 tablet (25 mg) by mouth if needed in the morning and at bedtime for dizziness. 30 tablet 3 Active rivaroxaban (Xarelto) 20 MG tabletIndications :Longstanding persistent atrial fibrillation (CMS/HCC) (HCC) Take 1 tablet (20 mg) by mouth with evening meal. Take with food. 30 tablet 3 Active Pradaxa 150 MG capsule TAKE 1 CAPSULE BY MOUTH TWICE DAILY IN THE MORNING AND IN THE EVENING 60 capsule 6 025 2024 Discontinued(A lternate therapy) apixaban (Eliquis) 5 MG tabletIndications :Longstanding persistent atrial fibrillation (CMS/HCC) (HCC) Take 1 tablet (5 mg) by mouth 2 times daily. 60 tablet 3 025 2024 Discontinued(P atient refused) dabigatran etexilate (Pradaxa) 150 MG capsuleIndication s:Atrial Fibrillation Take 1 capsule (150 mg) by mouth 2 times daily. Do not crush or chew. 60 capsule 3 025 2024 Discontinued(D uplicate order (will not trigger notification to Pharmacy)) Active Problems Problem Noted Date Diagnosed Date [...] the surgery. Wanted to go back to [facility], he had a steroid injection with no good result. He was then referred to a Neurosurgeon at [facility]. We contacted them and we were told they have yet to received anything from [facility]. We also contacted [facility] and we were told they were going to resend the referral and applicable information and notify us after that. I explained to patient that this is also a Neurosurgeon and that the main reason to go see him would be if he is interested in having a surgical intervention. Patient verbalized understanding. Pt under the care of Dr Mosquera at [facility] ( Spine surgeon ) He is now [...] the surgery. Wanted to go back to [facility], he had a steroid injection with no good result. He was then referred to a Neurosurgeon at [facility]. We contacted them and we were told they have yet to received anything from [facility]. We also contacted [facility] and we were told they were going to resend the referral and applicable information and notify us after that. I explained to patient that this is also a Neurosurgeon and that the main reason to go see him would be if he is interested in having a surgical intervention. Patient verbalized understanding. Pt under the care of Dr Mosquera at [facility] ( Spine surgeon ) He is now [...] the surgery. Wanted to go back to [facility], he had a steroid injection with no good result. He was then referred to a Neurosurgeon at [facility]. We contacted them and we were told they have yet to received anything from [facility]. We also contacted [facility] and we were told they were going to resend the referral and applicable information and notify us after that. I explained to patient that this is also a Neurosurgeon and that the main reason to go see him would be if he is interested in having a surgical intervention. Patient verbalized understanding. Pt under the care of Dr Mosquera at [facility] ( Spine surgeon ) He is now [...] the surgery. Wanted to go back to [facility], he had a steroid injection with no good result. He was then referred to a Neurosurgeon at [facility]. We contacted them and we were told they have yet to received anything from [facility]. We also contacted [facility] and we were told they were going to resend the referral and applicable information and notify us after that. I explained to patient that this is also a Neurosurgeon and that the main reason to go see him would be if he is interested in having a surgical intervention. Patient verbalized understanding. Pt under the care of Dr Mosquera at [facility] ( Spine surgeon ) He is now [...] the surgery. Wanted to go back to [facility], he had a steroid injection with no good result. Today he showed me that he was referred to a Neurosurgeon at [facility]. He does not feel he can continue with PT. We contacted them and we were told they have yet to received anything from [facility]. We also contacted [facility] and we were told they were going to resend the referral and applicable information and notify us after that. I explained to patient that this is also a Neurosurgeon and that the main reason to go see him would be if he is interested in having a surgical intervention. Patient verbalized understanding. Pt under the care of Dr Mosquera at [facility] ( Spine surgeon ) who described him [...] the surgery. Wanted to go back to [facility], he had a steroid injection with no good result. Today he showed me that he was referred to a Neurosurgeon at [facility]. He does not feel he can continue with PT. We contacted them and we were told they have yet to received anything from [facility]. We also contacted [facility] and we were told they [...] decided to go see Dr Mosquera at [facility] ( Spine surgeon ) who described him [...] the surgery. Wanted to go back to [facility], he had a steroid injection with no good result. Today he showed me that he was referred to a Neurosurgeon at [facility]. He does not feel he can continue with PT. We contacted them and we were told they have yet to received anything from [facility]. We also contacted [facility] and we were told they [...] was subsequently seen at our [facility] by Dr. Miranda Romeo who recommended [...] the surgery. Wanted to go back to [facility], he was recently seen had a steroid injection with no good results, apparently he was referred elsewhere records requested Pt would like to try PT Preventative health care 10/23/2022 Assessment & Plan (03/02/2025 [...] MRI reviewed via telemedicibe by: Neurosurgeon at [facility] 02/23/2025 who recommended repeat imaging in 1 [...] Oliver 03/16/2024 and subsequently by Neurosurgeon at [facility] 05/21/2024 who recommended repeat imaging in January [...] Oliver 03/16/2024 and subsequently by Neurosurgeon at [facility] 05/21/2024 who recommended repeat imaging in January [...] LDL-C. Zachary SS et al. MISHA. 2013;310(19): 4716-4882 (http://education.[employer]/faq/DSF214) Chol/HDLC Ratio <5.0 (calc) 2.1 2.4 2.2 [...] LDL-C. Zachary AVILA et al. MISHA. 2013;310(19): 9127-2032 (http://education.[employer]end[employer]/faq/RNG211) Chol/HDLC Ratio <5.0 (calc) 2.1 2.4 2.2 [...] Encounters Date Type Department Care Team Description 06/24/2025 Orders Only [facility] [place] [address] Chidi Hsu MD Longstanding persistent atrial fibrillation (CMS/HCC) (HCC) (Primary Dx) 06/24/2025 Telephone [facility] [place], [place] [address] Chidi Hsu MD Prior Authorization 06/22/2025 Orders Only [facility] [place], [place] [address] Chidi Hsu MD Longstanding persistent atrial fibrillation (CMS/HCC) (HCC) (Primary Dx) 06/15/2025 Orders Only GENERIC EXTERNAL DATA DEPARTMENT Provider, Generic External Data 06/08/2025 Orders Only [facility] [place], [place] [address] Chidi Hsu MD Longstanding persistent atrial fibrillation (CMS/HCC) (HCC) (Primary Dx) 06/07/2025 Telephone [facility] [place] [address] Chidi Hsu MD Prior Authorization; Medication Question 05/31/2025 Telephone [facility] [place] [address] Chidi Hsu MD July05/11/2025 Patient Outreach [facility] [address] [place] [address] Chidi Hsu MD Medicare Annual Wellness Visit Initial (AWV unscheduled) 04/27/2025 11:00 AM EDT Office Visit [facility] [place] [address] Chidi Hsu MD Type 2 diabetes mellitus without complication, without long-term current use of insulin ([facility]) (Primary Dx); Primary hypertension; Callus of toe; Acute pain of left knee; Left foot pain; Lumbar radiculopathy; Encounter for immunization 04/27/2025 Travel 04/26/2025 Telephone [facility] [place] [address] Chidi Hsu MD CHART PREP 04/09/2025 Refill [facility] [address] [place] [address] Chidi Hsu MD 04/07/[address] [address] Chidi Hsu MD FYI 04/07/[address] [address] Chidi Hsu MD Nurse Triage from Last 3 Months Immunizations Immunization Administration [...] is your housing situation today? I have edwigeleonela green 10/27/[address] you [...] Description 08/12/2025 10:30 AM EST Office Visit [facility] [address] [place], [place] [phone] Chidi Hsu MD [address] [place] [address] Health Maintenance Due Date Last Done Comments Eye Exam 1955 Alcohol/Substance Use Screening 1957 Hepatitis A Vaccines (1 of 2 - Risk 2-dose series) 1964 Zoster Vaccines (1 of 2) 1995 Hepatitis B Vaccines (1 of 3 - Risk 3-dose series) 2005 RSV Patients and Patients Aged 60 years or older (1 - 1-dose 75+ series) 2020 COVID-19 Vaccine ( - season) 2025 10/13/2020, 09/15/2020 Diabetes: Hemoglobin A1C 09/02/2025 025, 10/27/2024, 06/23/2024, Additional history exists Diabetes: Urine Protein Screening 10/23/2025 10/23/2024, 08/24/2021, 08/24/2021, Additional history exists Lipid Panel 10/23/2025 10/23/2024, 10/04, 08/24/2021, Additional [...] on patient's age to complete this topic Goals Goal Patient Goal Type Associated Problems [...] Care Plan Weekly blood pressure task No Darius Sofia Patient has chronic kidney disease Care Plan [...] chronic kidney disease No Chidi Hsu MD Procedures Procedure Name Priority Date/Time Associated Diagnosis Comments XR CHEST 2 VIEWS Routine 06/15/2025 2:23 PM EST SARS COV2/INFLUENZA A/B AND RSV RNA QL NAAT Routine 06/15/2025 1:19 PM EST XR KNEE 3 VIEWS LEFT [...] PM EST Narrative 06/15/2025 2:39 PM EST [facility] [address] [place] [address] [place] [address] XRay Report Signed Patient: Bernice Atkins MR#: [id number] 15 : 1945 Acct:[id number] Age/Sex: 80 / M ADM Date: 06/15/25 Loc: HO.HMGCX Attending Dr: Wei Hay PA-C Ordering Physician: WEI HAY Date of Service: 06/15/25 Procedure(s): XR chest 2V Accession Number(s): [id number] cc: Chidi Costa MD; WEI HAY Reason [...] Enrique Lewis MD 06/15/2025 02:37 PM EST Dictated By: Carlos Enrique Cadena MD Signed By: <Electronically signed by Carlos Enrique Reed MD in OV> 06/15/25 1437 DD/ 1423 TD/TT: 06/15/25 1426 Induction Coordination Engineer: Procedure Note Donotuseinterpreter, Image - 06/15/2025 [facility] [address] [place] [address] [place] [address] XRay Report Signed Patient: Bernice AtkinsMR#: [id number] 15 : 5Acct:[id number] Age/Sex: 80 / MADM Date: 06/15/25 Loc: HO.HMGCX Attending Dr: Wei Hay PA-C Ordering Physician: WEI HAY Date of Service: 06/15/25 Procedure(s): XR chest 2V Accession Number(s): [id number] cc: Chidi Costa MD; WEI HAY Reason [...] Enrique Lewis MD 06/15/2025 02:37 PM EST Dictated By: Carlos Enrique Cadena MD Signed By: <Electronically signed by Carlos Enrique Reed MDin OV> 06/15/25 1437 DD/ 1423 TD/TT: 06/15/25 1426 Induction Coordination Engineer: [facility] External Provider IMG XR PROCEDURES Edited Result - Final * SARS-CoV-2 RNA, Influenza A/B, and RSV RNA, Ql NAAT (06/15/2025 1:19 PM EST) Influenza A PCR NEGATIVE Negative [facility] Influenza B PCR NEGATIVE Negative [facility] Resp Syncy Virus RNA Qual PCR NEGATIVE Negative [facility] SARS COV2 PCR NEGATIVE Negative [facility] Comment:All test results mus t be correlated with clinical findings.Negative results do not preclude SARS-CoV2, influenza Avirus, influenza B virus and/or RSV infectionand should not be used as the sole basis for treatment orother patient management decisions. Negative results must becombined with clinical observations, patient history, andepidemiological information.This test has not been evaluated for monitoring treatment ofinfection.This test has been authorized by the FDA under an EmergencyUse Authorization (EUA) for use by authorized laboratories.Testing performed on the [employer] GeneXpert utilizingreal-time RT-PCR.All SARS CoV2 and positive influenza A/B results arereported to [facility]. 06/15/2025 1:19 PM EST 06/15/2025 5:10 PM EST us Generic External Data Provider LAB MICROBIOLOGY - GENERAL ORDERABLES Final Result [facility] [address] [place] [phone] * XR Knee 3 Views Left (04/27/2025 12:50 PM EDT) Anatomical Region Laterality Modality Lower Extremities, Knee Left Radiogra phic Imaging 04/27/2025 12:5 0 PM EDT Narrative 04/27/2025 1:09 PM EDT [address] [address] XRay Report Signed Patient: Bernice Atkins MR#: [id number] [birth year] : 1945 Acct:[id number] Age/Sex: 79 / M ADM Date: 04/27/25 Loc: HO.HHCX Attending Dr: Chidi Costa MD Ordering Physician: Chidi Costa MD Date of Service: 04/27/25 Procedure(s): XR knee LT 3V Accession Number(s): [id number] cc: Chidi Costa MD Reason for Exam: [...] OV> 04/27/25 1307 DD/ 1250 TD/TT: 04/27/25 125 Induction Coordination Engineer: Procedure Note Donotuseinterpreter, Image - 04/27/[address] [address] XRay Report Signed Patient: Bernice AtkinsMR#: [id number] 15 : 5Acct:[id number] Age/Sex: 79 / MADM Date: 04/27/25 Loc: HO.HHCX Attending Dr: Chidi Costa MD Ordering Physician: Chidi Costa MD Date of Service: 04/27/25 Procedure(s): XR knee LT 3V Accession Number(s): [id number] cc: Chidi Costa MD Reason for Exam: [...] OV> 04/27/25 1307 DD/ 1250 TD/TT: 04/27/25 1257 Induction Coordination Engineer: us Chidi Hamlin MD IMG XR PROCEDURES Fin al Result * XR Foot 3+ Views Left (04/27/2025 12:26 PM EDT) Anatomical Region Laterality Modality Lower Extremities, Foot Left Radiogra phic Imaging 04/27/2025 12:2 6 PM EDT Narrative 04/27/2025 1:35 PM EDT [address] [address] XRay Report Signed Patient: Bernice Atkins MR#: [id number] [birth year] : 1945 Acct:[id number] Age/Sex: 79 / M ADM Date: 04/27/25 Loc: HO.HHCX Attending Dr: Chidi Costa MD Ordering Physician: Chidi Costa MD Date of Service: 04/27/25 Procedure(s): XR foot LT min 3V Accession Number(s): [id number] cc: Chidi Costa MD Reason for Exam: [...] 04/27/25 1332 DD/ 1226 TD/TT: 04/27/25 1259 Induction Coordination Engineer: Procedure Note Donotuseinterpreter, Image - 04/27/[address] [address] XRay Report Signed Patient: Bernice AtkinsMR#: [id number] 15 : 5Acct:[id number] Age/Sex: 79 / MADM Date: 04/27/25 Loc: HO.HHCX Attending Dr: Chidi Costa MD Ordering Physician: Chidi Costa MD Date of Service: 04/27/25 Procedure(s): XR foot LT min 3V Accession Number(s): [id number] cc: Chidi Costa MD Reason for Exam: [...] 04/27/25 1332 DD/ 1226 TD/TT: 04/27/25 1259 Induction Coordination Engineer: Chidi Hamlin MD IMG XR PROCEDURES Fin al Result * (ABNORMAL) POCT glycosylated hemoglobin (Hgb A1c) (03/02/2025 11:04 AM EDT) Hemoglobin A1C 6.8(A) 4.0 - 5.7 % QC Media Lot # [id number] Lot# Expiration Date [id number] Blood Capillary blood specimen / Unknown 03/02/2025 11:04 AM EDT Chidi Hamlin MD POINT OF CARE TEST EN TER/EDIT ORDERABLES Final Result * Albumin, Random Urine W/Creatinine (10/23/2024 8:17 AM EDT) Creatinine, Urine 95.81 mg/dL [facility] Microalbumin Urine <5.0 mg/L [facility] Microalbum Creatinine Ratio Ur TNP <30 ug/mg cr [facility] Comment:Unable to calculate albumin/creatinine ratio due to lowmicroalbumin or creatinine result. Urine (Urine, Random) 10/23/2024 8:17 AM EDT 10/23/2024 11:18 AM EDT us Chidi Hamlin MD LAB URINE ORDERABLES Final Result [facility] [address] [place] [phone] * Lipid Panel, Standard (10/23/2024 8:17 AM EDT) Triglycerides 52 <150 mg/dL [facility] Comment:Desirable Triglyceri de: less than 150 mg/dLBorderline High Triglyceride 150-199 mg/dLHigh Triglyceride: 200-499 mg/dLVery High Triglyceride: greater than or equal to 5OO mg/dL Cholesterol 144 <200 mg/dL [facility] Comment:Desirable Cholestero l: less than 200 mg/dLBorderline High Cholesterol: 200-239 mg/dLHigh Cholesterol: greater than 239 mg/dL LDL Cholesterol Calculated 69 <100 mg/dL [facility] Comment:Desirable LDL: less than 100 mg/dLNear Optimal/Above Optimal LDL: 110- 129 mg/dLBorderline High LDL: 130-159 mg/dLHigh LDL: 160-189 mg/dLVery High LDL: greater than or equal to 190 mg/dL HDL Cholesterol 65 >40 mg/dL [facility] Comment:Desirable HDL: great er than 40 mg/dL Note: This HDL assay may give artificially low results in patients with liver disease. Blood Venous blood specimen / Unknown 10/23/2024 8:17 AM EDT 10/23/2024 11:07 AM EDT Chidi Hamlin MD LAB BLOOD ORDERABLES Final Result [facility] [address] [place] [phone] from Last 3 Months or Most Recently Relevant to Health Maintenance Additional Health Concerns Active Problems Noted Date [...] 06/24/2025 Patient has chronic kidney disease 06/24/[address] [place] [address] [place] [phone] [facility] MED[employer] MEDICARE SUPPLEMENT Care Teams Teller Vault Relationship Specialty Start Date End Date Chidi Hsu MD [address] [place] [phone] PCP - General Internal Medicine 02/19/23
--- OUTSIDE RECORDS SUMMARY | 2025-06-25 13:06 | XMS_ITS | Encounter Summary ---
Author Organization [employer] Address [address] [facility] 7 [place] [address] Care Team Providers Care Chair Car Driver Name Role Phone Chidi Hsu MD Primary Care Provide r Reason for Visit * Reason Onset Date Comments Call Back Request 10/27/2024 Encounter Details Date Type Department Care Team ([facility] st Contact Info) Description 10/27/2024 Telephone [facility] [address] [place], [place] [phone] Chidi Hsu MD [address] [place], [place] [phone] Call Back Request Social History Tobacco Use [...] chance reached out please return call to [phone] documented in this encounter Plan of Treatment Upcoming Encounters Date Type Department Care Team (Late st Contact Info) Description 08/12/2025 10:30 AM EST Office Visit [facility] [address] [place] [address] Chidi Hsu MD [address] [place] [address] documented as of this encounter Visit Diagnoses Not on filedocumented in this encounter Additional Health Concerns Assessment Noted Time PHQ-9 Depression Total Score: 2 10/28/19 9:20 AM EDT documented as of this encounter Care Teams Chair Car Driver Relationship Specialty Start Date End Date Chidi Hsu MD [address] [place] [address] PCP - General Internal Medicine 02/19/23 documented as of this encounter
--- OUTSIDE RECORDS SUMMARY | 2025-06-25 13:06 | XMS_ITS | Encounter Summary ---
Author Organization [employer] Address 75 [facility] 7t [place] [address] Care Team Providers Care Director Of Advertising Sales Name Role Phone Chidi Hsu MD Primary Care Provide r Chidi Hsu MD Primary Care Provide r Encounter Details Date Type Department Care Team ([facility] Contact Info) Description 11/08/2022 Orders Only [facility] [address] [place] [address] Monserrat Buck LPN Social History Tobacco Use [...] Upcoming Encounters Date Type Department Care Team ([facility] Contact Info) Description 08/12/2025 10:30 AM EST Office Visit [facility] [address] [place] [address] Chidi Hsu MD [address] [place] [address] documented as of this encounter Visit Diagnoses Not on filedocumented in this encounter Additional Health Concerns Assessment Noted Time PHQ-9 Depression Total Score: 13 07/19/ 022 1:00 PM EST documented as of this encounter Care Teams Director Of Advertising Sales Relationship Specialty Start Date End Date Chidi Hsu MD [address] [place] [phone] PCP - General Internal Medicine 04/19/14 02/18/23 Chidi Hsu MD [address] [place] [phone] PCP - General Internal Medicine 02/19/23 documented as of this encounter
--- OUTSIDE RECORDS SUMMARY | 2025-06-25 13:06 | XMS_ITS | Encounter Summary ---
Author Organization [employer] Address [address] [facility] 7t [place] [address] Care Team Providers Care Aquaculture Program Director Name Role Phone Chidi Hsu MD Primary Care Provide r Chidi Hsu MD Primary Care Provide r Encounter Details Date Type Department Care Team (Late st Contact Info) Description 09/10/2022 Orders Only [facility] [address] [place] [address] Monserrat Buck LPN Social History Tobacco Use [...] Description 08/12/2025 10:30 AM EST Office Visit [facility] [address] [place], [place] [phone] Chidi Hsu MD [address] [place], [place] [phone] documented as of this encounter Visit Diagnoses Not on filedocumented in this encounter Additional Health Concerns Assessment Noted Time PHQ-9 Depression Total Score: 13 07/19/ 022 1:00 PM EST documented as of this encounter Care Teams Aquaculture Program Director Relationship Specialty Start Date End Date Chidi Hsu MD [address] [place] [address] PCP - General Internal Medicine 04/19/14 02/18/23 Chidi Hsu MD [address] [place] [address] PCP - General Internal Medicine 02/19/23 documented as of this encounter
--- OUTSIDE RECORDS SUMMARY | 2025-06-25 13:06 | XMS_ITS | Encounter Summary ---
Author Organization [employer] Address [address] [facility] [address] [place] [address] Care Team Providers Care Cloud Security Architect Name Role Phone Chidi Hsu MD Primary Care Provide r Encounter Details Date Type Department Care Team (Late st Contact Info) Description 03/07/2023 Orders Only [facility] PEDS [address], [place] [phone] Elida Calles LPN Social History Tobacco Use [...] Description 08/12/2025 10:30 AM EST Office Visit [facility] MEDICINE [address] [place], [place] [phone] Chidi Hsu MD [address] [place], [place] [phone] documented as of this encounter Visit Diagnoses Not on filedocumented in this encounter Additional Health Concerns Assessment Noted Time PHQ-9 Depression Total Score: 13 022 1:00 PM EST documented as of this encounter Care Teams Cloud Security Architect Relationship Specialty Start Date End Date Chidi Hsu MD [address] [place] [id number] PCP - General Internal Medicine 02/19/23 documented as of this encounter
--- NOTE | 2025-06-25 13:30 | A.OFFVIS_ITS ---
Vital Signs 06/25/25 13:31 Height 5 ft 6 in Weight 143 lb 11.862 oz BMI 23.2 BP 90/52 L Blood Pressure Location Rt brachial Position Sitting Pulse 47 L Pulse Source Monitor Intake Visit Reasons: 3m follow up [employer] Required: No Allergies No Known Allergies Allergy (Mild, Verified 06/25/25 13:34) NONE Medication List - Last Reconciled 06/25/25 by Jazmin Mchugh NP-C acetaminophen 500 mg PO Q6H PRN albuterol sulfate 90 mcg/actuation 2 puffs inhalation Q6H PRN alcohol swabs 1 pad topical TID amiodarone 200 mg PO DAILY 30 days atorvastatin 20 mg PO DAILY benzonatate 200 mg PO BEDTIME PRN blood pressure test kit-large As directed blood sugar diagnostic As directed chlorthalidone 25 mg PO DAILY dabigatran etexilate (Pradaxa) 150 mg PO losartan 25 mg PO DAILY meclizine 25 mg PO BID PRN metformin 500 mg PO BID prednisone 40 mg (2 x 20 mg) PO DAILY 5 days terazosin 5 mg PO BEDTIME HPI HPI 3m follow up: Details: Bernice is a 80 yo male with PMH of hypertension, diabetes, sick sinus syndrome, paroxysmal atrial fibrillation, SVT who was recently evaluated by electrophysiology Dr. Perez and put on amiodarone for heart rhythm control. Patient had declined ablation. Today he reports that since starting amiodarone he is feeling much better. He has not had any episodes of rapid or irregular heartbeats. No palpitations, lightheadedness, presyncope, syncope, falls.. No chest discomfort, shortness of breath, leg edema. He reports good activity tolerance. Taking all meds as directed with the exception of his blood thinner which he ran out of 3 weeks ago. He states that his insurance says it is no longer covered but he still wants to pay for it in [place] since that medicine has been working well for him with no side effects. [facility] Medical History Lumbar stenosis with neurogenic claudication Left lumbar radiculopathy Pituitary adenoma Hiatal hernia History of transesophageal echocardiography (JANNA) Pre-operative cardiovascular examination Erectile dysfunction BPH with obstruction/lower urinary tract symptoms Dizziness PAF (paroxysmal atrial fibrillation) SSS (sick sinus syndrome) Diabetes mellitus GERD (gastroesophageal reflux disease) HTN (hypertension) Surgical History Hx of decompressive lumbar laminectomy Hx of esophagogastroduodenoscopy History of cardioversion (~2012) Hx of colonoscopy Hx of umbilical hernia repair Hx of inguinal hernia surgery Family History Father Alzheimer disease Mother No problems noted. Brother Diabetes Social History Are you a primary resident care technician to a significant other at home: No Do you presently have visiting nurse or other home services: No Comment: aware of trip hazard Patient Tobacco Use Status: Never used Tobacco Advance Directives Date on File: 09/11/19 Review of Systems Const All systems reviewed & are unremarkable except as noted in HPI and below ENT Denies dizziness Card Denies chest pain, Denies chest pain at rest, Denies chest pain with activity, Denies rapid heart rate, Denies pedal edema, Denies edema, Denies leg edema, Denies lightheadedness, Denies palpitations, Denies dyspnea, Denies dyspnea on exertion and Denies orthopnea Resp Denies cough, Denies dyspnea and Denies dyspnea on exertion GI Denies hematochezia and Denies change in stool character Musc Denies abnormal gait, Denies limited range of motion, Denies muscle cramps, Denies muscle weakness, Denies numbness, Denies radiating pain into limb, Denies stiffness and Denies tingling Neuro Denies abnormal gait, Denies dizziness, Denies numbness and Denies tingling Endo Denies palpitations Physical Exam Vital Signs: Last Vital Signs Pulse 47 L 06/25/25 13:31 BP 90/52 L 06/25/25 13:31 BMI result Body Mass Index 23.2 Const General: cooperative, healthy appearing, comfortable and no acute distress Orientation/consciousness: patient oriented x3 Neck Neck: Yes normal visual inspection Resp Effort & Inspection: normal respiratory effort Auscultation: clear to auscultation bilaterally, no crackles, no rales, no rhonchi and no wheezes Cardio Rate: regular rate Rhythm: regular rhythm Heart sounds: S1 normal heart sound present, S2 normal heart sound present, no gallops, no murmurs and no rubs Neuro General: patient oriented x3 Extrem General: Yes normal to inspection, No no pedal edema and No calf tenderness Psych Appearance: grossly normal Mental Status: mental status grossly normal Speech and movement: Normal speech and movement present Office Procedures EKG Details: Today read by me, sinus bradycardia, nonspecific T-wave abnormality, rate 47, QTC 419 milliseconds [id number], Complete Assessment & Plan Assessment & Plan (1) SVT (supraventricular tachycardia): Code(s): I47.10 - Supraventricular tachycardia, unspecified Category: Medical Plan: Holter monitor done for 14 days on 02/15/2025 showing sinus rhythm with average heart rate 69 beats per minute, frequent PVCs 8.2 %, frequent SVT, longest run 19 minutes at rate 207, episode wide complex tachycardia which is likely SVT with aberrant conduction lasting 52 seconds. No symptoms reported with SVT. He was referred to electrophysiology, Dr Perez an opted for antiarrhythmic therapy instead of ablation. He was put on amiodarone which is currently at 400 mg daily. EKG today showing sinus bradycardia, rate 47. Sent message to Dr. Perez - he agreed to reduce amiodarone down to 200 mg daily. I will send new script to the pharmacy. Inform patient of the need for lab work for amiodarone toxicity monitoring. Labs entered include CMP, CBC and TSH. Reviewed caffeine reduction. Cardiology follow-up 3-4 months, sooner if needed. He does have upcoming visit with Dr. White as well. (2) PAF (paroxysmal atrial fibrillation): Code(s): I48.0 - Paroxysmal atrial fibrillation Category: Medical Plan: History of paroxysmal atrial fibrillation with recent Holter monitor not showing any PAF. He was not on rate slowing agents, then recently put on amiodarone by EP, as above. He is on Pradaxa for anticoagulation and tells me that the insurance will no longer pay for it. He has been off of it for 3 weeks but is going to the pharmacy after this office visit. He is going to pay [place] for his medication. Offered to change him to Eliquis or Xarelto as those may be covered by his insurance and he declines. He wants to stay on Pradaxa as he has had no side effects from it. (3) SSS (sick sinus syndrome): Code(s): I49.5 - Sick sinus syndrome Category: Medical Plan: Bradycardia with low-dose beta-blockers. Now on amiodarone. Reducing dose as above. (4) HTN (hypertension): Code(s): I10 - Essential (primary) hypertension Category: Medical Plan: Blood pressure goal less than 130/80. Low today, asymptomatic. Reviewed good hydration. If he becomes symptomatic then chlorthalidone or losartan can be reduced. Plan I discussed the importance of consistent anticoagulation therapy with the patient to prevent blood clots. We addressed the access issue with Pradaxa, which the patient's pharmacy reported as not being covered by insurance. We discussed alternative anticoagulants like Eliquis or Xarelto if Pradaxa coverage remains an issue, although the patient expressed a strong preference for continuing Pradaxa, which has been well-tolerated. I placed an order for blood work to monitor liver and thyroid function and explained that it can be done at a convenient time and location without fasting. I informed him that the amiodarone will be reduced to 1 pill per day and that a new script will be sent to the pharmacy. He is to notify us if he is experiencing any new lightheadedness, heart palpitations, shortness of breath. We agreed on a follow-up appointment in 3-4 months, or sooner if any issues arise. Orders: Orders Complete Blood Count Auto Diff Today I47.10 - Supraventricular tachycardia, unspecified, I48.0 - Paroxysmal atrial fibrillation Comprehensive Met. Panel Today I47.10 - Supraventricular tachycardia, unspecified, I48.0 - Paroxysmal atrial fibrillation TSH reflex Free T4 Today I47.10 - Supraventricular tachycardia, unspecified, I48.0 - Paroxysmal atrial fibrillation Medications: New amiodarone 200 mg PO DAILY 30 tabs 4RF 30 days Patient Instructions: - It is very important that you get back on your blood thinner to prevent blood clots. - Please get blood work done in the next few weeks to check your liver and thyroid. - Reduce Amiodarone to 1 pill ( 200mg) per day - We will see you back in the office in 3 to 4 months. Patient was informed and verbally consented to the use of an ambient scribe for clinic note documentation during this visit. Visit time spent on chart review, interview, assessment, orders, documentation. Coding Level of Care Code Est Pt Level 4 (07320) Complex visit Add On G2211 Diagnoses SVT (supraventricular tachycardia) I47.10 PAF (paroxysmal atrial fibrillation) I48.0 SSS (sick sinus syndrome) I49.5 HTN (hypertension) I10 CPT Codes EKG - CPT: 52967-[id number], Complete ([id number]) Time Spent (min) 28
[2025-06-25 13:31] VITALS: BP 90/52; PULSE 47; BMI 23.2
== END 2025-06-25 14:13 | disposition home or self-care (01) ==
LOC: HO.HCS 12:44
PROVIDERS: Visit Provider Nurse Practitioner Family
DX: I47.10 Supraventricular tachycardia, unspecified (principal); I48.0 Paroxysmal atrial fibrillation; I49.5 Sick sinus syndrome; I10 Essential (primary) hypertension
CPT/HCPCS: 93010; 99214; G2211

== ENCOUNTER → 2025-06-25 12:43 | Outpatient (BNVA) | payer MEDICARE, SELFPAY | PROVIDERS: Visit Provider Nurse Practitioner Family | DX: I48.0 Paroxysmal atrial fibrillation (principal); I49.5 Sick sinus syndrome; R00.1 Bradycardia, unspecified; I10 Essential (primary) hypertension; I47.10 Supraventricular tachycardia, unspecified; Z79.01 Long term (current) use of anticoagulants | CPT/HCPCS: 93005; 99212 ==

== ENCOUNTER 2025-07-24 06:34 | Emergency (ER) | payer MEDICARE, SELFPAY ==
--- NOTE | 2025-07-24 | ECG_ITS ---
Test Reason : NECK PAIN Blood Pressure : */* mmHG Vent. Rate : 49 BPM Atrial Rate : 49 BPM P-R Int : 156 ms QRS Dur : 86 ms QT Int : 468 ms P-R-T Axes : 75 13 63 degrees QTcB Int : 422 ms Sinus bradycardia with sinus arrhythmia Nonspecific T wave abnormality Abnormal ECG When compared with ECG of 24-Jul-2023 14:16, Premature atrial complexes are no longer Present Nonspecific T wave abnormality now evident in Lateral leads Referred By: Generic ED Physician Electronically Signed By: John Sanchez
--- NOTE | ~2025-07-24 | CT_ITS ---
CLINICAL HISTORY: neck pain, decreased ROM CT head without contrast CT angiography head and neck with contrast. 3D Postprocessing. COMPARISON: None provided. FINDINGS: HEAD CT: No intra-axial mass, midline shift, hydrocephalus, or acute hemorrhage. Mild global cerebral volume loss. There is no sinus or mastoid fluid. The orbits are within normal limits. There is no acute fracture. HEAD AND NECK CTA: Aortic arch and cervical great vessels are patent. Small amount of calcified plaque present at the carotid bulb on the right causing less than 10 percent stenosis. Intracranial arteries are patent. Small amount of calcified plaque present along the intracranial left vertebral artery without significant stenosis. No aneurysm, dissection, hemodynamically significant stenoses, or occlusion. No abnormal intracranial enhancement. The visualized thyroid gland is unremarkable. No cervical mass or fluid collection. Visualized lung apices are clear. Advanced mid to lower cervical spondylosis with prominent marginal osteophytes bridging the C4 through C6 vertebral bodies and multilevel [id number] neural foraminal narrowing. No acute fracture. IMPRESSION: 1. No acute intracranial findings. 2. Patent head and neck CTA. 3. Advanced mid to lower cervical spondylosis. This document has been electronically signed by: Mukund Laureano MD on 07/24/2025 12:30:10
[2025-07-24 06:37] VITALS: BP 175/74; PULSE 50; RESP 36; TEMP 36.3; O2SAT 99; BMI 25.0
--- OUTSIDE RECORDS SUMMARY | 2025-07-24 07:04 | XMS_ITS | Clinical Summary ---
Author Organization [employer] Address [address] [facility] 7t [place] [address] Care Team Providers Care Radar Systems Engineer Name Role Phone Chidi Hsu MD [...] g 2 02/24/20 24 Active Continuous Glucose Store Sales Manager (FreeStyle Gulshan 3 [place]) deviceIndications: Type 2 diabetes mellitus without complication, [...] BY MOUTH EVERY EVENING 30 tablet 6 06/25/2025 3:13 PM EST 11/05/19 25 Active metFORMIN (Glucophage) 500 MG [...] dizziness. 30 tablet 3 02/16/20 25 Active rivaroxaban (Xarelto) 20 MG tabletIndications: Longstanding persistent atrial fibrillation (CMS/HCC) (HCC) Take 1 tablet (20 mg) by mouth with evening meal. Take with food. 30 tablet 3 06/25/2025 3:13 PM EST 06/24/20 25 Active Active Problems Problem Noted Date Diagnosed [...] the surgery. Wanted to go back to [facility], he had a steroid injection with no good result. He was then referred to a Neurosurgeon at [facility]. We contacted them and we were told they have yet to received anything from [facility]. We also contacted [facility] and we were told they were going to resend the referral and applicable information and notify us after that. I explained to patient that this is also a Neurosurgeon and that the main reason to go see him would be if he is interested in having a surgical intervention. Patient verbalized understanding. Pt under the care of Dr Mosquera at [facility] ( Spine surgeon ) He is now [...] the surgery. Wanted to go back to [facility], he had a steroid injection with no good result. He was then referred to a Neurosurgeon at [facility]. We contacted them and we were told they have yet to received anything from [facility]. We also contacted [facility] and we were told they were going to resend the referral and applicable information and notify us after that. I explained to patient that this is also a Neurosurgeon and that the main reason to go see him would be if he is interested in having a surgical intervention. Patient verbalized understanding. Pt under the care of Dr Mosquera at [facility] ( Spine surgeon ) He is now [...] the surgery. Wanted to go back to [facility], he had a steroid injection with no good result. He was then referred to a Neurosurgeon at [facility]. We contacted them and we were told they have yet to received anything from [facility]. We also contacted [facility] and we were told they were going to resend the referral and applicable information and notify us after that. I explained to patient that this is also a Neurosurgeon and that the main reason to go see him would be if he is interested in having a surgical intervention. Patient verbalized understanding. Pt under the care of Dr Mosquera at [facility] ( Spine surgeon ) He is now [...] the surgery. Wanted to go back to [facility], he had a steroid injection with no good result. He was then referred to a Neurosurgeon at [facility]. We contacted them and we were told they have yet to received anything from [facility]. We also contacted [facility] and we were told they were going to resend the referral and applicable information and notify us after that. I explained to patient that this is also a Neurosurgeon and that the main reason to go see him would be if he is interested in having a surgical intervention. Patient verbalized understanding. Pt under the care of Dr Mosquera at [facility] ( Spine surgeon ) He is now [...] the surgery. Wanted to go back to [facility], he had a steroid injection with no good result. Today he showed me that he was referred to a Neurosurgeon at [facility]. He does not feel he can continue with PT. We contacted them and we were told they have yet to received anything from [facility]. We also contacted [facility] and we were told they were going to resend the referral and applicable information and notify us after that. I explained to patient that this is also a Neurosurgeon and that the main reason to go see him would be if he is interested in having a surgical intervention. Patient verbalized understanding. Pt under the care of Dr Mosquera at [facility] ( Spine surgeon ) who described him [...] the surgery. Wanted to go back to [facility], he had a steroid injection with no good result. Today he showed me that he was referred to a Neurosurgeon at [facility]. He does not feel he can continue with PT. We contacted them and we were told they have yet to received anything from [facility]. We also contacted [facility] and we were told they were going [...] decided to go see Dr Mosquera at [facility] ( Spine surgeon ) who described him [...] the surgery. Wanted to go back to [facility], he had a steroid injection with no good result. Today he showed me that he was referred to a Neurosurgeon at [facility]. He does not feel he can continue with PT. We contacted them and we were told they have yet to received anything from [facility]. We also contacted [facility] and we were told they were going [...] the surgery. Wanted to go back to [facility], he was recently seen had a steroid injection with no good results, apparently he was referred elsewhere records requested Pt would like to try PT [facility] health care 10/23/2022 Assessment & Plan (03/02/2025 [...] MRI reviewed via telemedicibe by: Neurosurgeon at [facility] [place]/23/2025 who recommended repeat imaging in 1 [...] Oliver 03/16/2024 and subsequently by Neurosurgeon at [facility] 05/21/2024 who recommended repeat imaging in January [...] Oliver 03/16/2024 and subsequently by Neurosurgeon at [facility] 05/21/2024 who recommended repeat imaging in January [...] LDL-C. Zachary SS et al. MISHA. 2013;310(19): 0501-4658 (http://education.[employer]/faq/WKQ596) Chol/HDLC Ratio <5.0 (calc) 2.1 2.4 2.2 [...] LDL-C. Zachary SS et al. MISHA. 2013;310(19): 1625-5863 (http://education.[employer].TrunqShow/faq/QXY713) Chol/HDLC Ratio <5.0 (calc) 2.1 2.4 2.2 [...] EDT): Under the care of Cardiology Dr. Bomwan He is on Pradaxa 150mg po BID [...] was: 0.4 Pt is not on an MELSISA inhibitor because (Lisinopril gave him a cough). [...] Encounters Date Type Department Care Team Description 06/25/2025 Telephone [facility] [place] [address] Rand Erickson, RN Blood Thinner Medication 06/24/2025 Orders Only [facility] [place] [address] Chidi Hsu MD Longstanding persistent atrial fibrillation (CMS/HCC) (HCC) (Primary Dx) 06/24/2025 Telephone [facility] [place] [address] Chidi Hsu MD Prior Authorization 06/22/2025 Orders Only [facility] [place] [address] Chidi Hsu MD Longstanding persistent atrial fibrillation (CMS/HCC) (HCC) (Primary Dx) 06/15/2025 Orders Only GENERIC EXTERNAL DATA DEPARTMENT Provider, Generic External Data 06/08/2025 Orders Only [facility] [place] [address] Chidi Hsu MD Longstanding persistent atrial fibrillation (CMS/HCC) (HCC) (Primary Dx) 06/07/2025 Telephone [facility] [place] [address] Chidi Hsu MD Prior Authorization; Medication Question 05/31/2025 Telephone [place] [place] [address] Chidi Hsu MD July05/11/2025 Patient Outreach [place] [place] [address] Chidi Hsu MD Medicare Annual Wellness Visit Initial (AWV unscheduled) 04/27/2025 11:00 AM EDT Office Visit [facility] [place] [address] Chidi Hsu MD Type 2 diabetes mellitus without complication, without long-term current use of insulin (CMS/[facility]) (Primary Dx); Primary hypertension; Callus of toe; Acute pain of left knee; Left foot pain; Lumbar radiculopathy; Encounter for immunization 04/27/2025 Travel 04/26/2025 Telephone [facility] [address] [place] [phone] Chidi Hsu MD CHART PREP from Last 3 Months Immunizations Immunization Administration [...] your housing situation today? I have edwige peter 10/27/[address] you li [...] Description 08/12/2025 10:30 AM EST Office Visit [facility] [address] [place] [address] Chidi Hsu MD [address] [place] [address] Health Maintenance Due Date Last Done Comments [...] Vaccine (3 - season) 2025 10/13/2020, 09/15/2020 Diabetes: Hemoglobin [...] Care Plan Weekly blood pressure task No Rand Erickson RN Weekly blood pressure task Care Plan Weekly blood pressure task No Rand Erickson RN Patient has chronic kidney disease Care Plan Patient has chronic kidney disease No Rand Erickson RN Patient has chronic kidney disease Care Plan Patient has chronic kidney disease No Rand Erickson RN Procedures Procedure Name Priority Date/Time Associated Diagnosis [...] complication, without long-term current use of insulin ([facility]) ALBUMIN, RANDOM URINE W/CREATININE Routine 10/23/2024 8:17 AM EDT Type 2 diabetes mellitus without complication, without long-term current use of insulin ([facility]) LIPID PANEL, STANDARD Routine 10/23/2024 8:17 AM EDT Mixed hyperlipidemia from Last 3 Months or Most Recently Relevant to Health Maintenance Results * XR Chest 2 Views (06/15/2025 2:23 PM EST) Anatomical Region Laterality Modality Chest Radiographic Zuly ging 06/15/2025 2:23 PM EST Narrative 06/15/2025 2:39 PM EST [facility] [place] [address] [place] [address] [place] [address] XRay Report Signed Patient: Bernice Atkins MR#: [id number] 15 : 1945 Acct:[id number] Age/Sex: 80 / M ADM Date: 06/15/25 Loc: HO.HMGCX Attending Dr: Wei Hay PA-C Ordering Physician: WEI HAY Date of Service: 06/15/25 Procedure(s): XR chest 2V Accession Number(s): [id number] cc: Chidi Costa MD; WEI HAY Reason [...] 06/15/25 1437 DD/ 1423 TD/TT: 06/15/25 1426 Game Producer: Procedure Note Donotuseinterpreter, Image - 06/15/2025 [facility] [place] [facility] [place] [address] XRay Report Signed Patient: Bernice AtkinsMR#: [id number] 15 : 5Acct:[id number] Age/Sex: 80 / MADM Date: 06/15/25 Loc: .HMGCX Attending Dr: Wei SUAREZC Ordering Physician: WEI HAY Date of Service: 06/15/25 Procedure(s): XR chest 2V Accession Number(s): [id number] cc: Chidi Costa MD; WEI HAY Reason [...] OV> 06/15/25 1437 DD/ 1423 TD/TT: 06/15/25 142 Game Producer: [facility] External Provider IMG XR PROCEDURES Edited Result - Final * SARS-CoV-2 RNA, Influenza A/B, and RSV RNA, Ql NAAT (06/15/2025 1:19 PM EST) Influenza A PCR NEGATIVE Negative [facility] Influenza B PCR NEGATIVE Negative [facility] Resp Syncy Virus RNA Qual PCR NEGATIVE Negative [facility] SARS COV2 PCR NEGATIVE Negative [facility] Comment:All test results mus t [...] use by authorized laboratories.Testing performed on the [employer] GeneXpert utilizingreal-time RT-PCR.All SARS CoV2 and positive influenza A/B results arereported to [facility]. 06/15/2025 1:19 PM EST 06/15/2025 5:10 PM EST Generic External Data Provider LAB MICROBIOLOGY - GENERAL ORDERABLES Final Result [facility] [address] [place] [phone] * XR Knee 3 Views Left (04/27/2025 12:50 PM EDT) Anatomical Region Laterality Modality Lower Extremities, Knee Left Radiogra phic Imaging 04/27/2025 12:5 0 PM EDT Narrative 04/27/2025 1:09 PM EDT [address] [address] XRay Report Signed Patient: Bernice Atkins MR#: [id number] 15 : 1945 Acct:[id number] Age/Sex: 79 / M ADM Date: 04/27/25 Loc: HO.HHCX Attending Dr: Chidi Costa MD Ordering Physician: Chidi Costa MD Date of Service: 04/27/25 Procedure(s): XR knee LT 3V Accession Number(s): [id number] cc: Chidi Costa MD Reason for Exam: [...] 04/27/25 1307 DD/ 1250 TD/TT: 04/27/25 1259 Game Producer: Procedure Note Donotuseinterpreter, Image - 04/27/[address] [address] XRay Report Signed Patient: Bernice AtkinsMR#: [id number] 15 : 5Acct:[id number] Age/Sex: 79 / MADM Date: 04/27/25 Loc: HO.HHCX Attending Dr: Chidi Costa MD Ordering Physician: Chidi Costa MD Date of Service: 04/27/25 Procedure(s): XR knee LT 3V Accession Number(s): [id number] cc: Chidi Costa MD Reason for Exam: [...] 04/27/25 1307 DD/ 1250 TD/TT: 04/27/25 1259 Game Producer: us Chidi Hamlin MD IMG XR PROCEDURES Fin al Result * XR Foot 3+ Views Left (04/27/2025 12:26 PM EDT) Anatomical Region Laterality Modality Lower Extremities, Foot Left Radiogra phic Imaging 04/27/2025 12:2 6 PM EDT Narrative 04/27/2025 1:35 PM EDT [address] [address] XRay Report Signed Patient: Bernice Atkins MR#: [id number] [birth year] : 1945 Acct:[id number] Age/Sex: 79 / M ADM Date: 04/27/25 Loc: HO.CX Attending Dr: Chidi Costa MD Ordering Physician: Chidi Costa MD Date of Service: 04/27/25 Procedure(s): XR foot LT min 3V Accession Number(s): [id number] cc: Chidi Costa MD Reason for Exam: [...] 04/27/25 1332 DD/ 1226 TD/TT: 04/27/25 1259 Game Producer: Procedure Note Donotuseinterpreter, Image - 04/27/2025 [place] [address] XRay Report Signed Patient: Bernice AtkinsMR#: [id number] 15 : 5Acct:[id number] Age/Sex: 79 / MADM Date: 04/27/25 Loc: .DAMIENX Attending Dr: Chidi Costa MD Ordering Physician: Chidi Costa MD Date of Service: 04/27/25 Procedure(s): XR foot LT min 3V Accession Number(s): [id number] cc: Chidi Costa MD Reason for Exam: [...] 04/27/25 1332 DD/ 1226 TD/TT: 04/27/25 1259 Game Producer: Chidi Hamlin MD IMG XR PROCEDURES Fin al Result * (ABNORMAL) POCT glycosylated hemoglobin (Hgb A1c) (03/02/2025 11:04 AM EDT) Hemoglobin A1C 6.8(A) 4.0 - 5.7 % QC Media Lot # [id number] Lot# Expiration Date ,368,140 Blood Capillary blood specimen / Unknown 03/02/2025 11:04 AM EDT Chidi Hamlin MD POINT OF CARE TEST EN TER/EDIT ORDERABLES Final Result * Albumin, Random Urine W/Creatinine (10/23/2024 8:17 AM EDT) Creatinine, Urine 95.81 mg/dL [facility] Microalbumin Urine <5.0 mg/L H [facility] Microalbum Creatinine Ratio Ur TNP <30 ug/mg cr [facility] Comment:Unable to calculate albumin/creatinine ratio due to lowmicroalbumin or creatinine result. Urine (Urine, Random) 10/23/2024 8:17 AM EDT 10/23/2024 11:18 AM EDT Chidi Hamlin MD LAB URINE ORDERABLES Final Result Performing Organization Address City/[facility]/ZIP Co de Phone Number [facility] [address] [place] [phone] [phone] * Lipid Panel, Standard (10/23/2024 8:17 AM EDT) Triglycerides 52 <150 mg/dL [facility] Comment:Desirable Triglyceri de: less than 150 mg/dLBorderline High Triglyceride 150-199 mg/dLHigh Triglyceride: 200-499 mg/dLVery High Triglyceride: greater than or equal to 5OO mg/dL Cholesterol 144 <200 mg/dL [facility] Comment:Desirable Cholestero l: less than 200 mg/dLBorderline High Cholesterol: 200-239 mg/dLHigh Cholesterol: greater than 239 mg/dL LDL Cholesterol Calculated 69 <100 mg/dL [facility] Comment:Desirable LDL: less than 100 mg/dLNear Optimal/Above Optimal LDL: 110- 129 mg/dLBorderline High LDL: 130-159 mg/dLHigh LDL: 160-189 mg/dLVery High LDL: greater than or equal to 190 mg/dL HDL Cholesterol 65 >40 mg/dL [facility] Comment:Desirable HDL: great er than 40 mg/dL Note: This HDL assay may give artificially low results in patients with liver disease. Blood Venous blood specimen / Unknown 10/23/2024 8:17 AM EDT 10/23/2024 11:07 AM EDT Chidi Hamlin MD LAB BLOOD ORDERABLES Final Result [facility] [address] [place] [address] [phone] from Last 3 Months or Most [...] kidney disease 06/24/2025 Weekly blood pressure task 06/25/2025 Weekly blood pressure task 06/25/2025 Patient has chronic kidney disease 06/25/2025 Patient has chronic kidney disease 06/25/2025 Insurance MEDICARE [facility] MEDEX MEDICARE SUPPLEMENT Care Teams Radar Systems Engineer Relationship Specialty Start Date End Date Chidi Hsu MD [address] [place] [phone] PCP - General Internal Medicine 02/19/23
--- OUTSIDE RECORDS SUMMARY | 2025-07-24 07:04 | XMS_ITS | Encounter Summary ---
Author Organization [employer] Address [address] [facility] 7[address] [place] [address] Care Team Providers Care Highway Patrol Officer Name Role Phone Chidi Hsu MD Primary Care Provide r Encounter Details Date Type Department Care Team (Late st Contact Info) Description 03/07/2023 Orders Only [facility] [address] [place], [place] [phone] Elida Calles LPN Social History Tobacco Use [...] Description 08/12/2025 10:30 AM EST Office Visit [facility] [address] [place], [place] [phone] Chidi Hsu MD [address] [place], [place] [phone] documented as of this encounter Visit Diagnoses Not on filedocumented in this encounter Additional Health Concerns Assessment Noted Time PHQ-9 Depression Total Score: 13 022 1:00 PM EST documented as of this encounter Care Teams Highway Patrol Officer Relationship Specialty Start Date End Date Chidi Hsu MD [address] [place] [phone] PCP - General Internal Medicine 02/19/23 documented as of this encounter
--- OUTSIDE RECORDS SUMMARY | 2025-07-24 07:04 | XMS_ITS | Encounter Summary ---
Author Organization [employer] Address [address] [facility] 7t [place] [address] Care Team Providers Care Social Worker Aide Name Role Phone Chidi Hsu MD Primary Care Provide r Chidi Hsu MD Primary Care Provide r Encounter Details Date Type Department Care Team (Late st Contact Info) Description 08/08/2022 Orders Only [facility] [address] [place] [address] Monserrat Buck LPN Social History Tobacco Use [...] Description 08/12/2025 10:30 AM EST Office Visit [facility] [address] [place], [place] [phone] Chidi Hsu MD [address] [place], [place] [phone] documented as of this encounter Visit Diagnoses Not on filedocumented in this encounter Additional Health Concerns Assessment Noted Time PHQ-9 Depression Total Score: 13 07/19/ 022 1:00 PM EST documented as of this encounter Care Teams Social Worker Aide Relationship Specialty Start Date End Date Chidi Hsu MD [address] [place] [address] PCP - General Internal Medicine 04/19/14 02/18/23 Chidi Hsu MD [address] [place] [address] PCP - General Internal Medicine 02/19/23 documented as of this encounter
--- OUTSIDE RECORDS SUMMARY | 2025-07-24 07:04 | XMS_ITS | Encounter Summary ---
Author Organization [employer] Address [address] [facility] 7 [place] [address] Care Team Providers Care Manifest/Order Organizer Print Orders Name Role Phone Chidi Hsu MD Primary Care Provide r Reason for Visit * Reason Onset Date Comments FYI 04/07/2025 Encounter Details Date Type Department Care Team ([facility] st Contact Info) Description 04/07/2025 Telephone [facility] [address] [place], [place] [phone] Chidi Hsu MD [address] [place] [address] FYI Social History Tobacco Use Types Packs/Day [...] to thank pcp for referring him to [facility] stating that it was a great experience and his foot is feeling 100% better than before. Director Inbound Sales agreed to send message as TYRESE. documented in this encounter Plan of Treatment Upcoming Encounters Date Type Department Care Team (Late st Contact Info) Description 08/12/2025 10:30 AM EST Office Visit [facility] [address] [place] [address] Chidi Hsu MD [address] [place] [phone] documented as of this encounter Visit Diagnoses Not on filedocumented in this encounter Additional Health Concerns Assessment Noted Time PHQ-9 Depression Total Score: 2 10/28/19 9:20 AM EDT documented as of this encounter Care Teams Manifest/Order Organizer Print Orders Relationship Specialty Start Date End Date Chidi Hsu MD [address] [place] [address] PCP - General Internal Medicine 02/19/23 documented as of this encounter
--- OUTSIDE RECORDS SUMMARY | 2025-07-24 07:04 | XMS_ITS | Clinical Summary ---
Author Organization [facility] Address [address] [place] [phone] Phone Care Team Providers Care Materials Recycler Name Role Phone Pcp, Unknown Primary Care [...] file Insurance MEDICARE PART A & B [employer] MEDEX SUPPLEMENT MEDICARE PART A & B [employer] MED[employer] SUPPLEMENT MEDICARE PART A & B [facility] MEDEX SUPPLEMENT MEDICARE PART A & B [employer] MEDEX SUPPLEMENT MEDICARE PART A & B [employer] MEDEX SUPPLEMENT MEDICARE PART A & B [employer] MEDEX SUPPLEMENT Care Teams Materials Recycler Relationship Specialty Start Date End Date Pcp, Unknown PCP - General 03/18/24 Additional Source Comments The information contained in this document represents components of the legal health record. It is not the complete legal health record.[facility]
--- OUTSIDE RECORDS SUMMARY | 2025-07-24 07:04 | XMS_ITS | Encounter Summary ---
Author Organization [employer] Address [address] [facility] 7t [place] [address] Care Team Providers Care Manager Policy Name Role Phone Chidi Hsu MD Primary Care Provide r Chidi Hsu MD Primary Care Provide r Encounter Details Date Type Department Care Team (Late st Contact Info) Description 09/10/2022 Orders Only [facility] P[facility] [address] [place] [address] Monserrat Buck LPN Social History Tobacco Use [...] Description 08/12/2025 10:30 AM EST Office Visit [facility] [address] [place], [place] [phone] Chidi sHu MD [address] [place], [place] [phone] documented as of this encounter Visit Diagnoses Not on filedocumented in this encounter Additional Health Concerns Assessment Noted Time PHQ-9 Depression Total Score: 13 07/19/ 022 1:00 PM EST documented as of this encounter Care Teams Manager Policy Relationship Specialty Start Date End Date Chidi Hsu MD [address] [place] [phone] PCP - General Internal Medicine 04/19/14 02/18/23 Chidi Hsu MD [address] [place] [address] PCP - General Internal Medicine 02/19/23 documented as of this encounter
--- OUTSIDE RECORDS SUMMARY | 2025-07-24 07:04 | XMS_ITS | Encounter Summary ---
Author Organization [employer] Address [address] [facility] [address] [place] [address] Care Team Providers Care Physiology Teacher Name Role Phone Chidi Hsu MD Primary Care Provide r Chidi Hsu MD Primary Care Provide r Encounter Details Date Type Department Care Team (Latest Contact Info) Description 07/21/2021 Abstract [facility] Dental, Provider, DDS Social History [...] Description 08/12/2025 10:30 AM EST Office Visit [facility] [address] [place] [address] Chidi Hsu MD [address] [place] [address] documented as of this encounter Visit Diagnoses Not on filedocumented in this encounter Care Teams Physiology Teacher Relationship Specialty Start Date End Date Chidi Hsu MD [address] [place] [address] PCP - General Internal Medicine 04/19/14 02/18/23 Chidi Hsu MD [address] [place] [address] PCP - General Internal Medicine 02/19/23 documented as of this encounter
--- OUTSIDE RECORDS SUMMARY | 2025-07-24 07:04 | XMS_ITS | Encounter Summary ---
Author Organization [employer] Address [address] [facility] 7 [place] [address] Care Team Providers Care Wrapper Rewinder Name Role Phone Chidi Hsu MD Primary Care Provide r Reason for Visit * Reason Onset Date Comments Call Back Request 10/27/2024 Encounter Details Date Type Department Care Team ([facility] st Contact Info) Description 10/27/2024 Telephone [facility] [address] [place], [place] [phone] Chidi Hsu MD [address] [place], [place] [phone] Call Back Request Social History Tobacco Use [...] chance reached out please return call to [phone] documented in this encounter Plan of Treatment Upcoming Encounters Date Type Department Care Team (Late st Contact Info) Description 08/12/2025 10:30 AM EST Office Visit [facility] [address] [place] [address] Chidi Hsu MD [address] [place] [address] documented as of this encounter Visit Diagnoses Not on filedocumented in this encounter Additional Health Concerns Assessment Noted Time PHQ-9 Depression Total Score: 2 10/28/19 9:20 AM EDT documented as of this encounter Care Teams Wrapper Rewinder Relationship Specialty Start Date End Date Chidi Hsu MD [address] [place] [id number] PCP - General Internal Medicine 02/19/23 documented as of this encounter
--- OUTSIDE RECORDS SUMMARY | 2025-07-24 07:04 | XMS_ITS | Encounter Summary ---
Author Organization [employer] Address [address] [facility] 7t [place] [address] Care Team Providers Care Combo Welder Name Role Phone Chidi Hsu MD Primary Care Provide r Chidi Hsu MD Primary Care Provide r Encounter Details Date Type Department Care Team ([facility] Contact Info) Description 11/08/2022 Orders Only [facility] [address] [place] [address] Monserrat Buck LPN Social History Tobacco Use [...] Upcoming Encounters Date Type Department Care Team ([facility] Contact Info) Description 08/12/2025 10:30 AM EST Office Visit [facility] [address] [place] [address] Chidi Hsu MD [address] [place] [address] documented as of this encounter Visit Diagnoses Not on filedocumented in this encounter Additional Health Concerns Assessment Noted Time PHQ-9 Depression Total Score: 13 07/19/ 022 1:00 PM EST documented as of this encounter Care Teams Combo Welder Relationship Specialty Start Date End Date Chidi Hsu MD [address] [place] [id number] PCP - General Internal Medicine 04/19/14 02/18/23 Chidi Hsu MD [address] [place] [id number] PCP - General Internal Medicine 02/19/23 documented as of this encounter
--- OUTSIDE RECORDS SUMMARY | 2025-07-24 07:04 | XMS_ITS | Encounter Summary ---
Author Organization [employer] Address [address] [facility] 7t [place] [address] Care Team Providers Care Instructional Technologist Name Role Phone Chidi Hsu MD Primary Care Provide r Reason for Visit * Reason Onset Date Comments Nurse Triage 09/25/2023 Encounter Details Date Type Department Care Team ([facility] st Contact Info) Description 09/25/2023 Telephone [facility] [address] [place], [place] [phone] Chidi Hsu MD [address] [place] [address] Nurse Triage Social History Tobacco Use Types [...] month. Pt is advised to come to [facility] for provider to see Ptand assess [...] Description 08/12/2025 10:30 AM EST Office Visit [facility] [address] [place] [address] Chidi Hsu MD [address] [place] [address] documented as of this encounter Visit Diagnoses Not on filedocumented in this encounter Additional Health Concerns Assessment Noted Time PHQ-9 Depression Total Score: 13 07/19/ 022 1:00 PM EST documented as of this encounter Care Teams Instructional Technologist Relationship Specialty Start Date End Date Chidi Hsu MD [address] [place] [address] PCP - General Internal Medicine 02/19/23 documented as of this encounter
[2025-07-24 07:40] LABS: MANUAL DIFF FLAG NO
[2025-07-24 07:41] LABS: Hematocrit 35.5 % (42.0-52.0); Hemoglobin 11.6 g/dl (14.0-18.0); Imm Gran Abs Auto 0.02 X10*3/uL (0.00-0.03); Imm Gran Pct Auto 0.4 % (0.0-0.4); Lymphocytes Absolute Auto 0.8 X10*3/uL (1.2-4.9); Mean Corpuscular HGB Conc 32.7 g/dl (31.0-36.0); Mean Corpuscular Hemoglobin 28.1 pg (27.0-33.0); Mean Corpuscular Volume 86.0 fL (80.0-98.0); NRBC Abs Auto 0.000 X10*3/uL (0.0-0.012); NRBC Pct Auto 0.0 /100WBC (0.0-0.2); Platelet Count 164 X10*3/uL (160-400); Red Blood Count 4.13 X10*6/uL (4.60-5.80); White Blood Count 5.6 X10*3/uL (4.8-10.8)
[2025-07-24 07:45] LABS: Venous Blood Gas Refer to POC result
[2025-07-24 07:46] LABS: VBG HCO3 29 mmol/L (22-26); VBG O2 % Saturation 67.0 %
[2025-07-24 08:04] LABS: COVID-19 Test Negative (Negative)
[2025-07-24 08:05] LABS: IDNOW Serial# 58CA691E; Influenza B2 Negative (Negative)
[2025-07-24 08:20] LABS: Alanine Aminotransferase 26 U/L (0-40); Albumin Level 3.8 g/dL (3.5-5.0); Alkaline Phosphatase 59 U/L (39-117); Anion Gap 14 (12-20); Aspartate Amino Transferase 31 U/L (5-37); Blood Urea Nitrogen 25 mg/dL (9-16); Calcium 9.2 mg/dL (8.4-10.2); Carbon Dioxide 24 mmol/L (22-29); Chloride 108 mmol/L (96-108); Creatinine Clr Calc Pharmacy 39.9; Estimated Glomerular Filt Rate 52; Potassium 4.0 mmol/L (3.3-5.1); Sodium 142 mmol/L (135-145); Total Protein 6.7 g/dL (6.5-8.0)
[2025-07-24 08:22] LABS: Troponin-I High Sensitivity 4.0 ng/L (<3.5-35.0)
--- NOTE | 2025-07-24 08:41 | ED.GENADULT ---
HPI - General Adult General Chief complaint: Neck Pain/Injury Stated complaint: neck pain Time Seen by Provider: 07/24/25 08:02 Source: patient, RN notes reviewed and old records reviewed Mode of arrival: ambulatory Limitations: no limitations History of Present Illness ED Provider: Barbi HPI narrative: Patient is an 80-year-old male with history of HTN, PAF on amiodarone and pradaxa, GERD, DM, SSS, BPH, pituitary adenoma presenting to the ED with complaint of gradually worsening neck pain since yesterday. States pain became more severe last night. Did not take any OTC medications for the pain at home. Denies headache, dizziness or lightheadedness, blurred vision, double vision or other visual changes. Denies fevers. He also reports swelling to his right foot and ankle. Denies fall or other trauma. MD complaint: neck pain Onset (ago): day(s) Related Data Home Medications ?Medication ?Instructions ?Recorded ?Confirmed atorvastatin 20 mg tablet 20 mg PO DAILY 05/18/20 06/25/25 metformin 500 mg tablet 500 mg PO BID 05/18/20 06/25/25 alcohol swabs 1 pad topical TID 01/31/21 06/25/25 blood sugar diagnostic #10 ea 01/31/21 06/25/25 blood pressure test kit-large #1 ea 03/23/21 06/25/25 losartan 25 mg tablet 25 mg PO DAILY 03/23/21 06/25/25 chlorthalidone 25 mg tablet 25 mg PO DAILY 06/20/21 06/25/25 acetaminophen 500 mg tablet 500 mg PO Q6H PRN Pain 07/24/23 06/25/25 dabigatran etexilate 150 mg 150 mg PO 03/26/25 06/25/25 capsule (Pradaxa) meclizine 25 mg tablet 25 mg PO BID PRN 03/26/25 06/25/25 terazosin 5 mg capsule 5 mg PO BEDTIME 06/15/25 06/25/25 Previous Rx's ?Medication ?Instructions ?Recorded albuterol sulfate 90 mcg/actuation 2 puff inhalation Q6H PRN 06/15/25 aerosol inhaler shortness of breath or wheezing or cough #8.5 grams benzonatate 200 mg capsule 200 mg PO BEDTIME PRN cough #10 06/15/25 caps prednisone 20 mg tablet 40 mg (2 x 20 mg) PO DAILY 5 days 06/15/25 #10 tabs amiodarone 200 mg tablet 200 mg PO DAILY 30 days #30 tabs 06/25/25 cyclobenzaprine 10 mg tablet 10 mg PO TID PRN muscle spasm #10 07/24/25 tabs lidocaine 5 % topical patch 1 patch topical DAILY #15 ea 07/24/25 Allergies Allergy/AdvReac Type Severity Reaction Status Date / Time No Known Allergies Allergy Mild NONE Verified 07/24/25 06:38 Review of Systems Review of Systems: Yes all other systems are reviewed and are negative Constitutional: Constitutional: Reports as per HPI [facility] Past Medical History Medical History Lumbar stenosis with neurogenic claudication Left lumbar radiculopathy Pituitary adenoma Hiatal hernia History of transesophageal echocardiography (JANNA) Pre-operative cardiovascular examination Erectile dysfunction BPH with obstruction/lower urinary tract symptoms Dizziness PAF (paroxysmal atrial fibrillation) SSS (sick sinus syndrome) Diabetes mellitus GERD (gastroesophageal reflux disease) HTN (hypertension) Surgical History Hx of decompressive lumbar laminectomy Hx of esophagogastroduodenoscopy History of cardioversion (~2012) Hx of colonoscopy Hx of umbilical hernia repair Hx of inguinal hernia surgery Family History Family History Father Alzheimer disease Mother No problems noted. Brother Diabetes Social History Social History Are you a primary chiropractic care to a significant other at home: No Do you presently have visiting nurse or other home services: No Comment: aware of trip hazard Patient Tobacco Use Status: Never used Tobacco Advance Directives Date on File: 09/11/19 Physical Exam ED Vital Signs: Vital Signs - 24 hr 07/24/25 06:37 07/24/25 11:53 07/24/25 13:53 Temperature 97.3 F 98 F Pulse Rate 50 52 52 Respiratory Rate 36 H 14 14 Blood Pressure 175/74 H 133/63 133/63 Pulse Oximetry 99 95 95 Oxygen Delivery Method Room Air Room Air Room Air BMI result Body Mass Index 25.0 Vital signs have been reviewed and appear to be correct. Blood pressure elevated. Heart rate normal. Respiratory rate normal. Temperature normal. Oxygen saturation normal. Const General: cooperative, healthy appearing and no acute distress Orientation/consciousness: oriented to person, oriented to place, oriented to time and patient oriented x3 Limitations: no limitations HENIN Head: Yes normocephalic and Yes atraumatic Ears: external ears normal General nose exam: Normal external nose present Face and sinus: Yes face symmetric Mouth: oropharynx normal and moist mucous membranes Throat: Yes uvula midline Eyes Pupils: Equal, round and reactive pupils present Neck Neck: Yes normal visual inspection, Yes full ROM, Yes no lymphadenopathy, Yes no meningeal signs, Yes trachea midline, Yes supple and No anterior neck swelling Resp Effort & Inspection: normal respiratory effort and able to speak in complete sentences Auscultation: clear to auscultation bilaterally Cardio Rate: regular rate Rhythm: regular rhythm Heart sounds: S1 normal heart sound present and S2 normal heart sound present GI Palpation (GI): Soft to palpation and nontender Auscultation: normoactive bowel sounds General: Yes no CVA tenderness Back/Spine/Pelvis Back: no CVA tenderness Cervical Spine: cervical muscular tenderness Skin General skin exam: elasticity normal and turgor normal Neuro General: oriented to person, oriented to place, oriented to time, patient oriented x3, moves all extremities, no meningeal signs, no focal motor deficits and CN's II-XI intact bilaterally Cranial nerves: Yes Equal, round and reactive pupils present Cognition (Neuro): normal cognition Extrem General: Yes full ROM, Yes no pedal edema and Yes no calf tenderness Psych Mental Status: mental status grossly normal Affect: normal affect Thought process: Normal thought process present Course Reevaluation(s) Reevaluation #1: 5:12 PM 07/24/2025 (Michoacano Silvestre MD): I saw this patient with the nurse practitioner. The patient is here for significant neck pain which she describes as worse both with turning his head from [id number] or trying to lean his head forward or backward. The patient has a history of a tachy dysrhythmia and is on amiodarone and rivaroxaban. There has been no trauma associated with this. No fever. No difficulty swallowing. No voice change. Clinically the patient seems to have a stiff neck but does not appear otherwise ill or toxic. A CT angiogram of the head and neck has been done prior to my evaluation. This was unremarkable and showed no explanation for the patient's symptoms. The patient's CBC is unremarkable. The patient's metabolic panel shows some chronic renal insufficiency that is otherwise not terribly remarkable. The patient's vital signs are unremarkable. Overall my impression is that I think that this is some kind of a muscular neck pain of the nature of a torticollis like syndrome. I think the patient may be discharged with the pain medications and follow up with his PCP. Time: 17:15 Medications Administered Discontinued Medications Generic Name Dose Route Start Last Admin Trade Name Walter PRN Reason Stop Dose Admin Diazepam 2 mg 07/24/25 08:47 07/24/25 09:34 Diazepam 2 Mg Tablet PO 07/24/25 08:48 2 mg ONCE ONE Administration Iohexol 100 ml 07/24/25 10:23 07/24/25 10:23 Iohexol 350 Mg/Ml 100 Ml Infus..Btl IV 07/24/25 10:24 70 ml ONCE ONE Administration Oxycodone HCl 5 mg 07/24/25 08:48 07/24/25 09:33 Oxycodone Hcl Immed Release 5 Mg Tablet PO 07/24/25 08:49 5 mg ONCE ONE Administration Medical Decision Making Medical Decision Making MDM Narrative: Patient is an 80-year-old male with history of HTN, PAF on amiodarone and pradaxa, GERD, DM, SSS, BPH, pituitary adenoma presenting to the ED with complaint of worsening neck pain since yesterday. On exam patient is awake, A+Ox3, VS WNL, afebrile, normal neurological exam without focal deficits, physical exam findings as above. Given reported symptoms and physical exam findings, initial differential includes but is not limited to Cervical artery dissection, metastatic disease, cervical radiculopathy, cervical strain, degenerative cervical spondylosis, vertebral compression fracture or subluxation. Labs grossly within normal limits. CTA head and neck notable for no evidence of cervical artery dissection. My interpretation is in agreement with the radiologist's interpretation. Case discussed with attending, Dr. Silvestre, who agrees patient is stable for discharge home, will treat for cervical strain. Would prefer to treat with robaxin, however, this is not covered by patient's insurance, so will treat with flexeril. Return precautions discussed. Follow up with PCP as needed. Patient verbalized understanding of and agreement with plan. Differential Diagnosis Differential Diagnoses: The differential diagnosis associated with the presentation includes as per [facility] Admission/Observation Consideration of admission/observation: Escalation of care including admission/observation considered Patient would have been admitted to the hospital and transferred to appropriate facility had their clinical presentation warranted hospital admission. Lab Data [facility] Lab Attestation statement: I reviewed the patient's lab results. as per [facility] 07/24/25 07:34 07/24/25 07:34 Labs: Lab Results 07/24/25 07/24/25 Range/Units 07:34 07:40 WBC 5.6 (4.8-10.8) X10*3/uL RBC 4.13 L (4.60-5.80) X10*6/uL Hgb 11.6 L (14.0-18.0) g/dl Hct 35.5 L (42.0-52.0) % MCV 86.0 (80.0-98.0) fL MCH 28.1 (27.0-33.0) pg MCHC 32.7 (31.0-36.0) g/dl RDW 14.6 (11.0-16.0) % Plt Count 164 (160-400) X10*3/uL MPV 9.9 (9.4-12.4) fL Immature Gran % (Auto) 0.4 (0.0-0.4) % Neut % (Auto) 69.8 (45-73) % Lymph % (Auto) 14.4 L (20-40) % [place] % (Auto) 13.7 H (2-11) % Eos % (Auto) 1.2 (0-4) % Baso % (Auto) 0.5 (0-2) % Lymph # (Auto) 0.8 L (1.2-4.9) X10*3/uL [place] # (Auto) 0.8 (0.1-1.2) X10*3/uL Eos # (Auto) 0.1 (0.0-0.4) X10*3/uL Baso # (Auto) 0.0 (0.0-0.2) X10*3/uL Abs Immat Gran (auto) 0.02 (0.00-0.03) X10*3/uL Absolute Neuts (auto) 3.9 (2.0-8.3) x10*3/uL Absolute Nucleated RBC 0.000 (0.0-0.012) X10*3/uL Nucleated RBC % (auto) 0.0 (0.0-0.2) /100WBC VBG pH 7.48 H (7.32-7.43) VBG pCO2 39 mmHg VBG pO2 41 mmHg VBG HCO3 29 H (22-26) mmol/L VBG O2 Saturation 67.0 % VBG Base Excess 6.1 mmol/L Sodium 142 (135-145) mmol/L Potassium 4.0 (3.3-5.1) mmol/L Chloride 108 (96-108) mmol/L Carbon Dioxide 24 (22-29) mmol/L Anion Gap 14 (12-20) BUN 25 H (9-16) mg/dL Creatinine 1.33 (0.5-1.4) mg/dL Estim Creat Clear Calc 39.9 Estimated GFR 52 Random Glucose 111 (60-115) mg/dL Calcium 9.2 (8.4-10.2) mg/dL Total Bilirubin 0.2 (0.0-1.0) mg/dL AST 31 (5-37) U/L ALT 26 (0-40) U/L Alkaline Phosphatase 59 (39-117) U/L Troponin I High Sens 4.0 (<3.5-35.0) ng/L Total Protein 6.7 (6.5-8.0) g/dL Albumin 3.8 (3.5-5.0) g/dL COVID-19 (WOLF) Negative (Negative) COVID-19 Clin Com See Note Influenza Type A (ABEL) Negative (Negative) Influenza Type B (ABEL) Negative (Negative) Influenza A & B Note See Note Independent Interpretation I performed an independent interpretation of an: CT Scan Interpretation: CTA head and neck notable for no evidence of cervical artery dissection. Radiology Impression Discussion of test interpretation with radiology: I have reviewed the radiologist's reading. Radiologist Impression: HEAD AND NECK CTA: Aortic arch and cervical great vessels are patent. Small amount of calcified plaque present at the carotid bulb on the right causing less than 10 percent stenosis. Intracranial arteries are patent. Small amount of calcified plaque present along the intracranial left vertebral artery without significant stenosis. No aneurysm, dissection, hemodynamically significant stenoses, or occlusion. No abnormal intracranial enhancement. The visualized thyroid gland is unremarkable. No cervical mass or fluid collection. Visualized lung apices are clear. Advanced mid to lower cervical spondylosis with prominent marginal osteophytes bridging the C4 through C6 vertebral bodies and multilevel [id number] neural foraminal narrowing. No acute fracture. IMPRESSION: 1. No acute intracranial findings. 2. Patent head and neck CTA. 3. Advanced mid to lower cervical spondylosis. External Record Review External record reviewed: Inpatient record, Office record and Outpatient record Prescription Management I considered prescription management with: Other Discharge Plan Discharge Clinical Impression: Strain of neck muscle Patient Disposition: Home, Self-Care Instructions: Cervical Strain (DC) Additional Instructions: You were evaluated in the emergency department with complaint of neck pain. Your imaging did not show any evidence of any concerning findings. Your pain is likely related to a muscle strain. We recommend taking 600mg ibuprofen or 650mg Tylenol. If necessary, you can alternate these medications every three hours. For example, at noon take Tylenol, then at 3:00 take ibuprofen, then at 6:00 take Tylenol, etc. You are also being prescribed a muscle relaxer which you can use up to every 8 hours as needed. You should follow up with your primary care provider as you may require physical therapy to improve your symptoms. Return to the emergency department if you develop worsening neck pain or stiffness, new weakness, numbness, or tingling to your arm, severe headaches, or any other concerning symptoms. Prescriptions: New lidocaine 5 % adhesive patch,medicated 1 patch topical DAILY Qty: 15 0RF Rx Instructions: leave on most painful area for up to 12 hrs cyclobenzaprine 10 mg tablet 10 mg PO TID PRN (Reason: muscle spasm) Qty: 10 0RF No Action acetaminophen 500 mg Tablet 500 mg PO Q6H PRN (Reason: Pain) losartan 25 mg tablet 25 mg PO DAILY (DME) blood pressure test kit-large Kit See Rx Instructions .ROUTE DIRECTED Qty: 1 Rx Instructions: As directed atorvastatin 20 mg tablet 20 mg PO DAILY metformin 500 mg tablet 500 mg PO BID chlorthalidone 25 mg tablet 25 mg PO DAILY alcohol swabs Pads, Medicated 1 pad topical TID (DME) blood sugar diagnostic Strip See Rx Instructions Not Applicable TID Qty: 10 Rx Instructions: As directed terazosin 5 mg capsule 5 mg PO BEDTIME benzonatate 200 mg capsule 200 mg PO BEDTIME PRN (Reason: cough) Qty: 10 0RF prednisone 20 mg tablet 40 mg PO DAILY 5 Days Qty: 10 0RF albuterol sulfate 90 mcg/actuation HFA aerosol inhaler 2 puff inhalation Q6H PRN (Reason: shortness of breath or wheezing or cough) Qty: 8.5 0RF meclizine 25 mg tablet 25 mg PO BID PRN dabigatran etexilate [Pradaxa] 150 mg capsule 150 mg PO amiodarone 200 mg tablet 200 mg PO DAILY 30 Days Qty: 30 4RF Interventions: ED Discharge Assessment Last Done: 07/24/25 13:53 Discharge Date/Time: 07/24/25 14:26 Print Language: Cymraes
[2025-07-24] MEDS: oxyCODONE HCl Immed Release 5 MG TABLET PO (09:33)
[2025-07-24] MEDS: iohexoL 350 MG/ML 100 ML INFUS..BTL IV (10:23)
[2025-07-24 11:53] VITALS: BP 133/63; PULSE 52; RESP 14; O2SAT 95
--- NOTE | 2025-07-24 13:29 | PC.NURSE ---
Patient ambulated to bathroom with steady gait with assistance from PCT. Patient resting quietly, call joyner placed within reach. No signs of distress.
[2025-07-24 13:53] VITALS: BP 133/63; PULSE 52; RESP 14; TEMP 36.6; O2SAT 95
== END 2025-07-24 14:26 | disposition home or self-care (01) ==
PROVIDERS: Emergency Provider Emergency Medicine; PCP Internal Medicine
DX: S16.1XXA Strain of muscle, fascia and tendon at neck level, initial encounter (principal); X58.XXXA Exposure to other specified factors, initial encounter; Y93.9 Activity, unspecified; Y92.9 Unspecified place or not applicable; R00.1 Bradycardia, unspecified; M54.2 Cervicalgia; R51.9 Headache, unspecified; R42 Dizziness and giddiness; H53.8 Other visual disturbances; Z03.818 Encounter for observation for suspected exposure to other biological agents ruled out; I10 Essential (primary) hypertension; I48.0 Paroxysmal atrial fibrillation; K21.9 Gastro-esophageal reflux disease without esophagitis; E11.9 Type 2 diabetes mellitus without complications
CPT/HCPCS: 70496; 70498; 80053; 82803; 84484; 85025; 87502; 87635; 93005; 99285; Q9967

== ENCOUNTER → 2025-07-24 07:01 | Outpatient (BNV) | payer MEDICARE, SELFPAY | PROVIDERS: Emergency Provider Emergency Medicine; PCP Internal Medicine; Visit Provider Internal Medicine Cardiovascular Disease | DX: R00.1 Bradycardia, unspecified (principal); I49.8 Other specified cardiac arrhythmias | CPT/HCPCS: 93010 ==

== ENCOUNTER → 2025-07-24 08:46 | Outpatient (BNV) | payer MEDICARE, SELFPAY | PROVIDERS: Emergency Provider Emergency Medicine; PCP Internal Medicine; Visit Provider Radiology Diagnostic Radiology | DX: M54.2 Cervicalgia (principal); I10 Essential (primary) hypertension; M47.812 Spondylosis without myelopathy or radiculopathy, cervical region | CPT/HCPCS: 70496; 70498 ==